=== PATIENT | female | born 1960 | race Two or more races ===

== ENCOUNTER → 2021-09-14 | Outpatient (CLI) | payer SELFPAY ==
[2021-09-09 15:00] VITALS: BP 126/81
[~2021-09-14] MED LIST: ATOR10TA60 PO; CETI10TA16 PO; FENT1PAT17 TD; LEVO125T5 PO; ONDA4TAB7 PO; OXYC1TAB15 PO
== END ==
LOC: LAB 09:39
PROVIDERS: ATTEND Surgery
DX: Z01.812 Encounter for preprocedural laboratory examination (principal); Z20.822 Contact with and (suspected) exposure to COVID-19
CPT/HCPCS: U0003; U0005

== ENCOUNTER → 2021-10-13 | Outpatient (CLI) | payer SELFPAY ==
[2021-10-05 11:00] VITALS: BP 101/66
[~2021-10-13] MED LIST changes: +CEFD300C PO; +DOXY100T PO
[2021-10-13 13:17] LABS: BASO # 0.1 x10^3/uL (0.0-0.2); BASO % 1 % (0-3); EOS # 0.3 x10^3/uL (0.0-0.7); EOS % 3 % (0-3); HEMATOCRIT 33.6 % (36.0-47.0); HEMOGLOBIN 10.9 g/dL (12.0-15.5); LYMPH # 3.4 x10^3/uL (1.0-4.8); LYMPH % 30 % (24-48); MEAN CORPUSCULAR HEMOGLOBIN 31 pg (25-35); MEAN CORPUSCULAR HGB CONC 32 g/dL (31-37); MEAN CORPUSCULAR VOLUME 97 fL (79-100); MONO # 0.8 x10^3/uL (0.0-1.1); MONO % 7 % (0-9); NEUT # 6.6 x10^3/uL (1.8-7.7); NEUT % 59 % (31-73); PLATELET COUNT 375 x10^3/uL (140-400); RED BLOOD COUNT 3.47 x10^6/uL (3.50-5.40); RED CELL DISTRIBUTION WIDTH 20.2 % (11.5-14.5); WHITE BLOOD COUNT 11.2 x10^3/uL (4.0-11.0)
[2021-10-13 13:43] LABS: ALBUMIN/GLOBULIN RATIO 0.5 (1.0-1.7); CALCIUM 8.6 mg/dL (8.5-10.1); CREATININE 0.8 mg/dL (0.6-1.0); GFR 73.4; POTASSIUM 3.4 mmol/L (3.5-5.1); TOTAL BILIRUBIN 1.7 mg/dL (0.2-1.0); TOTAL PROTEIN 8.6 g/dL (6.4-8.2)
[2021-10-13 14:46] LABS: ANISOCYTOSIS MOD; PLT ESTIMATE ADEQUATE (ADEQUATE)
== END ==
LOC: ONCLAB 13:03
PROVIDERS: ATTEND Internal Medicine Hematology & Oncology
DX: C25.0 Malignant neoplasm of head of pancreas (principal)
CPT/HCPCS: 36415; 80053; 85025; 86301

== ENCOUNTER 2021-11-05 06:31 | Day surgery (SDC) | payer SELFPAY ==
[~2021-11-05] VITALS: Ht 152.4 cm; Wt 60.0 kg
[~2021-11-05 06:31] MED LIST changes: +ACETAMINOPHEN 500 MG TABLET PO PRN; +HYDROmorphone 2 MG/ML INJ. IVP PRN; +IV RINGERS,LACTATED 1000ML 1,000 ML IV SCH; +MORPHINE SULFATE 2 MG/ML INJ. IVP PRN; +PROCHLORPERAZINE 10 MG/2 ML VIAL. IVP PRN; +ceFAZolin SODIUM IV Push 1 GM VIAL. IVP PRN; +fentaNYL PF VIAL 100 MCG/2 ML VIAL IVP PRN
[2021-11-05] MEDS ORDERED: DEXAMETHASONE SOD PHOS 4 MG/ML VIAL ONE (06:57)
[2021-11-05] MEDS ORDERED: ONDANSETRON PF 4 MG/2 ML VIAL. ONE (06:57)
[2021-11-05] MEDS ORDERED: PROPOFOL 10 MG/ML (20ML) VIAL. IV ONE ×2 (06:57→08:43)
[2021-11-05] MEDS ORDERED: LIDOCAINE 1% PF 5 ML VIAL. ONE (06:57)
[2021-11-05] MEDS ORDERED: fentaNYL PF VIAL 100 MCG/2 ML VIAL ONE ×2 (06:58→08:37)
[2021-11-05] MEDS ORDERED: ceFAZolin SODIUM IV Push 1 GM VIAL. IVP ONE (07:00)
[2021-11-05] MEDS ORDERED: HEPARIN PF 500 UNIT/5 ML DISP.SYRIN. IVP ONE ×3 (07:03→08:14)
[2021-11-05] MEDS ORDERED: HEPARIN for IV BOLUS 10,000 UNIT/10 ML VIAL. ONE (07:03)
[2021-11-05] MEDS ORDERED: BUPIVACAINE MPF 0.5% 30 ML VIAL. ONE (07:03)
[2021-11-05] MEDS ORDERED: BUPIVACAINE MPF 0.25% 30 ML VIAL. ONE ×3 (07:04→07:21)
[2021-11-05 07:06] VITALS: BP 97/57
[2021-11-05] MEDS ORDERED: BUPIVACAINE MPF 0.25% 30 ML VIAL. IJ ONE ×2 (08:14)
[2021-11-05] MEDS ORDERED: HEPARIN SODIUM 10,000 UNIT/10 ML VIAL. INT CAT ONE (08:14)
[2021-11-05] MEDS ORDERED: SUCCINYLCHOLINE 200 MG/10 ML VIAL. ONE (08:20)
[2021-11-05] MEDS ORDERED: ePHEDrine PF IN SALINE 50 MG/10 ML SYRINGE. IV ONE (08:20)
[2021-11-05] MEDS ORDERED: ROCURONIUM 50 MG/5 ML VIAL. ONE (08:26)
--- NOTE | 2021-11-05 08:45 | PDOC4 ---
Operative Note Operative Note Date: November 05, 2021 at 8:42 AM Preoperative diagnosis: Pancreatic cancer Postoperative diagnosis: Same Procedure: Left subclavian Port-A-Cath placement Surgeon: Corona Specimen: None Dictation: Patient is 61-year-old female recently underwent a Whipple procedure for pancreatic cancer is needing long-term venous access for chemotherapy. Procedure of Port-A-Cath placement was explained to the patient detail risk benefits were also discussed occluding bleeding infection pneumothorax alternatives to this procedure also discussed with the patient he seemed understand and gave both verbal and written consent to have the procedure performed. Patient was taken to the operating room placed in supine position general anesthesia was initiated once patient was sleeping intubated her neck and chest were prepped and draped in usual sterile fashion using ChloraPrep. An area on the left side was marked for the clavicle and sternal notch area in the deltopectoral groove was injected with quarter percent Marcaine plain incision was made 15 blade scalpel is carried down through the subcutaneous tissues electrocautery right hemostasis area was inspected looking for the cephalic vein was not visualized at this point tensions were then turned to using Salinger technique to access the subclavian vein which was done with a initially small needle it was accessed without any difficulties microwire was placed then the dilator was placed over the microwire and a regular Salinger wire was placed under fluoroscopy which showed a transversing to the right side of the chest and into the superior vena cava. Peel-away dilator was then placed over the wire under direct visualization the wire and dilator removed catheter was placed through the peel-away which was then removed this was checked under fluoroscopy which showed the catheter in the superior vena cava. Port was then placed on the back end of the catheter a pocket was propagated in the anterior chest with electrocautery and blunt dissection port was placed in this pocket and sewn into place with interrupted 3-0 Prolene sutures. The port was then accessed there was good blood return was easily flushed with hep saline and then it was hep- locked with 1 cc of 1000 units/cc of heparin. The wound was then closed in 2 layers a deep layer running 3-0 Vicryl and the skin was reapproximated for septic and Monocryl Mastisol Steri-Strips and island dressings were applied. Patient was awakened and extubated in the operating room taken to recovery in stable condition all sponge instrument needle counts listed as correct estimated blood loss 10 mL EDVIN MELENDEZ MD Nov 05, 2021 08:45
[2021-11-05] MEDS ORDERED: OXYC-325 PO (08:47)
--- NOTE | 2021-11-05 08:49 | DISCH ---
DISCHARGE INSTRUCTIONS Condition on Discharge Condition on Discharge: Stable Activity After Discharge Activity Instructions for Disc: Activity as tolerated, Walk in house Diet after Discharge Diet after Discharge: Regular Wound Incision Care Other wound/incision instructi: May shower in 24 hours Contacting the after DC Call your doctor for: If your condition worsens Follow-Up Follow up with: Dr. Melendez in 2 weeks Treatment/Equipment after DC Adaptive Equipment Issued: None EDVIN MELENDEZ MD Nov 05, 2021 08:49
[2021-11-05] MEDS ORDERED: oxyCODONE/APAP 5/325 1 TAB TABLET ONE (09:18)
[2021-11-05] MEDS ORDERED: oxyCODONE/APAP 5/325 1 TAB TABLET PO ONE (09:30)
[2021-11-05 09:40] VITALS: BP 115/50
[2021-11-05] MEDS ORDERED: PROCHLORPERAZINE 10 MG/2 ML VIAL. ONE (09:49)
--- NOTE | 2021-11-05 13:15 | RAD ---
Single view of the chest. 11/05/2021 9:10 AM Indication: Reason: POST OP PORT PLACEMENT / Spl. Instructions: / History: Comparison: Findings: There is a left subclavian port with catheter tip projecting over the proximal right atrium . No pneumothorax or pleural effusion is seen. Heart size is normal. No acute osseous changes are see n. IMPRESSION: 1. Left subclavian port 2. No evidence of acute cardiopulmonary process Electronically signed by: Edgard Wei MD (11/05/2021 1:13 PM) [id number]
== END 2021-11-05 10:17 | disposition home or self-care (01) ==
LOC: SURG 06:31
PROVIDERS: ATTEND Surgery
DX: Z45.2 Encounter for adjustment and management of vascular access device (principal); C25.9 Malignant neoplasm of pancreas, unspecified; E78.00 Pure hypercholesterolemia, unspecified; F32.9 Major depressive disorder, single episode, unspecified; Z90.49 Acquired absence of other specified parts of digestive tract; Z98.51 Tubal ligation status; Z98.890 Other specified postprocedural states; Z79.899 Other long term (current) drug therapy; Z87.891 Personal history of nicotine dependence; Z72.89 Other problems related to lifestyle
CPT/HCPCS: 36561; 71045; 77001; A4364; A4930; A6219; C1788; J0330; J0690; J0780; J1100; J1642; J1644; J2405; J2704; J3010; J3490; 76000; A4452; A4657

== ENCOUNTER → 2021-11-09 | Outpatient (CLI) | payer SELFPAY ==
[2021-11-05 09:40] VITALS: BP 115/50
[~2021-11-09] MED LIST changes: -ACETAMINOPHEN 500 MG TABLET PO PRN; -HYDROmorphone 2 MG/ML INJ. IVP PRN; -IV RINGERS,LACTATED 1000ML 1,000 ML IV SCH; -MORPHINE SULFATE 2 MG/ML INJ. IVP PRN; +OXYC-325 PO; -PROCHLORPERAZINE 10 MG/2 ML VIAL. IVP PRN; -ceFAZolin SODIUM IV Push 1 GM VIAL. IVP PRN; -fentaNYL PF VIAL 100 MCG/2 ML VIAL IVP PRN
[2021-11-09 09:22] LABS: BASO # 0.1 x10^3/uL (0.0-0.2); BASO % 1 % (0-3); EOS % 11 % (0-3); HEMATOCRIT 34.6 % (36.0-47.0); HEMOGLOBIN 11.3 g/dL (12.0-15.5); LYMPH # 3.6 x10^3/uL (1.0-4.8); LYMPH % 37 % (24-48); MEAN CORPUSCULAR HEMOGLOBIN 31 pg (25-35); MEAN CORPUSCULAR HGB CONC 33 g/dL (31-37); MEAN CORPUSCULAR VOLUME 94 fL (79-100); MONO # 0.4 x10^3/uL (0.0-1.1); MONO % 5 % (0-9); NEUT # 4.5 x10^3/uL (1.8-7.7); NEUT % 47 % (31-73); PLATELET COUNT 281 x10^3/uL (140-400); RED BLOOD COUNT 3.68 x10^6/uL (3.50-5.40); RED CELL DISTRIBUTION WIDTH 16.2 % (11.5-14.5); WHITE BLOOD COUNT 9.7 x10^3/uL (4.0-11.0)
[2021-11-09 09:32] LABS: CALCIUM 8.8 mg/dL (8.5-10.1); CREATININE 0.6 mg/dL (0.6-1.0); GFR 102.3; POTASSIUM 3.9 mmol/L (3.5-5.1)
[2021-11-09 09:38] LABS: ALBUMIN/GLOBULIN RATIO 0.6 (1.0-1.7); TOTAL BILIRUBIN 0.9 mg/dL (0.2-1.0); TOTAL PROTEIN 7.8 g/dL (6.4-8.2)
== END ==
LOC: ONCLAB 09:00
PROVIDERS: ATTEND Internal Medicine Hematology & Oncology
DX: C25.0 Malignant neoplasm of head of pancreas (principal)
CPT/HCPCS: 36415; 80053; 85025; 86301

== ENCOUNTER → 2021-11-16 | Outpatient (CLI) | payer SELFPAY ==
[2021-11-05 09:40] VITALS: BP 115/50
[2021-11-16 09:40] LABS: CALCIUM 8.7 mg/dL (8.5-10.1); CREATININE 0.7 mg/dL (0.6-1.0); GFR 85.6; POTASSIUM 3.9 mmol/L (3.5-5.1)
[2021-11-16 09:42] LABS: ALBUMIN 3.3 g/dL (3.4-5.0); ALBUMIN/GLOBULIN RATIO 0.7 (1.0-1.7); TOTAL BILIRUBIN 0.8 mg/dL (0.2-1.0); TOTAL PROTEIN 8.2 g/dL (6.4-8.2)
[2021-11-16 10:15] LABS: BASO % 0 % (0-3); EOS # 0.4 x10^3/uL (0.0-0.7); EOS % 5 % (0-3); HEMATOCRIT 37.8 % (36.0-47.0); HEMOGLOBIN 12.3 g/dL (12.0-15.5); LYMPH # 2.3 x10^3/uL (1.0-4.8); LYMPH % 32 % (24-48); MEAN CORPUSCULAR HEMOGLOBIN 30 pg (25-35); MEAN CORPUSCULAR HGB CONC 33 g/dL (31-37); MEAN CORPUSCULAR VOLUME 93 fL (79-100); MONO # 0.1 x10^3/uL (0.0-1.1); MONO % 1 % (0-9); NEUT # 4.3 x10^3/uL (1.8-7.7); NEUT % 61 % (31-73); PLATELET COUNT 203 x10^3/uL (140-400); RED BLOOD COUNT 4.04 x10^6/uL (3.50-5.40)
== END ==
LOC: ONCLAB 09:08
PROVIDERS: ATTEND Internal Medicine Hematology & Oncology
DX: C25.0 Malignant neoplasm of head of pancreas (principal)
CPT/HCPCS: 36415; 80053; 83735; 85025

== ENCOUNTER → 2021-11-27 | Outpatient (CLI) | payer SELFPAY ==
[2021-11-24 15:00] VITALS: BP 101/66
[~2021-11-27] MED LIST changes: +OXYC5TAB4 PO
[2021-11-27 10:28] LABS: BASO % 0 % (0-3); EOS # 0.1 x10^3/uL (0.0-0.7); EOS % 4 % (0-3); HEMOGLOBIN 10.8 g/dL (12.0-15.5); LYMPH # 1.7 x10^3/uL (1.0-4.8); LYMPH % 49 % (24-48); MEAN CORPUSCULAR HEMOGLOBIN 30 pg (25-35); MEAN CORPUSCULAR HGB CONC 32 g/dL (31-37); MEAN CORPUSCULAR VOLUME 92 fL (79-100); MONO # 0.4 x10^3/uL (0.0-1.1); MONO % 11 % (0-9); NEUT # 1.2 x10^3/uL (1.8-7.7); NEUT % 36 % (31-73); PLATELET COUNT 253 x10^3/uL (140-400); RED BLOOD COUNT 3.68 x10^6/uL (3.50-5.40); RED CELL DISTRIBUTION WIDTH 15.6 % (11.5-14.5); WHITE BLOOD COUNT 3.4 x10^3/uL (4.0-11.0)
[2021-11-27 10:35] LABS: CALCIUM 8.4 mg/dL (8.5-10.1); CREATININE 0.6 mg/dL (0.6-1.0); GFR 102.3; POTASSIUM 3.5 mmol/L (3.5-5.1)
[2021-11-27 10:40] LABS: ALBUMIN 2.9 g/dL (3.4-5.0); ALBUMIN/GLOBULIN RATIO 0.7 (1.0-1.7); MAGNESIUM 1.6 mg/dL (1.8-2.4); TOTAL BILIRUBIN 0.4 mg/dL (0.2-1.0); TOTAL PROTEIN 7.1 g/dL (6.4-8.2)
== END ==
LOC: ONCLAB 09:56
PROVIDERS: ATTEND Physician Assistant
DX: C25.0 Malignant neoplasm of head of pancreas (principal)
CPT/HCPCS: 36415; 80053; 83735; 85025

== ENCOUNTER → 2021-11-30 | Outpatient (CLI) | payer SELFPAY ==
[2021-11-24 15:00] VITALS: BP 101/66
[2021-11-30 10:02] LABS: BASO % 0 % (0-3); EOS # 0.2 x10^3/uL (0.0-0.7); EOS % 1 % (0-3); HEMATOCRIT 33.7 % (36.0-47.0); HEMOGLOBIN 10.9 g/dL (12.0-15.5); LYMPH # 3.6 x10^3/uL (1.0-4.8); LYMPH % 22 % (24-48); MEAN CORPUSCULAR HEMOGLOBIN 30 pg (25-35); MEAN CORPUSCULAR HGB CONC 32 g/dL (31-37); MEAN CORPUSCULAR VOLUME 93 fL (79-100); MONO # 0.7 x10^3/uL (0.0-1.1); MONO % 5 % (0-9); NEUT # 11.6 x10^3/uL (1.8-7.7); NEUT % 72 % (31-73); PLATELET COUNT 307 x10^3/uL (140-400); RED BLOOD COUNT 3.65 x10^6/uL (3.50-5.40); RED CELL DISTRIBUTION WIDTH 15.9 % (11.5-14.5); WHITE BLOOD COUNT 16.2 x10^3/uL (4.0-11.0)
[2021-11-30 10:08] LABS: CALCIUM 8.1 mg/dL (8.5-10.1); CREATININE 0.7 mg/dL (0.6-1.0); GFR 85.6; POTASSIUM 3.7 mmol/L (3.5-5.1)
[2021-11-30 10:14] LABS: ALBUMIN 2.9 g/dL (3.4-5.0); ALBUMIN/GLOBULIN RATIO 0.7 (1.0-1.7); TOTAL BILIRUBIN 0.4 mg/dL (0.2-1.0); TOTAL PROTEIN 6.9 g/dL (6.4-8.2)
== END ==
LOC: ONCLAB 09:24
PROVIDERS: ATTEND Internal Medicine Hematology & Oncology
DX: C25.0 Malignant neoplasm of head of pancreas (principal)
CPT/HCPCS: 36415; 80053; 85025

== ENCOUNTER → 2021-12-07 | Outpatient (CLI) | payer SELFPAY ==
[2021-11-24 15:00] VITALS: BP 101/66
[2021-12-07 10:59] LABS: CALCIUM 8.6 mg/dL (8.5-10.1); CREATININE 0.7 mg/dL (0.6-1.0); GFR 85.6; POTASSIUM 3.6 mmol/L (3.5-5.1)
[2021-12-07 11:07] LABS: ALBUMIN 3.2 g/dL (3.4-5.0); ALBUMIN/GLOBULIN RATIO 0.7 (1.0-1.7); TOTAL BILIRUBIN 0.7 mg/dL (0.2-1.0); TOTAL PROTEIN 7.5 g/dL (6.4-8.2)
[2021-12-07 11:09] LABS: BASO % 0 % (0-3); EOS # 0.1 x10^3/uL (0.0-0.7); EOS % 2 % (0-3); HEMATOCRIT 36.1 % (36.0-47.0); HEMOGLOBIN 11.7 g/dL (12.0-15.5); LYMPH % 48 % (24-48); MEAN CORPUSCULAR HEMOGLOBIN 30 pg (25-35); MEAN CORPUSCULAR HGB CONC 32 g/dL (31-37); MEAN CORPUSCULAR VOLUME 92 fL (79-100); MONO # 0.2 x10^3/uL (0.0-1.1); MONO % 3 % (0-9); NEUT # 2.9 x10^3/uL (1.8-7.7); NEUT % 46 % (31-73); PLATELET COUNT 124 x10^3/uL (140-400); RED BLOOD COUNT 3.91 x10^6/uL (3.50-5.40); RED CELL DISTRIBUTION WIDTH 15.2 % (11.5-14.5); WHITE BLOOD COUNT 6.3 x10^3/uL (4.0-11.0)
[2021-12-07 11:57] LABS: % BANDS 17 % (0-9); % EOS 3 % (0-5); % LYMPHS 44 % (24-48); % METAS 6 % (0-0); % MONOS 3 % (0-10); % SEGS 27 % (35-66); PLT ESTIMATE DECREASED (ADEQUATE)
== END ==
LOC: ONCLAB 10:15
PROVIDERS: ATTEND Internal Medicine Hematology & Oncology
DX: C25.0 Malignant neoplasm of head of pancreas (principal)
CPT/HCPCS: 36415; 80053; 85007; 85025

== ENCOUNTER 2021-12-09 06:24 | Inpatient (IN) | payer SELFPAY ==
[~2021-12-09] VITALS: Ht 157.5 cm; Wt 54.4 kg
--- NOTE | 2021-12-09 06:54 | ED.ADGEN ---
Past Medical History Past Medical History: Cancer Additional Past Medical Histor: Pancreatic Cancer Past Surgical History: Cholecystectomy Additional Past Surgical Histo: Whipple procedure Past Surgical History Colon resection Smoking Status: Former Smoker Alcohol Use: Rarely General Adult EDM: Chief Complaint: ABDOMINAL PAIN HPI: HPI: Patient is a 61-year-old female who arrives ambulatory to the emergency department complaining of lower abdominal pain. Patient reports that she developed this lower abdominal pain on of last week. Patient reports it was very minimal at that time and has gotten steadily worse. Patient describes her pain as sharp and nonradiating she points to the region below her umbilicus. Patient states she had some nausea yesterday however she is not had any vomiting or diarrhea. Patient further denies any history of fevers or dysuria. Additionally she denies any bleeding or discharge. Patient does have a history of pancreatic cancer and takes chemotherapy every 2 weeks with her last treatment being last week. She is awake, alert and uncomfortable. Review of Systems: Review of Systems: Constitutional: Denies fever or chills. [] Eyes: Denies change in visual acuity. [] HENT: Denies nasal congestion or sore throat. [] Respiratory: Denies cough or shortness of breath. [] Cardiovascular: Denies chest pain or edema. [] GI: Reports nausea with abdominal pain. Denies vomiting, bloody stools or diarrhea. [] : Denies dysuria. [] Musculoskeletal: Denies back pain or joint pain. [] Integument: Denies rash. [] Neurologic: Denies headache, focal weakness or sensory changes. [] Endocrine: Denies polyuria or polydipsia. [] Lymphatic: Denies swollen glands. [] Psychiatric: Denies depression or anxiety. [] Current Medications: Current Medications Medications (Trade) Dose Ordered Sig/Mague Start Time Stop Time Status Last Admin Dose Admin Info (CONTRAST GIVEN -- Rx MONITORING) 1 each PRN DAILY PRN 12/09/21 08:00 12/11/21 07:59 Iohexol (Omnipaque 300 Mg/ml) 75 ml 1X ONCE 12/09/21 08:00 12/09/21 08:01 DC 12/09/21 08:03 75 ML Morphine Sulfate (Morphine Sulfate) 4 mg PRN Q2HR PRN 12/09/21 09:15 12/10/21 09:14 UNV Ondansetron HCl (Zofran) 4 mg PRN Q8HRS PRN 12/09/21 09:15 12/10/21 09:14 UNV Allergies: Allergies: Allergies Coded Allergies Type Severity Reaction Last Updated Verified No Known Drug Allergies 12/09/21 No Physical Exam: PE: Constitutional: Uncomfortable appearing. Well developed, well nourished, non- toxic appearance. [] HENT: Normocephalic, atraumatic, bilateral external ears normal, oropharynx moist, no oral exudates, nose normal. [] Eyes: PERRLA, EOMI, conjunctiva normal, no discharge. [] Neck: Normal range of motion, no tenderness, supple, no stridor. [] Cardiovascular:Heart rate regular rhythm, no murmur [] Lungs & Thorax: Bilateral breath sounds clear to auscultation [] Abdomen: Tenderness to palpation of the lower abdomen. Bowel sounds normal, soft, no masses, no pulsatile masses. [] Skin: Warm, dry, no erythema, no rash. [] Back: No tenderness, no CVA tenderness. [] Extremities: No tenderness, no cyanosis, no clubbing, ROM intact, no edema. [] Neurologic: Alert and oriented X 3, normal motor function, normal sensory function, no focal deficits noted. [] Psychologic: Affect normal, judgement normal, mood normal. [] Current Patient Data: Labs: Laboratory Tests Test 12/09/21 06:55 White Blood Count 4.8 x10^3/uL (4.0-11.0) Red Blood Count 3.63 x10^6/uL (3.50-5.40) Hemoglobin 11.2 g/dL (12.0-15.5) L Hematocrit 33.2 % (36.0-47.0) L Mean Corpuscular Volume 92 fL (79-100) Mean Corpuscular Hemoglobin 31 pg (25-35) Mean Corpuscular Hemoglobin Concent 34 g/dL (31-37) Red Cell Distribution Width 15.3 % (11.5-14.5) H Platelet Count 126 x10^3/uL (140-400) L Neutrophils (%) (Auto) 29 % (31-73) L Lymphocytes (%) (Auto) 52 % (24-48) H Monocytes (%) (Auto) 17 % (0-9) H Eosinophils (%) (Auto) 2 % (0-3) Basophils (%) (Auto) 1 % (0-3) Neutrophils # (Auto) 1.4 x10^3/uL (1.8-7.7) L Lymphocytes # (Auto) 2.5 x10^3/uL (1.0-4.8) Monocytes # (Auto) 0.8 x10^3/uL (0.0-1.1) Eosinophils # (Auto) 0.1 x10^3/uL (0.0-0.7) Basophils # (Auto) 0.0 x10^3/uL (0.0-0.2) Segmented Neutrophils % 24 % (35-66) L Band Neutrophils % 4 % (0-9) Lymphocytes % 62 % (24-48) H Atypical Lymphocytes % (Manual) 1 % (0-0) H Monocytes % 7 % (0-10) Myelocytes % 2 % (0-0) H Platelet Estimate Adequate (ADEQUATE) Sodium Level 141 mmol/L (136-145) Potassium Level 3.3 mmol/L (3.5-5.1) L Chloride Level 103 mmol/L (98-107) Carbon Dioxide Level 26 mmol/L (21-32) Anion Gap 12 (6-14) Blood Urea Nitrogen 2 mg/dL (7-20) L Creatinine 0.7 mg/dL (0.6-1.0) Estimated GFR (Cockcroft-Gault) 85.6 Glucose Level 106 mg/dL (70-99) H Calcium Level 8.3 mg/dL (8.5-10.1) L Laboratory Tests 12/09/21 06:55 Laboratory Tests 12/09/21 06:55 Vital Signs: Vital Signs Date Time Temp Pulse Resp B/P (MAP) Pulse Ox O2 Delivery O2 Flow Rate FiO2 12/09/21 07:01 20 100 Room Air 12/09/21 06:45 97.9 93 106/68 (81) 97.9 EKG: EKG: [] Heart Score: C/O Chest Pain: N/A Risk Factors: Risk Factors: DM, Current or recent (<one month) smoker, HTN, HLP, family history of CAD, obesity. Risk Scores: Score 0 - 3: 2.5% MACE over next 6 weeks - Discharge Home Score 4 - 6: 20.3% MACE over next 6 weeks - Admit for Clinical Observation Score 7 - 10: 72.7% MACE over next 6 weeks - Early Invasive Strategies Radiology/Procedures: Radiology/Procedures: [][facility] [address] [place] [address] IMAGING REPORT Signed PATIENT: MINERVA HOOD CACCOUNT: [id number] : 1960 LOCATION: ER AGE: 61 SEX: F EXAM STATUS: REG ER ORD. PHYSICIAN: VINCENT FERNANDEZ DO REASON: Lower abdominal pain PROCEDURE: CT ABD PELV W/ IV CONTRST ONLY INDICATION: Reason: Lower abdominal pain / Spl. Instructions: omni 300 75ml / History: COMPARISON: November 19, 2021 TECHNIQUE: Axial CT images were obtained through the abdomen and pelvis with intravenous contrast. One or more of the following individualized dose reduction techniques were utilized for this examination: 1. Automated exposure control; 2. Adjustment of the mA and/or kV according to patient size; 3. Use of iterative reconstruction technique. FINDINGS: Linear opacity right lung base could be from atelectasis. Calcified granuloma at chest base. Vascular: Vascular catheter is seen with the tip near the inferior atriocaval junction. Scattered atherosclerotic disease. Hepatobiliary: Liver appears mildly low density. Can be seen with fatty infiltration. Small amount of pneumobilia. Suspected small low-density lesion within the right lobe the liver laterally versus artifact measuring approximately 10 mm. Fluid is seen adjacent to the liver and appears increased from prior and partially loculated. Fluid is also seen tracking within the right pericolic gutter. Questionable residual tiny josue of free air in the right upper quadrant along the patient's previously seen drain tract but appear similar to prior. Pancreas: Partial pancreatic resection. Spleen: Spleen unremarkable. Renal/Bladder: Urinary bladder is decompressed which limits evaluation. There is adjacent free fluid within the pelvis. No hydronephrosis. Gastrointestinal: Postoperative changes to the bowel with anastomosis of the large and small bowel seen within the right lower quadrant. There is liquid stool seen throughout the colon. There is some wall thickening of the small bowel abutting this site. There is also some wall thickening of the stomach at the anastomosis in the upper abdomen. Edema of mesenteric fat. Degenerative changes spine. IMPRESSION: * Subcapsular fluid at the liver as well as free fluid within the abdomen and pelvis which overall appears increased from prior and partially loculated. Would correlate with infectious symptoms since CT cannot differentiate between infectious and sterile fluid collection in the presence of partially loculated fluid. There is some subtle regions of enhancement along the peritoneum at the region of fluid which could be infectious or inflammatory in nature with asso ciated inflammation of peritoneum * Postoperative changes to the bowel with wall thickening of the small bowel as well as stomach at the anastomosis. Could be edema related to the patient's surgery or secondary to a superimposed enteritis and gastritis abutting the anastomosis. Electronically signed by: Ozzy Henry MD (12/09/2021 8:31 AM) [id number] DICTATED and SIGNED BY: OZZY HENRY MD DATE: 12/09/21 [id number] 0 Course & Med Decision Making: Course & Med Decision Making Pertinent Labs and Imaging studies reviewed. (See chart for details) [] Dragon Disclaimer: Miracle Disclaimer: This electronic medical record was generated, in whole or in part, using a voice recognition dictation system. Departure Departure Impression: Primary Impression: Abdominal pain Additional Impressions: Pancreatic cancer Thrombocytopenia Disposition: 09 ADMITTED INPATIENT Admitting Physician: HIMS Condition: STABLE Referrals: NO PCP (PCP) Problem Qualifiers VINCENT FERNANDEZ DO Dec 09, 2021 06:54
[2021-12-09] MEDS ORDERED: MORPHINE SULFATE 4 MG/ML INJ. IVP ONE (07:00)
[2021-12-09] MEDS ORDERED: ONDANSETRON PF 4 MG/2 ML VIAL. IVP ONE (07:00)
[2021-12-09 07:05] LABS: BASO % 1 % (0-3); EOS # 0.1 x10^3/uL (0.0-0.7); EOS % 2 % (0-3); HEMATOCRIT 33.2 % (36.0-47.0); HEMOGLOBIN 11.2 g/dL (12.0-15.5); LYMPH # 2.5 x10^3/uL (1.0-4.8); LYMPH % 52 % (24-48); MEAN CORPUSCULAR HEMOGLOBIN 31 pg (25-35); MEAN CORPUSCULAR HGB CONC 34 g/dL (31-37); MEAN CORPUSCULAR VOLUME 92 fL (79-100); MONO # 0.8 x10^3/uL (0.0-1.1); MONO % 17 % (0-9); NEUT # 1.4 x10^3/uL (1.8-7.7); NEUT % 29 % (31-73); PLATELET COUNT 126 x10^3/uL (140-400); RED BLOOD COUNT 3.63 x10^6/uL (3.50-5.40); RED CELL DISTRIBUTION WIDTH 15.3 % (11.5-14.5); WHITE BLOOD COUNT 4.8 x10^3/uL (4.0-11.0)
[2021-12-09 07:16] LABS: CALCIUM 8.3 mg/dL (8.5-10.1); CREATININE 0.7 mg/dL (0.6-1.0); GFR 85.6; POTASSIUM 3.3 mmol/L (3.5-5.1)
[2021-12-09] MEDS ORDERED: CONTRAST GIVEN. MC PRN (08:00)
[2021-12-09] MEDS ORDERED: IOHEXOL 300 MG/ML 100ML VIAL. IV ONE (08:00)
--- NOTE | 2021-12-09 08:33 | RAD ---
INDICATION: Reason: Lower abdominal pain / Spl. Instructions: omni 300 75ml / History: COMPARISON: November 19, 2021 TECHNIQUE: Axial CT images were obtained through the abdomen and pelvis with intravenous contrast. One or more of the following individualized dose reduction techniques were utilized for this examinat ion: 1. Automated exposure control; 2. Adjustment of the mA and/or kV according to patient size; 3 . Use of iterative reconstruction technique. FINDINGS: Linear opacity right lung base could be from atelectasis. Calcified granuloma at chest base. Vascular: Vascular catheter is seen with the tip near the inferior atriocaval junction. Scattered ath erosclerotic disease. Hepatobiliary: Liver appears mildly low density. Can be seen with fatty infiltration. Small amount of pneumobilia. Suspected small low-density lesion within the right lobe the liver laterally versus art ifact measuring approximately 10 mm. Fluid is seen adjacent to the liver and appears increased from p rior and partially loculated. Fluid is also seen tracking within the right pericolic gutter. Question able residual tiny josue of free air in the right upper quadrant along the patient's previously seen drain tract but appear similar to prior. Pancreas: Partial pancreatic resection. Spleen: Spleen unremarkable. Renal/Bladder: Urinary bladder is decompressed which limits evaluation. There is adjacent free fluid within the pelvis. No hydronephrosis. Gastrointestinal: Postoperative changes to the bowel with anastomosis of the large and small bowel se en within the right lower quadrant. There is liquid stool seen throughout the colon. There is some wa ll thickening of the small bowel abutting this site. There is also some wall thickening of the stomac h at the anastomosis in the upper abdomen. Edema of mesenteric fat. Degenerative changes spine. IMPRESSION: * Subcapsular fluid at the liver as well as free fluid within the abdomen and pelvis which overall appears increased from prior and partially loculated. Would correlate with infectious symptoms since CT cannot differentiate between infectious and sterile fluid collection in the presence of partially loculated fluid. There is some subtle regions of enhancement along the peritoneum at the region of fl uid which could be infectious or inflammatory in nature with associated inflammation of peritoneum * Postoperative changes to the bowel with wall thickening of the small bowel as well as stomach at t he anastomosis. Could be edema related to the patient's surgery or secondary to a superimposed enteri tis and gastritis abutting the anastomosis. Electronically signed by: Teto Henry MD (12/09/2021 8:31 AM) [id number]
[2021-12-09 09:00] LABS: % ATYL 1 % (0-0); % BANDS 4 % (0-9); % LYMPHS 62 % (24-48); % MONOS 7 % (0-10); % MYELOS 2 % (0-0); % SEGS 24 % (35-66); PLT ESTIMATE ADEQUATE (ADEQUATE)
[2021-12-09] MEDS ORDERED: ONDANSETRON PF 4 MG/2 ML VIAL. IVP PRN (09:15)
[2021-12-09 09:30] LABS: BILIRUBIN,URINE NEGATIVE (NEG); CLARITY,URINE CLEAR; COLOR,URINE YELLOW; NITRITE,URINE NEGATIVE (NEG); PH,URINE 6.5 (<5.0-8.0); PROTEIN,URINE NEGATIVE (NEG-TRACE); UROBILINOGEN,URINE 0.2 mg/dL (0.2 mg/dL)
[2021-12-09 09:41] LABS: BACTERIA,URINE FEW /HPF (0-FEW)
[2021-12-09] MEDS ORDERED: ELECTROLYTE (NON-ICU) PROTOCOL. MC PRN (12:30)
[2021-12-09] MEDS ORDERED: MORPHINE SULFATE 2 MG/ML INJ. IV PRN (12:30)
[2021-12-09] MEDS ORDERED: ZOLPIDEM 5 MG TABLET. PO PRN (12:30)
[2021-12-09] MEDS ORDERED: ACETAMINOPHEN 325 MG TABLET. PO PRN (12:30)
[2021-12-09] MEDS: MORPHINE SULFATE 2 MG/ML INJ. IV PRN (13:17)
[2021-12-09] MEDS: cefTRIAXone IV Push 1 GM VIAL. IVP SCH (13:18)
--- NOTE | 2021-12-09 13:53 | PDOC2 ---
GI CONSULT Date of Service: DATE: 12/09/21 TIME: 13:50 Reason For Consult: abd pain, free fluid in abd, ?SBP HPI: HPI: 61 y/o Barbadian-speaking female who we've seen in the past. Metastatic pancreatic cancer s/p Whipple in 08/2021 on chemo every 15 days (last Tue11/30/21). Hospitalized earlier this month w/ possible SBO/ileus/enteritis. Similar symptoms now but less severe. History from significant other . To ER today w/ increasing lower abdominal pain and bloating. Pain is worse during stooling. Feels "something moving." Vomited a chocolate shake on Tuesday. Unable to eat much in general (early satiety, nausea). Alternating/irregular bowel habits - diarrhea after chemo, then no stools for a couple days after Imodium, then some small soft stools - last stooled yesterday. Normal colonoscopy 15 years ago at . S/p cholecystectomy (no stones) prior to Whipple. On PPI, anti-emetics, and Percocet PRN (half a pill sometimes). PMH: PMH: see HPI HLD, hypothyroidism, UTI FH: Family History: No pertinent hx Social History: Smoke: Quit ALCOHOL: occassional Drugs: None ROS: GEN: Denies fevers, chills, sweats HEENT: Denies blurred vision, sore throat CV: Denies chest pain RESP: Denies shortness of air, cough GI: Per HPI : Denies hematuria, dysuria ENDO: +weight loss NEURO: Denies confusion, dizziness MSK: +weakness SKIN: Denies jaundice, pruritus Vitals: Vitals: Vital Signs Date Time Temp Pulse Resp B/P (MAP) Pulse Ox O2 Delivery O2 Flow Rate FiO2 12/09/21 13:17 Room Air 12/09/21 07:01 20 100 12/09/21 06:45 97.9 93 106/68 (81) 97.9 Labs: Labs: Laboratory Tests Test 12/09/21 06:55 12/09/21 09:20 12/09/21 11:28 White Blood Count 4.8 x10^3/uL (4.0-11.0) Red Blood Count 3.63 x10^6/uL (3.50-5.40) Hemoglobin 11.2 g/dL (12.0-15.5) Hematocrit 33.2 % (36.0-47.0) Mean Corpuscular Volume 92 fL (79-100) Mean Corpuscular Hemoglobin 31 pg (25-35) Mean Corpuscular Hemoglobin Concent 34 g/dL (31-37) Red Cell Distribution Width 15.3 % (11.5-14.5) Platelet Count 126 x10^3/uL (140-400) Neutrophils (%) (Auto) 29 % (31-73) Lymphocytes (%) (Auto) 52 % (24-48) Monocytes (%) (Auto) 17 % (0-9) Eosinophils (%) (Auto) 2 % (0-3) Basophils (%) (Auto) 1 % (0-3) Neutrophils # (Auto) 1.4 x10^3/uL (1.8-7.7) Lymphocytes # (Auto) 2.5 x10^3/uL (1.0-4.8) Monocytes # (Auto) 0.8 x10^3/uL (0.0-1.1) Eosinophils # (Auto) 0.1 x10^3/uL (0.0-0.7) Basophils # (Auto) 0.0 x10^3/uL (0.0-0.2) Segmented Neutrophils % 24 % (35-66) Band Neutrophils % 4 % (0-9) Lymphocytes % 62 % (24-48) Atypical Lymphocytes % (Manual) 1 % (0-0) Monocytes % 7 % (0-10) Myelocytes % 2 % (0-0) Platelet Estimate Adequate (ADEQUATE) Sodium Level 141 mmol/L (136-145) Potassium Level 3.3 mmol/L (3.5-5.1) Chloride Level 103 mmol/L (98-107) Carbon Dioxide Level 26 mmol/L (21-32) Anion Gap 12 (6-14) Blood Urea Nitrogen 2 mg/dL (7-20) Creatinine 0.7 mg/dL (0.6-1.0) Estimated GFR (Cockcroft-Gault) 85.6 Glucose Level 106 mg/dL (70-99) Calcium Level 8.3 mg/dL (8.5-10.1) Urine Collection Type Unknown Urine Color Yellow Urine Clarity Clear Urine pH 6.5 (<5.0-8.0) Urine Specific [place] 1.010 (1.000-1.030) Urine Protein Negative mg/dL (NEG-TRACE) Urine Glucose (UA) Negative mg/dL (NEG) Urine Ketones (Stick) Negative mg/dL (NEG) Urine Blood Small (NEG) Urine Nitrite Negative (NEG) Urine Bilirubin Negative (NEG) Urine Urobilinogen Dipstick 0.2 mg/dL (0.2 mg/dL) Urine Leukocyte Esterase Trace (NEG) Urine RBC 6-10 /HPF (0-2) Urine WBC 1-4 /HPF (0-4) Urine Squamous Epithelial Cells Many /LPF Urine Bacteria Few /HPF (0-FEW) SARS-CoV-2 Antigen (Rapid) Negative (NEGATIVE) Allergies: Coded Allergies: No Known Drug Allergies (Unverified , 12/09/21) Medications: Current Medications Medications (Trade) Dose Ordered Sig/Mague Route PRN Reason Start Time Stop Time Status Last Admin Dose Admin Ondansetron HCl (Zofran) 4 mg 1X ONCE IVP 12/09/21 07:00 12/09/21 07:01 DC 12/09/21 07:02 Morphine Sulfate (Morphine Sulfate) 4 mg 1X ONCE IVP 12/09/21 07:00 12/09/21 07:01 DC 12/09/21 07:01 Iohexol (Omnipaque 300 Mg/ml) 75 ml 1X ONCE IV 12/09/21 08:00 12/09/21 08:01 DC 12/09/21 08:03 Ceftriaxone Sodium (Rocephin) 1 gm Q24H IVP 12/09/21 13:00 12/09/21 13:18 Morphine Sulfate (Morphine Sulfate) 2 mg PRN Q1HR PRN IV PAIN 12/09/21 12:30 12/09/21 13:17 Imaging: Imaging: CT A/P IMPRESSION: * Subcapsular fluid at the liver as well as free fluid within the abdomen and pelvis which overall appears increased from prior and partially loculated. Would correlate with infectious symptoms since CT cannot differentiate between infectious and sterile fluid collection in the presence of partially loculated fluid. There is some subtle regions of enhancement along the peritoneum at the region of fluid which could be infectious or inflammatory in nature with associated inflammation of peritoneum * Postoperative changes to the bowel with wall thickening of the small bowel as well as stomach at the anastomosis. Could be edema related to the patient's surgery or secondary to a superimposed enteritis and gastritis abutting the anastomosis. PE: GEN: NAD HEENT: Atraumatic, PERRL LUNGS: CTAB HEART: RRR ABD: healed incisions, mild distention, mild discomfort across lower abdomen, quiet BS EXTREMITY: No edema SKIN: No rashes, no jaundice NEURO/PSYCH: A & O 3, speaks Barbadian A/P: A/P: Lower abdominal discomfort Metastatic pancreatic cancer s/p Whipple on chemo Abnormal CT - subcapsular fluid at the liver, free fluid within the abdomen and pelvis which overall appears increased from prior and partially loculated (infectious?), subtle regions of enhancement along peritoneum, wall thickening of SB and stomach at anastomosis Recent UTI, rapid COVID negative -- D/w Dr. Garza who recommends surgery opinion (?possible leak) and IR opinion for possible paracentesis. D/w Dr. Chavira - started atbx. ROGERS POLANCO Dec 09, 2021 13:53
--- NOTE | 2021-12-09 14:15 | PDOC1 ---
History and Physical Date of Service: DOS: DATE: 12/09/21 TIME: 14:03 Chief Complaint: Chief Complain: abdominal pain History of Present Illness: HPI: Patient is a 61-year-old female presented emergency room this morning due to lower abdominal pain. Patient well-known to the service has a history of pancreatic cancer frequently admitted for abdominal pain. Says the pain started mid last week and has been getting worse since then. Reports having some nausea but no vomiting diarrhea. Says the pain is really located in between her right and left lower quadrants below the umbilicus. No bloody bowel movements or hematemesis. Patient has history of pancreatic cancer on active chemo. Follows here with oncology team receives chemo every other week. Most recent was last week. In the emergency room work-up showed some increased fluid collections in her abdomen. Lab work overall pretty unremarkable other than hypokalemia. Admitted for further work-up. Past Medical/Surgical History: PMH/PSH: Pancreatic cancer on active chemo Allergies: Allergies: Coded Allergies: No Known Drug Allergies (Unverified , 12/09/21) Family History: Family History: Hypertension Social History: Social History: Denies alcohol tobacco drug use Current Medications: Current Medications Current Medications Ondansetron HCl (Zofran) 4 mg 1X ONCE IVP Last administered on 12/09/21at 07:02; Start 12/09/21 at 07:00; Stop 12/09/21 at 07:01; Status DC Morphine Sulfate (Morphine Sulfate) 4 mg 1X ONCE IVP Last administered on 12/09/21at 07:01; Start 12/09/21 at 07:00; Stop 12/09/21 at 07:01; Status DC Iohexol (Omnipaque 300 Mg/ml) 75 ml 1X ONCE IV Last administered on 12/09/21at 08:03; Start 12/09/21 at 08:00; Stop 12/09/21 at 08:01; Status DC Info (CONTRAST GIVEN -- Rx MONITORING) 1 each PRN DAILY PRN MC SEE COMMENTS; Start 12/09/21 at 08:00; Stop 12/11/21 at 07:59 Ondansetron HCl (Zofran) 4 mg PRN Q8HRS PRN IVP NAUSEA/VOMITING; Start 12/09/21 at 09:15; Stop 12/10/21 at 09:14 Morphine Sulfate (Morphine Sulfate) 4 mg PRN Q2HR PRN IVP PAIN; Start 12/09/21 at 09:15; Stop 12/10/21 at 09:14 Ceftriaxone Sodium (Rocephin) 1 gm Q24H IVP Last administered on 12/09/21at 13:18; Start 12/09/21 at 13:00 Ondansetron HCl (Zofran) 4 mg PRN Q6HRS PRN IVP NAUSEA/VOMITING; Start 12/09/21 at 12:30 Prochlorperazine Edisylate (Compazine) 10 mg PRN Q6HRS PRN IVP NAUSEA/VOMITING; Start 12/09/21 at 12:30 Calcium Carbonate/ Glycine (Tums) 500 mg PRN Q3HRS PRN PO UPSET STOMACH; Start 12/09/21 at 12:30 Zolpidem Tartrate (Ambien) 5 mg PRN QHS PRN PO INSOMNIA, MAY REPEAT IN 1HR; Start 12/09/21 at 12:30 Info (Non-Icu Electrolyte Protocol) 1 ea PRN DAILY PRN MC SEE COMMENTS; Start 12/09/21 at 12:30 Morphine Sulfate (Morphine Sulfate) 1 mg PRN Q1HR PRN IV PAIN; Start 12/09/21 at 12:30 Morphine Sulfate (Morphine Sulfate) 2 mg PRN Q1HR PRN IV PAIN Last administered on 12/09/21at 13:17; Start 12/09/21 at 12:30 Acetaminophen (Tylenol) 650 mg PRN Q6HRS PRN PO Headaches, Temp > 101.5F; Start 12/09/21 at 12:30 Senna/Docusate Sodium (Senna Plus) 1 tab BID PO ; Start 12/09/21 at 21:00 Heparin Sodium (Porcine) (Heparin Sodium) 5,000 unit Q8HRS SQ ; Start 12/09/21 at 14:00 Active Scripts Active Oxycodone Hcl Immed.release (Oxycodone Hcl) 5 Mg Tablet 10 Mg PO PRN Q6HRS PRN 10 Days FENTANYL 50mcg/hr (Fentanyl) 1 Each Patch.td72 1 Patch TD Q3DAYS 14 Days Zofran (Ondansetron Hcl) 4 Mg Tablet 1 Tab PO Q6HRS Reported Atorvastatin Calcium 10 Mg Tablet 1 Tab PO DAILY Levothyroxine Sodium 125 Mcg Tablet 1 Tab PO DAILY ROS: Review of Systems Review of System Unless noted in HPI 14 point review systems was negative Physical Exam: Vital Signs: Vital Signs Date Time Temp Pulse Resp B/P (MAP) Pulse Ox O2 Delivery O2 Flow Rate FiO2 12/09/21 13:29 100 103/70 (81) 100 Room Air 12/09/21 07:35 15 12/09/21 06:45 97.9 97.9 Physcial Exam: GEN: No apparent distress. Alert and oriented Malay-speaking HEENT: Normal cephalic, atraumatic, external auditory canals are patent EYES: Extraocular muscles are intact, pupil are equally round and reactive to light and accommodation MUSCULOSKELETAL: Well developed , well nourished, good range of motion ENDOCRINE: No thyromegaly was palpated LYMPHATICS: No cervical chain or axillary nodes were noted HEMATOPOIETIC: No bruising NECK: Supple, no JVD, no thyromegaly was noted LUNGS: Clear to auscultation in all lung manzano without rhonchi or wheezing HEART: RRR, S!, S2 present. Peripheral pulses intact, no obvious murmurs noted ABDOMEN: Diffusely tender notably in lower abdomen, distended EXTREMITIES: Without clubbing, cyanosis, or edema. Pedal pulses intact. Negative Homans sign NEUROLOGIC: Normal speech and tone. A&O x 3, moves all extremities, no obvious focal deficits PSYCHIATRIC: Normal affect, normal mood. Stable SKIN: No ulcerations or rashes, good skin turgor, no jaundice VASCULAR: Good capillary refill, neurovascular bundle appears to be intact Labs: Labs: Laboratory Tests Test 12/09/21 06:55 12/09/21 09:20 12/09/21 11:28 White Blood Count 4.8 x10^3/uL (4.0-11.0) Red Blood Count 3.63 x10^6/uL (3.50-5.40) Hemoglobin 11.2 g/dL (12.0-15.5) Hematocrit 33.2 % (36.0-47.0) Mean Corpuscular Volume 92 fL (79-100) Mean Corpuscular Hemoglobin 31 pg (25-35) Mean Corpuscular Hemoglobin Concent 34 g/dL (31-37) Red Cell Distribution Width 15.3 % (11.5-14.5) Platelet Count 126 x10^3/uL (140-400) Neutrophils (%) (Auto) 29 % (31-73) Lymphocytes (%) (Auto) 52 % (24-48) Monocytes (%) (Auto) 17 % (0-9) Eosinophils (%) (Auto) 2 % (0-3) Basophils (%) (Auto) 1 % (0-3) Neutrophils # (Auto) 1.4 x10^3/uL (1.8-7.7) Lymphocytes # (Auto) 2.5 x10^3/uL (1.0-4.8) Monocytes # (Auto) 0.8 x10^3/uL (0.0-1.1) Eosinophils # (Auto) 0.1 x10^3/uL (0.0-0.7) Basophils # (Auto) 0.0 x10^3/uL (0.0-0.2) Segmented Neutrophils % 24 % (35-66) Band Neutrophils % 4 % (0-9) Lymphocytes % 62 % (24-48) Atypical Lymphocytes % (Manual) 1 % (0-0) Monocytes % 7 % (0-10) Myelocytes % 2 % (0-0) Platelet Estimate Adequate (ADEQUATE) Sodium Level 141 mmol/L (136-145) Potassium Level 3.3 mmol/L (3.5-5.1) Chloride Level 103 mmol/L (98-107) Carbon Dioxide Level 26 mmol/L (21-32) Anion Gap 12 (6-14) Blood Urea Nitrogen 2 mg/dL (7-20) Creatinine 0.7 mg/dL (0.6-1.0) Estimated GFR (Cockcroft-Gault) 85.6 Glucose Level 106 mg/dL (70-99) Calcium Level 8.3 mg/dL (8.5-10.1) Urine Collection Type Unknown Urine Color Yellow Urine Clarity Clear Urine pH 6.5 (<5.0-8.0) Urine Specific [place] 1.010 (1.000-1.030) Urine Protein Negative mg/dL (NEG-TRACE) Urine Glucose (UA) Negative mg/dL (NEG) Urine Ketones (Stick) Negative mg/dL (NEG) Urine Blood Small (NEG) Urine Nitrite Negative (NEG) Urine Bilirubin Negative (NEG) Urine Urobilinogen Dipstick 0.2 mg/dL (0.2 mg/dL) Urine Leukocyte Esterase Trace (NEG) Urine RBC 6-10 /HPF (0-2) Urine WBC 1-4 /HPF (0-4) Urine Squamous Epithelial Cells Many /LPF Urine Bacteria Few /HPF (0-FEW) SARS-CoV-2 Antigen (Rapid) Negative (NEGATIVE) Laboratory Tests Test 12/09/21 06:55 12/09/21 09:20 12/09/21 11:28 White Blood Count 4.8 x10^3/uL (4.0-11.0) Red Blood Count 3.63 x10^6/uL (3.50-5.40) Hemoglobin 11.2 g/dL (12.0-15.5) Hematocrit 33.2 % (36.0-47.0) Mean Corpuscular Volume 92 fL (79-100) Mean Corpuscular Hemoglobin 31 pg (25-35) Mean Corpuscular Hemoglobin Concent 34 g/dL (31-37) Red Cell Distribution Width 15.3 % (11.5-14.5) Platelet Count 126 x10^3/uL (140-400) Neutrophils (%) (Auto) 29 % (31-73) Lymphocytes (%) (Auto) 52 % (24-48) Monocytes (%) (Auto) 17 % (0-9) Eosinophils (%) (Auto) 2 % (0-3) Basophils (%) (Auto) 1 % (0-3) Neutrophils # (Auto) 1.4 x10^3/uL (1.8-7.7) Lymphocytes # (Auto) 2.5 x10^3/uL (1.0-4.8) Monocytes # (Auto) 0.8 x10^3/uL (0.0-1.1) Eosinophils # (Auto) 0.1 x10^3/uL (0.0-0.7) Basophils # (Auto) 0.0 x10^3/uL (0.0-0.2) Segmented Neutrophils % 24 % (35-66) Band Neutrophils % 4 % (0-9) Lymphocytes % 62 % (24-48) Atypical Lymphocytes % (Manual) 1 % (0-0) Monocytes % 7 % (0-10) Myelocytes % 2 % (0-0) Platelet Estimate Adequate (ADEQUATE) Sodium Level 141 mmol/L (136-145) Potassium Level 3.3 mmol/L (3.5-5.1) Chloride Level 103 mmol/L (98-107) Carbon Dioxide Level 26 mmol/L (21-32) Anion Gap 12 (6-14) Blood Urea Nitrogen 2 mg/dL (7-20) Creatinine 0.7 mg/dL (0.6-1.0) Estimated GFR (Cockcroft-Gault) 85.6 Glucose Level 106 mg/dL (70-99) Calcium Level 8.3 mg/dL (8.5-10.1) Urine Collection Type Unknown Urine Color Yellow Urine Clarity Clear Urine pH 6.5 (<5.0-8.0) Urine Specific [place] 1.010 (1.000-1.030) Urine Protein Negative mg/dL (NEG-TRACE) Urine Glucose (UA) Negative mg/dL (NEG) Urine Ketones (Stick) Negative mg/dL (NEG) Urine Blood Small (NEG) Urine Nitrite Negative (NEG) Urine Bilirubin Negative (NEG) Urine Urobilinogen Dipstick 0.2 mg/dL (0.2 mg/dL) Urine Leukocyte Esterase Trace (NEG) Urine RBC 6-10 /HPF (0-2) Urine WBC 1-4 /HPF (0-4) Urine Squamous Epithelial Cells Many /LPF Urine Bacteria Few /HPF (0-FEW) SARS-CoV-2 Antigen (Rapid) Negative (NEGATIVE) Assessment/Plan Assessment/Plan Chronic abdominal pain history of pancreatic cancer status post Whipple, peritonitis? -Patient presenting with 1 week history of worsening abdominal pain. Frequently seen in emergency room for this -As needed pain control. Advance diet as tolerated -CT scan with fluid collections. GI consult today. Recommending surgery and IR consult as well. -Start Rocephin to cover for possible SBP -DVT prophylaxis -Home meds resumed as indicated Justifications for Admission Other Justification DOMINGO BARCENAS MD Dec 09, 2021 14:15
[2021-12-09] MEDS ORDERED: POTASSIUM BICARB 20 MEQ EFFERVESCENT TABLET. PO ONE (14:30)
[2021-12-09 15:00] VITALS: BP 96/63
[2021-12-09] MEDS: HEPARIN for SUB-Q USE 5,000 UNIT/ML VIAL. SQ SCH ×2 (15:30→21:37)
[2021-12-09] MEDS ORDERED: C.DIFF MED SCREEN BY RX. MC ONE (17:15)
[2021-12-09] MEDS: PANTOPRAZOLE 40 MG TABLET.DR. PO SCH (17:58)
[2021-12-09] MEDS: MORPHINE SULFATE 4 MG/ML INJ. IVP PRN (17:58)
[2021-12-09] MEDS: ONDANSETRON PF 4 MG/2 ML VIAL. IVP PRN (17:58)
[2021-12-09 19:00] VITALS: BP 105/69
[2021-12-09] MEDS: SENNOSIDES/DOCUSATE 8.6/50MG TABLET. PO SCH (21:32)
[2021-12-09 23:19] VITALS: BP 90/60
[2021-12-10] VITALS (7 sets, daily range): BP systolic 86–104; BP diastolic 55–61
[2021-12-10] MEDS: HEPARIN for SUB-Q USE 5,000 UNIT/ML VIAL. SQ SCH ×3 (05:50→22:04)
[2021-12-10] MEDS: MORPHINE SULFATE 4 MG/ML INJ. IVP PRN (05:54)
[2021-12-10] MEDS: PANTOPRAZOLE 40 MG TABLET.DR. PO SCH (07:30)
[2021-12-10] MEDS: SENNOSIDES/DOCUSATE 8.6/50MG TABLET. PO SCH ×2 (09:00→19:47)
--- NOTE | 2021-12-10 09:34 | RAD ---
Ultrasound-guided paracentesis. 12/10/2021 9:31 AM Indication: Abdominal pain. H/o whipple, increased fluid on ct, paracentesis 150CCS FLUID Discussion: The risks and benefits of the procedure including but not limited to bleeding, hypotensio n, and infection were discussed the patient. Informed consent was obtained. Ultrasound evaluation was performed demonstrating ascites, with the largest pocket and the right lower quadrant. The right low er quadrant was prepped and draped in sterile fashion. 1% lidocaine without epinephrine was administe red for local anesthesia. Under direct ultrasound guidance a 5 Cuban Yueh needle was advanced into t he peritoneal space. Serous fluid was aspirated. The catheter was connected to suction and approximat juliocesar 150 cc of fluid was removed. The catheter was then removed and manual pressure was held to achi radha hemostasis. A sterile dressing was applied. Impression: Ultrasound-guided paracentesis with removal 150 cc of fluid Electronically signed by: Edgard Wei MD (12/10/2021 9:32 AM) [id number]
--- NOTE | 2021-12-10 10:11 | PDOC ---
[facility] PROGRESS NOTE Date of Service DOS: DATE: 12/10/21 TIME: 10:07 Chief Complaint Chief Complaint Abdominal pain Hx of pancreatic cancer, undergoing chemotherapy History of Present Illness History of Present Illness 12/10/21 Patient seen and examined at bedside, drop wire aligner used Sitting up, interactive, and in NAD This AM she had 180 ml drained from her abdomen and it does not appear distended Chart reviewed Discussed w RM Vitals/I&O Vitals/I&O: Vital Signs Date Time Temp Pulse Resp B/P (MAP) Pulse Ox O2 Delivery O2 Flow Rate FiO2 12/10/21 09:28 88 100/58 (72) 99 12/10/21 08:00 Room Air 12/10/21 07:00 97.8 18 97.8 I & O 12/09/21 12/09/21 12/10/21 15:00 23:00 07:00 Intake Total 240 ml Balance 240 ml Physical Exam General: Alert, Oriented X3, No acute distress Heart: Regular rate, No murmurs Lungs: Clear Abdomen: Soft, Other (nondistended) Extremities: No clubbing, No cyanosis Skin: No rashes, No breakdown Labs Labs: Laboratory Tests Test 12/09/21 11:28 Coronavirus (COVID-19)(PCR) Not detected (NOT DETECTD) SARS-CoV-2 Antigen (Rapid) Negative (NEGATIVE) Assessment and Plan Assessmemt and Plan Problems Medical Problems: (1) Abdominal pain Status: Acute (2) Thrombocytopenia Status: Acute Assessment Chronic abdominal pain History of pancreatic cancer Status post Whipple Peritonitis? Plan -Patient presenting with 1 week history of worsening abdominal pain. Frequently seen in emergency room for this -As needed pain control. Advance diet as tolerated -CT scan with fluid collections. GI consult today. -Awaiting surgery input -Start Rocephin to cover for possible SBP -DVT prophylaxis -Home meds resumed as indicated -Full code Comment Review of Relevant I have reviewed the following items oriana (where applicable) has been applied. Medications: Current Medications Medications (Trade) Dose Ordered Sig/Mague Route PRN Reason Start Time Stop Time Status Last Admin Dose Admin Ceftriaxone Sodium (Rocephin) 1 gm Q24H IVP 12/09/21 13:00 12/09/21 13:18 Ondansetron HCl (Zofran) 4 mg PRN Q6HRS PRN IVP NAUSEA/VOMITING 2/23/22 12:30 12/09/21 17:58 Morphine Sulfate (Morphine Sulfate) 2 mg PRN Q1HR PRN IV PAIN 12/09/21 12:30 12/09/21 13:17 Senna/Docusate Sodium (Senna Plus) 1 tab BID PO 12/09/21 21:00 12/09/21 21:32 Heparin Sodium (Porcine) (Heparin Sodium) 5,000 unit Q8HRS SQ 12/09/21 14:00 12/09/21 21:37 Potassium Bicarbonate (Potassium Effervescent Tablet) 40 meq 1X ONCE PO 12/09/21 14:30 12/09/21 14:31 DC 12/09/21 17:58 Pantoprazole Sodium (Protonix) 40 mg DAILYAC PO 12/09/21 14:30 12/09/21 17:58 Justifications for Admission Other Justification ROMINA BALDWIN III DO Dec 10, 2021 10:11
--- NOTE | 2021-12-10 11:05 | NUR ---
SW following. Discussed with RN, pt from home with family, room air, full liquid diet. GI and Surgery following. COVID-19 negative. Pt will discharge home when medically stable. SW will continue to follow.
--- NOTE | 2021-12-10 11:06 | PDOC2 ---
BEREKET MANCILLA DESIGN TECHNICIAN 12/10/21 1106: CONSULT Date of Consult Date of Consult DATE: 12/10/21 TIME: 11:00 Reason for Consult Reason for Consult: abdominal pain Referring Physician Referring Physician: ER Identification/Chief Complaint Chief Complaint abdominal pain Source Source: Chart review, Patient History of Present Illness Reason for Visit: Patient is well known to service from previous surgeries, admissions, office follow-up. Recent discharge 2 weeks ago with abdominal pain, SBO vs ileus. Improved, then epigastric pain started again 8 days ago. It continued to worse until she came to ER. Ct findings of subcapsular fluid at the liver as well as free fluid within the abdomen and pelvis which overall appears increased from prior and partially loculated. She underwent a paracentesis, fluid was serous. This did not help improve pain. Food does not aggravate pain, unless its orange juice or milk. She has had 2 stools today. Currently the pain is generalized and she feels bloated. Past Medical History Cardiovascular: Hyperlipidemia Pulmonary: No pertinent hx GI: GERD Hepatobiliary: No pertinent hx Psych: Depression Endocrine: Hypothyroidism Past Surgical History Past Surgical History: Cholecystectomy, Other (whipple) Family History Family History: Diabetes, High Cholestrol, Hypertension Social History Quit ALCOHOL: occassional Drugs: None Lives: with Family Current Problem List Problem List Problems Medical Problems: (1) Abdominal pain Status: Acute (2) Thrombocytopenia Status: Acute Current Medications Current Medications Current Medications Ondansetron HCl (Zofran) 4 mg 1X ONCE IVP Last administered on 12/09/21at 07:02; Start 12/09/21 at 07:00; Stop 12/09/21 at 07:01; Status DC Morphine Sulfate (Morphine Sulfate) 4 mg 1X ONCE IVP Last administered on 12/09/21at 07:01; Start 12/09/21 at 07:00; Stop 12/09/21 at 07:01; Status DC Iohexol (Omnipaque 300 Mg/ml) 75 ml 1X ONCE IV Last administered on 12/09/21at 08:03; Start 12/09/21 at 08:00; Stop 12/09/21 at 08:01; Status DC Info (CONTRAST GIVEN -- Rx MONITORING) 1 each PRN DAILY PRN MC SEE COMMENTS; Start 12/09/21 at 08:00; Stop 12/11/21 at 07:59 Ondansetron HCl (Zofran) 4 mg PRN Q8HRS PRN IVP NAUSEA/VOMITING; Start 12/09/21 at 09:15; Stop 12/10/21 at 09:14; Status DC Morphine Sulfate (Morphine Sulfate) 4 mg PRN Q2HR PRN IVP PAIN Last administere d on 12/10/21at 05:54; Start 12/09/21 at 09:15; Stop 12/10/21 at 09:14; Status DC Ceftriaxone Sodium (Rocephin) 1 gm Q24H IVP Last administered on 12/09/21at 13:18; Start 12/09/21 at 13:00 Ondansetron HCl (Zofran) 4 mg PRN Q6HRS PRN IVP NAUSEA/VOMITING Last administered on 12/09/21at 17:58; Start 12/09/21 at 12:30 Prochlorperazine Edisylate (Compazine) 10 mg PRN Q6HRS PRN IVP NAUSEA/VOMITING; Start 12/09/21 at 12:30 Calcium Carbonate/ Glycine (Tums) 500 mg PRN Q3HRS PRN PO UPSET STOMACH; Start 12/09/21 at 12:30 Zolpidem Tartrate (Ambien) 5 mg PRN QHS PRN PO INSOMNIA, MAY REPEAT IN 1HR; Start 12/09/21 at 12:30 Info (Non-Icu Electrolyte Protocol) 1 ea PRN DAILY PRN MC SEE COMMENTS; Start 12/09/21 at 12:30 Morphine Sulfate (Morphine Sulfate) 1 mg PRN Q1HR PRN IV PAIN; Start 12/09/21 at 12:30 Morphine Sulfate (Morphine Sulfate) 2 mg PRN Q1HR PRN IV PAIN Last administered on 12/09/21at 13:17; Start 12/09/21 at 12:30 Acetaminophen (Tylenol) 650 mg PRN Q6HRS PRN PO Headaches, Temp > 101.5F; Start 12/09/21 at 12:30 Senna/Docusate Sodium (Senna Plus) 1 tab BID PO Last administered on 12/09/21at 21:32; Start 12/09/21 at 21:00 Heparin Sodium (Porcine) (Heparin Sodium) 5,000 unit Q8HRS SQ Last administered on 12/09/21at 21:37; Start 12/09/21 at 14:00 Potassium Bicarbonate (Potassium Effervescent Tablet) 40 meq 1X ONCE PO Last administered on 12/09/21at 17:58; Start 12/09/21 at 14:30; Stop 12/09/21 at 14:31; Status DC Pantoprazole Sodium (Protonix) 40 mg DAILYAC PO Last administered on 12/09/21at 17:58; Start 12/09/21 at 14:30 Pharmacy Consult (C.diff Med Screen By Rx) 1 each 1X ONCE MC ; Start 12/09/21 at 17:15; Stop 12/09/21 at 17:16; Status UNV Active Scripts Active Oxycodone Hcl Immed.release (Oxycodone Hcl) 5 Mg Tablet 10 Mg PO PRN Q6HRS PRN 10 Days FENTANYL 50mcg/hr (Fentanyl) 1 Each Patch.td72 1 Patch TD Q3DAYS 14 Days Zofran (Ondansetron Hcl) 4 Mg Tablet 1 Tab PO Q6HRS Reported Atorvastatin Calcium 10 Mg Tablet 1 Tab PO DAILY Levothyroxine Sodium 125 Mcg Tablet 1 Tab PO DAILY Allergies Allergies: Coded Allergies: No Known Drug Allergies (Unverified , 12/09/21) ROS General: No: Chills, Malaise PSYCHOLOGICAL ROS: No: Anxiety, Depression Eyes: No Blurry vision, No Dry eyes HEENT: No: Heacaches, Sore Throat Hematological and Lymphatic: No: Bleeding Problems, Blood Clots Respiratory: No: Cough, Shortness of breath Cardiovascular: No Chest Pain, No Palpitations Gastrointestinal: Yes Other (see hpi) Genitourinary: No Dysuria, No Hematuria Musculoskeletal: No Joint Pain, No Muscle Pain Neurological: No Impaired Coord/balance, No Numbness/Tingling Skin: No Pruritus, No Rash Physical Exam General: Alert, Oriented X3, Cooperative HEENT: Atraumatic, PERRLA Lungs: Clear to auscultation, Normal air movement Heart: Regular rate, Normal S1 Abdomen: Normal bowel sounds, Soft, Other (midly tender generalized, no guarding, mildly distended ) Extremities: No clubbing, No cyanosis Skin: No rashes, No breakdown Neuro: Normal gait, Normal speech Psych/Mental Status: Mental status NL, Mood NL MUSCULOSKELETAL: No deformity, No swelling Vitals VITALS Vital Signs Date Time Temp Pulse Resp B/P (MAP) Pulse Ox O2 Delivery O2 Flow Rate FiO2 12/10/21 09:28 88 100/58 (72) 99 12/10/21 08:00 Room Air 12/10/21 07:00 97.8 18 97.8 Labs Labs Laboratory Tests Test 12/09/21 06:55 12/09/21 09:20 12/09/21 11:28 White Blood Count 4.8 x10^3/uL (4.0-11.0) Red Blood Count 3.63 x10^6/uL (3.50-5.40) Hemoglobin 11.2 g/dL (12.0-15.5) Hematocrit 33.2 % (36.0-47.0) Mean Corpuscular Volume 92 fL (79-100) Mean Corpuscular Hemoglobin 31 pg (25-35) Mean Corpuscular Hemoglobin Concent 34 g/dL (31-37) Red Cell Distribution Width 15.3 % (11.5-14.5) Platelet Count 126 x10^3/uL (140-400) Neutrophils (%) (Auto) 29 % (31-73) Lymphocytes (%) (Auto) 52 % (24-48) Monocytes (%) (Auto) 17 % (0-9) Eosinophils (%) (Auto) 2 % (0-3) Basophils (%) (Auto) 1 % (0-3) Neutrophils # (Auto) 1.4 x10^3/uL (1.8-7.7) Lymphocytes # (Auto) 2.5 x10^3/uL (1.0-4.8) Monocytes # (Auto) 0.8 x10^3/uL (0.0-1.1) Eosinophils # (Auto) 0.1 x10^3/uL (0.0-0.7) Basophils # (Auto) 0.0 x10^3/uL (0.0-0.2) Segmented Neutrophils % 24 % (35-66) Band Neutrophils % 4 % (0-9) Lymphocytes % 62 % (24-48) Atypical Lymphocytes % (Manual) 1 % (0-0) Monocytes % 7 % (0-10) Myelocytes % 2 % (0-0) Platelet Estimate Adequate (ADEQUATE) Sodium Level 141 mmol/L (136-145) Potassium Level 3.3 mmol/L (3.5-5.1) Chloride Level 103 mmol/L (98-107) Carbon Dioxide Level 26 mmol/L (21-32) Anion Gap 12 (6-14) Blood Urea Nitrogen 2 mg/dL (7-20) Creatinine 0.7 mg/dL (0.6-1.0) Estimated GFR (Cockcroft-Gault) 85.6 Glucose Level 106 mg/dL (70-99) Calcium Level 8.3 mg/dL (8.5-10.1) Urine Collection Type Unknown Urine Color Yellow Urine Clarity Clear Urine pH 6.5 (<5.0-8.0) Urine Specific [place] 1.010 (1.000-1.030) Urine Protein Negative mg/dL (NEG-TRACE) Urine Glucose (UA) Negative mg/dL (NEG) Urine Ketones (Stick) Negative mg/dL (NEG) Urine Blood Small (NEG) Urine Nitrite Negative (NEG) Urine Bilirubin Negative (NEG) Urine Urobilinogen Dipstick 0.2 mg/dL (0.2 mg/dL) Urine Leukocyte Esterase Trace (NEG) Urine RBC 6-10 /HPF (0-2) Urine WBC 1-4 /HPF (0-4) Urine Squamous Epithelial Cells Many /LPF Urine Bacteria Few /HPF (0-FEW) Coronavirus (COVID-19)(PCR) Not detected (NOT DETECTD) SARS-CoV-2 Antigen (Rapid) Negative (NEGATIVE) Laboratory Tests Test 12/09/21 11:28 Coronavirus (COVID-19)(PCR) Not detected (NOT DETECTD) SARS-CoV-2 Antigen (Rapid) Negative (NEGATIVE) Assessment/Plan Assessment/Plan abdominal pain, acute on chronic fluid collection, s/p paracentesis will review CT findings with Dr Baldwin chart, consult 30 min OG BALDWIN MD 12/10/21 1249: CONSULT Assessment/Plan Assessment/Plan Pt seen and examined. Agree with MsKeith Mancilla's note Pt with episodic episodes of bowel dysfunction and pain, appears chronologically c/w chemo abd soft, mild TTP agree with supportive care and symptomatic treatment no obvious surgical cause Thanks for consult! BEREKET MANCILLA Agustin FOSS Dec 10, 2021 11:06 OG BALDWIN MD Dec 10, 2021 12:49
[2021-12-10 11:14] LABS: BF CLARITY HAZY; BF COLOR YELLOW; BF SOURCE ASCITES
[2021-12-10 11:15] LABS: BF MON % 89 %; BF OTHER % 4 %; BF PMN % 7 %; BF RBC COUNT 2097 /cmm (Not Established); BF WBC COUNT 480 /cmm (Not Established)
--- NOTE | 2021-12-10 11:39 | PDOC ---
Date of Service: DATE: 12/10/21 TIME: 11:36 Subjective: Subjective: Ongoing pain, not better. Eating a little. Objective: Objective: D/w surgery - has had pain issues since Whipple. Vital Signs: Vital Signs Date Time Temp Pulse Resp B/P (MAP) Pulse Ox O2 Delivery O2 Flow Rate FiO2 12/10/21 09:28 88 100/58 (72) 99 12/10/21 08:00 Room Air 12/10/21 07:00 97.8 18 97.8 Labs: Laboratory Tests Test 12/10/21 09:15 Body Fluid Source Ascites Body Fluid Color Yellow Body Fluid Clarity Hazy Body Fluid pH 7.30 Body Fluid Nucleated Cells 480 /cmm Body Fluid Mononuclear WBCs (%) 89 % Body Fluid Polymorphonuclear Cells 7 % Body Fluid Total RBCs Counted 2097 /cmm Body Fluid Other Cells (%) 4 % Imagin/24 Impression: Ultrasound-guided paracentesis with removal 150 cc of fluid PE: GEN: NAD LUNGS: clear anteriorly HEART: RRR ABD: lower abd discomfort to light palpation, BS+ NEURO/PSYCH: A & O 3 - speaks Occitan A/P: Chronic abd pain Metastatic pancreatic cancer s/p Whipple on chemo Fluid collection on CT s/p paracentesis -- Await fluid studies. Justicifation of Admission Dx: Justifications for Admission: Justification of Admission Dx: Yes ROGERS POLANCO Dec 10, 2021 11:39
[2021-12-10] MEDS: cefTRIAXone IV Push 1 GM VIAL. IVP SCH (12:25)
[2021-12-10] MEDS: MORPHINE SULFATE 2 MG/ML INJ. IV PRN ×2 (12:26→19:48)
[2021-12-11 02:48] VITALS: BP 83/49
[2021-12-11] MEDS: PANTOPRAZOLE 40 MG TABLET.DR. PO SCH (06:10)
[2021-12-11] MEDS: HEPARIN for SUB-Q USE 5,000 UNIT/ML VIAL. SQ SCH ×3 (06:12→20:40)
[2021-12-11 07:00] VITALS: BP 89/56
[2021-12-11] MEDS: SENNOSIDES/DOCUSATE 8.6/50MG TABLET. PO SCH ×2 (08:30→20:41)
[2021-12-11] MEDS: MORPHINE SULFATE 2 MG/ML INJ. IV PRN ×4 (08:33→23:34)
--- NOTE | 2021-12-11 09:28 | PDOC ---
Date of Service: DATE: 12/11/21 TIME: 09:25 Subjective: Subjective: Nurse and help translate. Severe pain currently - comes and goes - no pattern. [place] okay last night, much worse this morning. Hasn't eaten yet, has stooled. Objective: Objective: On Rocephin. Vital Signs: Vital Signs Date Time Temp Pulse Resp B/P (MAP) Pulse Ox O2 Delivery O2 Flow Rate FiO2 12/11/21 08:33 Room Air 12/11/21 07:00 97.7 71 16 89/56 (67) 97 97.7 Labs: CULTURE URINE Final 30,000 CFU/ML ESCHERICHIA COLIon 12/10/21 at 1321. 60,000 CFU/ML ENTEROCOCCUS FAECALISon 12/10/21 at 1321. Testing [place] [address] director of people: Chelsi Gill MD Organism 1 ESCHERICHIA COLI Organism 2 ENTEROCOCCUS FAECALIS GRAM STAIN-AER COMPA Final PMNS (WBCS): NONE SEEN SQUAMOUS EPI CELL: NOT APPLICABLE NO ORGANISMS SEEN NO ORGANISMS SEEN CULTURE ANAEROBIC/AEROBIC PENDING PE: GEN: uncomfortable LUNGS: CTAB HEART: RRR ABD: quiet, soft, right periumbilical/RLQ discomfort NEURO/PSYCH: A & O 3 A/P: Chronic abd pain Metastatic pancreatic cancer s/p Whipple on chemo Fluid collection on CT s/p paracentesis UTI -- Pain bothersome currently, getting morphine. Awaiting fluid studies. Justicifation of Admission Dx: Justifications for Admission: Justification of Admission Dx: Yes ROGERS POLANCO Dec 11, 2021 09:28
--- NOTE | 2021-12-11 09:48 | PDOC ---
[facility] PROGRESS NOTE Date of Service DOS: DATE: 12/11/21 TIME: 09:45 Chief Complaint Chief Complaint Abdominal pain Hx of pancreatic cancer, undergoing chemotherapy History of Present Illness History of Present Illness 12/11/21 Patient seen and examined at bedside, used information systems supervisor Sitting up, talkative, says she is still having pain Patient ate her breakfast with no issues Has some pain on urination and some lab signs of UTI, Rocephin should cover Chart reviewed Discussed with RN 12/10/21 Patient seen and examined at bedside, information systems supervisor used Sitting up, interactive, and in NAD This AM she had 180 ml drained from her abdomen and it does not appear distended Chart reviewed Discussed w RN Vitals/I&O Vitals/I&O: Vital Signs Date Time Temp Pulse Resp B/P (MAP) Pulse Ox O2 Delivery O2 Flow Rate FiO2 12/11/21 08:33 Room Air 12/11/21 07:00 97.7 71 16 89/56 (67) 97 97.7 I & O 12/10/21 12/10/21 12/11/21 15:00 23:00 07:00 Intake Total 100 ml Output Total 150 ml Balance -150 ml 100 ml Physical Exam General: Alert, Oriented X3, Cooperative Heart: Regular rate, Normal S1 Lungs: Clear Abdomen: Normal bowel sounds, Soft, Other (midly tender generalized, no guarding, mildly distended ) Extremities: No clubbing, No cyanosis Skin: No rashes, No breakdown Assessment and Plan Assessmemt and Plan Problems Medical Problems: (1) Abdominal pain Status: Acute (2) Thrombocytopenia Status: Acute Assessment Chronic abdominal pain UTI History of pancreatic cancer Status post Whipple Peritonitis? Plan -As needed pain control. -CT scan with fluid collections. GI consulted - 180ml removed 12/11 via paracentesis -Surgery says no need for surgical intervention -Cont Rocephin to cover for possible SBP -DVT prophylaxis -Home meds resumed as indicated -Full code Comment Review of Relevant I have reviewed the following items oriana (where applicable) has been applied. Justifications for Admission Other Justification ROMINA BALDWIN III DO Dec 11, 2021 09:48
--- NOTE | 2021-12-11 10:20 | NUR ---
SW following. Discussed with RN, pt from home with , increased pain today. Pt will discharge home with self care when medically stable. SW will continue to follow.
--- NOTE | 2021-12-11 10:48 | PDOC ---
SURGICAL PROGRESS NOTE DATE: 12/11/21 TIME: 10:43 Subjective still with epigastric pain having stools eating Vital Signs Vital Signs Date Time Temp Pulse Resp B/P (MAP) Pulse Ox O2 Delivery O2 Flow Rate FiO2 12/11/21 08:33 Room Air 12/11/21 07:00 97.7 71 16 89/56 (67) 97 97.7 I&O Intake and Output 12/11/21 07:00 Intake Total 100 ml Output Total 150 ml Balance -50 ml Intake Oral 100 ml Output Drainage Total 150 ml # Voids 1 General: Alert, Oriented X3, Cooperative Abdomen: Soft, Other (epigastric ttp ) Labs Laboratory Tests Test 12/09/21 11:28 12/10/21 09:15 Coronavirus (COVID-19)(PCR) Not detected (NOT DETECTD) SARS-CoV-2 Antigen (Rapid) Negative (NEGATIVE) Body Fluid Source Ascites Body Fluid Color Yellow Body Fluid Clarity Hazy Body Fluid pH 7.30 Body Fluid Nucleated Cells 480 /cmm (Not Established) Body Fluid Mononuclear WBCs (%) 89 % Body Fluid Polymorphonuclear Cells 7 % Body Fluid Total RBCs Counted 2097 /cmm (Not Established) Body Fluid Other Cells (%) 4 % Problem List Problems Medical Problems: (1) Abdominal pain Status: Acute (2) Thrombocytopenia Status: Acute Assessment/Plan supportive management, pain control round, chart 10 min Justicifation of Admission Dx: Justifications for Admission: Justification of Admission Dx: Yes BEREKET ZULUAGA APRN Dec 11, 2021 10:48
[2021-12-11 11:00] VITALS: BP 95/59
[2021-12-11] MEDS: cefTRIAXone IV Push 1 GM VIAL. IVP SCH (12:55)
[2021-12-11] MEDS: ONDANSETRON PF 4 MG/2 ML VIAL. IVP PRN ×2 (12:56→20:31)
[2021-12-11 15:00] VITALS: BP 98/68
[2021-12-11 19:00] VITALS: BP 100/67
[2021-12-11 23:00] VITALS: BP 98/54
[2021-12-11] MEDS: PROCHLORPERAZINE 10 MG/2 ML VIAL. IVP PRN (23:33)
[2021-12-12 03:00] VITALS: BP 93/58
[2021-12-12] MEDS: PANTOPRAZOLE 40 MG TABLET.DR. PO SCH (06:20)
[2021-12-12] MEDS: HEPARIN for SUB-Q USE 5,000 UNIT/ML VIAL. SQ SCH ×3 (06:22→22:16)
[2021-12-12 07:00] VITALS: BP 92/53
[2021-12-12] MEDS: SENNOSIDES/DOCUSATE 8.6/50MG TABLET. PO SCH ×2 (08:09→22:15)
[2021-12-12 11:00] VITALS: BP 98/59
[2021-12-12] MEDS ORDERED: SIMETHICONE 80 MG TAB.CHEW PO PRN (13:00)
--- NOTE | 2021-12-12 13:03 | PDOC ---
[facility] PROGRESS NOTE Date of Service DOS: DATE: 12/12/21 TIME: 12:55 Chief Complaint Chief Complaint Abdominal pain Hx of pancreatic cancer, undergoing chemotherapy Nausea and vomiting - non-intractable, ok for slow diet Pancreatic cancer - Pancreatic adenocarcinoma, T2N2. Local invasion s/p whipple 09/15/2021 non-pyloric sparing pancreaticogastrostomy, hepaticojejunostomy with Billroth 1 type gastrojejunostomy, right colon resection and gastrostomy tube placement (tube removed). s/p port 11/05/21 Anemia secondary to blood loss - improved since surgery Thrombocytopenia - likely chemo related Hypokalemia - replace IV Abnormal UA - UTI, polymicrobial Hypothyroidism - cont home levothyroxine Hyperlipidemia - cont statin FEN - Regular diet PPX - lovenox FULL CODE Dispo - inpatient History of Present Illness History of Present Illness Ms Hemphill is a 61yo female, serbian-speaking only, with PMHx hypothyroidism, HLD, and recent diagnosis of pancreatic cancer T2N2 s/p whipple 09/15/21 and chemotherapy who comes to ED c/o abdominal pain with nausea, vomiting and diarrhea. She had epigastric and RUQ pain that had associated diarrhea, and some emesis with continued nausea. Admitted for further care. [Historically 09/09 underwent lap sharad and returned to OR status post Whipple 09/15/2021 non-pyloric sparing pancreaticogastrostomy, hepaticojejunostomy with Billroth 1 type gastrojejunostomy, right colon resection and gastrostomy tube placement, found with T2N2 locally invasive pancreatic adenocarcinoma. She is being seen outpatient by Dr. Bueno from hematology oncology and is followed by Dr. Baldwin from colorectal surgery. She is s/p left port-a-cath placement 11/05/21. Pain was reasonably relieved with IV fentanyl. She has had fentanyl patch and oxycodone at home for pain. COVID 19 vaccinated fully. No recent sick contacts or travel. is bedside. backend python developer service utilized for majority of interview.] 12/09: S/p paracentesis. 12/10: Patient seen and examined at bedside, traffic recorder used. Sitting up, interactive, and in NAD . This AM she had 180 ml drained from her abdomen and it does not appear distended 12/11: Patient seen and examined at bedside, used traffic recorder. Sitting up, talkative, says she is still having pain. Patient ate her breakfast with no issues. 12/12: Had nausea and vomiting last night. Still with pretty significant pain and pressure with gas. No chest pain or shortness of breath. Urine with Enterococcus. Vitals/I&O Vitals/I&O: Vital Signs Date Time Temp Pulse Resp B/P (MAP) Pulse Ox O2 Delivery O2 Flow Rate FiO2 12/12/21 11:00 97.9 80 16 98/59 (72) 95 Room Air 97.9 Physical Exam General: Alert, Oriented X3, Cooperative Heart: Regular rate, Normal S1 Lungs: Clear Abdomen: Soft, Other (epigastric ttp ) Extremities: No clubbing, No cyanosis Skin: No rashes, No breakdown Assessment and Plan Assessmemt and Plan Problems Medical Problems: (1) Abdominal pain Status: Acute (2) Thrombocytopenia Status: Acute Comment Review of Relevant I have reviewed the following items oriana (where applicable) has been applied. Medications: Current Medications Medications (Trade) Dose Ordered Sig/Mague Route PRN Reason Start Time Stop Time Status Last Admin Dose Admin Levofloxacin (Levaquin) 500 mg DAILY06 PO 12/12/21 06:00 12/12/21 06:20 Justifications for Admission Other Justification DOMINGO ESCOBAR MD Dec 12, 2021 13:03
[2021-12-12] MEDS: LEVOTHYROXINE 125 MCG TABLET PO SCH (14:09)
[2021-12-12] MEDS: MORPHINE SULFATE 2 MG/ML INJ. IV PRN (14:19)
--- NOTE | 2021-12-12 14:25 | PDOC ---
SURGICAL PROGRESS NOTE DATE: 12/12/21 TIME: 14:24 Subjective Pt with c/o N/V and abd pain with eating, passing flatus and stools Vital Signs Vital Signs Date Time Temp Pulse Resp B/P (MAP) Pulse Ox O2 Delivery O2 Flow Rate FiO2 12/12/21 11:00 97.9 80 16 98/59 (72) 95 Room Air 97.9 General: Alert, Oriented X3, Cooperative, mild distress Abdomen: Soft, Other (mild TTP, incision well healed) Problem List Problems Medical Problems: (1) Abdominal pain Status: Acute (2) Thrombocytopenia Status: Acute Assessment/Plan agree with abx will go down to clears await improved bowel fxn Justicifation of Admission Dx: Justifications for Admission: Justification of Admission Dx: Yes OG CASTANEDA MD Dec 12, 2021 14:25
[2021-12-12 15:00] VITALS: BP 110/62
[2021-12-12 19:00] VITALS: BP 88/55
[2021-12-12] MEDS: ATORVASTATIN CALCIUM 10 MG TABLET. PO SCH (22:15)
[2021-12-12 23:00] VITALS: BP 94/58
[2021-12-13 03:00] VITALS: BP 92/52
[2021-12-13] MEDS: LEVOTHYROXINE 125 MCG TABLET PO SCH (06:30)
[2021-12-13] MEDS: HEPARIN for SUB-Q USE 5,000 UNIT/ML VIAL. SQ SCH ×3 (06:35→21:57)
[2021-12-13 07:00] VITALS: BP 92/60
[2021-12-13] MEDS: SENNOSIDES/DOCUSATE 8.6/50MG TABLET. PO SCH ×2 (08:28→21:51)
[2021-12-13] MEDS: PANTOPRAZOLE 40 MG TABLET.DR. PO SCH (08:28)
[2021-12-13 09:28] LABS: ALBUMIN 2.9 g/dL (3.4-5.0); ALBUMIN/GLOBULIN RATIO 0.8 (1.0-1.7); CALCIUM 8.4 mg/dL (8.5-10.1); CREATININE 0.7 mg/dL (0.6-1.0); GFR 85.6; POTASSIUM 3.2 mmol/L (3.5-5.1); TOTAL BILIRUBIN 0.3 mg/dL (0.2-1.0); TOTAL PROTEIN 6.6 g/dL (6.4-8.2)
[2021-12-13] MEDS: ONDANSETRON PF 4 MG/2 ML VIAL. IVP PRN (10:35)
[2021-12-13 11:00] VITALS: BP 105/66
--- NOTE | 2021-12-13 11:12 | PDOC ---
[facility] PROGRESS NOTE Date of Service DOS: DATE: 12/13/21 TIME: 11:01 Chief Complaint Chief Complaint Abdominal pain Hx of pancreatic cancer, undergoing chemotherapy Nausea and vomiting - non-intractable, ok for slow diet Pancreatic cancer - Pancreatic adenocarcinoma, T2N2. Local invasion s/p whipple 09/15/2021 non-pyloric sparing pancreaticogastrostomy, hepaticojejunostomy with Billroth 1 type gastrojejunostomy, right colon resection and gastrostomy tube placement (tube removed). s/p port 11/05/21 Anemia secondary to blood loss - improved since surgery Thrombocytopenia - likely chemo related Hypokalemia - replace IV Abnormal UA - UTI, polymicrobial Hypothyroidism - cont home levothyroxine Hyperlipidemia - cont statin FEN - Regular diet PPX - lovenox FULL CODE Dispo - inpatient History of Present Illness History of Present Illness Ms Hemphill is a 61yo female, slovenian-speaking only, with PMHx hypothyroidism, HLD, and recent diagnosis of pancreatic cancer T2N2 s/p whipple 09/15/21 and chemotherapy who comes to ED c/o abdominal pain with nausea, vomiting and diarrhea. She had epigastric and RUQ pain that had associated diarrhea, and some emesis with continued nausea. Admitted for further care. [Historically 09/09 underwent lap sharad and returned to OR status post Whipple 09/15/2021 non-pyloric sparing pancreaticogastrostomy, hepaticojejunostomy with Billroth 1 type gastrojejunostomy, right colon resection and gastrostomy tube placement, found with T2N2 locally invasive pancreatic adenocarcinoma. She is being seen outpatient by Dr. Bueno from hematology oncology and is followed by Dr. Baldwin from colorectal surgery. She is s/p left port-a-cath placement 11/05/21. Pain was reasonably relieved with IV fentanyl. She has had fentanyl patch and oxycodone at home for pain. COVID 19 vaccinated fully. No recent sick contacts or travel. is bedside. safe and vault service mechanic service utilized for majority of interview.] 12/09: S/p paracentesis. 12/10: Patient seen and examined at bedside, events manager used. Sitting up, interactive, and in NAD . This AM she had 180 ml drained from her abdomen and it does not appear distended 12/11: Patient seen and examined at bedside, used events manager. Sitting up, talkative, says she is still having pain. Patient ate her breakfast with no issues. 12/12: Had nausea and vomiting last night. Still with pretty significant pain and pressure with gas. No chest pain or shortness of breath. Urine with Enterococcus. 12/13: Had nausea and abdominal pain no further vomiting. Significant nausea even with coffee. No chest pain or shortness of breath. Vitals/I&O Vitals/I&O: Vital Signs Date Time Temp Pulse Resp B/P (MAP) Pulse Ox O2 Delivery O2 Flow Rate FiO2 12/13/21 07:00 98.1 74 18 92/60 (71) 98 Room Air 98.1 Physical Exam General: Alert, Oriented X3, Cooperative, mild distress Heart: Regular rate, Normal S1 Lungs: Clear Abdomen: Soft, Other (mild TTP, incision well healed) Extremities: No clubbing, No cyanosis Skin: No rashes, No breakdown Labs Labs: Laboratory Tests Test 12/13/21 07:30 Sodium Level 140 mmol/L (136-145) Potassium Level 3.2 mmol/L (3.5-5.1) Chloride Level 103 mmol/L (98-107) Carbon Dioxide Level 28 mmol/L (21-32) Anion Gap 9 (6-14) Blood Urea Nitrogen 4 mg/dL (7-20) Creatinine 0.7 mg/dL (0.6-1.0) Estimated GFR (Cockcroft-Gault) 85.6 BUN/Creatinine Ratio 6 (6-20) Glucose Level 116 mg/dL (70-99) Calcium Level 8.4 mg/dL (8.5-10.1) Total Bilirubin 0.3 mg/dL (0.2-1.0) Aspartate Amino Transf (AST/SGOT) 34 U/L (15-37) Alanine Aminotransferase (ALT/SGPT) 17 U/L (14-59) Alkaline Phosphatase 173 U/L (46-116) Total Protein 6.6 g/dL (6.4-8.2) Albumin 2.9 g/dL (3.4-5.0) Albumin/Globulin Ratio 0.8 (1.0-1.7) Assessment and Plan Assessmemt and Plan Problems Medical Problems: (1) Abdominal pain Status: Acute (2) Thrombocytopenia Status: Acute Comment Review of Relevant I have reviewed the following items oriana (where applicable) has been applied. Medications: Current Medications Medications (Trade) Dose Ordered Sig/Mague Route PRN Reason Start Time Stop Time Status Last Admin Dose Admin Atorvastatin Calcium (Lipitor) 10 mg QHS PO 12/12/21 21:00 12/12/21 22:15 Levothyroxine Sodium (Synthroid) 125 mcg DAILY06 PO 12/12/21 13:30 12/13/21 06:30 Simethicone (Gas-X) 80 mg PRN AFTMEALHC PRN PO GAS / BLOATING 12/12/21 13:00 12/12/21 14:10 Justifications for Admission Other Justification DOMINGO ESCOBAR MD Dec 13, 2021 11:12
[2021-12-13] MEDS: DRONABINOL 2.5 MG CAPSULE. PO SCH ×2 (11:49→16:30)
[2021-12-13] MEDS: fentaNYL 12MCG/HR PATCH 1 PATCH PATCH.TD72 TD SCH (11:50)
[2021-12-13] MEDS ORDERED: POTASSIUM BICARB 20 MEQ EFFERVESCENT TABLET. PO ONE (12:00)
--- NOTE | 2021-12-13 14:01 | PDOC ---
SURGICAL PROGRESS NOTE DATE: 12/13/21 TIME: 13:59 Subjective Pt still with some epigastric abd pain and nausea, but no emesis, passing stools Vital Signs Vital Signs Date Time Temp Pulse Resp B/P (MAP) Pulse Ox O2 Delivery O2 Flow Rate FiO2 12/13/21 11:50 Room Air 12/13/21 07:00 98.1 74 18 92/60 (71) 98 98.1 General: Alert, Oriented X3, Cooperative, mild distress Abdomen: Soft, Other (mild TTP epigastric) Labs Laboratory Tests Test 12/13/21 07:30 Sodium Level 140 mmol/L (136-145) Potassium Level 3.2 mmol/L (3.5-5.1) Chloride Level 103 mmol/L (98-107) Carbon Dioxide Level 28 mmol/L (21-32) Anion Gap 9 (6-14) Blood Urea Nitrogen 4 mg/dL (7-20) Creatinine 0.7 mg/dL (0.6-1.0) Estimated GFR (Cockcroft-Gault) 85.6 BUN/Creatinine Ratio 6 (6-20) Glucose Level 116 mg/dL (70-99) Calcium Level 8.4 mg/dL (8.5-10.1) Total Bilirubin 0.3 mg/dL (0.2-1.0) Aspartate Amino Transf (AST/SGOT) 34 U/L (15-37) Alanine Aminotransferase (ALT/SGPT) 17 U/L (14-59) Alkaline Phosphatase 173 U/L (46-116) Total Protein 6.6 g/dL (6.4-8.2) Albumin 2.9 g/dL (3.4-5.0) Albumin/Globulin Ratio 0.8 (1.0-1.7) Laboratory Tests Test 12/13/21 07:30 Sodium Level 140 mmol/L (136-145) Potassium Level 3.2 mmol/L (3.5-5.1) Chloride Level 103 mmol/L (98-107) Carbon Dioxide Level 28 mmol/L (21-32) Anion Gap 9 (6-14) Blood Urea Nitrogen 4 mg/dL (7-20) Creatinine 0.7 mg/dL (0.6-1.0) Estimated GFR (Cockcroft-Gault) 85.6 BUN/Creatinine Ratio 6 (6-20) Glucose Level 116 mg/dL (70-99) Calcium Level 8.4 mg/dL (8.5-10.1) Total Bilirubin 0.3 mg/dL (0.2-1.0) Aspartate Amino Transf (AST/SGOT) 34 U/L (15-37) Alanine Aminotransferase (ALT/SGPT) 17 U/L (14-59) Alkaline Phosphatase 173 U/L (46-116) Total Protein 6.6 g/dL (6.4-8.2) Albumin 2.9 g/dL (3.4-5.0) Albumin/Globulin Ratio 0.8 (1.0-1.7) Problem List Problems Medical Problems: (1) Abdominal pain Status: Acute (2) Thrombocytopenia Status: Acute Assessment/Plan cont supportive care will check KUB in AM if needed would consider TPN and oncology consult in AM Justicifation of Admission Dx: Justifications for Admission: Justification of Admission Dx: Yes OG CASTANEDA MD Dec 13, 2021 14:01
[2021-12-13] MEDS: PROCHLORPERAZINE 10 MG/2 ML VIAL. IVP PRN (14:55)
[2021-12-13 15:00] VITALS: BP 96/58
[2021-12-13 19:00] VITALS: BP 90/61
[2021-12-13] MEDS: ATORVASTATIN CALCIUM 10 MG TABLET. PO SCH (21:51)
[2021-12-13 23:00] VITALS: BP 97/49
[2021-12-14 03:00] VITALS: BP 91/53
[2021-12-14] MEDS: LEVOTHYROXINE 125 MCG TABLET PO SCH (06:30)
[2021-12-14] MEDS: PANTOPRAZOLE 40 MG TABLET.DR. PO SCH (06:31)
[2021-12-14] MEDS: HEPARIN for SUB-Q USE 5,000 UNIT/ML VIAL. SQ SCH ×3 (06:36→22:17)
[2021-12-14 07:15] VITALS: BP 88/54
[2021-12-14] MEDS: SENNOSIDES/DOCUSATE 8.6/50MG TABLET. PO SCH ×2 (07:26→22:08)
--- NOTE | 2021-12-14 09:03 | RAD ---
XR ABDOMEN 2V History: Nausea and vomiting Comparison: Abdomen radiograph 09/15/2021. CT abdomen and pelvis 09/08/2022 Technique: Upright and supine radiographs of the abdomen Findings: Bowel gas pattern: Nonspecific, nonobstructive bowel gas pattern. Free air: None. Abnormal calcifications: None. Bones: No acute findings. Other: Clear lungs. Left chest Mediport with tip projecting at the right atrium. Right upper quadrant cholecystectomy clips. Right midabdomen chain sutures. Impression: 1. Postsurgical changes in the abdomen with nonobstructive bowel gas pattern. Electronically signed by: Burke Orozco MD (12/14/2021 9:00 AM) [id number]
--- NOTE | 2021-12-14 09:18 | PDOC ---
SURGICAL PROGRESS NOTE DATE: 12/14/21 TIME: 09:14 Subjective dizziness after medication overnight needed walker to get to bathroom no nausea right now, only minimal clears ongoing epigastric pain Vital Signs Vital Signs Date Time Temp Pulse Resp B/P (MAP) Pulse Ox O2 Delivery O2 Flow Rate FiO2 12/14/21 07:15 98.2 85 16 88/54 (65) 98 Room Air 98.2 General: Alert, Cooperative Abdomen: Soft, Other (ttp epigastric, ND) Labs Laboratory Tests Test 12/13/21 07:30 Sodium Level 140 mmol/L (136-145) Potassium Level 3.2 mmol/L (3.5-5.1) Chloride Level 103 mmol/L (98-107) Carbon Dioxide Level 28 mmol/L (21-32) Anion Gap 9 (6-14) Blood Urea Nitrogen 4 mg/dL (7-20) Creatinine 0.7 mg/dL (0.6-1.0) Estimated GFR (Cockcroft-Gault) 85.6 BUN/Creatinine Ratio 6 (6-20) Glucose Level 116 mg/dL (70-99) Calcium Level 8.4 mg/dL (8.5-10.1) Total Bilirubin 0.3 mg/dL (0.2-1.0) Aspartate Amino Transf (AST/SGOT) 34 U/L (15-37) Alanine Aminotransferase (ALT/SGPT) 17 U/L (14-59) Alkaline Phosphatase 173 U/L (46-116) Total Protein 6.6 g/dL (6.4-8.2) Albumin 2.9 g/dL (3.4-5.0) Albumin/Globulin Ratio 0.8 (1.0-1.7) Problem List Problems Medical Problems: (1) Abdominal pain Status: Acute (2) Thrombocytopenia Status: Acute Assessment/Plan will review with Dr Baldwin may need to consider TPN, with poor po intake chart, round 15 min Justicifation of Admission Dx: Justifications for Admission: Justification of Admission Dx: Yes BEREKET ZULUAGA APRN Dec 14, 2021 09:18
--- NOTE | 2021-12-14 10:39 | NUR ---
SW following. Discussed with RN, pt from home with , room air, clear liquid diet. Pt very nauseas. Imaging today. Pt will discharge home when medically stable. SW will continue to follow.
[2021-12-14 11:04] VITALS: BP 92/51
--- NOTE | 2021-12-14 11:18 | PDOC ---
[facility] PROGRESS NOTE Date of Service DOS: DATE: 12/14/21 TIME: 11:18 Chief Complaint Chief Complaint Abdominal pain Hx of pancreatic cancer, undergoing chemotherapy Nausea and vomiting - non-intractable, ok for slow diet Pancreatic cancer - Pancreatic adenocarcinoma, T2N2. Local invasion s/p whipple 09/15/2021 non-pyloric sparing pancreaticogastrostomy, hepaticojejunostomy with Billroth 1 type gastrojejunostomy, right colon resection and gastrostomy tube placement (tube removed). s/p port 11/05/21 Anemia secondary to blood loss - improved since surgery Thrombocytopenia - likely chemo related Hypokalemia - replace IV Abnormal UA - UTI, polymicrobial Hypothyroidism - cont home levothyroxine Hyperlipidemia - cont statin FEN - Regular diet PPX - lovenox FULL CODE Dispo - inpatient History of Present Illness History of Present Illness Ms Hemphill is a 61yo female, lithuanian-speaking only, with PMHx hypothyroidism, HLD, and recent diagnosis of pancreatic cancer T2N2 s/p whipple 09/15/21 and chemotherapy who comes to ED c/o abdominal pain with nausea, vomiting and diarrhea. She had epigastric and RUQ pain that had associated diarrhea, and some emesis with continued nausea. Admitted for further care. [Historically 09/09 underwent lap sharad and returned to OR status post Whipple 09/15/2021 non-pyloric sparing pancreaticogastrostomy, hepaticojejunostomy with Billroth 1 type gastrojejunostomy, right colon resection and gastrostomy tube placement, found with T2N2 locally invasive pancreatic adenocarcinoma. She is being seen outpatient by Dr. Bueno from hematology oncology and is followed by Dr. Baldwin from colorectal surgery. She is s/p left port-a-cath placement 11/05/21. Pain was reasonably relieved with IV fentanyl. She has had fentanyl patch and oxycodone at home for pain. COVID 19 vaccinated fully. No recent sick contacts or travel. is bedside. chair maker service utilized for majority of interview.] 12/09: S/p paracentesis. 12/10: Patient seen and examined at bedside, right of way buyer used. Sitting up, interactive, and in NAD . This AM she had 180 ml drained from her abdomen and it does not appear distended 12/11: Patient seen and examined at bedside, used right of way buyer. Sitting up, talkative, says she is still having pain. Patient ate her breakfast with no issues. 12/12: Had nausea and vomiting last night. Still with pretty significant pain and pressure with gas. No chest pain or shortness of breath. Urine with Enterococcus. 12/13: Had nausea and abdominal pain no further vomiting. Significant nausea even with coffee. No chest pain or shortness of breath. 12/14: Little anxious with nausea improved with lorazepam. Had a BM with some relief of abdominal pain. Now dizzy and lightheaded with ambulation. Vitals/I&O Vitals/I&O: Vital Signs Date Time Temp Pulse Resp B/P (MAP) Pulse Ox O2 Delivery O2 Flow Rate FiO2 12/14/21 11:04 98.2 85 16 92/51 (65) 96 Room Air 98.2 Physical Exam General: Alert, Cooperative Heart: Regular rate, Normal S1 Lungs: Clear Abdomen: Soft, Other (ttp epigastric, ND) Extremities: No clubbing, No cyanosis Skin: No rashes, No breakdown Assessment and Plan Assessmemt and Plan Problems Medical Problems: (1) Abdominal pain Status: Acute (2) Thrombocytopenia Status: Acute Comment Review of Relevant I have reviewed the following items oriana (where applicable) has been applied. Medications: Current Medications Medications (Trade) Dose Ordered Sig/Mague Route PRN Reason Start Time Stop Time Status Last Admin Dose Admin Dronabinol (Marinol) 2.5 mg BIDACLD PO 12/13/21 11:30 12/13/21 11:49 Fentanyl (Duragesic 12mcg/ Hr Patch) 1 patch Q3DAYS TD 12/13/21 12:00 12/13/21 11:50 Potassium Bicarbonate (Potassium Effervescent Tablet) 40 meq 1X ONCE PO 12/13/21 12:00 12/13/21 12:01 DC 12/13/21 11:49 Lorazepam (Ativan Inj) 4 mg 1X ONCE IVP 12/13/21 18:00 12/13/21 18:01 DC 12/13/21 18:04 Justifications for Admission Other Justification DOMINGO ESCOBAR MD Dec 14, 2021 11:18
[2021-12-14] MEDS: DRONABINOL 2.5 MG CAPSULE. PO SCH ×2 (11:30→16:30)
[2021-12-14] MEDS ORDERED: ONDANSETRON ODT 4 MG TAB.RAPDIS. PO PRN (11:30)
[2021-12-14] MEDS: PROCHLORPERAZINE 10 MG/2 ML VIAL. IVP PRN (11:54)
--- NOTE | 2021-12-14 12:03 | PDOC ---
Date of Service: DATE: 12/14/21 TIME: 11:59 Subjective: Subjective: Daughter present and helps translate, also translation help from other daughter via cell phone. Pt has mid/lower abdominal pain (says not upper/epigastric). Thinks pain causes nausea, also not wanting to eat due to fear of making pain worse. Stooled this morning. Dizziness pretty constantly. Objective: Vital Signs: Vital Signs Date Time Temp Pulse Resp B/P (MAP) Pulse Ox O2 Delivery O2 Flow Rate FiO2 12/14/21 11:04 98.2 85 16 92/51 (65) 96 Room Air 98.2 Labs: GRAM STAIN-AER COMPA Final PMNS (WBCS): NONE SEEN SQUAMOUS EPI CELL: NOT APPLICABLE NO ORGANISMS SEEN NO ORGANISMS SEEN CULTURE ANAEROBIC/AEROBIC Preliminary NO GROWTH ON 12/11/21 at 1004 NO GROWTH ON 12/12/21 at 0903 PE: GEN: NAD LUNGS: CTAB HEART: RRR ABD: quiet, soft, periumbilical/suprapubic discomfort NEURO/PSYCH: A & O 3, depressed A/P: Chronic abd pain Nausea Metastatic pancreatic cancer s/p Whipple on chemo Fluid collection on CT s/p paracentesis - prelim results as above CULTURE URINE Final 30,000 CFU/ML ESCHERICHIA COLIon 12/10/21 at 1321. 60,000 CFU/ML ENTEROCOCCUS FAECALISon 12/10/21 at 1321. -- Change to IV PPI. Follow surgery recs. Justicifation of Admission Dx: Justifications for Admission: Justification of Admission Dx: Yes ROGERS POLANCO Dec 14, 2021 12:03
--- NOTE | 2021-12-14 12:07 | PATHOLOGY ---
Note [facility] Accession Number: [id number] TESTS RESULT FLAG UNITS REF RANGE LAB Clinician Provided Cytology Information No. of containers..01 Other (Miscellaneous) Source: 01 ABDOMINAL FLUID DIAGNOSIS: 02 ABDOMINAL FLUID NEGATIVE FOR MALIGNANT CELLS. FOCALLY REACTIVE MESOTHELIAL CELLS ARE PRESENT. THIS INTERPRETATION INCLUDES EVALUATION OF A CELL BLOCK. Signed out by: 02 Berry Baez MD, Pathologist NPI- [id number] Performed by: Shasta Banegas, Loading Unit Tool Setter ([facility]) Gross description: 01 35ML, YELLOW, CLEAR /LCS 12/11/2021 1719 Local FLAG LEGEND: L-Low Normal,H-High Normal,LL-Alert Low,HH-Alert High <-Panic Low,>-Panic High,A-Abnormal,AA-Critical Abnormal Performed at: 01 [facility] [address] [place] [address] Jesse Mina MD, 02 [facility] [address] [place] [address] Berry Baez MD, Specimen Comment: A courtesy copy of this report has been sent to [phone], [phone] Specimen Comment: [phone], Specimen Comment: Report sent to , DR MURRAY / DR BARCENAS Specimen Comment: A duplicate report has been generated due to demographic updates. Performed at: 01 [facility] [address], [place], [place] [id number] MD Jesse Mina MD Phone: [phone]
[2021-12-14] MEDS ORDERED: IV DEXTROSE 5%-LACT RINGERS 1,000 ML IV ONE (12:45)
[2021-12-14 14:13] LABS: CALCIUM 8.2 mg/dL (8.5-10.1); CREATININE 0.8 mg/dL (0.6-1.0); GFR 73.4; POTASSIUM 3.5 mmol/L (3.5-5.1)
[2021-12-14 14:18] LABS: ALBUMIN 2.9 g/dL (3.4-5.0); ALBUMIN/GLOBULIN RATIO 0.8 (1.0-1.7); MAGNESIUM 1.8 mg/dL (1.8-2.4); PHOSPHORUS 4.1 mg/dL (2.6-4.7); TOTAL BILIRUBIN 0.4 mg/dL (0.2-1.0); TOTAL PROTEIN 6.4 g/dL (6.4-8.2)
[2021-12-14] MEDS: TPN PER PHARMACY MC PRN ×2 (14:29→15:43)
[2021-12-14 15:12] VITALS: BP_SYST 137; BP_SYST 90; BP_DIAS 60; BP_DIAS 79
[2021-12-14] MEDS: ONDANSETRON PF 4 MG/2 ML VIAL. IVP PRN (15:28)
--- NOTE | 2021-12-14 15:44 | NUR ---
Pharmacy TPN Dosing Note S: MINERVA HOOD is a 61 year old F Currently receiving Central Continuous TPN started 12/14/21 B:Pertinent PMH: pancreatic cancer, failure to thrive Height: 5 feet, 2 inches Weight: 54.4 kg Current diet: CLD LABS: Sodium: 139 Potassium: 3.5 Chloride: 104 Calcium: 8.2 Corrected Calcium: 9.08 Magnesium: 1.8 CO2: 26 SCr: 0.8 Glucose: 106 Albumin: 2.9 AST: 38 ALT: 18 TPN FORMULA: TPN TYPE: Central Continuous AMINO ACIDS: 60 gm DEXTROSE: 195 gm LIPIDS: 20 gm SODIUM CHLORIDE: 90 mEq POTASSIUM CHLORIDE: 50 mEq POTASSIUM PHOSPHATE: 13.6 mmol MAGNESIUM: 10 mEq MULTIPLE VITAMIN: 10 ml TRACE ELEMENTS: 1 ml TPN PLAN: -Failure to thrive, poor PO intake - start TPN per primary. -Labs appear WNL - start standard TPN with no calcium due to national shortage. -BMP, mag, phos tomorrow. R: Begin TPN @ 63 ml/hr and above formula. Will monitor electrolytes, glucose, and tolerance to TPN. PAVAN MART [facility], 12/14/21 4214
[2021-12-14 19:00] VITALS: BP 95/55
[2021-12-14] MEDS ORDERED: TOTAL PARENTERAL NUTRITION 1,446.4667 ML, AMINO ACID 15% 60 GM, DEXTROSE 70 % IN WATER ... IV SCH (22:00)
[2021-12-14] MEDS: ATORVASTATIN CALCIUM 10 MG TABLET. PO SCH (22:08)
[2021-12-14 23:00] VITALS: BP 93/59
[2021-12-15 03:00] VITALS: BP 91/52
[2021-12-15 05:33] LABS: CALCIUM 7.8 mg/dL (8.5-10.1); CREATININE 0.7 mg/dL (0.6-1.0); GFR 85.6; MAGNESIUM 1.8 mg/dL (1.8-2.4); PHOSPHORUS 3.8 mg/dL (2.6-4.7); POTASSIUM 3.5 mmol/L (3.5-5.1)
[2021-12-15] MEDS: LEVOTHYROXINE 125 MCG TABLET PO SCH (06:14)
[2021-12-15] MEDS: HEPARIN for SUB-Q USE 5,000 UNIT/ML VIAL. SQ SCH ×3 (06:19→22:04)
[2021-12-15 07:00] VITALS: BP 97/61
[2021-12-15] MEDS: SENNOSIDES/DOCUSATE 8.6/50MG TABLET. PO SCH ×2 (08:25→22:01)
[2021-12-15] MEDS: PANTOPRAZOLE IV PUSH 40 MG VIAL. IVP SCH (08:25)
--- NOTE | 2021-12-15 08:25 | PDOC ---
BEREKET ZULUAGA ICT SUPPORT ENGINEER 12/15/21 0825: SURGICAL PROGRESS NOTE DATE: 12/15/21 TIME: 08:24 Subjective overall feeling better tolerating some clears Vital Signs Vital Signs Date Time Temp Pulse Resp B/P (MAP) Pulse Ox O2 Delivery O2 Flow Rate FiO2 12/15/21 07:00 98.8 83 16 97/61 (73) 95 Room Air 98.8 I&O Intake and Output 12/15/21 07:00 Intake Total 400 ml Balance 400 ml Intake Oral 400 ml # Voids 1 General: Alert, Oriented X3, Cooperative Abdomen: Soft, Other (epigastric ttp) Labs Laboratory Tests Test 12/14/21 12:40 12/14/21 14:56 12/15/21 04:00 Sodium Level 139 mmol/L (136-145) 141 mmol/L (136-145) Potassium Level 3.5 mmol/L (3.5-5.1) 3.5 mmol/L (3.5-5.1) Chloride Level 104 mmol/L (98-107) 106 mmol/L (98-107) Carbon Dioxide Level 26 mmol/L (21-32) 25 mmol/L (21-32) Anion Gap 9 (6-14) 10 (6-14) Blood Urea Nitrogen 5 mg/dL (7-20) 6 mg/dL (7-20) Creatinine 0.8 mg/dL (0.6-1.0) 0.7 mg/dL (0.6-1.0) Estimated GFR (Cockcroft-Gault) 73.4 85.6 BUN/Creatinine Ratio 6 (6-20) Glucose Level 106 mg/dL (70-99) 127 mg/dL (70-99) Calcium Level 8.2 mg/dL (8.5-10.1) 7.8 mg/dL (8.5-10.1) Phosphorus Level 4.1 mg/dL (2.6-4.7) 3.8 mg/dL (2.6-4.7) Magnesium Level 1.8 mg/dL (1.8-2.4) 1.8 mg/dL (1.8-2.4) Total Bilirubin 0.4 mg/dL (0.2-1.0) Aspartate Amino Transf (AST/SGOT) 38 U/L (15-37) Alanine Aminotransferase (ALT/SGPT) 18 U/L (14-59) Alkaline Phosphatase 178 U/L (46-116) Total Protein 6.4 g/dL (6.4-8.2) Albumin 2.9 g/dL (3.4-5.0) Albumin/Globulin Ratio 0.8 (1.0-1.7) Triglycerides Level 136 mg/dL (0-150) Ionized Calcium 1.17 mmol/L (1.13-1.32) Laboratory Tests Test 12/14/21 12:40 12/14/21 14:56 12/15/21 04:00 Sodium Level 139 mmol/L (136-145) 141 mmol/L (136-145) Potassium Level 3.5 mmol/L (3.5-5.1) 3.5 mmol/L (3.5-5.1) Chloride Level 104 mmol/L (98-107) 106 mmol/L (98-107) Carbon Dioxide Level 26 mmol/L (21-32) 25 mmol/L (21-32) Anion Gap 9 (6-14) 10 (6-14) Blood Urea Nitrogen 5 mg/dL (7-20) 6 mg/dL (7-20) Creatinine 0.8 mg/dL (0.6-1.0) 0.7 mg/dL (0.6-1.0) Estimated GFR (Cockcroft-Gault) 73.4 85.6 BUN/Creatinine Ratio 6 (6-20) Glucose Level 106 mg/dL (70-99) 127 mg/dL (70-99) Calcium Level 8.2 mg/dL (8.5-10.1) 7.8 mg/dL (8.5-10.1) Phosphorus Level 4.1 mg/dL (2.6-4.7) 3.8 mg/dL (2.6-4.7) Magnesium Level 1.8 mg/dL (1.8-2.4) 1.8 mg/dL (1.8-2.4) Total Bilirubin 0.4 mg/dL (0.2-1.0) Aspartate Amino Transf (AST/SGOT) 38 U/L (15-37) Alanine Aminotransferase (ALT/SGPT) 18 U/L (14-59) Alkaline Phosphatase 178 U/L (46-116) Total Protein 6.4 g/dL (6.4-8.2) Albumin 2.9 g/dL (3.4-5.0) Albumin/Globulin Ratio 0.8 (1.0-1.7) Triglycerides Level 136 mg/dL (0-150) Ionized Calcium 1.17 mmol/L (1.13-1.32) Problem List Problems Medical Problems: (1) Abdominal pain Status: Acute (2) Thrombocytopenia Status: Acute Assessment/Plan tpn, supportive care round, chart 10 min Justicifation of Admission Dx: Justifications for Admission: Justification of Admission Dx: Yes OG CASTANEDA MD 12/15/21 1529: SURGICAL PROGRESS NOTE Assessment/Plan Pt seen and examined. Agree with Ms. Zuluaga's note Pt feels mildly improved, somewhat stronger abd soft, mild TTP cont TPN and supportive care, hopefully symptoms will be self limiting. BEREKET ZULUAGA APRN Dec 15, 2021 08:25 OG CASTANEDA MD Dec 15, 2021 15:29
[2021-12-15] MEDS: ONDANSETRON PF 4 MG/2 ML VIAL. IVP PRN (09:29)
[2021-12-15 11:00] VITALS: BP 98/62
[2021-12-15] MEDS: DRONABINOL 2.5 MG CAPSULE. PO SCH ×2 (11:27→17:10)
[2021-12-15] MEDS: MORPHINE SULFATE 2 MG/ML INJ. IV PRN (11:28)
--- NOTE | 2021-12-15 11:28 | PDOC ---
Date of Service: DATE: 12/15/21 TIME: 11:25 Subjective: Subjective: Tolerating a few clear liquids today, maybe feeling better. Objective: Vital Signs: Vital Signs Date Time Temp Pulse Resp B/P (MAP) Pulse Ox O2 Delivery O2 Flow Rate FiO2 12/15/21 11:00 98.4 82 16 98/62 (74) 95 Room Air 98.4 Labs: GRAM STAIN-AER COMPA Final PMNS (WBCS): NONE SEEN SQUAMOUS EPI CELL: NOT APPLICABLE NO ORGANISMS SEEN NO ORGANISMS SEEN CULTURE ANAEROBIC/AEROBIC Final NO GROWTH ON 12/11/21 at 1004 NO GROWTH ON 12/12/21 at 0903 NO GROWTH ON 12/15/21 at 0815 Source: 01 ABDOMINAL FLUID DIAGNOSIS: 02 ABDOMINAL FLUID NEGATIVE FOR MALIGNANT CELLS. FOCALLY REACTIVE MESOTHELIAL CELLS ARE PRESENT. THIS INTERPRETATION INCLUDES EVALUATION OF A CELL BLOCK. Laboratory Tests Test 12/14/21 12:40 12/14/21 14:56 12/15/21 04:00 Sodium Level 139 mmol/L 141 mmol/L Potassium Level 3.5 mmol/L 3.5 mmol/L Chloride Level 104 mmol/L 106 mmol/L Carbon Dioxide Level 26 mmol/L 25 mmol/L Anion Gap 9 10 Blood Urea Nitrogen 5 mg/dL 6 mg/dL Creatinine 0.8 mg/dL 0.7 mg/dL Estimated GFR (Cockcroft-Gault) 73.4 85.6 BUN/Creatinine Ratio 6 Glucose Level 106 mg/dL 127 mg/dL Calcium Level 8.2 mg/dL 7.8 mg/dL Phosphorus Level 4.1 mg/dL 3.8 mg/dL Magnesium Level 1.8 mg/dL 1.8 mg/dL Total Bilirubin 0.4 mg/dL Aspartate Amino Transf (AST/SGOT) 38 U/L Alanine Aminotransferase (ALT/SGPT) 18 U/L Alkaline Phosphatase 178 U/L Total Protein 6.4 g/dL Albumin 2.9 g/dL Albumin/Globulin Ratio 0.8 Triglycerides Level 136 mg/dL Ionized Calcium 1.17 mmol/L PE: GEN: NAD LUNGS: CTAB HEART: RRR ABD: soft NEURO/PSYCH: A & O 3 A/P: Chronic abd pain, nausea Metastatic pancreatic cancer s/p Whipple on chemo Fluid collection on CT s/p paracentesis - fluid results as above -- Now on TPN. Justicifation of Admission Dx: Justifications for Admission: Justification of Admission Dx: Yes ROGERS POLANCO Dec 15, 2021 11:27
--- NOTE | 2021-12-15 12:18 | PDOC ---
[employer] PROGRESS NOTE Date of Service DOS: DATE: 12/15/21 TIME: 12:01 Chief Complaint Chief Complaint Abdominal pain Hx of pancreatic cancer, undergoing chemotherapy Nausea and vomiting - non-intractable, ok for slow diet Pancreatic cancer - Pancreatic adenocarcinoma, T2N2. Local invasion s/p whipple 09/15/2021 non-pyloric sparing pancreaticogastrostomy, hepaticojejunostomy with Billroth 1 type gastrojejunostomy, right colon resection and gastrostomy tube placement (tube removed). s/p port 11/05/21 Anemia secondary to blood loss - improved since surgery Thrombocytopenia - likely chemo related Hypokalemia - replace IV Abnormal UA - UTI, polymicrobial Hypothyroidism - cont home levothyroxine Hyperlipidemia - cont statin FEN - Regular diet PPX - lovenox FULL CODE Dispo - inpatient History of Present Illness History of Present Illness Ms Hemphill is a 61yo female, sinhala-speaking only, with PMHx hypothyroidism, HLD, and recent diagnosis of pancreatic cancer T2N2 s/p whipple 09/15/21 and chemotherapy who comes to ED c/o abdominal pain with nausea, vomiting and diarrhea. She had epigastric and RUQ pain that had associated diarrhea, and some emesis with continued nausea. Admitted for further care. [Historically 09/09 underwent lap sharad and returned to OR status post Whipple 09/15/2021 non-pyloric sparing pancreaticogastrostomy, hepaticojejunostomy with Billroth 1 type gastrojejunostomy, right colon resection and gastrostomy tube placement, found with T2N2 locally invasive pancreatic adenocarcinoma. She is being seen outpatient by Dr. Bueno from hematology oncology and is followed by Dr. Baldwin from colorectal surgery. She is s/p left port-a-cath placement 11/05/21. Pain was reasonably relieved with IV fentanyl. She has had fentanyl patch and oxycodone at home for pain. COVID 19 vaccinated fully. No recent sick contacts or travel. is bedside. van loader service utilized for majority of interview.] 12/09: S/p paracentesis. 12/10: Patient seen and examined at bedside, mva operator used. Sitting up, interactive, and in NAD . This AM she had 180 ml drained from her abdomen and it does not appear distended 12/11: Patient seen and examined at bedside, used mva operator. Sitting up, talkative, says she is still having pain. Patient ate her breakfast with no issues. 12/12: Had nausea and vomiting last night. Still with pretty significant pain and pressure with gas. No chest pain or shortness of breath. Urine with Enterococcus. 12/13: Had nausea and abdominal pain no further vomiting. Significant nausea even with coffee. No chest pain or shortness of breath. 12/14: Little anxious with nausea improved with lorazepam. Had a BM with some relief of abdominal pain. Now dizzy and lightheaded with ambulation. 12/15: Started on TPN. Still with a little left lower quadrant pain unchanged by bowel movement still moving her bowels. Eating minimal. Still having nausea but no vomiting today Vitals/I&O Vitals/I&O: Vital Signs Date Time Temp Pulse Resp B/P (MAP) Pulse Ox O2 Delivery O2 Flow Rate FiO2 12/15/21 11:28 Room Air 12/15/21 11:00 98.4 82 16 98/62 (74) 95 98.4 I & O 12/14/21 12/14/21 12/15/21 15:00 23:00 07:00 Intake Total 0 ml 400 ml Balance 0 ml 400 ml Physical Exam General: Alert, Oriented X3, Cooperative Heart: Regular rate, Normal S1 Lungs: Clear Abdomen: Soft, Other (epigastric ttp) Extremities: No clubbing, No cyanosis Skin: No rashes, No breakdown Labs Labs: Laboratory Tests Test 12/14/21 12:40 12/14/21 14:56 12/15/21 04:00 Sodium Level 139 mmol/L (136-145) 141 mmol/L (136-145) Potassium Level 3.5 mmol/L (3.5-5.1) 3.5 mmol/L (3.5-5.1) Chloride Level 104 mmol/L (98-107) 106 mmol/L (98-107) Carbon Dioxide Level 26 mmol/L (21-32) 25 mmol/L (21-32) Anion Gap 9 (6-14) 10 (6-14) Blood Urea Nitrogen 5 mg/dL (7-20) 6 mg/dL (7-20) Creatinine 0.8 mg/dL (0.6-1.0) 0.7 mg/dL (0.6-1.0) Estimated GFR (Cockcroft-Gault) 73.4 85.6 BUN/Creatinine Ratio 6 (6-20) Glucose Level 106 mg/dL (70-99) 127 mg/dL (70-99) Calcium Level 8.2 mg/dL (8.5-10.1) 7.8 mg/dL (8.5-10.1) Phosphorus Level 4.1 mg/dL (2.6-4.7) 3.8 mg/dL (2.6-4.7) Magnesium Level 1.8 mg/dL (1.8-2.4) 1.8 mg/dL (1.8-2.4) Total Bilirubin 0.4 mg/dL (0.2-1.0) Aspartate Amino Transf (AST/SGOT) 38 U/L (15-37) Alanine Aminotransferase (ALT/SGPT) 18 U/L (14-59) Alkaline Phosphatase 178 U/L (46-116) Total Protein 6.4 g/dL (6.4-8.2) Albumin 2.9 g/dL (3.4-5.0) Albumin/Globulin Ratio 0.8 (1.0-1.7) Triglycerides Level 136 mg/dL (0-150) Ionized Calcium 1.17 mmol/L (1.13-1.32) Assessment and Plan Assessmemt and Plan Problems Medical Problems: (1) Abdominal pain Status: Acute (2) Thrombocytopenia Status: Acute Comment Review of Relevant I have reviewed the following items oriana (where applicable) has been applied. Medications: Current Medications Medications (Trade) Dose Ordered Sig/Mague Route PRN Reason Start Time Stop Time Status Last Admin Dose Admin Pantoprazole Sodium (PROTONIX VIAL for IV PUSH) 40 mg DAILYAC IVP 12/15/21 07:30 12/15/21 08:25 Dextrose/Lactated Ringer's 1,000 ml @ 75 mls/hr 1X ONCE IV 12/14/21 12:45 12/15/21 02:04 DC 12/14/21 15:29 Info (Tpn Per Pharmacy) 1 each PRN DAILY PRN MC SEE COMMENTS 12/14/21 14:30 12/14/21 15:43 Sodium Chloride 90 meq/Potassium Chloride 50 meq/ Potassium Phosphate 13.6 mmol/Magnesium Sulfate 10 meq/ Multivitamins 10 ml/Zinc/Copper/ Manganese/ Selenium 1 ml/ Total Parenteral Nutrition/Amino Acids/Dextrose/ Fat Emulsion Intravenous 1,512 ml @ 63 mls/hr TPN CONT IV 12/14/21 22:00 12/15/21 21:59 12/14/21 22:09 Justifications for Admission Other Justification DOMINGO ESCOBAR MD Dec 15, 2021 12:18
[2021-12-15] MEDS: TPN PER PHARMACY MC PRN (13:18)
--- NOTE | 2021-12-15 13:20 | NUR ---
Pharmacy TPN Dosing Note S: MINERVA HOOD is a 61 year old F Currently receiving Central Continuous TPN started 12/14/21 B:Pertinent PMH: pancreatic cancer, failure to thrive Height: 5 feet, 2 inches Weight: 54.4 kg Current diet: CLD LABS: Sodium: 141 Potassium: 3.5 Chloride: 106 Calcium: 7.8 Corrected Calcium: 8.68 Magnesium: 1.8 CO2: 25 SCr: 0.7 Glucose: 127 Albumin: 2.9 AST: 38 ALT: 18 TPN FORMULA: TPN TYPE: Central Continuous AMINO ACIDS: 60 gm DEXTROSE: 195 gm LIPIDS: 20 (MWF) gm SODIUM CHLORIDE: 90 mEq POTASSIUM CHLORIDE: 50 mEq POTASSIUM PHOSPHATE: 13.6 mmol MAGNESIUM: 10 mEq MULTIPLE VITAMIN: 10 ml TRACE ELEMENTS: 1 ml(s) TPN PLAN: Lipids removed per MWF schedule R: Change TPN per plan and ordered formula Will monitor electrolytes, glucose, and tolerance to TPN. Belle Apodaca Jaquan, 12/15/21 [id number]
[2021-12-15 15:00] VITALS: BP 95/60
[2021-12-15] MEDS ORDERED: TOTAL PARENTERAL NUTRITION 1,446.4667 ML, AMINO ACID 15% 60 GM, DEXTROSE 70 % IN WATER ... IV SCH (22:00)
[2021-12-15] MEDS: ATORVASTATIN CALCIUM 10 MG TABLET. PO SCH (22:01)
[2021-12-15 22:59] VITALS: BP 74/45
[2021-12-16 03:23] VITALS: BP 95/58
[2021-12-16] MEDS: LEVOTHYROXINE 125 MCG TABLET PO SCH (05:52)
[2021-12-16] MEDS: MORPHINE SULFATE 2 MG/ML INJ. IV PRN ×2 (05:52→21:48)
[2021-12-16] MEDS: HEPARIN for SUB-Q USE 5,000 UNIT/ML VIAL. SQ SCH ×3 (05:56→21:56)
[2021-12-16 07:00] VITALS: BP 83/55
[2021-12-16] MEDS: PANTOPRAZOLE IV PUSH 40 MG VIAL. IVP SCH (07:30)
[2021-12-16] MEDS: SENNOSIDES/DOCUSATE 8.6/50MG TABLET. PO SCH ×2 (08:17→20:15)
[2021-12-16] MEDS: DRONABINOL 2.5 MG CAPSULE. PO SCH ×2 (08:26→17:19)
[2021-12-16] MEDS: fentaNYL 12MCG/HR PATCH 1 PATCH PATCH.TD72 TD SCH (08:26)
[2021-12-16 08:45] LABS: CALCIUM 7.9 mg/dL (8.5-10.1); CREATININE 0.6 mg/dL (0.6-1.0); GFR 102.3; MAGNESIUM 2.1 mg/dL (1.8-2.4); PHOSPHORUS 4.2 mg/dL (2.6-4.7); POTASSIUM 4.3 mmol/L (3.5-5.1)
--- NOTE | 2021-12-16 10:45 | NUR ---
SW following. Discussed with RN, pt from home with , room air, clear liquid diet - on TPN. Pt will discharge home when medically ready. SW will continue to follow.
--- NOTE | 2021-12-16 10:54 | PDOC ---
[employer] PROGRESS NOTE Date of Service DOS: DATE: 12/16/21 TIME: 10:51 Chief Complaint Chief Complaint Abdominal pain Hx of pancreatic cancer, undergoing chemotherapy Nausea and vomiting - non-intractable, ok for slow diet Pancreatic cancer - Pancreatic adenocarcinoma, T2N2. Local invasion s/p whipple 09/15/2021 non-pyloric sparing pancreaticogastrostomy, hepaticojejunostomy with Billroth 1 type gastrojejunostomy, right colon resection and gastrostomy tube placement (tube removed). s/p port 11/05/21 Anemia secondary to blood loss - improved since surgery Thrombocytopenia - likely chemo related Hypokalemia - replace IV Abnormal UA - UTI, polymicrobial Hypothyroidism - cont home levothyroxine Hyperlipidemia - cont statin FEN - Regular diet PPX - lovenox FULL CODE Dispo - inpatient History of Present Illness History of Present Illness Ms Hemphill is a 61yo female, yakut-speaking only, with PMHx hypothyroidism, HLD, and recent diagnosis of pancreatic cancer T2N2 s/p whipple 09/15/21 and chemotherapy who comes to ED c/o abdominal pain with nausea, vomiting and diarrhea. She had epigastric and RUQ pain that had associated diarrhea, and some emesis with continued nausea. Admitted for further care. [Historically 09/09 underwent lap sharad and returned to OR status post Whipple 09/15/2021 non-pyloric sparing pancreaticogastrostomy, hepaticojejunostomy with Billroth 1 type gastrojejunostomy, right colon resection and gastrostomy tube placement, found with T2N2 locally invasive pancreatic adenocarcinoma. She is being seen outpatient by Dr. Bueno from hematology oncology and is followed by Dr. Baldwin from colorectal surgery. She is s/p left port-a-cath placement 11/05/21. Pain was reasonably relieved with IV fentanyl. She has had fentanyl patch and oxycodone at home for pain. COVID 19 vaccinated fully. No recent sick contacts or travel. is bedside. atm technician service utilized for majority of interview.] 12/09: S/p paracentesis. 12/10: Patient seen and examined at bedside, bridge ironworker used. Sitting up, interactive, and in NAD . This AM she had 180 ml drained from her abdomen and it does not appear distended 12/11: Patient seen and examined at bedside, used bridge ironworker. Sitting up, talkative, says she is still having pain. Patient ate her breakfast with no issues. 12/12: Had nausea and vomiting last night. Still with pretty significant pain and pressure with gas. No chest pain or shortness of breath. Urine with Enterococcus. 12/13: Had nausea and abdominal pain no further vomiting. Significant nausea even with coffee. No chest pain or shortness of breath. 12/14: Little anxious with nausea improved with lorazepam. Had a BM with some relief of abdominal pain. Now dizzy and lightheaded with ambulation. 12/15: Started on TPN. Still with a little left lower quadrant pain unchanged by bowel movement still moving her bowels. Eating minimal. Still having nausea but no vomiting today 12/16: Tolerating TPN well. Still eating minimally her left lower quadrant abdominal pain and swelling worsened today. Still having stools. Pain does not seem related to eating or bowel movements. Still with nausea but she thinks it is better controlled just does not have an appetite. We'll increase fentanyl patch dosing today. Vitals/I&O Vitals/I&O: Vital Signs Date Time Temp Pulse Resp B/P (MAP) Pulse Ox O2 Delivery O2 Flow Rate FiO2 12/16/21 08:55 Room Air 12/16/21 07:00 97.9 81 20 83/55 (64) 97 97.9 I & O 12/15/21 12/15/21 12/16/21 15:00 23:00 07:00 Intake Total 480 ml Balance 480 ml Physical Exam General: Alert, Oriented X3, Cooperative Heart: Regular rate, Normal S1 Lungs: Clear Abdomen: Soft, Other (epigastric ttp) Extremities: No clubbing, No cyanosis Skin: No rashes, No breakdown Labs Labs: Laboratory Tests Test 12/16/21 07:15 Sodium Level 141 mmol/L (136-145) Potassium Level 4.3 mmol/L (3.5-5.1) Chloride Level 107 mmol/L (98-107) Carbon Dioxide Level 25 mmol/L (21-32) Anion Gap 9 (6-14) Blood Urea Nitrogen 10 mg/dL (7-20) Creatinine 0.6 mg/dL (0.6-1.0) Estimated GFR (Cockcroft-Gault) 102.3 Glucose Level 137 mg/dL (70-99) Calcium Level 7.9 mg/dL (8.5-10.1) Phosphorus Level 4.2 mg/dL (2.6-4.7) Magnesium Level 2.1 mg/dL (1.8-2.4) Assessment and Plan Assessmemt and Plan Problems Medical Problems: (1) Abdominal pain Status: Acute (2) Thrombocytopenia Status: Acute Comment Review of Relevant I have reviewed the following items oriana (where applicable) has been applied. Medications: Current Medications Medications (Trade) Dose Ordered Sig/Mague Route PRN Reason Start Time Stop Time Status Last Admin Dose Admin Sodium Chloride 90 meq/Potassium Chloride 50 meq/ Potassium Phosphate 13.6 mmol/Magnesium Sulfate 10 meq/ Multivitamins 10 ml/Zinc/Copper/ Manganese/ Selenium 1 ml/ Total Parenteral Nutrition/Amino Acids/Dextrose/ Fat Emulsion Intravenous 1,512 ml @ 63 mls/hr TPN CONT IV 12/15/21 22:00 12/16/21 21:59 12/15/21 21:59 Justifications for Admission Other Justification DOMINGO ESCOBAR MD Dec 16, 2021 10:54
[2021-12-16 11:00] VITALS: BP 84/56
[2021-12-16] MEDS ORDERED: fentaNYL 12MCG/HR PATCH 1 PATCH PATCH.TD72 TD ONE (11:00)
--- NOTE | 2021-12-16 13:31 | PDOC ---
SURGICAL PROGRESS NOTE DATE: 12/16/21 TIME: 13:30 Subjective Pt feels better, no nausea, but some reflux, passing stools, one episode of pain earlier, but none since 0500. Vital Signs Vital Signs Date Time Temp Pulse Resp B/P (MAP) Pulse Ox O2 Delivery O2 Flow Rate FiO2 12/16/21 11:00 97.9 81 20 84/56 (65) 97 Room Air 97.9 I&O Intake and Output 12/16/21 07:00 Intake Total 480 ml Balance 480 ml Intake Oral 480 ml # Voids 4 General: Alert, Oriented X3, Cooperative, No acute distress Abdomen: Soft, No tenderness Labs Laboratory Tests Test 12/14/21 14:56 12/15/21 04:00 12/16/21 07:15 Ionized Calcium 1.17 mmol/L (1.13-1.32) Sodium Level 141 mmol/L (136-145) 141 mmol/L (136-145) Potassium Level 3.5 mmol/L (3.5-5.1) 4.3 mmol/L (3.5-5.1) Chloride Level 106 mmol/L (98-107) 107 mmol/L (98-107) Carbon Dioxide Level 25 mmol/L (21-32) 25 mmol/L (21-32) Anion Gap 10 (6-14) 9 (6-14) Blood Urea Nitrogen 6 mg/dL (7-20) 10 mg/dL (7-20) Creatinine 0.7 mg/dL (0.6-1.0) 0.6 mg/dL (0.6-1.0) Estimated GFR (Cockcroft-Gault) 85.6 102.3 Glucose Level 127 mg/dL (70-99) 137 mg/dL (70-99) Calcium Level 7.8 mg/dL (8.5-10.1) 7.9 mg/dL (8.5-10.1) Phosphorus Level 3.8 mg/dL (2.6-4.7) 4.2 mg/dL (2.6-4.7) Magnesium Level 1.8 mg/dL (1.8-2.4) 2.1 mg/dL (1.8-2.4) Laboratory Tests Test 12/16/21 07:15 Sodium Level 141 mmol/L (136-145) Potassium Level 4.3 mmol/L (3.5-5.1) Chloride Level 107 mmol/L (98-107) Carbon Dioxide Level 25 mmol/L (21-32) Anion Gap 9 (6-14) Blood Urea Nitrogen 10 mg/dL (7-20) Creatinine 0.6 mg/dL (0.6-1.0) Estimated GFR (Cockcroft-Gault) 102.3 Glucose Level 137 mg/dL (70-99) Calcium Level 7.9 mg/dL (8.5-10.1) Phosphorus Level 4.2 mg/dL (2.6-4.7) Magnesium Level 2.1 mg/dL (1.8-2.4) Problem List Problems Medical Problems: (1) Abdominal pain Status: Acute (2) Thrombocytopenia Status: Acute Assessment/Plan appears improved will give PO PPI pt would like to go in AM which is reasonable Justicifation of Admission Dx: Justifications for Admission: Justification of Admission Dx: Yes OG CASTANEDA MD Dec 16, 2021 13:31
[2021-12-16] MEDS: TPN PER PHARMACY MC PRN (13:33)
--- NOTE | 2021-12-16 13:34 | NUR ---
Pharmacy TPN Dosing Note S: MINERVA HOOD is a 61 year old F Currently receiving Central Continuous TPN started 12/14/21 B:Pertinent PMH: pancreatic cancer, failure to thrive Height: 5 feet, 2 inches Weight: 54.4 kg Current diet: CLD LABS: Sodium: 141 Potassium: 4.3 Chloride: 107 Calcium: 7.9 Corrected Calcium: 8.78 Magnesium: 2.1 CO2: 25 SCr: 0.6 Glucose: 137 Albumin: 2.9 AST: 38 ALT: 18 TPN FORMULA: TPN TYPE: Central Continuous AMINO ACIDS: 60 gm DEXTROSE: 195 gm LIPIDS: 20 (MWF) gm SODIUM CHLORIDE: 90 mEq SODIUM ACETATE: mEq SODIUM PHOSPHATE: mmol POTASSIUM CHLORIDE: 40 mEq POTASSIUM ACETATE: mEq POTASSIUM PHOSPHATE: 8 mmol MAGNESIUM: 10 mEq CALCIUM: mEq INSULIN: units MULTIPLE VITAMIN: 10 ml TRACE ELEMENTS: 1 ml(s) TPN PLAN: Lipids on MWF schedule K and phos trending up: will reduce KCL to 40meq and reduce Kphos to 8mmol Labs in the am. R: Continue TPN as written above. Will monitor electrolytes, glucose, and tolerance to TPN. JUANCHO YUNG [facility], 12/16/21 3079
[2021-12-16 15:00] VITALS: BP 100/64
[2021-12-16] MEDS: CALCIUM CARBONATE 500 MG TAB.CHEW PO PRN ×2 (17:12→20:18)
[2021-12-16 19:00] VITALS: BP 86/58
[2021-12-16] MEDS: ATORVASTATIN CALCIUM 10 MG TABLET. PO SCH (20:15)
[2021-12-16] MEDS ORDERED: [UNRECOGNIZED DRUG - OTHER] IV SCH (22:00)
[2021-12-16] MEDS ORDERED: TOTAL PARENTERAL NUTRITION IV SCH (22:00)
[2021-12-16] MEDS ORDERED: AMINO ACID IV SCH (22:00)
[2021-12-16] MEDS ORDERED: DEXTROSE 70% IV SCH (22:00)
[2021-12-16 23:00] VITALS: BP 89/59
[2021-12-17 03:00] VITALS: BP 80/73
[2021-12-17] MEDS: LEVOTHYROXINE 125 MCG TABLET PO SCH (05:43)
[2021-12-17] MEDS: PANTOPRAZOLE 40 MG TABLET.DR. PO SCH (05:43)
[2021-12-17] MEDS: HEPARIN for SUB-Q USE 5,000 UNIT/ML VIAL. SQ SCH ×3 (05:50→22:00)
[2021-12-17 06:28] LABS: CALCIUM 8.2 mg/dL (8.5-10.1); CREATININE 0.5 mg/dL (0.6-1.0); GFR 126.3; MAGNESIUM 2.5 mg/dL (1.8-2.4); PHOSPHORUS 4.4 mg/dL (2.6-4.7); POTASSIUM 4.6 mmol/L (3.5-5.1)
[2021-12-17 07:00] VITALS: BP 87/57
[2021-12-17] MEDS: MORPHINE SULFATE 2 MG/ML INJ. IV PRN ×4 (08:16→23:24)
[2021-12-17] MEDS: SENNOSIDES/DOCUSATE 8.6/50MG TABLET. PO SCH ×2 (08:17→20:36)
--- NOTE | 2021-12-17 08:47 | PDOC ---
BEREKET ZULUAGA PART MAKER 12/17/21 0847: SURGICAL PROGRESS NOTE DATE: 12/17/21 TIME: 08:45 Subjective resting still needing pain medication for abdominal pain mild nausea this AM Vital Signs Vital Signs Date Time Temp Pulse Resp B/P (MAP) Pulse Ox O2 Delivery O2 Flow Rate FiO2 12/17/21 08:16 Room Air 12/17/21 07:00 97.8 76 16 87/57 (67) 97 97.8 I&O Intake and Output 12/17/21 07:00 Intake Total 2152 ml Balance 2152 ml Intake Oral 520 ml IV Total 1632 ml # Voids 1 General: Alert, Oriented X3, Cooperative Abdomen: Soft, Other (ttp generalized ) Labs Laboratory Tests Test 12/16/21 07:15 12/17/21 05:45 Sodium Level 141 mmol/L (136-145) 140 mmol/L (136-145) Potassium Level 4.3 mmol/L (3.5-5.1) 4.6 mmol/L (3.5-5.1) Chloride Level 107 mmol/L (98-107) 106 mmol/L (98-107) Carbon Dioxide Level 25 mmol/L (21-32) 24 mmol/L (21-32) Anion Gap 9 (6-14) 10 (6-14) Blood Urea Nitrogen 10 mg/dL (7-20) 11 mg/dL (7-20) Creatinine 0.6 mg/dL (0.6-1.0) 0.5 mg/dL (0.6-1.0) Estimated GFR (Cockcroft-Gault) 102.3 126.3 Glucose Level 137 mg/dL (70-99) 132 mg/dL (70-99) Calcium Level 7.9 mg/dL (8.5-10.1) 8.2 mg/dL (8.5-10.1) Phosphorus Level 4.2 mg/dL (2.6-4.7) 4.4 mg/dL (2.6-4.7) Magnesium Level 2.1 mg/dL (1.8-2.4) 2.5 mg/dL (1.8-2.4) Laboratory Tests Test 12/17/21 05:45 Sodium Level 140 mmol/L (136-145) Potassium Level 4.6 mmol/L (3.5-5.1) Chloride Level 106 mmol/L (98-107) Carbon Dioxide Level 24 mmol/L (21-32) Anion Gap 10 (6-14) Blood Urea Nitrogen 11 mg/dL (7-20) Creatinine 0.5 mg/dL (0.6-1.0) Estimated GFR (Cockcroft-Gault) 126.3 Glucose Level 132 mg/dL (70-99) Calcium Level 8.2 mg/dL (8.5-10.1) Phosphorus Level 4.4 mg/dL (2.6-4.7) Magnesium Level 2.5 mg/dL (1.8-2.4) Problem List Problems Medical Problems: (1) Abdominal pain Status: Acute (2) Thrombocytopenia Status: Acute Assessment/Plan poor oral intake on tpn, likely need tpn at dc dc planning chart, round 15 min Justicifation of Admission Dx: Justifications for Admission: Justification of Admission Dx: Yes OG CASTANEDA MD 12/17/21 1318: SURGICAL PROGRESS NOTE Assessment/Plan Pt seen and examined. Agree with Ms. Zuluaga's note Pt feels better, mainly just heartburn mild TTP epigastric cont nutritional supportive and supportive care, appears to improving slowly BEREKET ZULUAGA APRN Dec 17, 2021 08:47 OG CASTANEDA MD Dec 17, 2021 13:18
[2021-12-17 11:01] VITALS: BP 94/64
--- NOTE | 2021-12-17 11:31 | PDOC ---
[facility] PROGRESS NOTE Date of Service DOS: DATE: 12/17/21 TIME: 11:29 Chief Complaint Chief Complaint Abdominal pain Hx of pancreatic cancer, undergoing chemotherapy Nausea and vomiting - non-intractable, ok for slow diet Pancreatic cancer - Pancreatic adenocarcinoma, T2N2. Local invasion s/p whipple 09/15/2021 non-pyloric sparing pancreaticogastrostomy, hepaticojejunostomy with Billroth 1 type gastrojejunostomy, right colon resection and gastrostomy tube placement (tube removed). s/p port 11/05/21 Anemia secondary to blood loss - improved since surgery Thrombocytopenia - likely chemo related Hypokalemia - replace IV Abnormal UA - UTI, polymicrobial Hypothyroidism - cont home levothyroxine Hyperlipidemia - cont statin FEN - Regular diet PPX - lovenox FULL CODE Dispo - inpatient History of Present Illness History of Present Illness Ms Hemphill is a 61yo female, romansh-speaking only, with PMHx hypothyroidism, HLD, and recent diagnosis of pancreatic cancer T2N2 s/p whipple 09/15/21 and chemotherapy who comes to ED c/o abdominal pain with nausea, vomiting and diarrhea. She had epigastric and RUQ pain that had associated diarrhea, and some emesis with continued nausea. Admitted for further care. [Historically 09/09 underwent lap sharad and returned to OR status post Whipple 09/15/2021 non-pyloric sparing pancreaticogastrostomy, hepaticojejunostomy with Billroth 1 type gastrojejunostomy, right colon resection and gastrostomy tube placement, found with T2N2 locally invasive pancreatic adenocarcinoma. She is being seen outpatient by Dr. Bueno from hematology oncology and is followed by Dr. Baldwin from colorectal surgery. She is s/p left port-a-cath placement 11/05/21. Pain was reasonably relieved with IV fentanyl. She has had fentanyl patch and oxycodone at home for pain. COVID 19 vaccinated fully. No recent sick contacts or travel. is bedside. electrician research service utilized for majority of interview.] 12/09: S/p paracentesis. 12/10: Patient seen and examined at bedside, card fixer used. Sitting up, interactive, and in NAD . This AM she had 180 ml drained from her abdomen and it does not appear distended 12/11: Patient seen and examined at bedside, used card fixer. Sitting up, talkative, says she is still having pain. Patient ate her breakfast with no issues. 12/12: Had nausea and vomiting last night. Still with pretty significant pain and pressure with gas. No chest pain or shortness of breath. Urine with Enterococcus. 12/13: Had nausea and abdominal pain no further vomiting. Significant nausea even with coffee. No chest pain or shortness of breath. 12/14: Little anxious with nausea improved with lorazepam. Had a BM with some relief of abdominal pain. Now dizzy and lightheaded with ambulation. 12/15: Started on TPN. Still with a little left lower quadrant pain unchanged by bowel movement still moving her bowels. Eating minimal. Still having nausea but no vomiting today 12/16: Tolerating TPN well. Still eating minimally her left lower quadrant abdominal pain and swelling worsened today. Still having stools. Pain does not seem related to eating or bowel movements. Still with nausea but she thinks it is better controlled just does not have an appetite. We'll increase fentanyl patch dosing today. 12/17: Pain improved today. Still with minimal p.o. intake and on TPN. She ambulating the unit. Nausea is well controlled today still there at baseline. Having bowel movements. Vitals/I&O Vitals/I&O: Vital Signs Date Time Temp Pulse Resp B/P (MAP) Pulse Ox O2 Delivery O2 Flow Rate FiO2 12/17/21 11:01 98.0 87 18 94/64 (74) 96 Room Air 98.0 I & O 12/16/21 12/16/21 12/17/21 15:00 23:00 07:00 Intake Total 120 ml 1712 ml 320 ml Balance 120 ml 1712 ml 320 ml Physical Exam General: Alert, Oriented X3, Cooperative Heart: Regular rate, Normal S1 Lungs: Clear Abdomen: Soft, Other (ttp generalized ) Extremities: No clubbing, No cyanosis Skin: No rashes, No breakdown Labs Labs: Laboratory Tests Test 12/17/21 05:45 Sodium Level 140 mmol/L (136-145) Potassium Level 4.6 mmol/L (3.5-5.1) Chloride Level 106 mmol/L (98-107) Carbon Dioxide Level 24 mmol/L (21-32) Anion Gap 10 (6-14) Blood Urea Nitrogen 11 mg/dL (7-20) Creatinine 0.5 mg/dL (0.6-1.0) Estimated GFR (Cockcroft-Gault) 126.3 Glucose Level 132 mg/dL (70-99) Calcium Level 8.2 mg/dL (8.5-10.1) Phosphorus Level 4.4 mg/dL (2.6-4.7) Magnesium Level 2.5 mg/dL (1.8-2.4) Assessment and Plan Assessmemt and Plan Problems Medical Problems: (1) Abdominal pain Status: Acute (2) Thrombocytopenia Status: Acute Comment Review of Relevant I have reviewed the following items oriana (where applicable) has been applied. Medications: Current Medications Medications (Trade) Dose Ordered Sig/Mague Route PRN Reason Start Time Stop Time Status Last Admin Dose Admin Sodium Chloride 90 meq/Potassium Chloride 40 meq/ Potassium Phosphate 8 mmol/ Magnesium Sulfate 10 meq/ Multivitamins 10 ml/Zinc/Copper/ Manganese/ Selenium 1 ml/ Total Parenteral Nutrition/Amino Acids/Dextrose/ Fat Emulsion Intravenous 1,512 ml @ 63 mls/hr TPN CONT IV 12/16/21 22:00 12/17/21 21:59 12/16/21 21:47 Pantoprazole Sodium (Protonix) 40 mg DAILYAC PO 12/17/21 07:30 12/17/21 05:43 Justifications for Admission Other Justification DOMINGO ESCOBAR MD Dec 17, 2021 11:31
[2021-12-17] MEDS: DRONABINOL 2.5 MG CAPSULE. PO SCH ×2 (12:02→16:30)
--- NOTE | 2021-12-17 12:08 | NUR ---
SW following. Discussed with RN, SW trying to determine prices for self pay home TPN. [facility] is $150 per day, awaiting response from [facility] and [facility]. SW will continue to follow.
[2021-12-17] MEDS: TPN PER PHARMACY MC PRN (12:26)
--- NOTE | 2021-12-17 12:27 | NUR ---
Pharmacy TPN Dosing Note S: MINERVA HOOD is a 61 year old F Currently receiving Central Continuous TPN started 12/14/21 B:Pertinent PMH: pancreatic cancer, failure to thrive Height: 5 feet, 2 inches Weight: 54.4 kg Current diet: CLD LABS: Sodium: 140 Potassium: 4.6 Chloride: 106 Calcium: 8.2 Corrected Calcium: 9.08 Magnesium: 2.5 CO2: 24 SCr: 0.5 Glucose: 132 Albumin: 2.9 AST: 38 ALT: 18 TPN FORMULA: TPN TYPE: Central Continuous AMINO ACIDS: 60 gm DEXTROSE: 195 gm LIPIDS: 20 (MWF) gm SODIUM CHLORIDE: 90 mEq POTASSIUM CHLORIDE: 40 mEq POTASSIUM PHOSPHATE: 8 mmol MAGNESIUM: 5 mEq MULTIPLE VITAMIN: 10 ml TRACE ELEMENTS: 1 ml(s) TPN PLAN: Magnesium reduced to 5mEq/bag Lipids removed per MWF schedule R: Change TPN per plan and ordered formula Will monitor electrolytes, glucose, and tolerance to TPN. Belle Apodaca Jaquan, 12/17/21 [id number]
[2021-12-17] MEDS: ONDANSETRON PF 4 MG/2 ML VIAL. IVP PRN ×2 (13:52→20:35)
[2021-12-17 14:51] VITALS: BP 90/54
[2021-12-17] MEDS ORDERED: ONDANSETRON ODT 4 MG TAB.RAPDIS. PO PRN (15:15)
[2021-12-17 19:00] VITALS: BP 94/60
[2021-12-17] MEDS: ATORVASTATIN CALCIUM 10 MG TABLET. PO SCH (20:36)
[2021-12-17] MEDS ORDERED: TOTAL PARENTERAL NUTRITION IV SCH (22:00)
[2021-12-17] MEDS ORDERED: AMINO ACID IV SCH (22:00)
[2021-12-17] MEDS ORDERED: [UNRECOGNIZED DRUG - OTHER] IV SCH (22:00)
[2021-12-17] MEDS ORDERED: DEXTROSE 70% IV SCH (22:00)
[2021-12-17 23:00] VITALS: BP 80/54
[2021-12-18 03:00] VITALS: BP 101/61
[2021-12-18] MEDS: PANTOPRAZOLE 40 MG TABLET.DR. PO SCH (06:06)
[2021-12-18] MEDS: LEVOTHYROXINE 125 MCG TABLET PO SCH (06:06)
[2021-12-18] MEDS: MORPHINE SULFATE 2 MG/ML INJ. IV PRN ×3 (06:07→21:38)
[2021-12-18] MEDS: HEPARIN for SUB-Q USE 5,000 UNIT/ML VIAL. SQ SCH ×3 (06:07→22:00)
[2021-12-18] MEDS: ONDANSETRON PF 4 MG/2 ML VIAL. IVP PRN (06:08)
[2021-12-18 06:51] LABS: CALCIUM 8.2 mg/dL (8.5-10.1); CREATININE 0.7 mg/dL (0.6-1.0); GFR 85.6; PHOSPHORUS 3.6 mg/dL (2.6-4.7); POTASSIUM 4.3 mmol/L (3.5-5.1)
[2021-12-18 07:00] VITALS: BP 87/54
--- NOTE | 2021-12-18 08:23 | PDOC ---
[facility] PROGRESS NOTE Date of Service DOS: DATE: 12/18/21 TIME: 08:23 Chief Complaint Chief Complaint Abdominal pain Hx of pancreatic cancer, undergoing chemotherapy Nausea and vomiting - non-intractable, ok for slow diet Pancreatic cancer - Pancreatic adenocarcinoma, T2N2. Local invasion s/p whipple 09/15/2021 non-pyloric sparing pancreaticogastrostomy, hepaticojejunostomy with Billroth 1 type gastrojejunostomy, right colon resection and gastrostomy tube placement (tube removed). s/p port 11/05/21 Anemia secondary to blood loss - improved since surgery Thrombocytopenia - likely chemo related Hypokalemia - replace IV Abnormal UA - UTI, polymicrobial Hypothyroidism - cont home levothyroxine Hyperlipidemia - cont statin FEN - Regular diet PPX - lovenox FULL CODE Dispo - inpatient History of Present Illness History of Present Illness Ms Hemphill is a 61yo female, turkmen-speaking only, with PMHx hypothyroidism, HLD, and recent diagnosis of pancreatic cancer T2N2 s/p whipple 09/15/21 and chemotherapy who comes to ED c/o abdominal pain with nausea, vomiting and diarrhea. She had epigastric and RUQ pain that had associated diarrhea, and some emesis with continued nausea. Admitted for further care. [Historically 09/09 underwent lap sharad and returned to OR status post Whipple 09/15/2021 non-pyloric sparing pancreaticogastrostomy, hepaticojejunostomy with Billroth 1 type gastrojejunostomy, right colon resection and gastrostomy tube placement, found with T2N2 locally invasive pancreatic adenocarcinoma. She is being seen outpatient by Dr. Bueno from hematology oncology and is followed by Dr. Baldwin from colorectal surgery. She is s/p left port-a-cath placement 11/05/21. Pain was reasonably relieved with IV fentanyl. She has had fentanyl patch and oxycodone at home for pain. COVID 19 vaccinated fully. No recent sick contacts or travel. is bedside. biscuit machine operator service utilized for majority of interview.] 12/09: S/p paracentesis. 12/10: Patient seen and examined at bedside, recreation instructor used. Sitting up, interactive, and in NAD . This AM she had 180 ml drained from her abdomen and it does not appear distended 12/11: Patient seen and examined at bedside, used recreation instructor. Sitting up, talkative, says she is still having pain. Patient ate her breakfast with no issues. 12/12: Had nausea and vomiting last night. Still with pretty significant pain and pressure with gas. No chest pain or shortness of breath. Urine with Enterococcus. 12/13: Had nausea and abdominal pain no further vomiting. Significant nausea even with coffee. No chest pain or shortness of breath. 12/14: Little anxious with nausea improved with lorazepam. Had a BM with some relief of abdominal pain. Now dizzy and lightheaded with ambulation. 12/15: Started on TPN. Still with a little left lower quadrant pain unchanged by bowel movement still moving her bowels. Eating minimal. Still having nausea but no vomiting today 12/16: Tolerating TPN well. Still eating minimally her left lower quadrant abdominal pain and swelling worsened today. Still having stools. Pain does not seem related to eating or bowel movements. Still with nausea but she thinks it is better controlled just does not have an appetite. We'll increase fentanyl patch dosing today. 12/17: Pain improved today. Still with minimal p.o. intake and on TPN. She ambulating the unit. Nausea is well controlled today still there at baseline. Having bowel movements. 12/18: Attempted to advance diet and had further vomiting overnight and this morning. As she has further left lower quadrant pain. Going for CT abdomen pelvis today. Tolerating TPN well. Vitals/I&O Vitals/I&O: Vital Signs Date Time Temp Pulse Resp B/P (MAP) Pulse Ox O2 Delivery O2 Flow Rate FiO2 12/18/21 07:00 98.8 98 18 87/54 (65) 96 Room Air 98.8 I & O 12/17/21 12/17/21 12/18/21 15:00 23:00 07:00 Intake Total 680 ml 120 ml 0 ml Balance 680 ml 120 ml 0 ml Physical Exam General: Alert, Oriented X3, Cooperative Heart: Regular rate, Normal S1 Lungs: Clear Abdomen: Soft, Other (ttp generalized ) Extremities: No clubbing, No cyanosis Skin: No rashes, No breakdown Labs Labs: Laboratory Tests Test 12/18/21 06:15 Sodium Level 135 mmol/L (136-145) Potassium Level 4.3 mmol/L (3.5-5.1) Chloride Level 101 mmol/L (98-107) Carbon Dioxide Level 25 mmol/L (21-32) Anion Gap 9 (6-14) Blood Urea Nitrogen 9 mg/dL (7-20) Creatinine 0.7 mg/dL (0.6-1.0) Estimated GFR (Cockcroft-Gault) 85.6 Glucose Level 192 mg/dL (70-99) Calcium Level 8.2 mg/dL (8.5-10.1) Phosphorus Level 3.6 mg/dL (2.6-4.7) Magnesium Level 2.0 mg/dL (1.8-2.4) Assessment and Plan Assessmemt and Plan Problems Medical Problems: (1) Abdominal pain Status: Acute (2) Thrombocytopenia Status: Acute Comment Review of Relevant I have reviewed the following items oriana (where applicable) has been applied. Medications: Current Medications Medications (Trade) Dose Ordered Sig/Mague Route PRN Reason Start Time Stop Time Status Last Admin Dose Admin Sodium Chloride 90 meq/Potassium Chloride 40 meq/ Potassium Phosphate 8 mmol/ Magnesium Sulfate 5 meq/ Multivitamins 10 ml/Zinc/Copper/ Manganese/ Selenium 1 ml/ Total Parenteral Nutrition/Amino Acids/Dextrose/ Fat Emulsion Intravenous 1,512 ml @ 63 mls/hr TPN CONT IV 12/17/21 22:00 12/18/21 21:59 12/17/21 22:35 Lorazepam (Ativan Inj) 2 mg PRN Q4HRS PRN IVP ANXIETY / AGITATION 12/17/21 19:30 12/17/21 23:23 Justifications for Admission Other Justification DOMINGO ESCOBAR MD Dec 18, 2021 08:23
[2021-12-18] MEDS: SENNOSIDES/DOCUSATE 8.6/50MG TABLET. PO SCH ×2 (09:10→21:38)
--- NOTE | 2021-12-18 09:26 | PDOC ---
SURGICAL PROGRESS NOTE DATE: 12/18/21 TIME: 09:25 Subjective Pt with c/o N/V, epigastric abd pain Vital Signs Vital Signs Date Time Temp Pulse Resp B/P (MAP) Pulse Ox O2 Delivery O2 Flow Rate FiO2 12/18/21 07:00 98.8 98 18 87/54 (65) 96 Room Air 98.8 I&O Intake and Output 12/18/21 07:00 Intake Total 800 ml Balance 800 ml Intake Oral 360 ml IV Total 440 ml # Voids 4 General: Alert, Oriented X3, Cooperative, mild distress Abdomen: Soft, Other (TTP epigastric) Labs Laboratory Tests Test 12/17/21 05:45 12/18/21 06:15 Sodium Level 140 mmol/L (136-145) 135 mmol/L (136-145) Potassium Level 4.6 mmol/L (3.5-5.1) 4.3 mmol/L (3.5-5.1) Chloride Level 106 mmol/L (98-107) 101 mmol/L (98-107) Carbon Dioxide Level 24 mmol/L (21-32) 25 mmol/L (21-32) Anion Gap 10 (6-14) 9 (6-14) Blood Urea Nitrogen 11 mg/dL (7-20) 9 mg/dL (7-20) Creatinine 0.5 mg/dL (0.6-1.0) 0.7 mg/dL (0.6-1.0) Estimated GFR (Cockcroft-Gault) 126.3 85.6 Glucose Level 132 mg/dL (70-99) 192 mg/dL (70-99) Calcium Level 8.2 mg/dL (8.5-10.1) 8.2 mg/dL (8.5-10.1) Phosphorus Level 4.4 mg/dL (2.6-4.7) 3.6 mg/dL (2.6-4.7) Magnesium Level 2.5 mg/dL (1.8-2.4) 2.0 mg/dL (1.8-2.4) Laboratory Tests Test 12/18/21 06:15 Sodium Level 135 mmol/L (136-145) Potassium Level 4.3 mmol/L (3.5-5.1) Chloride Level 101 mmol/L (98-107) Carbon Dioxide Level 25 mmol/L (21-32) Anion Gap 9 (6-14) Blood Urea Nitrogen 9 mg/dL (7-20) Creatinine 0.7 mg/dL (0.6-1.0) Estimated GFR (Cockcroft-Gault) 85.6 Glucose Level 192 mg/dL (70-99) Calcium Level 8.2 mg/dL (8.5-10.1) Phosphorus Level 3.6 mg/dL (2.6-4.7) Magnesium Level 2.0 mg/dL (1.8-2.4) Problem List Problems Medical Problems: (1) Abdominal pain Status: Acute (2) Thrombocytopenia Status: Acute Assessment/Plan N/V will recheck CT, but favor gastroenteritis Justicifation of Admission Dx: Justifications for Admission: Justification of Admission Dx: Yes OG CASTANEDA MD Dec 18, 2021 09:26
[2021-12-18 11:00] VITALS: BP 86/53
[2021-12-18] MEDS: TPN PER PHARMACY MC PRN (11:04)
--- NOTE | 2021-12-18 11:12 | NUR ---
Pharmacy TPN Dosing Note S: MINERVA HOOD is a 61 year old F Currently receiving Central Continuous TPN started 12/14/21 B:Pertinent PMH: pancreatic cancer, failure to thrive LABS: Sodium: 135 Potassium: 4.3 Chloride: 101 Calcium: 8.2 Corrected Calcium: 9.08 Magnesium: 2.0 CO2: 25 SCr: 0.7 Glucose: 192 Albumin: 2.9 AST: 38 ALT: 18 TPN FORMULA: TPN TYPE: Central Continuous AMINO ACIDS: 65 gm DEXTROSE: 200 gm LIPIDS: 30 gm SODIUM CHLORIDE: 90 mEq SODIUM ACETATE: - mEq SODIUM PHOSPHATE: - mmol POTASSIUM CHLORIDE: 40 mEq POTASSIUM ACETATE: - mEq POTASSIUM PHOSPHATE: 8 mmol MAGNESIUM: 5 mEq CALCIUM: - mEq INSULIN: - units MULTIPLE VITAMIN: 10 ml TRACE ELEMENTS: 1 ml(s) TPN PLAN: 12/18 Macros changed to Supervisor Cooler Service recommendation, cont same lytes R: Continue TPN Will monitor electrolytes, glucose, and tolerance to TPN. JUDE MICHAEL [facility], 12/18/21 [id number]
[2021-12-18] MEDS: DRONABINOL 2.5 MG CAPSULE. PO SCH ×2 (11:22→16:39)
[2021-12-18] MEDS ORDERED: CONTRAST GIVEN. MC PRN (12:45)
[2021-12-18] MEDS ORDERED: IOHEXOL 300 MG/ML 100ML VIAL. IV ONE (12:45)
[2021-12-18] MEDS ORDERED: IOHEXOL 240 MG/ML 50ML VIAL. PO ONE (12:45)
--- NOTE | 2021-12-18 13:47 | NUR ---
SW following. Discussed with RN, cheapest self pay home TPN is $130 via [facility]. Discussed with Dr. Nuno - pt vomiting again so not ready for discharge. SW will continue to follow.
[2021-12-18 15:00] VITALS: BP 83/52
--- NOTE | 2021-12-18 16:56 | RAD ---
CT ABDOMEN+PELVIS W History: Nausea and vomiting status post Whipple. Comparison: CT abdomen and pelvis 12/09/2021, 11/19/2021. Technique: CT of the abdomen and pelvis with oral and intravenous contrast. Findings: Right greater than left basilar atelectatic changes greater than comparison. Left basilar calcified g ranuloma. Catheter tip terminates in the right atrium. No pleural or pericardial effusion. Normal liver. Mild left hepatic lobe pneumobilia. Surgical clips in the andre hepatis from pancreatic oduodenectomy and cholecystectomy. The pancreatic tail is normally enhancing. No pancreatic ductal di latation. A few punctate calcifications in the spleen consistent with granulomatous disease. The adre nal glands and kidneys are within normal limits. There is wall thickening at the gastric antrum and proximal gastrojejunostomy without evidence of obs truction. Small bowel is nondilated. Chain sutures in the right midabdomen from ileocecectomy. Mild c olonic stool burden. No colonic wall thickening. The bladder, uterus and adnexa are unremarkable. There is redemonstrated right hepatic subcapsular fluid collection similar to comparison. Additional fluid tracking along the right paracolic gutter appears similar. No abscess identified. No intra-abdo andrew free air. The vasculature is within normal limits. Multiple prominent retroperitoneal and andre hepatic lymph nodes similar to comparison. Stranding of the mesentery is persistent. Midline abdomin al incision appears intact. Medication administration sites throughout the anterior abdominal wall. N o acute osseous abnormality. Impression: 1. Postsurgical changes associated with Whipple procedure. Persistent wall thickening at the gastroj ejunostomy and proximal jejunum, likely postsurgical. No evidence of leak or anastomotic failure. 2. Stable appearance of subcapsular hepatic fluid collection, free fluid in the right paracolic gutt er and edema in the mesentery. No abscess identified. 3. Mild right greater than left basilar atelectatic change, increased from comparison. ------ Exposure: One or more of the following individualized dose reduction techniques were utilized for thi s examination: 1. Automated exposure control 2. Adjustment of the mA and/or kV according to patient size 3. Use of iterative reconstruction technique. Electronically signed by: Burke Orozco MD (12/18/2021 4:53 PM) [id number]
[2021-12-18 19:00] VITALS: BP 81/52
[2021-12-18] MEDS: ATORVASTATIN CALCIUM 10 MG TABLET. PO SCH (21:38)
[2021-12-18] MEDS ORDERED: [UNRECOGNIZED DRUG - OTHER] IV SCH (22:00)
[2021-12-18] MEDS ORDERED: TOTAL PARENTERAL NUTRITION IV SCH (22:00)
[2021-12-18] MEDS ORDERED: AMINO ACID IV SCH (22:00)
[2021-12-18] MEDS ORDERED: DEXTROSE 70% IV SCH (22:00)
[2021-12-18 23:00] VITALS: BP 84/49
--- NOTE | 2021-12-19 00:13 | NUR ---
Pt has had low BP throughout the day. Contacted Dr. Nuno who stated he was aware and that she was maintaining well. Will continue to monitor.
[2021-12-19 03:00] VITALS: BP 80/49
[2021-12-19] MEDS: LEVOTHYROXINE 125 MCG TABLET PO SCH (05:31)
[2021-12-19] MEDS: HEPARIN for SUB-Q USE 5,000 UNIT/ML VIAL. SQ SCH ×3 (05:45→21:46)
[2021-12-19 06:30] LABS: ALBUMIN 2.7 g/dL (3.4-5.0); ALBUMIN/GLOBULIN RATIO 0.7 (1.0-1.7); CALCIUM 8.4 mg/dL (8.5-10.1); CREATININE 0.6 mg/dL (0.6-1.0); GFR 102.3; MAGNESIUM 1.9 mg/dL (1.8-2.4); PHOSPHORUS 4.2 mg/dL (2.6-4.7); TOTAL BILIRUBIN 0.4 mg/dL (0.2-1.0); TOTAL PROTEIN 6.4 g/dL (6.4-8.2)
[2021-12-19 07:00] VITALS: BP 103/59
--- NOTE | 2021-12-19 07:59 | PDOC ---
SURGICAL PROGRESS NOTE DATE: 12/19/21 TIME: 07:58 Subjective ongoing pain had stool no emesis currently Vital Signs Vital Signs Date Time Temp Pulse Resp B/P (MAP) Pulse Ox O2 Delivery O2 Flow Rate FiO2 12/19/21 03:00 99.0 84 14 80/49 (59) 97 Room Air 99.0 I&O Intake and Output 12/19/21 07:00 Intake Total 0 ml Balance 0 ml Intake Oral 0 ml General: Alert, Oriented X3 HEENT: Atraumatic Abdomen: Soft, Other (ttp epigastric ) Labs Laboratory Tests Test 12/18/21 06:15 12/19/21 05:40 Sodium Level 135 mmol/L (136-145) 137 mmol/L (136-145) Potassium Level 4.3 mmol/L (3.5-5.1) 4.0 mmol/L (3.5-5.1) Chloride Level 101 mmol/L (98-107) 103 mmol/L (98-107) Carbon Dioxide Level 25 mmol/L (21-32) 25 mmol/L (21-32) Anion Gap 9 (6-14) 9 (6-14) Blood Urea Nitrogen 9 mg/dL (7-20) 10 mg/dL (7-20) Creatinine 0.7 mg/dL (0.6-1.0) 0.6 mg/dL (0.6-1.0) Estimated GFR (Cockcroft-Gault) 85.6 102.3 Glucose Level 192 mg/dL (70-99) 153 mg/dL (70-99) Calcium Level 8.2 mg/dL (8.5-10.1) 8.4 mg/dL (8.5-10.1) Phosphorus Level 3.6 mg/dL (2.6-4.7) 4.2 mg/dL (2.6-4.7) Magnesium Level 2.0 mg/dL (1.8-2.4) 1.9 mg/dL (1.8-2.4) BUN/Creatinine Ratio 17 (6-20) Total Bilirubin 0.4 mg/dL (0.2-1.0) Aspartate Amino Transf (AST/SGOT) 39 U/L (15-37) Alanine Aminotransferase (ALT/SGPT) 15 U/L (14-59) Alkaline Phosphatase 162 U/L (46-116) Total Protein 6.4 g/dL (6.4-8.2) Albumin 2.7 g/dL (3.4-5.0) Albumin/Globulin Ratio 0.7 (1.0-1.7) Laboratory Tests Test 12/19/21 05:40 Sodium Level 137 mmol/L (136-145) Potassium Level 4.0 mmol/L (3.5-5.1) Chloride Level 103 mmol/L (98-107) Carbon Dioxide Level 25 mmol/L (21-32) Anion Gap 9 (6-14) Blood Urea Nitrogen 10 mg/dL (7-20) Creatinine 0.6 mg/dL (0.6-1.0) Estimated GFR (Cockcroft-Gault) 102.3 BUN/Creatinine Ratio 17 (6-20) Glucose Level 153 mg/dL (70-99) Calcium Level 8.4 mg/dL (8.5-10.1) Phosphorus Level 4.2 mg/dL (2.6-4.7) Magnesium Level 1.9 mg/dL (1.8-2.4) Total Bilirubin 0.4 mg/dL (0.2-1.0) Aspartate Amino Transf (AST/SGOT) 39 U/L (15-37) Alanine Aminotransferase (ALT/SGPT) 15 U/L (14-59) Alkaline Phosphatase 162 U/L (46-116) Total Protein 6.4 g/dL (6.4-8.2) Albumin 2.7 g/dL (3.4-5.0) Albumin/Globulin Ratio 0.7 (1.0-1.7) Problem List Problems Medical Problems: (1) Abdominal pain Status: Acute (2) Thrombocytopenia Status: Acute Assessment/Plan tpn, pain management Justicifation of Admission Dx: Justifications for Admission: Justification of Admission Dx: Yes BEREKET ZULUAGA TRANSFER WORKER Dec 19, 2021 07:59
[2021-12-19] MEDS: SENNOSIDES/DOCUSATE 8.6/50MG TABLET. PO SCH ×2 (08:24→21:29)
[2021-12-19] MEDS: fentaNYL 25MCG/HR PATCH 1 PATCH PATCH.TD72 TD SCH (08:25)
[2021-12-19] MEDS: PANTOPRAZOLE 40 MG TABLET.DR. PO SCH (08:25)
[2021-12-19] MEDS: ONDANSETRON PF 4 MG/2 ML VIAL. IVP PRN (09:10)
[2021-12-19] MEDS: MORPHINE SULFATE 2 MG/ML INJ. IV PRN ×2 (09:10→17:20)
[2021-12-19 11:00] VITALS: BP 84/51
[2021-12-19] MEDS: DRONABINOL 2.5 MG CAPSULE. PO SCH ×2 (11:30→16:30)
--- NOTE | 2021-12-19 13:27 | PDOC ---
[employer] PROGRESS NOTE Date of Service DOS: DATE: 12/19/21 TIME: 13:13 Chief Complaint Chief Complaint Abdominal pain Hx of pancreatic cancer, undergoing chemotherapy Nausea and vomiting - non-intractable, ok for slow diet Pancreatic cancer - Pancreatic adenocarcinoma, T2N2. Local invasion s/p whipple 09/15/2021 non-pyloric sparing pancreaticogastrostomy, hepaticojejunostomy with Billroth 1 type gastrojejunostomy, right colon resection and gastrostomy tube placement (tube removed). s/p port 11/05/21 Anemia secondary to blood loss - improved since surgery Thrombocytopenia - likely chemo related Hypokalemia - replace IV Abnormal UA - UTI, polymicrobial Hypothyroidism - cont home levothyroxine Hyperlipidemia - cont statin FEN - Regular diet PPX - lovenox FULL CODE Dispo - inpatient History of Present Illness History of Present Illness Ms Hemphill is a 61yo female, mongolian-speaking only, with PMHx hypothyroidism, HLD, and recent diagnosis of pancreatic cancer T2N2 s/p whipple 09/15/21 and chemotherapy who comes to ED c/o abdominal pain with nausea, vomiting and diarrhea. She had epigastric and RUQ pain that had associated diarrhea, and some emesis with continued nausea. Admitted for further care. [Historically 09/09 underwent lap sharad and returned to OR status post Whipple 09/15/2021 non-pyloric sparing pancreaticogastrostomy, hepaticojejunostomy with Billroth 1 type gastrojejunostomy, right colon resection and gastrostomy tube placement, found with T2N2 locally invasive pancreatic adenocarcinoma. She is being seen outpatient by Dr. Bueno from hematology oncology and is followed by Dr. Baldwin from colorectal surgery. She is s/p left port-a-cath placement 11/05/21. Pain was reasonably relieved with IV fentanyl. She has had fentanyl patch and oxycodone at home for pain. COVID 19 vaccinated fully. No recent sick contacts or travel. is bedside. piping design specialist service utilized for majority of interview.] 12/09: S/p paracentesis. 12/10: Patient seen and examined at bedside, administration intern used. Sitting up, interactive, and in NAD . This AM she had 180 ml drained from her abdomen and it does not appear distended 12/11: Patient seen and examined at bedside, used administration intern. Sitting up, talkative, says she is still having pain. Patient ate her breakfast with no issues. 12/12: Had nausea and vomiting last night. Still with pretty significant pain and pressure with gas. No chest pain or shortness of breath. Urine with Enterococcus. 12/13: Had nausea and abdominal pain no further vomiting. Significant nausea even with coffee. No chest pain or shortness of breath. 12/14: Little anxious with nausea improved with lorazepam. Had a BM with some relief of abdominal pain. Now dizzy and lightheaded with ambulation. 12/15: Started on TPN. Still with a little left lower quadrant pain unchanged by bowel movement still moving her bowels. Eating minimal. Still having nausea but no vomiting today 12/16: Tolerating TPN well. Still eating minimally her left lower quadrant abdominal pain and swelling worsened today. Still having stools. Pain does not seem related to eating or bowel movements. Still with nausea but she thinks it is better controlled just does not have an appetite. We'll increase fentanyl patch dosing today. 12/17: Pain improved today. Still with minimal p.o. intake and on TPN. She ambulating the unit. Nausea is well controlled today still there at baseline. Having bowel movements. 12/18: Attempted to advance diet and had further vomiting overnight and this morning. As she has further left lower quadrant pain. Going for CT abdomen pelvis today. Tolerating TPN well. 12/19/2021 No acute events overnight. Patient seen examined bedside. Still complaining of nausea with food. Tolerating liquids okay. Asking the nurse for nausea medication but taking a while for them to bring it to her. Patient's chart, labs, images were reviewed and discussed with RN Vitals/I&O Vitals/I&O: Vital Signs Date Time Temp Pulse Resp B/P (MAP) Pulse Ox O2 Delivery O2 Flow Rate FiO2 12/19/21 12:25 Room Air 12/19/21 11:00 98.3 87 14 84/51 (62) 95 98.3 I & O 12/18/21 12/18/21 12/19/21 15:00 23:00 07:00 Intake Total 0 ml 0 ml Balance 0 ml 0 ml Physical Exam General: Alert, Oriented X3 Heart: Regular rate, Normal S1 Lungs: Clear Abdomen: Soft, Other (ttp epigastric ) Extremities: No clubbing, No cyanosis Skin: No rashes, No breakdown Labs Labs: Laboratory Tests Test 12/19/21 05:40 Sodium Level 137 mmol/L (136-145) Potassium Level 4.0 mmol/L (3.5-5.1) Chloride Level 103 mmol/L (98-107) Carbon Dioxide Level 25 mmol/L (21-32) Anion Gap 9 (6-14) Blood Urea Nitrogen 10 mg/dL (7-20) Creatinine 0.6 mg/dL (0.6-1.0) Estimated GFR (Cockcroft-Gault) 102.3 BUN/Creatinine Ratio 17 (6-20) Glucose Level 153 mg/dL (70-99) Calcium Level 8.4 mg/dL (8.5-10.1) Phosphorus Level 4.2 mg/dL (2.6-4.7) Magnesium Level 1.9 mg/dL (1.8-2.4) Total Bilirubin 0.4 mg/dL (0.2-1.0) Aspartate Amino Transf (AST/SGOT) 39 U/L (15-37) Alanine Aminotransferase (ALT/SGPT) 15 U/L (14-59) Alkaline Phosphatase 162 U/L (46-116) Total Protein 6.4 g/dL (6.4-8.2) Albumin 2.7 g/dL (3.4-5.0) Albumin/Globulin Ratio 0.7 (1.0-1.7) Assessment and Plan Assessmemt and Plan Problems Medical Problems: (1) Abdominal pain Status: Acute (2) Thrombocytopenia Status: Acute Comment Review of Relevant I have reviewed the following items oriana (where applicable) has been applied. Medications: Current Medications Medications (Trade) Dose Ordered Sig/Mague Route PRN Reason Start Time Stop Time Status Last Admin Dose Admin Fentanyl (Duragesic 25mcg/ Hr Patch) 1 patch Q3DAYS TD 12/19/21 09:00 12/19/21 08:25 Sodium Chloride 90 meq/Potassium Chloride 40 meq/ Potassium Phosphate 8 mmol/ Magnesium Sulfate 5 meq/ Multivitamins 10 ml/Zinc/Copper/ Manganese/ Selenium 1 ml/ Total Parenteral Nutrition/Amino Acids/Dextrose/ Fat Emulsion Intravenous 1,512 ml @ 63 mls/hr TPN CONT IV 12/18/21 22:00 12/19/21 21:59 12/18/21 22:00 Justifications for Admission Other Justification VIKY CEBALLOS MD Dec 19, 2021 13:27
[2021-12-19 15:00] VITALS: BP 86/55
[2021-12-19] MEDS: TPN PER PHARMACY MC PRN (15:16)
[2021-12-19 19:00] VITALS: BP 92/56
[2021-12-19] MEDS: ATORVASTATIN CALCIUM 10 MG TABLET. PO SCH (21:29)
[2021-12-19] MEDS ORDERED: [UNRECOGNIZED DRUG - OTHER] IV SCH (22:00)
[2021-12-19] MEDS ORDERED: DEXTROSE 70% IV SCH (22:00)
[2021-12-19] MEDS ORDERED: TOTAL PARENTERAL NUTRITION IV SCH (22:00)
[2021-12-19] MEDS ORDERED: AMINO ACID IV SCH (22:00)
[2021-12-19 23:00] VITALS: BP 85/54
[2021-12-20 03:00] VITALS: BP 92/55
[2021-12-20] MEDS: LEVOTHYROXINE 125 MCG TABLET PO SCH (05:55)
[2021-12-20] MEDS: PANTOPRAZOLE 40 MG TABLET.DR. PO SCH (05:55)
[2021-12-20] MEDS: HEPARIN for SUB-Q USE 5,000 UNIT/ML VIAL. SQ SCH ×3 (05:58→22:10)
[2021-12-20 07:00] VITALS: BP 89/57
[2021-12-20] MEDS: SENNOSIDES/DOCUSATE 8.6/50MG TABLET. PO SCH ×2 (07:50→22:11)
--- NOTE | 2021-12-20 08:04 | PDOC ---
SURGICAL PROGRESS NOTE DATE: 12/20/21 TIME: 08:03 Subjective nausea, emesis, pain unchanged, does not feel very well this morning Vital Signs Vital Signs Date Time Temp Pulse Resp B/P (MAP) Pulse Ox O2 Delivery O2 Flow Rate FiO2 12/20/21 03:00 97.7 81 18 92/55 (67) 99 Room Air 97.7 General: Alert, Cooperative Abdomen: Soft, Other (epigastric ttp) Labs Laboratory Tests Test 12/19/21 05:40 Sodium Level 137 mmol/L (136-145) Potassium Level 4.0 mmol/L (3.5-5.1) Chloride Level 103 mmol/L (98-107) Carbon Dioxide Level 25 mmol/L (21-32) Anion Gap 9 (6-14) Blood Urea Nitrogen 10 mg/dL (7-20) Creatinine 0.6 mg/dL (0.6-1.0) Estimated GFR (Cockcroft-Gault) 102.3 BUN/Creatinine Ratio 17 (6-20) Glucose Level 153 mg/dL (70-99) Calcium Level 8.4 mg/dL (8.5-10.1) Phosphorus Level 4.2 mg/dL (2.6-4.7) Magnesium Level 1.9 mg/dL (1.8-2.4) Total Bilirubin 0.4 mg/dL (0.2-1.0) Aspartate Amino Transf (AST/SGOT) 39 U/L (15-37) Alanine Aminotransferase (ALT/SGPT) 15 U/L (14-59) Alkaline Phosphatase 162 U/L (46-116) Total Protein 6.4 g/dL (6.4-8.2) Albumin 2.7 g/dL (3.4-5.0) Albumin/Globulin Ratio 0.7 (1.0-1.7) Problem List Problems Medical Problems: (1) Abdominal pain Status: Acute (2) Thrombocytopenia Status: Acute Assessment/Plan supportive care difficult dc planning, still not eating, requiring TPN Justicifation of Admission Dx: Justifications for Admission: Justification of Admission Dx: Yes BEREKET ZULUAGA LAND CONSERVATION SPECIALIST Dec 20, 2021 08:04
--- NOTE | 2021-12-20 10:09 | PDOC ---
[employer] PROGRESS NOTE Date of Service DOS: DATE: 12/20/21 TIME: 10:06 Chief Complaint Chief Complaint Abdominal pain Hx of pancreatic cancer, undergoing chemotherapy Nausea and vomiting - non-intractable, ok for slow diet Pancreatic cancer - Pancreatic adenocarcinoma, T2N2. Local invasion s/p whipple 09/15/2021 non-pyloric sparing pancreaticogastrostomy, hepaticojejunostomy with Billroth 1 type gastrojejunostomy, right colon resection and gastrostomy tube placement (tube removed). s/p port 11/05/21 Anemia secondary to blood loss - improved since surgery Thrombocytopenia - likely chemo related Hypokalemia - replace IV Abnormal UA - UTI, polymicrobial Hypothyroidism - cont home levothyroxine Hyperlipidemia - cont statin FEN - Regular diet PPX - lovenox FULL CODE Dispo - inpatient History of Present Illness History of Present Illness 61yo female, libyan-speaking only, with PMHx hypothyroidism, HLD, and recent diagnosis of pancreatic cancer T2N2 s/p whipple 09/15/21 and chemotherapy who comes to ED c/o abdominal pain with nausea, vomiting and diarrhea. She had epigastric and RUQ pain that had associated diarrhea, and some emesis with continued nausea. Admitted for further care. [Historically 09/09 underwent lap sharad and returned to OR status post Whipple 09/15/2021 non-pyloric sparing pancreaticogastrostomy, hepaticojejunostomy with Billroth 1 type gastrojejunostomy, right colon resection and gastrostomy tube placement, found with T2N2 locally invasive pancreatic adenocarcinoma. She is being seen outpatient by Dr. Bueno from hematology oncology and is followed by Dr. Baldwin from colorectal surgery. She is s/p left port-a-cath placement 11/05/21. Pain was reasonably relieved with IV fentanyl. She has had fentanyl patch and oxycodone at home for pain. COVID 19 vaccinated fully. No recent sick contacts or travel. is bedside. paper hanger service utilized for majority of interview.] 12/09: S/p paracentesis. 12/10: Patient seen and examined at bedside, card hanger used. Sitting up, interactive, and in NAD . This AM she had 180 ml drained from her abdomen and it does not appear distended 12/11: Patient seen and examined at bedside, used card hanger. Sitting up, talkative, says she is still having pain. Patient ate her breakfast with no issues. 12/12: Had nausea and vomiting last night. Still with pretty significant pain and pressure with gas. No chest pain or shortness of breath. Urine with En terococcus. 12/13: Had nausea and abdominal pain no further vomiting. Significant nausea even with coffee. No chest pain or shortness of breath. 12/14: Little anxious with nausea improved with lorazepam. Had a BM with some relief of abdominal pain. Now dizzy and lightheaded with ambulation. 12/15: Started on TPN. Still with a little left lower quadrant pain unchanged by bowel movement still moving her bowels. Eating minimal. Still having nausea but no vomiting today 12/16: Tolerating TPN well. Still eating minimally her left lower quadrant abdominal pain and swelling worsened today. Still having stools. Pain does not seem related to eating or bowel movements. Still with nausea but she thinks it is better controlled just does not have an appetite. We'll increase fentanyl patch dosing today. 12/17: Pain improved today. Still with minimal p.o. intake and on TPN. She ambulating the unit. Nausea is well controlled today still there at baseline. Having bowel movements. 12/18: Attempted to advance diet and had further vomiting overnight and this morning. As she has further left lower quadrant pain. Going for CT abdomen pelvis today. Tolerating TPN well. 12/19/2021 No acute events overnight. Patient seen examined bedside. Still complaining of nausea with food. Tolerating liquids okay. Asking the nurse for nausea medication but taking a while for them to bring it to her. Patient's chart, labs, images were reviewed and discussed with RN 12/20/2021 No acute events overnight. Patient seen examined bedside. Still having some nausea. Still on TPN. Patient's chart, labs, images were reviewed and discussed with RN Vitals/I&O Vitals/I&O: Vital Signs Date Time Temp Pulse Resp B/P (MAP) Pulse Ox O2 Delivery O2 Flow Rate FiO2 12/20/21 07:00 97.5 79 14 89/57 (68) 97 Room Air 97.5 Physical Exam General: Alert, Cooperative Heart: Regular rate, Normal S1 Lungs: Clear Abdomen: Soft, Other (epigastric ttp) Extremities: No clubbing, No cyanosis Skin: No rashes, No breakdown Assessment and Plan Assessmemt and Plan Problems Medical Problems: (1) Abdominal pain Status: Acute (2) Thrombocytopenia Status: Acute Comment Review of Relevant I have reviewed the following items oriana (where applicable) has been applied. Medications: Current Medications Medications (Trade) Dose Ordered Sig/Mague Route PRN Reason Start Time Stop Time Status Last Admin Dose Admin Sodium Chloride 90 meq/Potassium Chloride 40 meq/ Potassium Phosphate 8 mmol/ Magnesium Sulfate 5 meq/ Multivitamins 10 ml/Zinc/Copper/ Manganese/ Selenium 1 ml/ Total Parenteral Nutrition/Amino Acids/Dextrose/ Fat Emulsion Intravenous 1,512 ml @ 63 mls/hr TPN CONT IV 12/19/21 22:00 12/20/21 21:59 12/19/21 21:31 Justifications for Admission Other Justification VIKY CEBALLOS MD Dec 20, 2021 10:09
[2021-12-20 11:00] VITALS: BP 100/63
[2021-12-20] MEDS: DRONABINOL 2.5 MG CAPSULE. PO SCH ×2 (11:30→16:30)
[2021-12-20] MEDS: TPN PER PHARMACY MC PRN ×2 (11:41→11:43)
--- NOTE | 2021-12-20 11:45 | NUR ---
Pharmacy TPN Dosing Note S: MINERVA HOOD is a 61 year old F Currently receiving Central Continuous TPN started 12/14/21 B:Pertinent PMH: pancreatic cancer, failure to thrive Height: 5 feet, 2 inches Weight: 54.4 kg Current diet: CLD LABS: Sodium: 137 Potassium: 4.0 Chloride: 103 Calcium: 8.4 Corrected Calcium: 9.44 Magnesium: 1.9 CO2: 25 SCr: 0.6 Glucose: 153 Albumin: 2.7 AST: 39 ALT: 15 TPN FORMULA: TPN TYPE: Central Continuous AMINO ACIDS: 65 gm DEXTROSE: 200 gm LIPIDS: 30 gm SODIUM CHLORIDE: 90 mEq POTASSIUM CHLORIDE: 40 mEq POTASSIUM PHOSPHATE: 8 mmol MAGNESIUM: 5 mEq MULTIPLE VITAMIN: 10 ml TRACE ELEMENTS: 1 ml(s) TPN PLAN: No lytes today. Continue same TPN. AM labs ordered. R: Continue TPN Will monitor electrolytes, glucose, and tolerance to TPN. Suhail Wright [facility], 12/20/21 1146
[2021-12-20] MEDS: MORPHINE SULFATE 2 MG/ML INJ. IV PRN (11:47)
[2021-12-20] MEDS: PROCHLORPERAZINE 10 MG/2 ML VIAL. IVP PRN (11:48)
[2021-12-20 15:00] VITALS: BP 89/55
[2021-12-20 19:00] VITALS: BP 90/56
[2021-12-20] MEDS ORDERED: DEXTROSE 70% IV SCH (22:00)
[2021-12-20] MEDS ORDERED: [UNRECOGNIZED DRUG - OTHER] IV SCH (22:00)
[2021-12-20] MEDS ORDERED: AMINO ACID IV SCH (22:00)
[2021-12-20] MEDS ORDERED: TOTAL PARENTERAL NUTRITION IV SCH (22:00)
[2021-12-20] MEDS: ATORVASTATIN CALCIUM 10 MG TABLET. PO SCH (22:11)
[2021-12-20 23:00] VITALS: BP 89/50
[2021-12-21 03:46] VITALS: BP 95/55
[2021-12-21] MEDS: PANTOPRAZOLE 40 MG TABLET.DR. PO SCH (06:42)
[2021-12-21] MEDS: LEVOTHYROXINE 125 MCG TABLET PO SCH (06:42)
[2021-12-21] MEDS: HEPARIN for SUB-Q USE 5,000 UNIT/ML VIAL. SQ SCH ×3 (06:42→22:40)
[2021-12-21 07:15] VITALS: BP 94/55
[2021-12-21 07:20] LABS: ALBUMIN 2.7 g/dL (3.4-5.0); ALBUMIN/GLOBULIN RATIO 0.7 (1.0-1.7); CALCIUM 8.4 mg/dL (8.5-10.1); CREATININE 0.6 mg/dL (0.6-1.0); GFR 102.3; MAGNESIUM 1.9 mg/dL (1.8-2.4); PHOSPHORUS 4.2 mg/dL (2.6-4.7); POTASSIUM 3.9 mmol/L (3.5-5.1); TOTAL BILIRUBIN 0.3 mg/dL (0.2-1.0); TOTAL PROTEIN 6.8 g/dL (6.4-8.2)
[2021-12-21] MEDS: SENNOSIDES/DOCUSATE 8.6/50MG TABLET. PO SCH ×2 (07:48→22:10)
--- NOTE | 2021-12-21 08:42 | PDOC ---
SURGICAL PROGRESS NOTE DATE: 12/21/21 TIME: 08:41 Subjective Patient up walking the room states she is feeling better would like to try some solid food, tolerating liquids Vital Signs Vital Signs Date Time Temp Pulse Resp B/P (MAP) Pulse Ox O2 Delivery O2 Flow Rate FiO2 12/21/21 07:15 98.7 70 16 94/55 (68) 97 Room Air 98.7 I&O Intake and Output 12/21/21 07:00 Intake Total 950 ml Output Total 2 ml Balance 948 ml Intake Oral 950 ml Output Urine Total 2 ml PATIENT HAS A SYED: No General: Alert, Oriented X3, Cooperative, mild distress Abdomen: Normal bowel sounds, Soft, Other (Mildly tender diffusely no peritoneal signs) Labs Laboratory Tests Test 12/21/21 06:50 Sodium Level 138 mmol/L (136-145) Potassium Level 3.9 mmol/L (3.5-5.1) Chloride Level 105 mmol/L (98-107) Carbon Dioxide Level 25 mmol/L (21-32) Anion Gap 8 (6-14) Blood Urea Nitrogen 11 mg/dL (7-20) Creatinine 0.6 mg/dL (0.6-1.0) Estimated GFR (Cockcroft-Gault) 102.3 BUN/Creatinine Ratio 18 (6-20) Glucose Level 183 mg/dL (70-99) Calcium Level 8.4 mg/dL (8.5-10.1) Phosphorus Level 4.2 mg/dL (2.6-4.7) Magnesium Level 1.9 mg/dL (1.8-2.4) Total Bilirubin 0.3 mg/dL (0.2-1.0) Aspartate Amino Transf (AST/SGOT) 31 U/L (15-37) Alanine Aminotransferase (ALT/SGPT) 19 U/L (14-59) Alkaline Phosphatase 169 U/L (46-116) Total Protein 6.8 g/dL (6.4-8.2) Albumin 2.7 g/dL (3.4-5.0) Albumin/Globulin Ratio 0.7 (1.0-1.7) Laboratory Tests Test 12/21/21 06:50 Sodium Level 138 mmol/L (136-145) Potassium Level 3.9 mmol/L (3.5-5.1) Chloride Level 105 mmol/L (98-107) Carbon Dioxide Level 25 mmol/L (21-32) Anion Gap 8 (6-14) Blood Urea Nitrogen 11 mg/dL (7-20) Creatinine 0.6 mg/dL (0.6-1.0) Estimated GFR (Cockcroft-Gault) 102.3 BUN/Creatinine Ratio 18 (6-20) Glucose Level 183 mg/dL (70-99) Calcium Level 8.4 mg/dL (8.5-10.1) Phosphorus Level 4.2 mg/dL (2.6-4.7) Magnesium Level 1.9 mg/dL (1.8-2.4) Total Bilirubin 0.3 mg/dL (0.2-1.0) Aspartate Amino Transf (AST/SGOT) 31 U/L (15-37) Alanine Aminotransferase (ALT/SGPT) 19 U/L (14-59) Alkaline Phosphatase 169 U/L (46-116) Total Protein 6.8 g/dL (6.4-8.2) Albumin 2.7 g/dL (3.4-5.0) Albumin/Globulin Ratio 0.7 (1.0-1.7) Problem List Problems Medical Problems: (1) Abdominal pain Status: Acute (2) Thrombocytopenia Status: Acute Assessment/Plan Status post Whipple procedure has had nausea and difficulty with p.o. intake Consult Dr. Baldwin on advancing diet Justicifation of Admission Dx: Justifications for Admission: Justification of Admission Dx: Yes EDVIN MELENDEZ MD Dec 21, 2021 08:42
[2021-12-21] MEDS: PROCHLORPERAZINE 10 MG/2 ML VIAL. IVP PRN (08:45)
--- NOTE | 2021-12-21 10:48 | PDOC ---
[employer] PROGRESS NOTE Date of Service DOS: DATE: 12/21/21 TIME: 10:44 Chief Complaint Chief Complaint Abdominal pain Hx of pancreatic cancer, undergoing chemotherapy Nausea and vomiting - non-intractable, ok for slow diet Pancreatic cancer - Pancreatic adenocarcinoma, T2N2. Local invasion s/p whipple 09/15/2021 non-pyloric sparing pancreaticogastrostomy, hepaticojejunostomy with Billroth 1 type gastrojejunostomy, right colon resection and gastrostomy tube placement (tube removed). s/p port 11/05/21 Anemia secondary to blood loss - improved since surgery Thrombocytopenia - likely chemo related Hypokalemia - replace IV Abnormal UA - UTI, polymicrobial Hypothyroidism - cont home levothyroxine Hyperlipidemia - cont statin FEN - Regular diet PPX - lovenox FULL CODE Dispo - inpatient History of Present Illness History of Present Illness 61yo female, australian-speaking only, with PMHx hypothyroidism, HLD, and recent diagnosis of pancreatic cancer T2N2 s/p whipple 09/15/21 and chemotherapy who comes to ED c/o abdominal pain with nausea, vomiting and diarrhea. She had epigastric and RUQ pain that had associated diarrhea, and some emesis with continued nausea. Admitted for further care. [Historically 09/09 underwent lap sharad and returned to OR status post Whipple 09/15/2021 non-pyloric sparing pancreaticogastrostomy, hepaticojejunostomy with Billroth 1 type gastrojejunostomy, right colon resection and gastrostomy tube placement, found with T2N2 locally invasive pancreatic adenocarcinoma. She is being seen outpatient by Dr. Bueno from hematology oncology and is followed by Dr. Baldwin from colorectal surgery. She is s/p left port-a-cath placement 11/05/21. Pain was reasonably relieved with IV fentanyl. She has had fentanyl patch and oxycodone at home for pain. COVID 19 vaccinated fully. No recent sick contacts or travel. is bedside. manufacturing job titles service utilized for majority of interview.] 12/09: S/p paracentesis. 12/10: Patient seen and examined at bedside, manager express used. Sitting up, interactive, and in NAD . This AM she had 180 ml drained from her abdomen and it does not appear distended 12/11: Patient seen and examined at bedside, used manager express. Sitting up, talkative, says she is still having pain. Patient ate her breakfast with no issues. 12/12: Had nausea and vomiting last night. Still with pretty significant pain and pressure with gas. No chest pain or shortness of breath. Urine with En terococcus. 12/13: Had nausea and abdominal pain no further vomiting. Significant nausea even with coffee. No chest pain or shortness of breath. 12/14: Little anxious with nausea improved with lorazepam. Had a BM with some relief of abdominal pain. Now dizzy and lightheaded with ambulation. 12/15: Started on TPN. Still with a little left lower quadrant pain unchanged by bowel movement still moving her bowels. Eating minimal. Still having nausea but no vomiting today 12/16: Tolerating TPN well. Still eating minimally her left lower quadrant abdominal pain and swelling worsened today. Still having stools. Pain does not seem related to eating or bowel movements. Still with nausea but she thinks it is better controlled just does not have an appetite. We'll increase fentanyl patch dosing today. 12/17: Pain improved today. Still with minimal p.o. intake and on TPN. She ambulating the unit. Nausea is well controlled today still there at baseline. Having bowel movements. 12/18: Attempted to advance diet and had further vomiting overnight and this morning. As she has further left lower quadrant pain. Going for CT abdomen pelvis today. Tolerating TPN well. 12/19/2021 No acute events overnight. Patient seen examined bedside. Still complaining of nausea with food. Tolerating liquids okay. Asking the nurse for nausea medication but taking a while for them to bring it to her. Patient's chart, labs, images were reviewed and discussed with RN 12/20/2021 No acute events overnight. Patient seen examined bedside. Still having some nausea. Still on TPN. Patient's chart, labs, images were reviewed and discussed with RN 12/21/2021 No acute events overnight. Patient seen examined bedside. Nausea improved but appetite is low. Continuing with IV TPN. Patient's chart, labs, images were reviewed and discussed with RN Vitals/I&O Vitals/I&O: Vital Signs Date Time Temp Pulse Resp B/P (MAP) Pulse Ox O2 Delivery O2 Flow Rate FiO2 12/21/21 07:15 98.7 70 16 94/55 (68) 97 Room Air 98.7 I & O 12/20/21 12/20/21 12/21/21 15:00 23:00 07:00 Intake Total 350 ml 600 ml Output Total 1 ml 1 ml Balance 349 ml 599 ml Physical Exam General: Alert, Oriented X3, Cooperative, mild distress Heart: Regular rate, Normal S1 Lungs: Clear Abdomen: Normal bowel sounds, Soft, Other (Mildly tender diffusely no peritoneal signs) Extremities: No clubbing, No cyanosis Skin: No rashes, No breakdown Labs Labs: Laboratory Tests Test 12/21/21 06:50 Sodium Level 138 mmol/L (136-145) Potassium Level 3.9 mmol/L (3.5-5.1) Chloride Level 105 mmol/L (98-107) Carbon Dioxide Level 25 mmol/L (21-32) Anion Gap 8 (6-14) Blood Urea Nitrogen 11 mg/dL (7-20) Creatinine 0.6 mg/dL (0.6-1.0) Estimated GFR (Cockcroft-Gault) 102.3 BUN/Creatinine Ratio 18 (6-20) Glucose Level 183 mg/dL (70-99) Calcium Level 8.4 mg/dL (8.5-10.1) Phosphorus Level 4.2 mg/dL (2.6-4.7) Magnesium Level 1.9 mg/dL (1.8-2.4) Total Bilirubin 0.3 mg/dL (0.2-1.0) Aspartate Amino Transf (AST/SGOT) 31 U/L (15-37) Alanine Aminotransferase (ALT/SGPT) 19 U/L (14-59) Alkaline Phosphatase 169 U/L (46-116) Total Protein 6.8 g/dL (6.4-8.2) Albumin 2.7 g/dL (3.4-5.0) Albumin/Globulin Ratio 0.7 (1.0-1.7) Assessment and Plan Assessmemt and Plan Problems Medical Problems: (1) Abdominal pain Status: Acute (2) Thrombocytopenia Status: Acute Comment Review of Relevant I have reviewed the following items oriana (where applicable) has been applied. Medications: Current Medications Medications (Trade) Dose Ordered Sig/Mague Route PRN Reason Start Time Stop Time Status Last Admin Dose Admin Sodium Chloride 90 meq/Potassium Chloride 40 meq/ Potassium Phosphate 8 mmol/ Magnesium Sulfate 5 meq/ Multivitamins 10 ml/Zinc/Copper/ Manganese/ Selenium 1 ml/ Total Parenteral Nutrition/Amino Acids/Dextrose/ Fat Emulsion Intravenous 1,512 ml @ 63 mls/hr TPN CONT IV 12/20/21 22:00 12/21/21 21:59 12/20/21 22:10 Justifications for Admission Other Justification VIKY CEBALLOS MD Dec 21, 2021 10:48
--- NOTE | 2021-12-21 10:57 | NUR ---
SW following. Discussed with RN, pt from home with , room air, clear liquid diet. Awaiting confirmation of whether pt will need home TPN which would be $130 a day. SW will continue to follow.
[2021-12-21 11:00] VITALS: BP 92/59
[2021-12-21] MEDS: TPN PER PHARMACY MC PRN (11:00)
--- NOTE | 2021-12-21 11:02 | NUR ---
Pharmacy TPN Dosing Note S: MINERVA HOOD is a 61 year old F Currently receiving Central Continuous TPN started 12/14/21 B:Pertinent PMH: pancreatic cancer, failure to thrive Height: 5 feet, 2 inches Weight: 54.4 kg Current diet: CLD LABS: Sodium: 138 Potassium: 3.9 Chloride: 105 Calcium: 8.4 Corrected Calcium: 9.44 Magnesium: 1.9 CO2: 25 SCr: 0.6 Glucose: 183 Albumin: 2.7 AST: 31 ALT: 19 TPN FORMULA: TPN TYPE: Central Continuous AMINO ACIDS: 65 gm DEXTROSE: 200 gm LIPIDS: 30 gm SODIUM CHLORIDE: 90 mEq POTASSIUM CHLORIDE: 40 mEq POTASSIUM PHOSPHATE: 8 mmol MAGNESIUM: 5 mEq MULTIPLE VITAMIN: 10 ml TRACE ELEMENTS: 1 ml(s) TPN PLAN: Continue same. Next labs ordered for 12/23 R: Continue TPN Will monitor electrolytes, glucose, and tolerance to TPN. Belle Apodaca [facility], 12/21/21 1107
[2021-12-21] MEDS: DRONABINOL 2.5 MG CAPSULE. PO SCH ×2 (11:30→16:30)
[2021-12-21] MEDS ORDERED: SCOPOLAMINE 1.5MG PATCH. TD SCH (13:00)
[2021-12-21 15:10] VITALS: BP 95/61
[2021-12-21 19:00] VITALS: BP 85/53
[2021-12-21] MEDS: IV RINGERS,LACTATED 1000ML 1,000 ML IV SCH (20:00)
[2021-12-21] MEDS ORDERED: [UNRECOGNIZED DRUG - OTHER] IV SCH (22:00)
[2021-12-21] MEDS ORDERED: AMINO ACID IV SCH (22:00)
[2021-12-21] MEDS ORDERED: DEXTROSE 70% IV SCH (22:00)
[2021-12-21] MEDS ORDERED: TOTAL PARENTERAL NUTRITION IV SCH (22:00)
[2021-12-21] MEDS: MORPHINE SULFATE 2 MG/ML INJ. IV PRN (22:10)
[2021-12-21] MEDS: ATORVASTATIN CALCIUM 10 MG TABLET. PO SCH (22:10)
[2021-12-21 23:00] VITALS: BP 117/58
[2021-12-22 03:00] VITALS: BP 89/51
[2021-12-22] MEDS: LEVOTHYROXINE 125 MCG TABLET PO SCH (06:11)
[2021-12-22] MEDS: HEPARIN for SUB-Q USE 5,000 UNIT/ML VIAL. SQ SCH (06:16)
[2021-12-22 07:00] VITALS: BP 85/54
[2021-12-22] MEDS: PANTOPRAZOLE 40 MG TABLET.DR. PO SCH (07:30)
--- NOTE | 2021-12-22 07:46 | NUR ---
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 blood sugar result 146 @0715 today. Need clarification and update going forward if ok to completely stop TPN and switch to LR fluid bag ...OR call pharmacy and order new bag of TPN and restart........ Fluids are currently off
[2021-12-22 08:23] LABS: ALBUMIN 2.7 g/dL (3.4-5.0); ALBUMIN/GLOBULIN RATIO 0.7 (1.0-1.7); CALCIUM 8.6 mg/dL (8.5-10.1); CREATININE 0.5 mg/dL (0.6-1.0); GFR 126.3; POTASSIUM 3.5 mmol/L (3.5-5.1); TOTAL BILIRUBIN 0.3 mg/dL (0.2-1.0); TOTAL PROTEIN 6.7 g/dL (6.4-8.2)
[2021-12-22 08:25] LABS: BASO # 0.1 x10^3/uL (0.0-0.2); BASO % 1 % (0-3); EOS # 0.4 x10^3/uL (0.0-0.7); EOS % 4 % (0-3); HEMATOCRIT 27.3 % (36.0-47.0); HEMOGLOBIN 8.7 g/dL (12.0-15.5); LYMPH % 24 % (24-48); MEAN CORPUSCULAR HEMOGLOBIN 29 pg (25-35); MEAN CORPUSCULAR HGB CONC 32 g/dL (31-37); MEAN CORPUSCULAR VOLUME 92 fL (79-100); MONO # 0.8 x10^3/uL (0.0-1.1); MONO % 9 % (0-9); NEUT # 5.3 x10^3/uL (1.8-7.7); NEUT % 62 % (31-73); PLATELET COUNT 247 x10^3/uL (140-400); RED BLOOD COUNT 2.97 x10^6/uL (3.50-5.40); RED CELL DISTRIBUTION WIDTH 15.9 % (11.5-14.5); WHITE BLOOD COUNT 8.6 x10^3/uL (4.0-11.0)
[2021-12-22] MEDS: SENNOSIDES/DOCUSATE 8.6/50MG TABLET. PO SCH (08:49)
[2021-12-22] MEDS: MORPHINE SULFATE 2 MG/ML INJ. IV PRN ×2 (08:56→12:03)
[2021-12-22] MEDS: IV RINGERS,LACTATED 1000ML 1,000 ML IV SCH (08:58)
[2021-12-22] MEDS ORDERED: IV DEXTROSE 10% 1,000 ML IV SCH (09:00)
[2021-12-22] MEDS: fentaNYL 25MCG/HR PATCH 1 PATCH PATCH.TD72 TD SCH (09:58)
[2021-12-22 11:00] VITALS: BP 92/57
[2021-12-22] MEDS: DRONABINOL 2.5 MG CAPSULE. PO SCH (11:30)
[2021-12-22] MEDS ORDERED: OXYC5TAB4 PO (12:41)
[2021-12-22] MEDS ORDERED: ONDA4TAB12 PO (12:41)
[2021-12-22] MEDS ORDERED: LORA-434 PO (12:41)
[2021-12-22] MEDS ORDERED: SCOP1PAT12 TD (12:41)
[2021-12-22] MEDS ORDERED: FENT1PAT17 TD (12:41)
[2021-12-22] MEDS ORDERED: HEPARIN PF 500 UNIT/5 ML DISP.SYRIN. IVP ONE (13:00)
--- NOTE | 2021-12-22 13:00 | PDOC3 ---
Discharge Summary Visit Information Date of Admission: Dec 09, 2021 Date of Discharge: Dec 22, 2021 Final Diagnosis Abdominal pain Hx of pancreatic cancer, undergoing chemotherapy Nausea and vomiting - non-intractable, ok for slow diet Pancreatic cancer - Pancreatic adenocarcinoma, T2N2. Local invasion s/p whipple 09/15/2021 non-pyloric sparing pancreaticogastrostomy, hepaticojejunostomy with Billroth 1 type gastrojejunostomy, right colon resection and gastrostomy tube placement (tube removed). s/p port 11/05/21 Anemia secondary to blood loss - improved since surgery Thrombocytopenia - likely chemo related Hypokalemia - replace IV Abnormal UA - UTI, polymicrobial Hypothyroidism - cont home levothyroxine Hyperlipidemia - cont statin 12/09: S/p paracentesis. 12/10: Patient seen and examined at bedside, pesticide control inspector used. Sitting up, interactive, and in NAD . This AM she had 180 ml drained from her abdomen and it does not appear distended 12/11: Patient seen and examined at bedside, used pesticide control inspector. Sitting up, talkative, says she is still having pain. Patient ate her breakfast with no issues. 12/12: Had nausea and vomiting last night. Still with pretty significant pain and pressure with gas. No chest pain or shortness of breath. Urine with Enterococcus. 12/13: Had nausea and abdominal pain no further vomiting. Significant nausea even with coffee. No chest pain or shortness of breath. 12/14: Little anxious with nausea improved with lorazepam. Had a BM with some relief of abdominal pain. Now dizzy and lightheaded with ambulation. 12/15: Started on TPN. Still with a little left lower quadrant pain unchanged by bowel movement still moving her bowels. Eating minimal. Still having nausea but no vomiting today 12/16: Tolerating TPN well. Still eating minimally her left lower quadrant abdominal pain and swelling worsened today. Still having stools. Pain does not seem related to eating or bowel movements. Still with nausea but she thinks it is better controlled just does not have an appetite. We'll increase fentanyl patch dosing today. 12/17: Pain improved today. Still with minimal p.o. intake and on TPN. She ambulating the unit. Nausea is well controlled today still there at baseline. Having bowel movements. Problems Medical Problems: (1) Abdominal pain Status: Acute (2) Thrombocytopenia Status: Acute Brief Hospital Course Allergies Allergies Coded Allergies Type Severity Reaction Last Updated Verified No Known Drug Allergies 12/09/21 No Vital Signs Vital Signs Date Time Temp Pulse Resp B/P (MAP) Pulse Ox O2 Delivery O2 Flow Rate FiO2 12/22/21 12:03 96 Room Air 12/22/21 11:00 98.4 70 18 92/57 (69) 98.4 Lab Results Laboratory Tests Test 12/21/21 06:50 12/21/21 15:50 12/22/21 07:15 12/22/21 07:27 Sodium Level 138 mmol/L (136-145) 139 mmol/L (136-145) Potassium Level 3.9 mmol/L (3.5-5.1) 3.5 mmol/L (3.5-5.1) Chloride Level 105 mmol/L (98-107) 105 mmol/L (98-107) Carbon Dioxide Level 25 mmol/L (21-32) 25 mmol/L (21-32) Anion Gap 8 (6-14) 9 (6-14) Blood Urea Nitrogen 11 mg/dL (7-20) 11 mg/dL (7-20) Creatinine 0.6 mg/dL (0.6-1.0) 0.5 mg/dL (0.6-1.0) Estimated GFR (Cockcroft-Gault) 102.3 126.3 BUN/Creatinine Ratio 18 (6-20) 22 (6-20) Glucose Level 183 mg/dL (70-99) 156 mg/dL (70-99) Calcium Level 8.4 mg/dL (8.5-10.1) 8.6 mg/dL (8.5-10.1) Phosphorus Level 4.2 mg/dL (2.6-4.7) Magnesium Level 1.9 mg/dL (1.8-2.4) Total Bilirubin 0.3 mg/dL (0.2-1.0) 0.3 mg/dL (0.2-1.0) Aspartate Amino Transf (AST/SGOT) 31 U/L (15-37) 42 U/L (15-37) Alanine Aminotransferase (ALT/SGPT) 19 U/L (14-59) 18 U/L (14-59) Alkaline Phosphatase 169 U/L (46-116) 172 U/L (46-116) Total Protein 6.8 g/dL (6.4-8.2) 6.7 g/dL (6.4-8.2) Albumin 2.7 g/dL (3.4-5.0) 2.7 g/dL (3.4-5.0) Albumin/Globulin Ratio 0.7 (1.0-1.7) 0.7 (1.0-1.7) Glucose (Fingerstick) 197 mg/dL (70-99) 146 mg/dL (70-99) White Blood Count 8.6 x10^3/uL (4.0-11.0) Red Blood Count 2.97 x10^6/uL (3.50-5.40) Hemoglobin 8.7 g/dL (12.0-15.5) Hematocrit 27.3 % (36.0-47.0) Mean Corpuscular Volume 92 fL (79-100) Mean Corpuscular Hemoglobin 29 pg (25-35) Mean Corpuscular Hemoglobin Concent 32 g/dL (31-37) Red Cell Distribution Width 15.9 % (11.5-14.5) Platelet Count 247 x10^3/uL (140-400) Neutrophils (%) (Auto) 62 % (31-73) Lymphocytes (%) (Auto) 24 % (24-48) Monocytes (%) (Auto) 9 % (0-9) Eosinophils (%) (Auto) 4 % (0-3) Basophils (%) (Auto) 1 % (0-3) Neutrophils # (Auto) 5.3 x10^3/uL (1.8-7.7) Lymphocytes # (Auto) 2.0 x10^3/uL (1.0-4.8) Monocytes # (Auto) 0.8 x10^3/uL (0.0-1.1) Eosinophils # (Auto) 0.4 x10^3/uL (0.0-0.7) Basophils # (Auto) 0.1 x10^3/uL (0.0-0.2) Laboratory Tests Test 12/21/21 15:50 12/22/21 07:15 12/22/21 07:27 Glucose (Fingerstick) 197 mg/dL (70-99) 146 mg/dL (70-99) White Blood Count 8.6 x10^3/uL (4.0-11.0) Red Blood Count 2.97 x10^6/uL (3.50-5.40) Hemoglobin 8.7 g/dL (12.0-15.5) Hematocrit 27.3 % (36.0-47.0) Mean Corpuscular Volume 92 fL (79-100) Mean Corpuscular Hemoglobin 29 pg (25-35) Mean Corpuscular Hemoglobin Concent 32 g/dL (31-37) Red Cell Distribution Width 15.9 % (11.5-14.5) Platelet Count 247 x10^3/uL (140-400) Neutrophils (%) (Auto) 62 % (31-73) Lymphocytes (%) (Auto) 24 % (24-48) Monocytes (%) (Auto) 9 % (0-9) Eosinophils (%) (Auto) 4 % (0-3) Basophils (%) (Auto) 1 % (0-3) Neutrophils # (Auto) 5.3 x10^3/uL (1.8-7.7) Lymphocytes # (Auto) 2.0 x10^3/uL (1.0-4.8) Monocytes # (Auto) 0.8 x10^3/uL (0.0-1.1) Eosinophils # (Auto) 0.4 x10^3/uL (0.0-0.7) Basophils # (Auto) 0.1 x10^3/uL (0.0-0.2) Sodium Level 139 mmol/L (136-145) Potassium Level 3.5 mmol/L (3.5-5.1) Chloride Level 105 mmol/L (98-107) Carbon Dioxide Level 25 mmol/L (21-32) Anion Gap 9 (6-14) Blood Urea Nitrogen 11 mg/dL (7-20) Creatinine 0.5 mg/dL (0.6-1.0) Estimated GFR (Cockcroft-Gault) 126.3 BUN/Creatinine Ratio 22 (6-20) Glucose Level 156 mg/dL (70-99) Calcium Level 8.6 mg/dL (8.5-10.1) Total Bilirubin 0.3 mg/dL (0.2-1.0) Aspartate Amino Transf (AST/SGOT) 42 U/L (15-37) Alanine Aminotransferase (ALT/SGPT) 18 U/L (14-59) Alkaline Phosphatase 172 U/L (46-116) Total Protein 6.7 g/dL (6.4-8.2) Albumin 2.7 g/dL (3.4-5.0) Albumin/Globulin Ratio 0.7 (1.0-1.7) Brief Hospital Course Ms. Swan is a 61 old yo female, cambodian-speaking only, with PMHx hypothyroidism, HLD, and recent diagnosis of pancreatic cancer T2N2 s/p whipple 09/15/21 and chemotherapy who comes to ED c/o abdominal pain with nausea, vomiting and diarrhea. She had epigastric and RUQ pain that had associated diarrhea, and some emesis with continued nausea. [Historically 09/09 underwent lap sharad and returned to OR status post Whipple 09/15/2021 non-pyloric sparing pancreaticogastrostomy, hepaticojejunostomy with Billroth 1 type gastrojejunostomy, right colon resection and gastrostomy tube placement, found with T2N2 locally invasive pancreatic adenocarcinoma. She is being seen outpatient by Dr. Bueno from hematology oncology and is followed by Dr. Baldwin from colorectal surgery. She is s/p left port-a-cath placement 11/05/21. pain and nausaa and poor po intake, req. TPN fo ra long time until pain better, nausea better she is full code and wants to continue with chemo plan, consideration of hospice to be made at some point if symptoms worsen or persist Discharge Information Scheduled Atorvastatin Calcium (Atorvastatin Calcium) 10 Mg Tablet, 1 TAB PO DAILY for cholesterol prevention, #30 Ref 5 (Reported) Entered as Reported by: ABHISHEK MONK on 08/28/21848 Last Action: Continued on 12/12/21 1301 by DOMINGO ESCOBAR MD Fentanyl (FENTANYL 50mcg/hr) 1 Each Patch.td72, 1 PATCH TD Q3DAYS for pain for 30 Days, #10 Prescribed by: RENO CAMPOS on 12/22/21 1242 Levothyroxine Sodium (Levothyroxine Sodium) 125 Mcg Tablet, 1 TAB PO DAILY for thyroid, #30 Ref 5 (Reported) Entered as Reported by: ABHISHEK MONK on 11/12/21 0849 Last Action: Continued on 12/12/21 1301 by DOMINGO ESCOBAR MD Scopolamine (Transderm-Scop) 1 Each Patch.td72, 1 PATCH TD Q3DAYS for nausea, #10 Prescribed by: RENO CAMPOS on 12/22/21 1241 Scheduled PRN Lorazepam (Ativan) 1 Mg Tablet, 1 MG PO PRN Q6HRS PRN for ANXIETY / AGITATION, #30 Prescribed by: RENO CAMPOS on 12/22/21 1242 Ondansetron (Ondansetron Odt) 4 Mg Tab.rapdis, 4 MG PO BID PRN for NAUSEA/VOMITING, #14 Prescribed by: RENO CAMPOS on 12/22/21 1241 Oxycodone Hcl (Oxycodone Hcl Immed.release ) 5 Mg Tablet, 10 MG PO PRN Q6HRS PRN for PAIN for 10 Days, #30 Prescribed by: RENO CAMPOS on 12/22/21 1242 Discontinued Medications Ondansetron Hcl (Zofran) 4 Mg Tablet, 1 TAB PO Q6HRS for ., #20 Prescribed by: ROMINA BALDWIN on 09/09/21 1102 Justicifation of Admission Dx: Justifications for Admission: Justification of Admission Dx: Yes RENO CAMPOS MD Dec 22, 2021 13:00
--- NOTE | 2021-12-22 13:28 | NUR ---
SW following. Discussed with RN, discharge order for home with self care.
--- NOTE | 2021-12-22 14:18 | NUR ---
patient verbalized understanding of discharge instructions. patient was given list of clinics near by as well. daughter at bedside.
== END 2021-12-22 13:52 | disposition home or self-care (01) | DRG 872 ==
LOC: ER 06:24 → ED HOLD 08:55 → 4 NORTH 09:17 → OBSVTOIN 12:26 → 5 NORTH 14:52 → 4 NORTH 22:24
PROVIDERS: ADMIT Student in an Organized Health Care Education/Training Program; ATTEND Student in an Organized Health Care Education/Training Program
PROC: 0W9G3ZZ Drainage of Peritoneal Cavity, Percutaneous Approach (ICD-10-PCS; principal; 2021-12-10)
DX: A41.50 Gram-negative sepsis, unspecified (principal); N39.0 Urinary tract infection, site not specified; D50.0 Iron deficiency anemia secondary to blood loss (chronic); D69.6 Thrombocytopenia, unspecified; E03.9 Hypothyroidism, unspecified; E78.5 Hyperlipidemia, unspecified; E87.6 Hypokalemia; F41.9 Anxiety disorder, unspecified; G89.29 Other chronic pain; K21.9 Gastro-esophageal reflux disease without esophagitis; K29.70 Gastritis, unspecified, without bleeding; K52.9 Noninfective gastroenteritis and colitis, unspecified; T45.1X5A Adverse effect of antineoplastic and immunosuppressive drugs, initial encounter; Z82.49 Family history of ischemic heart disease and other diseases of the circulatory system; Z83.3 Family history of diabetes mellitus; Z85.07 Personal history of malignant neoplasm of pancreas; Z87.891 Personal history of nicotine dependence; Z90.411 Acquired partial absence of pancreas; Z90.49 Acquired absence of other specified parts of digestive tract; F32.A Depression, unspecified; Z20.822 Contact with and (suspected) exposure to COVID-19
CPT/HCPCS: 36415; 49083; 74021; 74177; 80048; 80053; 81001; 82310; 82962; 83615; 83735; 83986; 84100; 84157; 84478; 85007; 85025; 87075; 87077; 87086; 87186; 87426; 88112; 88305; 89050; 96374; 96375; C9113; G0378; G0379; J0696; J0780; J1642; J1644; J2060; J2270; J2405; J3475; J3480; J3490; J7121; Q9966; Q9967; U0003; 99285-25; Q0167

== ENCOUNTER → 2021-12-28 | Outpatient (CLI) | payer SELFPAY ==
[2021-12-19 15:00] VITALS: BP 86/55
[~2021-12-28] MED LIST changes: +LORA-434 PO; +ONDA4TAB12 PO; +SCOP1PAT12 TD
[2021-12-28 10:15] LABS: BASO # 0.1 x10^3/uL (0.0-0.2); BASO % 1 % (0-3); EOS # 0.2 x10^3/uL (0.0-0.7); EOS % 4 % (0-3); HEMATOCRIT 28.6 % (36.0-47.0); HEMOGLOBIN 9.2 g/dL (12.0-15.5); LYMPH # 2.6 x10^3/uL (1.0-4.8); LYMPH % 45 % (24-48); MEAN CORPUSCULAR HEMOGLOBIN 30 pg (25-35); MEAN CORPUSCULAR HGB CONC 32 g/dL (31-37); MEAN CORPUSCULAR VOLUME 92 fL (79-100); MONO # 0.7 x10^3/uL (0.0-1.1); MONO % 12 % (0-9); NEUT # 2.1 x10^3/uL (1.8-7.7); NEUT % 37 % (31-73); PLATELET COUNT 269 x10^3/uL (140-400); RED BLOOD COUNT 3.11 x10^6/uL (3.50-5.40); WHITE BLOOD COUNT 5.7 x10^3/uL (4.0-11.0)
[2021-12-28 10:35] LABS: CALCIUM 8.7 mg/dL (8.5-10.1); CREATININE 0.8 mg/dL (0.6-1.0); GFR 73.4; POTASSIUM 3.5 mmol/L (3.5-5.1)
[2021-12-28 10:49] LABS: ALBUMIN 3.1 g/dL (3.4-5.0); ALBUMIN/GLOBULIN RATIO 0.8 (1.0-1.7); TOTAL BILIRUBIN 0.8 mg/dL (0.2-1.0); TOTAL PROTEIN 7.1 g/dL (6.4-8.2)
== END ==
LOC: ONCLAB 09:12
PROVIDERS: ATTEND Internal Medicine Hematology & Oncology
DX: C25.0 Malignant neoplasm of head of pancreas (principal)
CPT/HCPCS: 36415; 80053; 85025; 86301

== ENCOUNTER → 2022-01-04 | Outpatient (CLI) | payer SELFPAY ==
[2021-12-19 15:00] VITALS: BP 86/55
[2022-01-04 10:01] LABS: BASO % 1 % (0-3); EOS # 0.2 x10^3/uL (0.0-0.7); EOS % 6 % (0-3); HEMOGLOBIN 8.7 g/dL (12.0-15.5); LYMPH # 1.5 x10^3/uL (1.0-4.8); LYMPH % 41 % (24-48); MEAN CORPUSCULAR HEMOGLOBIN 30 pg (25-35); MEAN CORPUSCULAR HGB CONC 33 g/dL (31-37); MEAN CORPUSCULAR VOLUME 91 fL (79-100); MONO # 0.2 x10^3/uL (0.0-1.1); MONO % 4 % (0-9); NEUT # 1.7 x10^3/uL (1.8-7.7); NEUT % 48 % (31-73); PLATELET COUNT 98 x10^3/uL (140-400); RED BLOOD COUNT 2.84 x10^6/uL (3.50-5.40); RED CELL DISTRIBUTION WIDTH 16.2 % (11.5-14.5); WHITE BLOOD COUNT 3.6 x10^3/uL (4.0-11.0)
[2022-01-04 10:04] LABS: CALCIUM 8.3 mg/dL (8.5-10.1); CREATININE 0.7 mg/dL (0.6-1.0); GFR 85.6; POTASSIUM 3.1 mmol/L (3.5-5.1)
[2022-01-04 10:17] LABS: ALBUMIN 3.2 g/dL (3.4-5.0); ALBUMIN/GLOBULIN RATIO 0.9 (1.0-1.7); TOTAL BILIRUBIN 0.6 mg/dL (0.2-1.0); TOTAL PROTEIN 6.9 g/dL (6.4-8.2)
[2022-01-04 13:32] LABS: % BANDS 2 % (0-9); % EOS 6 % (0-5); % LYMPHS 68 % (24-48); % MONOS 3 % (0-10); % SEGS 21 % (35-66); PLT ESTIMATE DECREASED (ADEQUATE)
== END ==
LOC: ONCLAB 09:29
PROVIDERS: ATTEND Internal Medicine Hematology & Oncology
DX: C25.0 Malignant neoplasm of head of pancreas (principal)
CPT/HCPCS: 36415; 80053; 85007; 85025

== ENCOUNTER → 2022-01-11 | Outpatient (CLI) | payer SELFPAY ==
[2021-12-19 15:00] VITALS: BP 86/55
[2022-01-11 09:05] LABS: BASO # 0.1 x10^3/uL (0.0-0.2); BASO % 1 % (0-3); EOS # 0.2 x10^3/uL (0.0-0.7); EOS % 2 % (0-3); HEMATOCRIT 30.9 % (36.0-47.0); HEMOGLOBIN 9.9 g/dL (12.0-15.5); LYMPH # 2.6 x10^3/uL (1.0-4.8); LYMPH % 23 % (24-48); MEAN CORPUSCULAR HEMOGLOBIN 29 pg (25-35); MEAN CORPUSCULAR HGB CONC 32 g/dL (31-37); MEAN CORPUSCULAR VOLUME 91 fL (79-100); MONO # 0.8 x10^3/uL (0.0-1.1); MONO % 7 % (0-9); NEUT # 7.7 x10^3/uL (1.8-7.7); NEUT % 67 % (31-73); PLATELET COUNT 215 x10^3/uL (140-400); RED BLOOD COUNT 3.41 x10^6/uL (3.50-5.40); RED CELL DISTRIBUTION WIDTH 16.5 % (11.5-14.5); WHITE BLOOD COUNT 11.5 x10^3/uL (4.0-11.0)
[2022-01-11 09:26] LABS: ALBUMIN 3.3 g/dL (3.4-5.0); ALBUMIN/GLOBULIN RATIO 0.8 (1.0-1.7); CALCIUM 8.7 mg/dL (8.5-10.1); CREATININE 0.7 mg/dL (0.6-1.0); GFR 85.6; TOTAL BILIRUBIN 0.5 mg/dL (0.2-1.0); TOTAL PROTEIN 7.2 g/dL (6.4-8.2)
[2022-01-11 09:51] LABS: % BANDS 4 % (0-9); % LYMPHS 28 % (24-48); % MONOS 6 % (0-10); % SEGS 62 % (35-66); PLT ESTIMATE ADEQUATE (ADEQUATE)
== END ==
LOC: ONCLAB 08:46
PROVIDERS: ATTEND Internal Medicine Hematology & Oncology
DX: C25.0 Malignant neoplasm of head of pancreas (principal)
CPT/HCPCS: 36415; 80053; 85007; 85025; 86301

== ENCOUNTER → 2022-01-14 | Outpatient (CLI) | payer OTHER ==
[2021-12-19 15:00] VITALS: BP 86/55
--- NOTE | 2022-01-14 13:24 | RAD ---
Exam Date: 01/14/2022 6:50 AM US ABDOMEN LIMITED Indication: Reason: ? palpable mass rt abdomen / Spl. Instructions: / History: . Impression: Sonographic images were obtained of the abdomen. Ascites is noted in the right lower quadrant and ri ght upper quadrant. There are multiple subcutaneous cystic foci, the largest measuring 1.2 cm. No s ignificant vascularity seen within this cystic structures. At least one of these cysts demonstrate a solid-appearing thickened rim, nonspecific. Consider further evaluation with cross-sectional imagin g, either CT or MRI, or short interval follow-up to document stability or resolution.. A benign-appe aring lymph node is also noted. Electronically signed by: Lc Fleming MD (01/14/2022 1:22 PM) [id number]
== END ==
LOC: US 06:18
PROVIDERS: ATTEND Physician Assistant
DX: R18.8 Other ascites (principal); B43.2 Subcutaneous pheomycotic abscess and cyst
CPT/HCPCS: 76705

== ENCOUNTER → 2022-01-18 | Outpatient (CLI) | payer SELFPAY ==
[2021-12-19 15:00] VITALS: BP 86/55
[2022-01-18 08:52] LABS: CALCIUM 8.7 mg/dL (8.5-10.1); CREATININE 0.6 mg/dL (0.6-1.0); GFR 102.3; POTASSIUM 3.5 mmol/L (3.5-5.1)
[2022-01-18 08:58] LABS: ALBUMIN 3.2 g/dL (3.4-5.0); ALBUMIN/GLOBULIN RATIO 0.8 (1.0-1.7); MAGNESIUM 2.1 mg/dL (1.8-2.4); TOTAL PROTEIN 7.1 g/dL (6.4-8.2)
[2022-01-18 09:00] LABS: BASO % 0 % (0-3); EOS % 1 % (0-3); HEMATOCRIT 27.6 % (36.0-47.0); LYMPH # 1.3 x10^3/uL (1.0-4.8); LYMPH % 38 % (24-48); MEAN CORPUSCULAR HEMOGLOBIN 29 pg (25-35); MEAN CORPUSCULAR HGB CONC 33 g/dL (31-37); MEAN CORPUSCULAR VOLUME 90 fL (79-100); MONO # 0.1 x10^3/uL (0.0-1.1); MONO % 3 % (0-9); NEUT % 58 % (31-73); RED BLOOD COUNT 3.06 x10^6/uL (3.50-5.40); RED CELL DISTRIBUTION WIDTH 16.8 % (11.5-14.5); WHITE BLOOD COUNT 3.4 x10^3/uL (4.0-11.0)
[2022-01-18 09:26] LABS: PLATELET COUNT 45 x10^3/uL (140-400)
[2022-01-18 10:32] LABS: % BANDS 3 % (0-9); % EOS 2 % (0-5); % LYMPHS 44 % (24-48); % MONOS 3 % (0-10); % SEGS 48 % (35-66)
[2022-01-18 10:33] LABS: PLT ESTIMATE DECREASED (ADEQUATE)
[2022-01-18 10:34] LABS: TOXIC GRANULATION PRESENT
== END ==
LOC: ONCLAB 08:27
PROVIDERS: ATTEND Physician Assistant
DX: C25.0 Malignant neoplasm of head of pancreas (principal)
CPT/HCPCS: 36415; 80053; 83735; 85007; 85025

== ENCOUNTER → 2022-01-25 | Outpatient (CLI) | payer SELFPAY ==
[2022-01-25 09:08] LABS: BASO # 0.1 x10^3/uL (0.0-0.2); BASO % 0 % (0-3); EOS # 0.1 x10^3/uL (0.0-0.7); EOS % 1 % (0-3); HEMATOCRIT 29.1 % (36.0-47.0); HEMOGLOBIN 9.6 g/dL (12.0-15.5); LYMPH # 2.9 x10^3/uL (1.0-4.8); LYMPH % 18 % (24-48); MEAN CORPUSCULAR HEMOGLOBIN 30 pg (25-35); MEAN CORPUSCULAR HGB CONC 33 g/dL (31-37); MEAN CORPUSCULAR VOLUME 89 fL (79-100); MONO # 1.2 x10^3/uL (0.0-1.1); MONO % 7 % (0-9); NEUT # 12.3 x10^3/uL (1.8-7.7); NEUT % 75 % (31-73); PLATELET COUNT 176 x10^3/uL (140-400); RED BLOOD COUNT 3.26 x10^6/uL (3.50-5.40); RED CELL DISTRIBUTION WIDTH 17.4 % (11.5-14.5); WHITE BLOOD COUNT 16.5 x10^3/uL (4.0-11.0)
[2022-01-25 09:31] LABS: ALBUMIN 3.2 g/dL (3.4-5.0); ALBUMIN/GLOBULIN RATIO 0.9 (1.0-1.7); CALCIUM 8.4 mg/dL (8.5-10.1); CREATININE 0.7 mg/dL (0.6-1.0); GFR 85.6; MAGNESIUM 1.7 mg/dL (1.8-2.4); TOTAL BILIRUBIN 0.6 mg/dL (0.2-1.0); TOTAL PROTEIN 6.8 g/dL (6.4-8.2)
[2022-01-25 11:27] LABS: % ATYL 1 % (0-0); % BANDS 11 % (0-9); % LYMPHS 16 % (24-48); % METAS 1 % (0-0); % MONOS 6 % (0-10); % SEGS 65 % (35-66); PLT ESTIMATE ADEQUATE (ADEQUATE)
[2022-01-25 11:28] LABS: ANISOCYTOSIS SLIGHT; PLATELET CLUMP PRESENT; TOXIC GRANULATION PRESENT
== END ==
LOC: ONCLAB 08:41
PROVIDERS: ATTEND Internal Medicine Hematology & Oncology
DX: C25.0 Malignant neoplasm of head of pancreas (principal)
CPT/HCPCS: 36415; 80053; 83735; 85007; 85025; 86301

== ENCOUNTER 2022-02-21 07:55 | Inpatient (IN) | payer SELFPAY ==
[~2022-02-21] VITALS: Ht 160 cm; Wt 49.3 kg
[~2022-02-21 07:55] MED LIST changes: +OXYC10TA PO; +POTA20TA40 PO
[2022-02-21] MEDS ORDERED: CONTRAST GIVEN. MC PRN (08:45)
[2022-02-21] MEDS ORDERED: IOHEXOL 300 MG/ML 100ML VIAL. IV ONE (08:45)
[2022-02-21 08:48] LABS: BASO # 0.1 x10^3/uL (0.0-0.2); BASO % 1 % (0-3); EOS % 0 % (0-3); HEMATOCRIT 25.4 % (36.0-47.0); HEMOGLOBIN 8.3 g/dL (12.0-15.5); LYMPH # 1.5 x10^3/uL (1.0-4.8); LYMPH % 14 % (24-48); MEAN CORPUSCULAR HEMOGLOBIN 32 pg (25-35); MEAN CORPUSCULAR HGB CONC 33 g/dL (31-37); MEAN CORPUSCULAR VOLUME 96 fL (79-100); MONO % 9 % (0-9); NEUT # 8.5 x10^3/uL (1.8-7.7); NEUT % 77 % (31-73); PLATELET COUNT 58 x10^3/uL (140-400); RED BLOOD COUNT 2.65 x10^6/uL (3.50-5.40); RED CELL DISTRIBUTION WIDTH 25.5 % (11.5-14.5); WHITE BLOOD COUNT 11.1 x10^3/uL (4.0-11.0)
[2022-02-21 08:59] LABS: CALCIUM 7.5 mg/dL (8.5-10.1); CREATININE 0.6 mg/dL (0.6-1.0); POTASSIUM 3.2 mmol/L (3.5-5.1)
[2022-02-21 09:05] LABS: ALBUMIN 2.3 g/dL (3.4-5.0); ALBUMIN/GLOBULIN RATIO 0.7 (1.0-1.7); TOTAL BILIRUBIN 1.4 mg/dL (0.2-1.0); TOTAL PROTEIN 5.5 g/dL (6.4-8.2)
[2022-02-21 09:09] LABS: BACTERIA,URINE 0 /HPF (0-FEW); RBC,URINE 0 /HPF (0-2); WBC,URINE 0 /HPF (0-4)
--- NOTE | 2022-02-21 09:36 | RAD ---
CT ABDOMEN+PELVIS W dated 02/21/2022 9:19 AM Indication:Reason: recent surgery and abd pain today, s/p whipple and Gb removal / Spl. Instructions: Omni 300 75ml / History: Comparison: CT 02/12/2022. Technique: CT images were performed using infusion of 75 mL Omnipaque 300. No oral contrast was given . One or more of the following individualized dose reduction techniques were utilized for this examinat ion: 1. Automated exposure control 2. Adjustment of the mA and/or kV according to patient size 3. Use of iterative reconstruction technique Findings: No new abnormality is seen at the lung bases. There is suggestion of some small low-attenuation areas located superiorly in the right lobe of the liver and not evident previously. These measure roughly 1 cm at greatest. No other liver parenchymal abnormality is seen. A small amount of air is still evid ent in the biliary tree. The spleen appears normal. Both kidneys enhance with contrast. No mass or ob struction is seen. The adrenal glands are not enlarged. Findings of pancreatic head resection are aga in shown. There is continued dilatation of the main pancreatic duct extending toward the midline. Thi s is similar to the prior exam. No obvious new inflammatory changes are seen in this region. No new e nlarged lymph nodes are apparent. There is still some ascites in the upper abdomen, especially adjace nt to the liver. This is probably slightly increased in volume. No localized collection such as an ab scess is seen. Again noted are changes of right hemicolectomy and diffuse thickening of the wall of t he remaining colon. The degree of wall thickening appears overall similar. There is still some increa sed attenuation along the mucosal lining presumably indicating contrast enhancement rather than hemor rhage. There is no evidence of bowel obstruction. Again noted is narrowing of SMV just inferior to it s confluence with the splenic vein. Images through the pelvis show no abnormality of the distal ureters or bladder. No pelvic or inguinal adenopathy is seen. There is a small volume of ascites in the upper pelvis. There is no localized co llection such as an abscess. IMPRESSION: Findings are similar to the prior CT, showing moderate volume ascites and diffuse colon wall thickeni ng. Electronically signed by: Alexandre Vicente Jr., MD (02/21/2022 9:33 AM) [facility]
[2022-02-21 10:21] LABS: % BANDS 3 % (0-9); % LYMPHS 8 % (24-48); % MONOS 4 % (0-10); % SEGS 85 % (35-66)
[2022-02-21 10:23] LABS: PLT ESTIMATE DECREASED (ADEQUATE)
--- NOTE | 2022-02-21 11:54 | PHYS DOC ---
Past Medical History Past Medical History: Cancer Additional Past Medical Histor: Pancreatic Cancer,SBO,JAUNDICE,C-DIFF Past Surgical History: Cholecystectomy, Other Additional Past Surgical Histo: WIPPLE, PANCREATIC CANCER,CYSTS DRAINED? Smoking Status: Former Smoker Alcohol Use: None General Adult EDM: Chief Complaint: ABDOMINAL PAIN HPI: HPI: Patient is a 62-year-old female who presents with abdominal pain. Localized to her periumbilical and upper abdomen. She has pancreatic cancer and is status post Whipple. She recently had multiple drainages in her abdomen from some fluid pockets that had formed per family member. She is currently on chemo. Has also had her gallbladder removed. Pain is constant and burning in nature. No known aggravating or relieving symptoms. Not worsened by food intake. Review of Systems: Review of Systems: Constitutional: Denies fever or chills. [] Eyes: Denies change in visual acuity. [] HENT: Denies nasal congestion or sore throat. [] Respiratory: Denies cough or shortness of breath. [] Cardiovascular: Denies chest pain or edema. [] GI: Positive for abdominal pain : Denies dysuria. [] Musculoskeletal: Denies back pain or joint pain. [] Integument: Denies rash. [] Neurologic: Denies headache, focal weakness or sensory changes. [] Endocrine: Denies polyuria or polydipsia. [] Lymphatic: Denies swollen glands. [] Psychiatric: Denies depression or anxiety. [] Heart Score: C/O Chest Pain: No Risk Factors: Risk Factors: DM, Current or recent (<one month) smoker, HTN, HLP, family history of CAD, obesity. Risk Scores: Score 0 - 3: 2.5% MACE over next 6 weeks - Discharge Home Score 4 - 6: 20.3% MACE over next 6 weeks - Admit for Clinical Observation Score 7 - 10: 72.7% MACE over next 6 weeks - Early Invasive Strategies Current Medications: Current Medications Medications (Trade) Dose Ordered Sig/Mague Start Time Stop Time Status Last Admin Dose Admin Info (CONTRAST GIVEN -- Rx MONITORING) 1 each PRN DAILY PRN 02/21/22 08:45 02/23/22 08:44 Iohexol (Omnipaque 300 Mg/ml) 75 ml 1X ONCE 02/21/22 08:45 02/21/22 08:46 DC 02/21/22 08:45 75 ML Allergies: Allergies: Allergies Coded Allergies Type Severity Reaction Last Updated Verified No Known Drug Allergies 12/09/21 No Physical Exam: PE: Constitutional: Well developed, well nourished, no acute distress, non-toxic appearance. [] HENT: Normocephalic, atraumatic, bilateral external ears normal, oropharynx moist, no oral exudates, nose normal. [] Eyes: PERRLA, EOMI, conjunctiva normal, no discharge. [] Neck: Normal range of motion, no tenderness, supple, no stridor. [] Cardiovascular:Heart rate regular rhythm, no murmur [] Lungs & Thorax: Bilateral breath sounds clear to auscultation [] Abdomen: Generalized abdominal pain on palpation with predominance of tenderness in the epigastric area. No rebound rigidity or guarding. Skin: Warm, dry, no erythema, no rash. [] Back: No tenderness, no CVA tenderness. [] Extremities: No tenderness, no cyanosis, no clubbing, ROM intact, no edema. [] Neurologic: Alert and oriented X 3, normal motor function, normal sensory function, no focal deficits noted. [] Psychologic: Affect normal, judgement normal, mood normal. [] Current Patient Data: Labs: Laboratory Tests Test 02/21/22 08:10 02/21/22 08:40 Urine Collection Type Unknown Urine Color (Auto) Colorless Urine Turbidity Clear Urine pH (Auto) 8.0 (<5.0-8.0) Urine Specific [place] 1.010 (1.000-1.030) Urine Protein (Auto) Negative mg/dL (Negative) Urine Glucose (Auto)(UA) Negative mg/dL (Negative) Urine Ketones (Auto) 10 mg/dL (Negative) Urine Blood (Auto) Trace (Negative) Urine Nitrite Negative (Negative) Urine Bilirubin (Auto) Negative (Negative) Urine Urobilinogen (Auto) Normal mg/dL (Normal) Urine Leukocyte Esterase (Auto) Negative (Negative) Urine RBC 0 /HPF (0-2) Urine WBC 0 /HPF (0-4) Urine Bacteria 0 /HPF (0-FEW) White Blood Count 11.1 x10^3/uL (4.0-11.0) H Red Blood Count 2.65 x10^6/uL (3.50-5.40) L Hemoglobin 8.3 g/dL (12.0-15.5) L Hematocrit 25.4 % (36.0-47.0) L Mean Corpuscular Volume 96 fL (79-100) Mean Corpuscular Hemoglobin 32 pg (25-35) Mean Corpuscular Hemoglobin Concent 33 g/dL (31-37) Red Cell Distribution Width 25.5 % (11.5-14.5) H Platelet Count 58 x10^3/uL (140-400) L Neutrophils (%) (Auto) 77 % (31-73) H Lymphocytes (%) (Auto) 14 % (24-48) L Monocytes (%) (Auto) 9 % (0-9) Eosinophils (%) (Auto) 0 % (0-3) Basophils (%) (Auto) 1 % (0-3) Neutrophils # (Auto) 8.5 x10^3/uL (1.8-7.7) H Lymphocytes # (Auto) 1.5 x10^3/uL (1.0-4.8) Monocytes # (Auto) 1.0 x10^3/uL (0.0-1.1) Eosinophils # (Auto) 0.0 x10^3/uL (0.0-0.7) Basophils # (Auto) 0.1 x10^3/uL (0.0-0.2) Segmented Neutrophils % 85 % (35-66) H Band Neutrophils % 3 % (0-9) Lymphocytes % 8 % (24-48) L Monocytes % 4 % (0-10) Platelet Estimate Decreased (ADEQUATE) Sodium Level 140 mmol/L (136-145) Potassium Level 3.2 mmol/L (3.5-5.1) L Chloride Level 102 mmol/L (98-107) Carbon Dioxide Level 29 mmol/L (21-32) Anion Gap 9 (6-14) Blood Urea Nitrogen 5 mg/dL (7-20) L Creatinine 0.6 mg/dL (0.6-1.0) Estimated GFR (Cockcroft-Gault) 102.0 BUN/Creatinine Ratio 8 (6-20) Glucose Level 82 mg/dL (70-99) Calcium Level 7.5 mg/dL (8.5-10.1) L Total Bilirubin 1.4 mg/dL (0.2-1.0) H Aspartate Amino Transferase (AST) 41 U/L (15-37) H Alanine Aminotransferase (ALT) 24 U/L (14-59) Alkaline Phosphatase 240 U/L (46-116) H Total Protein 5.5 g/dL (6.4-8.2) L Albumin 2.3 g/dL (3.4-5.0) L Albumin/Globulin Ratio 0.7 (1.0-1.7) L Lipase 1915 U/L (73-393) H Laboratory Tests 02/21/22 08:40 Laboratory Tests 02/21/22 08:40 Vital Signs: Vital Signs Date Time Temp Pulse Resp B/P (MAP) Pulse Ox O2 Delivery O2 Flow Rate FiO2 02/21/22 08:04 99.0 87 24 88/52 (64) 96 Room Air 99.0 EKG: EKG: [] Radiology/Procedures: Radiology/Procedures: [] Course & Med Decision Making: Course & Med Decision Making Pertinent Labs and Imaging studies reviewed. (See chart for details) [] Dragon Disclaimer: Dragon Disclaimer: This electronic medical record was generated, in whole or in part, using a voice recognition dictation system. Departure Departure Impression: Primary Impression: Pancreatic cancer Additional Impression: Pancreatitis, acute Disposition: ADMITTED INPATIENT Condition: STABLE Referrals: NO PCP (PCP) INNA FALK MD February 21, 2022 11:54
[2022-02-21] MEDS ORDERED: oxyCODONE IR 5 MG TABLET PO PRN (12:45)
[2022-02-21] MEDS: MORPHINE SULFATE 2 MG/ML INJ. IV PRN ×4 (13:27→22:56)
[2022-02-21] MEDS: IV NORMAL SALINE 1000ML BAG 1,000 ML IV SCH ×2 (13:27→23:37)
[2022-02-21] MEDS: POTASSIUM BICARB 20 MEQ EFFERVESCENT TABLET. PO SCH (13:27)
[2022-02-21 14:15] VITALS: BP 87/53
[2022-02-21 19:00] VITALS: BP 88/57
[2022-02-21 22:55] VITALS: BP 89/58
--- NOTE | 2022-02-22 02:25 | EKG ---
[facility] [address] [place] [address] Test Date: 2022-02-21 Test Time: 08:22:42 Pat Name: MINERVA HOOD Department: Room: [facility] Gender: F [employer] Maintainer: : [id number] Requested By: INNA FALK Order Number: [id number] Reading MD: Corey Villagomez MD Measurements Intervals [place] Rate: 78 P: 31 RI: 120 QRS: 34 QRSD: 70 T: -66 QT: 352 QTc: 405 Interpretive Statements SINUS RHYTHM Electronically Signed On 02-22-2022 8:52:19 CDT by Corey Villagomez MD
[2022-02-22 03:00] VITALS: BP 92/46
--- NOTE | 2022-02-22 05:03 | HP ---
DATE OF SERVICE: 02/21/2022 ADMIT DATE: 02/21/2022 CHIEF COMPLAINT: Abdominal pain. HISTORY OF PRESENT ILLNESS: The patient is a pleasant 62-year-old female who we have been caring for over the past year or so. She has had multiple admissions for pancreatic cancer. We originally took out her gallbladder and then eventually we discovered she had pancreatic cancer. She then underwent a Whipple procedure. Now, she is once again presented with abdominal pain. I discussed the case with ER physician. We are going to admit the patient and consult GI and General Surgery and give her pain management. PAST MEDICAL HISTORY: Pancreatic cancer, Whipple procedure, cholecystectomy, hyperlipidemia, chronic pain, anxiety, depression, hypothyroidism. ALLERGIES: None. FAMILY HISTORY: Diabetes. SOCIAL HISTORY: She does not drink, smoke or take drugs. She is . MEDICATIONS: Reviewed. She is on ____. Please refer to the MRAD. REVIEW OF SYSTEMS: GENERAL: No history of weight change, weakness or fevers. SKIN: No bruising, hair changes or rashes. EYES: No blurred, double or loss of vision. NOSE AND THROAT: No history of nosebleeds, hoarseness or sore throat. HEART: No history of palpitations, chest pain or shortness of breath on exertion. LUNGS: Denies cough, hemoptysis, wheezing or shortness of breath. GASTROINTESTINAL: Complains of abdominal pain, nausea. GENITOURINARY: No history of frequency, urgency, hesitancy or nocturia. NEUROLOGIC: Denies history of numbness, tingling, tremor or weakness. PSYCHIATRIC: No history of panic, anxiety or depression. ENDOCRINE: No history of heat or cold intolerance, polyuria or polydipsia. EXTREMITIES: Denies muscle weakness, joint pain, pain on walking or stiffness. PHYSICAL EXAMINATION: VITALS: Within normal limits and are stable. GENERAL: No apparent distress. Alert and oriented. HEENT: Normal cephalic atraumatic, external auditory canals are patent EYES: Extraocular muscles are intact, pupils are equally round and reactive to light and accommodation MUSCULOSKELETAL: Well developed, well nourished, good range of motion ENDOCRINE: No thyromegaly was palpated LYMPHATICS: No cervical chain or axillary nodes were noted HEMATOPOIETIC: No bruising NECK: Supple, no JVD, no thyromegaly was noted. LUNGS: Clear to auscultation in all lung manzano without rhonchi or wheezing. HEART: RRR, S1, S2 present. Peripheral pulses intact, no obvious murmurs were noted. ABDOMEN: She has decreased bowel sounds with tenderness to palpation on her abdomen. EXTREMITIES: Without any cyanosis, clubbing, or edema. Pedal pulses intact, Homans sign is negative. NEUROLOGIC: Normal speech, normal tone. A and O x 3, moves all extremities, no obvious focal deficits. PSYCHIATRIC: Normal affect, normal mood. Stable. SKIN: No ulcerations or rashes, good skin turgor, no jaundice. VASCULAR: Good capillary refill, neurovascular bundle appears to be intact. LABORATORY DATA: White count 11, hemoglobin 8, platelets 58. Electrolytes: Sodium 140, potassium 3.2, chloride 102, bicarb 29, BUN 5, creatinine 0.6, glucose 82. Lipase is 1915. ASSESSMENT AND PLAN: Severe pancreatitis in an elderly female who has known pancreatic cancer. The patient will be admitted. We will start IV pain meds, IV fluids, p.r.n. antiemetics, home meds, deep venous thrombosis prophylaxis, full code. Consult GI, consult General Surgery, consult Oncology. Long-term prognosis is extremely guarded at best. ALEXANDER/DANN/DIANA DR: Avery TID: [id number]
[2022-02-22] MEDS ORDERED: LEVOTHYROXINE 125 MCG TABLET PO SCH (06:00)
[2022-02-22 07:15] VITALS: BP 81/50
[2022-02-22] MEDS: POTASSIUM BICARB 20 MEQ EFFERVESCENT TABLET. PO SCH (08:19)
[2022-02-22] MEDS ORDERED: ONDANSETRON PF 4 MG/2 ML VIAL. IVP PRN (09:00)
--- NOTE | 2022-02-22 09:16 | PDOC ---
Date of Service: DATE: 02/22/22 TIME: 08:57 Subjective: Subjective: Please see recent GI consult and following progress notes. This time says ( translates) her biggest issue was bilateral leg pain and weakness. Has chronic abd pain - mostly RLQ - this is stable. No vomiting - was tolerating vegetable soup at home. No diarrhea or constipation. No bleeding. says their pharmacy did not have the potassium Rx they needed. Objective: Objective: We are asked to see this time for elevated lipase, h/o pancreatic cancer. CA 19-9 worse than in past (408). Lipase 1915, bili 1.4, Alk Phos 240. WBC much improved compared to last week. From onc note 02/10/22: -Reviewed recent CT results with the patient and her daughter. Given negative ascites fluid, her cancer recurrence has not been confirmed at this time. Given CT findings, suspicion for cancer recurrence remains high. -Discussed options at this time including reattempting ultrasound-guided biopsy at a short interval -We discussed her options for systemic therapy at this point. If metastatic recurrence is confirmed, I discussed with the daughter the limited life expectancy in the setting of advanced pancreatic cancer after progression on upfront systemic chemotherapy with mFOLFIRINOX. We discussed the alternative options for subsequent therapy including gemcitabine plus Abraxane versus hospice care. She would like to discuss this further in the office after discha ti from the hospital -Plan medical oncology follow-up to discuss plan for further care ID recs from 02/19/22: Cont po vanco for total of 14 days followed by twice daily for 14 days Vital Signs: Vital Signs Date Time Temp Pulse Resp B/P (MAP) Pulse Ox O2 Delivery O2 Flow Rate FiO2 02/22/22 08:20 95 Room Air 02/22/22 07:15 98.4 72 18 81/50 60) 98.4 Imaging: CT A/P 02/21/22 Findings: No new abnormality is seen at the lung bases. There is suggestion of some small low-attenuation areas located superiorly in the right lobe of the liver and not evident previously. These measure roughly 1 cm at greatest. No other liver parenchymal abnormality is seen. A small amount of air is still evident in the biliary tree. The spleen appears normal. Both kidneys enhance with contrast. No mass or obstruction is seen. The adrenal glands are not enlarged. Findings of pancreatic head resection are again shown. There is continued dilatation of the main pancreatic duct extending toward the midline. This is similar to the prior exam. No obvious new inflammatory changes are seen in this region. No new enlarged lymph nodes are apparent. There is still some ascites in the upper abdomen, especially adjacent to the liver. This is probably slightly increased in volume. No localized collection such as an abscess is seen. Again noted are changes of right hemicolectomy and diffuse thickening of the wall of the remaining colon. The degree of wall thickening appears overall similar. There is still some increased attenuation along the mucosal lining presumably indicating contrast enhancement rather than hemorrhage. There is no evidence of bowel obstruction. Again noted is narrowing of SMV just inferior to its confluence with the splenic vein. Images through the pelvis show no abnormality of the distal ureters or bladder. No pelvic or inguinal adenopathy is seen. There is a small volume of ascites in the upper pelvis. There is no localized collection such as an abscess. IMPRESSION: Findings are similar to the prior CT, showing moderate volume ascites and diffuse colon wall thickening. Tumor Localization 02/17 IMPRESSION: No suspicious findings. PE: GEN: NAD LUNGS: CTAB HEART: RRR ABD: soft, perhaps a bit more distended than usual, BS+ NEURO/PSYCH: A & O 3 - speaks Japanese A/P: BLE pain/weakness - better Metastatic pancreatic cancer s/p Whipple Chronic abdominal pain w/ recurrent n/v Chronic anemia Recent C Diff -- D/w nurse and Dr. Lerner - okay to advance diet as tolerated and discharge soon from GI standpoint. Surgery and oncology opinions pending. Recurrent/frequent admissions, may need to consider goals of care discussion. Seems needs to still be on vanco per latest ID recs - called to nurse after I saw and restarted (BID per ID recs). Justicifation of Admission Dx: Justifications for Admission: Justification of Admission Dx: Yes ROGERS POLANCO February 22, 2022 09:16
[2022-02-22] MEDS ORDERED: VANCOMYCIN 125 MG/2.5 ML ORAL SOLUTION. PO SCH (10:00)
--- NOTE | 2022-02-22 10:02 | PDOC ---
[employer] PROGRESS NOTE Date of Service DOS: DATE: 02/22/22 TIME: 09:59 Chief Complaint Chief Complaint Severe pancreatitis Pancreatic cancer History of C. difficile Status post Whipple procedure a few months ago Status postcholecystectomy a few months ago Currently on chemotherapy hyperlipidemia, chronic pain, anxiety, depression, hypothyroidism. History of Present Illness History of Present Illness 02/22/2022 Patient seen and examined She is smiling this morning states her pain is much better Her is present and he seems to be good support for her Chart reviewed Discussed with case management Discussed with RN Discussed with GI Hope to discharge this afternoon if okay with consult Vitals/I&O Vitals/I&O: Vital Signs Date Time Temp Pulse Resp B/P (MAP) Pulse Ox O2 Delivery O2 Flow Rate FiO2 02/22/22 08:20 95 Room Air 02/22/22 07:15 98.4 72 18 81/50 (60) 98.4 I & O 02/21/22 02/21/22 02/22/22 15:00 23:00 07:00 Intake Total 1188 ml Balance 1188 ml Physical Exam General: Alert Heart: Regular rate Lungs: Clear Abdomen: Normal bowel sounds Extremities: No clubbing Skin: No rashes Assessment and Plan Assessmemt and Plan Problems Medical Problems: (1) Pancreatitis, acute Status: Acute Resolving severe pancreatitis Pancreatic cancer History of C. difficile Status post Whipple procedure a few months ago Status postcholecystectomy a few months ago Currently on chemotherapy hyperlipidemia, chronic pain, anxiety, depression, hypothyroidism. Plan She is doing so well I suspect we could go ahead and discharge today Follow-up with subspecialist per their recommendations We will send prescription for p.o. vancomycin for a couple of weeks to cover her C. difficile Comment Review of Relevant I have reviewed the following items oriana (where applicable) has been applied. Medications: Current Medications Medications (Trade) Dose Ordered Sig/Mague Route PRN Reason Start Time Stop Time Status Last Admin Dose Admin Potassium Bicarbonate (Potassium Effervescent Tablet) 20 meq DAILY PO 02/21/22 13:00 02/22/22 08:19 Oxycodone HCl (Roxicodone) 10 mg QIDPRN PRN PO PAIN 02/21/22 12:45 02/22/22 08:20 Sodium Chloride 1,000 ml @ 75 mls/hr [id number] IV 02/21/22 12:30 02/21/22 23:37 Morphine Sulfate (Morphine Sulfate) 2 mg PRN Q2HR PRN IV PAIN 02/21/22 12:30 02/21/22 22:56 Justifications for Admission Other Justification ROMINA BALDWIN III DO February 22, 2022 10:02
[2022-02-22] MEDS ORDERED: OXYC10TA PO (10:06)
[2022-02-22] MEDS ORDERED: ONDA4TAB12 PO (10:06)
[2022-02-22] MEDS ORDERED: PANT40TA77 PO (10:06)
[2022-02-22] MEDS ORDERED: VANC500V PO (10:06)
[2022-02-22] MEDS ORDERED: FENT1PAT17 TD (10:06)
--- NOTE | 2022-02-22 10:08 | SNU/HH DC ---
DISCHARGE WITH HOME HEALTH DISCHARGE INFORMATION: Final Diagnosis: Problems Medical Problems: (1) Pancreatitis, acute Status: Acute Condition on Discharge: Stable CODE STATUS: Code Status: Full HOME HEALTH: Face to Face: I certify this patient is under my care and that I, or a nurse practitioner or physician's diver assistant working with me, had a face to face encounter that meets the physician face to face encounter requirements with this patient on []. Medical Complications: Other (Pancreatic cancer) [facility] For: Assess & Educate Safety RN For Eval/Treatment: Yes Physical Therapy For: Evalulation/Treatment Occupational Therapy For: Evaluation/Treatment Home Health Aide For: Self-care ASSEMBLER INSTALLER STRUCTURES For: Community Resources Pt Meets Homebound Status: Unsteady balance w/ amb, POST DISCHARGE ORDERS: Activity Instructions for Disc: Activity as tolerated Weight Bearing Status after Di: As tolerated DIET AFTER DISCHARGE: Cardiac CHECKS AFTER DISCHARGE: Checks after discharge: Check blood press - daily TREATMENT/EQUIPMENT ORDERS: Adaptive Equipment Issued: None CERTIFICATION STATEMENT: Certification Statement: Certification Statement: Based on the above finding, I certify that this patient is confined to the home and needs intermittent jail care, physical therapy and/or speech therapy, or continues to need occupational therapy.~ This patient is under my care, and I have initiated the establishment of the plan of care.~ This patient will be followed by myself or a community physician who will periodically review the plan of care. Home Meds Active Scripts Pantoprazole Sodium (PANTOPRAZOLE SODIUM ) 40 Mg Tablet.dr, 40 MG PO DAILYAC for . for 30 Days, #30 TAB.SR Prov:CASTLE,NIAL K III DO 02/22/22 Vancomycin Hcl (VANCOMYCIN HCL) 500 Mg Vial, 125 MG PO BID for . for 14 Days, #30 EACH Prov:CASTLE,NIAL K III DO 02/22/22 Oxycodone Hcl (OXYCODONE HCL IMMED.RELEASE) 10 Mg Tablet, 1 TAB PO QIDPRN PRN for pain MDD 4 Tablet(s) for 30 Days, #30 TAB 0 Refills Prov:CASTLE,NIAL K III DO 02/22/22 Ondansetron (ONDANSETRON ODT) 4 Mg Tab.rapdis, 1 TAB PO PRN Q6-8HRS PRN for NAUSEA/VOMITING for 30 Days, #30 TAB Prov:CASTLE,NIAL K III DO 02/22/22 Potassium Bicarbonate/Cit Ac (EFFER-K 20 MEQ TABLET EFF) 20 Meq Tablet.eff, 1 TAB PO DAILY for hypokalemia for 30 Days, #30 TAB 0 Refills Prov:DOMINGO BARCENAS MD 02/19/22 Lorazepam (ATIVAN) 1 Mg Tablet, 1 MG PO PRN Q6HRS PRN for ANXIETY / AGITATION, #30 TAB Prov:RENO CAMPOS MD 12/22/21 Scopolamine (TRANSDERM-SCOP) 1 Each Patch.td72, 1 PATCH TD Q3DAYS for nausea, #10 PATCH Prov:RENO CAMPOS MD 12/22/21 Reported Medications Atorvastatin Calcium (ATORVASTATIN CALCIUM) 10 Mg Tablet, 1 TAB PO DAILY for cholesterol prevention, #30 TAB 5 Refills 08/28/21 Levothyroxine Sodium (LEVOTHYROXINE SODIUM) 125 Mcg Tablet, 1 TAB PO DAILY for thyroid, #30 TAB 5 Refills 08/28/21 Discontinued Scripts Fentanyl (FENTANYL 50mcg/hr) 1 Each Patch.td72, 1 PATCH TD Q3DAYS for pain for 30 Days, #10 PATCH Prov:RENO CAMPOS MD 12/22/21 ROMINA BALDWIN K III DO February 22, 2022 10:08
[2022-02-22 11:10] VITALS: BP 79/41
[2022-02-22] MEDS ORDERED: PANTOPRAZOLE 40 MG TABLET.DR. PO SCH (11:30)
--- NOTE | 2022-02-22 12:08 | PDOC2 ---
CONSULT Date of Consult Date of Consult DATE: 02/22/22 TIME: 12:05 Reason for Consult Reason for Consult: abd pain Referring Physician Referring Physician: dr morales Identification/Chief Complaint Chief Complaint abd pain Source Source: Chart review, Patient History of Present Illness Reason for Visit: Well know to service. Very recent discharge and returns with increasing epigastric pain . No vomiting NO diarrhea Past Medical History Cardiovascular: Hyperlipidemia Pulmonary: No pertinent hx GI: GERD Hepatobiliary: No pertinent hx Psych: Depression Endocrine: Hypothyroidism Past Surgical History Past Surgical History: Cholecystectomy, Other Family History Family History: Diabetes, High Cholestrol, Hypertension Social History ALCOHOL: none Drugs: None Lives: with Family Current Problem List Problem List Problems Medical Problems: (1) Pancreatitis, acute Status: Acute Current Medications Current Medications Current Medications Iohexol (Omnipaque 300 Mg/ml) 75 ml 1X ONCE IV Last administered on 02/21/22at 08:45; Start 02/21/22 at 08:45; Stop 02/21/22 at 08:46; Status DC Info (CONTRAST GIVEN -- Rx MONITORING) 1 each PRN DAILY PRN MC SEE COMMENTS; Start 02/21/22 at 08:45; Stop 02/23/22 at 08:44 Fentanyl (Duragesic 50mcg/ Hr Patch) 1 patch Q3DAYS TD ; Start 02/23/22 at 09:00 Levothyroxine Sodium (Synthroid) 125 mcg DAILY06 PO ; Start 02/22/22 at 06:00 Lorazepam (Ativan) 1 mg PRN Q6HRS PRN PO ANXIETY / AGITATION; Start 02/21/22 at 12:30 Potassium Bicarbonate (Potassium Effervescent Tablet) 20 meq DAILY PO Last administered on 02/22/22at 08:19; Start 02/21/22 at 13:00 Scopolamine (Transderm-Scop) 1 patch Q3DAYS TD ; Start 02/23/22 at 09:00 Oxycodone HCl (Roxicodone) 10 mg QIDPRN PRN PO PAIN Last administered on 02/22/22at 08:20; Start 02/21/22 at 12:45 Sodium Chloride 1,000 ml @ 75 mls/hr [id number] IV Last administered on 02/21/22at 23:37; Start 02/21/22 at 12:30 Morphine Sulfate (Morphine Sulfate) 2 mg PRN Q2HR PRN IV PAIN Last administered on 02/21/22at 22:56; Start 02/21/22 at 12:30 Ondansetron HCl (Zofran) 4 mg PRN Q6HRS PRN IVP NAUSEA/VOMITING; Start 02/22/22 at 09:00 Vancomycin HCl (Vancomycin Oral Solution) 125 mg BID PO Last administered on 02/22/22at 11:41; Start 02/22/22 at 10:00 Pantoprazole Sodium (Protonix) 40 mg DAILYAC PO Last administered on 02/22/22at 11:41; Start 02/22/22 at 11:30 Active Scripts Active Pantoprazole Sodium (Pantoprazole Sodium) 40 Mg Tablet.dr 40 Mg PO DAILYAC 30 Days Vancomycin Hcl 500 Mg Vial 125 Mg PO BID 14 Days Oxycodone Hcl Immed.release (Oxycodone Hcl) 10 Mg Tablet 1 Tab PO QIDPRN PRN MDD 4 Tablet(s) 30 Days Ondansetron Odt (Ondansetron) 4 Mg Tab.rapdis 1 Tab PO PRN Q6-8HRS PRN 30 Days FENTANYL 50mcg/hr (Fentanyl) 1 Each Patch.td72 1 Patch TD Q3DAYS 30 Days Effer-K 20 Meq Tablet Eff (Potassium Bicarbonate/Cit Ac) 20 Meq Tablet.eff 1 Tab PO DAILY 30 Days Ativan (Lorazepam) 1 Mg Tablet 1 Mg PO PRN Q6HRS PRN Transderm-Scop (Scopolamine) 1 Each Patch.td72 1 Patch TD Q3DAYS Reported Atorvastatin Calcium 10 Mg Tablet 1 Tab PO DAILY Levothyroxine Sodium 125 Mcg Tablet 1 Tab PO DAILY Allergies Allergies: Coded Allergies: No Known Drug Allergies (Unverified , 12/09/21) ROS General: No: Chills, Other (fevers ) PSYCHOLOGICAL ROS: YES: Anxiety, Depression Eyes: No Blurry vision, No Double vision HEENT: No: Heacaches, Sore Throat Hematological and Lymphatic: No: Bleeding Problems, Blood Clots Respiratory: No: Cough, Shortness of breath Gastrointestinal: Yes Other (see hpi) Genitourinary: No Dysuria, No Hematuria Musculoskeletal: No Joint Pain, No Muscle Pain Neurological: No Impaired Coord/balance, No Numbness/Tingling Skin: No Pruritus, No Rash Physical Exam General: Alert, Cooperative, No acute distress HEENT: Atraumatic, PERRLA Lungs: Clear to auscultation, Normal air movement Heart: Regular rate, Normal S1, Normal S2 Abdomen: Soft, Other (epigastric ttp) Extremities: No clubbing, No cyanosis Skin: No rashes, No breakdown Neuro: Normal gait, Normal speech MUSCULOSKELETAL: No deformity, No swelling Vitals VITALS Vital Signs Date Time Temp Pulse Resp B/P (MAP) Pulse Ox O2 Delivery O2 Flow Rate FiO2 02/22/22 11:10 98.5 74 20 79/41 (54) 96 Room Air 98.5 Labs Labs Laboratory Tests Test 02/21/22 08:10 02/21/22 08:40 Urine Collection Type Unknown Urine Color (Auto) Colorless Urine Turbidity Clear Urine pH (Auto) 8.0 (<5.0-8.0) Urine Specific [place] 1.010 (1.000-1.030) Urine Protein (Auto) Negative mg/dL (Negative) Urine Glucose (Auto)(UA) Negative mg/dL (Negative) Urine Ketones (Auto) 10 mg/dL (Negative) Urine Blood (Auto) Trace (Negative) Urine Nitrite Negative (Negative) Urine Bilirubin (Auto) Negative (Negative) Urine Urobilinogen (Auto) Normal mg/dL (Normal) Urine Leukocyte Esterase (Auto) Negative (Negative) Urine RBC 0 /HPF (0-2) Urine WBC 0 /HPF (0-4) Urine Bacteria 0 /HPF (0-FEW) White Blood Count 11.1 x10^3/uL (4.0-11.0) Red Blood Count 2.65 x10^6/uL (3.50-5.40) Hemoglobin 8.3 g/dL (12.0-15.5) Hematocrit 25.4 % (36.0-47.0) Mean Corpuscular Volume 96 fL (79-100) Mean Corpuscular Hemoglobin 32 pg (25-35) Mean Corpuscular Hemoglobin Concent 33 g/dL (31-37) Red Cell Distribution Width 25.5 % (11.5-14.5) Platelet Count 58 x10^3/uL (140-400) Neutrophils (%) (Auto) 77 % (31-73) Lymphocytes (%) (Auto) 14 % (24-48) Monocytes (%) (Auto) 9 % (0-9) Eosinophils (%) (Auto) 0 % (0-3) Basophils (%) (Auto) 1 % (0-3) Neutrophils # (Auto) 8.5 x10^3/uL (1.8-7.7) Lymphocytes # (Auto) 1.5 x10^3/uL (1.0-4.8) Monocytes # (Auto) 1.0 x10^3/uL (0.0-1.1) Eosinophils # (Auto) 0.0 x10^3/uL (0.0-0.7) Basophils # (Auto) 0.1 x10^3/uL (0.0-0.2) Segmented Neutrophils % 85 % (35-66) Band Neutrophils % 3 % (0-9) Lymphocytes % 8 % (24-48) Monocytes % 4 % (0-10) Platelet Estimate Decreased (ADEQUATE) Sodium Level 140 mmol/L (136-145) Potassium Level 3.2 mmol/L (3.5-5.1) Chloride Level 102 mmol/L (98-107) Carbon Dioxide Level 29 mmol/L (21-32) Anion Gap 9 (6-14) Blood Urea Nitrogen 5 mg/dL (7-20) Creatinine 0.6 mg/dL (0.6-1.0) Estimated GFR (Cockcroft-Gault) 102.0 BUN/Creatinine Ratio 8 (6-20) Glucose Level 82 mg/dL (70-99) Calcium Level 7.5 mg/dL (8.5-10.1) Total Bilirubin 1.4 mg/dL (0.2-1.0) Aspartate Amino Transf (AST/SGOT) 41 U/L (15-37) Alanine Aminotransferase (ALT/SGPT) 24 U/L (14-59) Alkaline Phosphatase 240 U/L (46-116) Total Protein 5.5 g/dL (6.4-8.2) Albumin 2.3 g/dL (3.4-5.0) Albumin/Globulin Ratio 0.7 (1.0-1.7) Lipase 1915 U/L (73-393) CA 19-9 Antigen 408 U/mL (0-35) Assessment/Plan Assessment/Plan abd pain, chronic ct similar no surgical needs BEREKET ZULUAGA DIGITAL MARKETING PROGRAM MANAGER February 22, 2022 12:08
[2022-02-23] MEDS ORDERED: fentaNYL 50MCG/HR PATCH 1 PATCH PATCH.TD72 TD SCH (09:00)
[2022-02-23] MEDS ORDERED: SCOPOLAMINE 1.5MG PATCH. TD SCH (09:00)
--- NOTE | 2022-02-25 00:28 | DS ---
DATE OF DISCHARGE: 02/22/2022 ADMITTING DIAGNOSES: Intractable abdominal pain with history of pancreatic cancer. Chronic Clostridium difficile. DISCHARGE DIAGNOSES: Resolving abdominal pain, history of pancreatic cancer, history of Whipple procedure, cholecystectomy, hyperlipidemia, chronic pain, anxiety, depression and hypothyroidism. Chronic Clostridium difficile. CONSULTS: General Surgery. PROCEDURES: None. HOSPITAL COURSE: The patient is a pleasant, middle-aged female who has pancreatic cancer. She has undergone Whipple procedure. She is still undergoing chemotherapy. She keeps getting admitted with intractable pain and nausea. Once again, we gave her p.r.n. pain meds, p.r.n. antiemetics. We consulted General Surgery and her symptoms resolved. We discharged her to home. DISPOSITION: Home. ACTIVITY: As tolerated. DIET: Low sodium. DISCHARGE MEDICATIONS: Please see the MRAD. Protonix 40 a day, vancomycin 125 b.i.d. Atorvastatin 10 a day, fentanyl patches, Synthroid 125 a day, Ativan p.r.n. P.r.n. Zofran, oxycodone 10 q.i.d. p.r.n., potassium 20 a day and scopolamine patches. TOTAL TIME: 31 minutes. ALEXANDER/KEENAN/CHAVA DR: ALEXANDER/alana TID: [id number]
== END 2022-02-22 13:55 | disposition home or self-care (01) | DRG 439 ==
LOC: ER 07:55 → 4 NORTH 11:39
PROVIDERS: ADMIT Internal Medicine; ATTEND Internal Medicine
DX: K85.90 Acute pancreatitis without necrosis or infection, unspecified (principal); C25.9 Malignant neoplasm of pancreas, unspecified; Z90.49 Acquired absence of other specified parts of digestive tract; D64.9 Anemia, unspecified; E03.9 Hypothyroidism, unspecified; E78.5 Hyperlipidemia, unspecified; F32.A Depression, unspecified; F41.9 Anxiety disorder, unspecified; G89.29 Other chronic pain; Z82.49 Family history of ischemic heart disease and other diseases of the circulatory system; Z83.3 Family history of diabetes mellitus; Z85.07 Personal history of malignant neoplasm of pancreas; Z87.891 Personal history of nicotine dependence; Z90.411 Acquired partial absence of pancreas; K21.9 Gastro-esophageal reflux disease without esophagitis; Z92.21 Personal history of antineoplastic chemotherapy
CPT/HCPCS: 36415; 74177; 80053; 81001; 83690; 85007; 85025; 86301; 93005; J2270; J7030; Q9967; 99285-25; G0378

== ENCOUNTER → 2022-02-23 | Outpatient (CLI) | payer SELFPAY ==
[2022-02-22 11:10] VITALS: BP 79/41
[~2022-02-23] MED LIST changes: +PANT40TA77 PO; +VANC500V PO
[2022-02-23 10:39] LABS: BASO % 0 % (0-3); EOS % 0 % (0-3); HEMATOCRIT 23.4 % (36.0-47.0); HEMOGLOBIN 7.8 g/dL (12.0-15.5); LYMPH # 0.9 x10^3/uL (1.0-4.8); LYMPH % 12 % (24-48); MEAN CORPUSCULAR HEMOGLOBIN 32 pg (25-35); MEAN CORPUSCULAR HGB CONC 33 g/dL (31-37); MEAN CORPUSCULAR VOLUME 96 fL (79-100); MONO # 0.8 x10^3/uL (0.0-1.1); MONO % 10 % (0-9); NEUT % 78 % (31-73); PLATELET COUNT 70 x10^3/uL (140-400); RED BLOOD COUNT 2.45 x10^6/uL (3.50-5.40); RED CELL DISTRIBUTION WIDTH 24.3 % (11.5-14.5); WHITE BLOOD COUNT 7.7 x10^3/uL (4.0-11.0)
[2022-02-23 10:47] LABS: CALCIUM 7.5 mg/dL (8.5-10.1); CREATININE 0.5 mg/dL (0.6-1.0); GFR 125.9
[2022-02-23 10:55] LABS: ALBUMIN 2.1 g/dL (3.4-5.0); ALBUMIN/GLOBULIN RATIO 0.6 (1.0-1.7); TOTAL BILIRUBIN 1.3 mg/dL (0.2-1.0); TOTAL PROTEIN 5.6 g/dL (6.4-8.2)
== END ==
LOC: ONCLAB 09:58
PROVIDERS: ATTEND Internal Medicine Hematology & Oncology
DX: C25.0 Malignant neoplasm of head of pancreas (principal)
CPT/HCPCS: 36415; 80053; 85025

== ENCOUNTER → 2022-03-01 | Outpatient (CLI) | payer SELFPAY ==
[2022-02-22 11:10] VITALS: BP 79/41
[2022-03-01 09:11] LABS: BASO % 1 % (0-3); EOS % 1 % (0-3); HEMATOCRIT 19.6 % (36.0-47.0); LYMPH # 1.3 x10^3/uL (1.0-4.8); LYMPH % 20 % (24-48); MEAN CORPUSCULAR HEMOGLOBIN 33 pg (25-35); MEAN CORPUSCULAR HGB CONC 33 g/dL (31-37); MEAN CORPUSCULAR VOLUME 99 fL (79-100); MONO # 0.4 x10^3/uL (0.0-1.1); MONO % 6 % (0-9); NEUT % 74 % (31-73); PLATELET COUNT 95 x10^3/uL (140-400); RED BLOOD COUNT 1.97 x10^6/uL (3.50-5.40); RED CELL DISTRIBUTION WIDTH 23.9 % (11.5-14.5); WHITE BLOOD COUNT 6.8 x10^3/uL (4.0-11.0)
[2022-03-01 09:17] LABS: HEMOGLOBIN 6.5 g/dL (12.0-15.5)
[2022-03-01 09:25] LABS: ALBUMIN 2.1 g/dL (3.4-5.0); ALBUMIN/GLOBULIN RATIO 0.6 (1.0-1.7); CALCIUM 7.8 mg/dL (8.5-10.1); CREATININE 0.7 mg/dL (0.6-1.0); GFR 85.4; TOTAL PROTEIN 5.5 g/dL (6.4-8.2)
[2022-03-01 12:38] LABS: PLT ESTIMATE DECREASED (ADEQUATE)
[2022-03-01 12:39] LABS: ANISOCYTOSIS MOD
== END ==
LOC: ONCLAB 08:32
PROVIDERS: ATTEND Internal Medicine Hematology & Oncology
DX: C25.0 Malignant neoplasm of head of pancreas (principal)
CPT/HCPCS: 36415; 80053; 85025

== ENCOUNTER 2022-03-06 16:41 | Inpatient (IN) | payer SELFPAY ==
[~2022-03-06] VITALS: Ht 162.6 cm; Wt 45.6 kg
[2022-03-06] MEDS ORDERED: IV NORMAL SALINE 1000ML BAG 1,000 ML IV SCH (17:45)
[2022-03-06] MEDS ORDERED: fentaNYL PF VIAL 100 MCG/2 ML VIAL IVP ONE ×2 (17:45→19:30)
--- NOTE | 2022-03-06 17:52 | PHYS DOC ---
Past Medical History Past Medical History: Cancer Additional Past Medical Histor: Pancreatic Cancer,SBO,JAUNDICE,C-DIFF Past Surgical History: Cholecystectomy, Other Additional Past Surgical Histo: WIPPLE, PANCREATIC CANCER,CYSTS DRAINED? Smoking Status: Former Smoker Alcohol Use: None General Adult EDM: Chief Complaint: FLANK PAIN HPI: HPI: Patient is a 62 year old female who presents with severe abdominal pain for the last week with having a bloody stool and vomiting today. Pain a 10 out of 10 sharp and aching. Oxycodone pain medication not helping. History of former smoker, pancreatic cancer, cholecystectomy, gallstone pancreatitis, Whipple procedure, high cholesterol, hypothyroidism, pancytopenia, hypokalemia, C. difficile. Denies chest pain, shortness of air, syncope, dizziness, headache, numbness tingling, vision change, fever, cough, focal weakness. Review of Systems: Review of Systems: Constitutional: Denies fever or chills. [] Eyes: Denies change in visual acuity. [] HENT: Denies nasal congestion or sore throat. [] Respiratory: Denies cough or shortness of breath. [] Cardiovascular: Denies chest pain or edema. [] GI: + abdominal pain, +nausea, +vomiting, +bloody stools or denies diarrhea. [] : Denies dysuria. [] Musculoskeletal: + Right back pain or denies joint pain. [] Integument: Denies rash. [] Neurologic: Denies headache, focal weakness or sensory changes. [] Endocrine: Denies polyuria or polydipsia. [] Lymphatic: Denies swollen glands. [] Psychiatric: Denies depression or anxiety. [] Heart Score: C/O Chest Pain: No HEART Score for Chest Pain: HEART Score for Chest Pain Response (Comments) Value History Slighlty/Non-Suspicious 0 Age >45 - < 65 1 Risk Factors 1 or 2 Risk Factors 1 Troponin < Normal Limit 0 Total 2 Risk Factors: Risk Factors: DM, Current or recent (<one month) smoker, HTN, HLP, family history of CAD, obesity. Risk Scores: Score 0 - 3: 2.5% MACE over next 6 weeks - Discharge Home Score 4 - 6: 20.3% MACE over next 6 weeks - Admit for Clinical Observation Score 7 - 10: 72.7% MACE over next 6 weeks - Early Invasive Strategies Current Medications: Current Medications Medications (Trade) Dose Ordered Sig/Mague Start Time Stop Time Status Last Admin Dose Admin Fentanyl Citrate (Fentanyl 2ml Vial) 50 mcg 1X ONCE 03/06/22 17:45 03/06/22 17:46 UNV Sodium Chloride 1,000 ml @ 1,000 mls/hr Q1H 03/06/22 17:45 03/06/22 18:44 UNV Allergies: Allergies: Allergies Coded Allergies Type Severity Reaction Last Updated Verified No Known Drug Allergies 03/03/22 No Physical Exam: PE: Constitutional: Well developed, well nourished, no acute distress, non-toxic appearance. [] HENT: Normocephalic, atraumatic, bilateral external ears normal, oropharynx moist, no oral exudates, nose normal. [] Eyes: PERRLA, EOMI, conjunctiva normal, no discharge. [] Neck: Normal range of motion, no tenderness, supple, no stridor. [] Cardiovascular:Heart rate regular rhythm, no murmur [] Lungs & Thorax: Bilateral breath sounds clear to auscultation [] Abdomen: Bowel sounds normal, taut, Right upper and mid tenderness, no masses, no pulsatile masses. [] Skin: Warm, dry, no erythema, no rash. [] Back: No tenderness, no CVA tenderness. [] Extremities: No tenderness, no cyanosis, no clubbing, ROM intact, no edema. [] Neurologic: Alert and oriented X 3, normal motor function, normal sensory function, no focal deficits noted. [] Psychologic: Affect normal, judgement normal, mood normal. [] EKG: EK and read by Dr. Berg as a sinus rhythm, prolonged QT but no STEMI Radiology/Procedures: Radiology/Procedures: [] Impression: [facility] [address] [place] [address] IMAGING REPORT Signed PATIENT: MINERVA HOOD CACCOUNT: [id number] : 1960 LOCATION: ER AGE: 62 SEX: F EXAM STATUS: REG ER ORD. PHYSICIAN: LEIDA PACE APRN REASON: severe right upper quad abd pain PROCEDURE: PORTABLE CHEST 1V EXAMINATION: XR CHEST 1V CLINICAL HISTORY: Severe right upper quadrant abdominal pain. Chest pain. EXAM DATE/TIME: 03/06/2022 5:40 PM COMPARISON: 11/05/2021 FINDINGS: Lines, Tubes, and Devices: Left subclavian Port-A-Cath terminating in the right atrium. Cardiomediastinal Silhouette: Within normal limits. Lungs and Pleura: Pulmonary hypoexpansion without evidence of focal airspace consolidation or pleural effusion. Pulmonary vasculature unremarkable. Bones and Soft Tissues: Dextroconvex curvature in the upper thoracic spine. Multilevel degenerative changes in the thoracic spine. Surgical clips in the upper abdomen. IMPRESSION: No evidence of acute cardiopulmonary abnormality. Electronically signed by: Julián Mac DO (03/06/2022 6:07 PM) [facility] DICTATED and SIGNED BY: JULIÁN MAC DO DATE: 03/06/22 1805 [facility] [address] [place], [place] [id number] IMAGING REPORT Signed PATIENT: MINERVA HOOD CACCOUNT: [id number] : 1960 LOCATION: ER AGE: 62 SEX: F EXAM STATUS: REG ER ORD. PHYSICIAN: LEIDA PACE APRN REASON: severe abd pain, tender, blood in stool. OMNI 300 75 ML IV PROCEDURE: CT ABD PELV W/ IV CONTRST ONLY Exam: CT of abdomen and pelvis with contrast INDICATION: Severe abdominal pain, tender, blood in stool TECHNIQUE: Sequential axial images through the abdomen and pelvis obtained following the administration of 75 mL of Isovue-370 IV contrast. Sagittal and coronal reformatted images were reconstructed from the axial data and reviewed. Exposure: One or more of the following in the visualized dose reduction techniques were utilized for this examination: 1. Automated exposure control 2. Adjustment of the MA and/or KV according to patient size 3. Use of iterative of reconstructive technique Comparisons: 02/21/2022 FINDINGS: Heart size is normal. No pericardial effusion. Strandy opacities the dependent portion lungs likely representing atelectasis. No pleural effusion. Postoperative changes of Whipple's procedure again seen. Otherwise, Liver, spleen, pancreas and adrenals are unremarkable. Trace pneumobilia again noted. Gallbladder is absent. No perinephric inflammation or hydronephrosis. No renal or ureteral calculi are identified. Bladder is decompressed not well evaluated. Uterus is not enlarged. No abnormal adnexal mass. There is diffuse wall thickening with mucosal hyperenhancement submucosal edema involving the entire colon. Postoperative changes of right hemicolectomy with ileocolic anastomosis. Moderate amount of free fluid noted throughout the abdomen predominantly in the perihepatic region. No free air. Abdominal aorta has normal course and caliber. Stable appearance of the SMV No enlarged intra-abdominal lymph nodes. No suspicious osseous lesions or acute fractures. IMPRESSION: 1. Persistent diffuse wall thickening involving the colon. 2. Moderate amount of free fluid in the abdomen, not significant changed from prior. Electronically signed by: Elvira Magallon MD (03/06/2022 8:44 PM) [facility] DICTATED and SIGNED BY: ELVIRA MAGALLON MD DATE: 03/06/222034 Course & Med Decision Making: Course & Med Decision Making Pertinent Labs and Imaging studies reviewed. (See chart for details) See HPI. Alert and oriented x4. Has been is [place] speaking and is Slovenian-speaking but no some [place]. Abdomen is taut and tender more so on the right side. Lungs are clear in upper lobes and diminished in lower lobes. She is afebrile. Patient appears jaundiced. For speaking with the patient's she sees Dr. Bueno for her cancer. They have postponed chemotherapy due to her severe pain. states he did just give her an oxycodone before arrival. During the rectal exam there was blood seen on her underwear and her buttocks is very excoriated. Rectal Exam: Normal tone, No mass, Positive control Stool: Brown Guaiac: Positive With stool sample was sent off but there was only enough for the C. difficile PCR. CT abdomen pelvis shows continued inflammation in the colon. Patient continues to have pain. Hypokalemia is present and she is getting 40MEQ IV at this time. Still awaiting a urine specimen. Patient will be admitted to the hospitalist. Dr. Lerner gave no further orders. [] Miracle Disclaimer: Miracle Disclaimer: This electronic medical record was generated, in whole or in part, using a voice recognition dictation system. Departure Departure Impression: Primary Impression: Colitis Additional Impressions: Intractable abdominal pain Acute hypokalemia Disposition: ADMITTED INPATIENT Admitting Physician: OFELIA Condition: STABLE Referrals: NO PCP (PCP) LEIDA PACE [employer] March 06, 2022 17:52
--- NOTE | 2022-03-06 18:10 | RAD ---
EXAMINATION: XR CHEST 1V CLINICAL HISTORY: Severe right upper quadrant abdominal pain. Chest pain. EXAM DATE/TIME: 03/06/2022 5:40 PM COMPARISON: 11/05/2021 FINDINGS: Lines, Tubes, and Devices: Left subclavian Port-A-Cath terminating in the right atrium. Cardiomediastinal Silhouette: Within normal limits. Lungs and Pleura: Pulmonary hypoexpansion without evidence of focal airspace consolidation or pleural effusion. Pulmonary vasculature unremarkable. Bones and Soft Tissues: Dextroconvex curvature in the upper thoracic spine. Multilevel degenerative c hanges in the thoracic spine. Surgical clips in the upper abdomen. IMPRESSION: No evidence of acute cardiopulmonary abnormality. Electronically signed by: Julián Aguila DO (03/06/2022 6:07 PM) [facility]
[2022-03-06 18:20] LABS: BASO % 0 % (0-3); EOS % 0 % (0-3); HEMATOCRIT 29.4 % (36.0-47.0); HEMOGLOBIN 9.8 g/dL (12.0-15.5); LYMPH # 0.8 x10^3/uL (1.0-4.8); LYMPH % 13 % (24-48); MEAN CORPUSCULAR HEMOGLOBIN 32 pg (25-35); MEAN CORPUSCULAR HGB CONC 33 g/dL (31-37); MEAN CORPUSCULAR VOLUME 96 fL (79-100); MONO # 0.3 x10^3/uL (0.0-1.1); MONO % 5 % (0-9); NEUT # 5.3 x10^3/uL (1.8-7.7); NEUT % 82 % (31-73); PLATELET COUNT 123 x10^3/uL (140-400); RED BLOOD COUNT 3.05 x10^6/uL (3.50-5.40); RED CELL DISTRIBUTION WIDTH 23.3 % (11.5-14.5); WHITE BLOOD COUNT 6.5 x10^3/uL (4.0-11.0)
[2022-03-06 19:29] LABS: FECAL OB PT POSITIVE (NEG)
[2022-03-06 19:31] LABS: ALBUMIN 1.9 g/dL (3.4-5.0); ALBUMIN/GLOBULIN RATIO 0.6 (1.0-1.7); CALCIUM 7.4 mg/dL (8.5-10.1); CREATININE 0.6 mg/dL (0.6-1.0); TOTAL BILIRUBIN 0.9 mg/dL (0.2-1.0)
[2022-03-06 19:35] LABS: POTASSIUM 2.7 mmol/L (3.5-5.1)
[2022-03-06] MEDS ORDERED: IOHEXOL 300 MG/ML 100ML VIAL. IV ONE (19:45)
[2022-03-06] MEDS: POTASSIUM CHLORIDE 10MEQ 100 ML IV SCH ×4 (20:06→23:27)
[2022-03-06] MEDS ORDERED: IV NORMAL SALINE 500ML BAG 500 ML IV ONE (20:45)
--- NOTE | 2022-03-06 20:47 | RAD ---
Exam: CT of abdomen and pelvis with contrast INDICATION: Severe abdominal pain, tender, blood in stool TECHNIQUE: Sequential axial images through the abdomen and pelvis obtained following the administrati on of 75 mL of Isovue-370 IV contrast. Sagittal and coronal reformatted images were reconstructed fro m the axial data and reviewed. Exposure: One or more of the following in the visualized dose reduction techniques were utilized for this examination: 1. Automated exposure control 2. Adjustment of the MA and/or KV according to patient size 3. Use of iterative of reconstructive technique Comparisons: 02/21/2022 FINDINGS: Heart size is normal. No pericardial effusion. Strandy opacities the dependent portion lungs likely r epresenting atelectasis. No pleural effusion. Postoperative changes of Whipple's procedure again seen. Otherwise, Liver, spleen, pancreas and adren als are unremarkable. Trace pneumobilia again noted. Gallbladder is absent. No perinephric inflammation or hydronephrosis. No renal or ureteral calculi are identified. Bladder is decompressed not well evaluated. Uterus is not enlarged. No abnormal adnexal mass. There is diffuse wall thickening with mucosal hyperenhancement submucosal edema involving the entire colon. Postoperative changes of right hemicolectomy with ileocolic anastomosis. Moderate amount of fr ee fluid noted throughout the abdomen predominantly in the perihepatic region. No free air. Abdominal aorta has normal course and caliber. Stable appearance of the SMV No enlarged intra-abdominal lymph nodes. No suspicious osseous lesions or acute fractures. IMPRESSION: 1. Persistent diffuse wall thickening involving the colon. 2. Moderate amount of free fluid in the abdomen, not significant changed from prior. Electronically signed by: Elvira Shepard MD (03/06/2022 8:44 PM) [facility]
[2022-03-06 21:06] LABS: PROTHROMBIN TIME PATIENT 18.6 SEC (11.7-14.0)
[2022-03-06] MEDS ORDERED: methylPREDNISolone SOD SUCC PF 125 MG/2 ML VIAL. IV ONE (21:30)
--- NOTE | 2022-03-06 22:19 | HP ---
DATE OF SERVICE: 03/06/2022 ADMIT DATE: 03/06/2022 CHIEF COMPLAINT: Abdominal pain. HISTORY OF PRESENT ILLNESS: The patient is a pleasant 62-year-old female well known to our service. She has known pancreatic cancer. She underwent a Whipple procedure about 9 months ago. Since then, she has been undergoing chemotherapy. We have admitted her several times because of intractable pain. She has also had recent C. diff. I have been treating her with p.o. vancomycin. Maty, she presented to the ER with intractable abdominal pain again. The CAT scan is showing some thickened bowel. Her potassium is also low at 2.7. We are going to admit the patient, replace her potassium and consult her oncologist, surgeon and GI. PAST MEDICAL HISTORY: The above-mentioned pancreatic cancer, depression, anxiety, chronic pain, C. diff, jaundice, cholecystectomy, Whipple procedure. ALLERGIES: None. FAMILY HISTORY: Diabetes. SOCIAL HISTORY: She does not drink, smoke or take drugs. She is . MEDICATIONS: Reviewed. Please refer to the MRAD. REVIEW OF SYSTEMS: GENERAL: No history of weight change, weakness or fevers. SKIN: No bruising, hair changes or rashes. EYES: No blurred, double or loss of vision. NOSE AND THROAT: No history of nosebleeds, hoarseness or sore throat. HEART: No history of palpitations, chest pain or shortness of breath on exertion. LUNGS: Denies cough, hemoptysis, wheezing or shortness of breath. GASTROINTESTINAL: She complains of abdominal pain. GENITOURINARY: No history of frequency, urgency, hesitancy or nocturia. NEUROLOGIC: Denies history of numbness, tingling, tremor or weakness. PSYCHIATRIC: No history of panic, anxiety or depression. ENDOCRINE: No history of heat or cold intolerance, polyuria or polydipsia. EXTREMITIES: Denies muscle weakness, joint pain, pain on walking or stiffness. PHYSICAL EXAMINATION: VITALS: Within normal limits and are stable. GENERAL: No apparent distress. Alert and oriented. HEENT: Normal cephalic atraumatic, external auditory canals are patent. EYES: Extraocular muscles are intact, pupils are equally round and reactive to light and accommodation. MUSCULOSKELETAL: Well developed, well nourished, good range of motion. ENDOCRINE: No thyromegaly was palpated. LYMPHATICS: No cervical chain or axillary nodes were noted. HEMATOPOIETIC: No bruising. NECK: Supple, no JVD, no thyromegaly was noted. LUNGS: Clear to auscultation in all lung manzano without rhonchi or wheezing. HEART: RRR, S1, S2 present. Peripheral pulses intact, no obvious murmurs were noted. ABDOMEN: She has decreased bowel sounds and tender to palpation. EXTREMITIES: Without any cyanosis, clubbing, or edema. Pedal pulses intact, Homans sign is negative. NEUROLOGIC: Normal speech, normal tone. A and O x 3, moves all extremities, no obvious focal deficits. PSYCHIATRIC: Normal affect, normal mood. Stable. SKIN: No ulcerations or rashes, good skin turgor, no jaundice. VASCULAR: Good capillary refill, neurovascular bundle appears to be intact. LABORATORY DATA: Potassium is 2.7, sodium is 149. Anion gap is a little high at 15. Albumin low at 1.9. White count 6, hemoglobin 10, platelets 123. INR is 1.6. Stool occult blood is positive. ASSESSMENT AND PLAN: Intractable abdominal pain in middle-aged female who has known pancreatic cancer. Suspect she has progression of disease. Her long-term prognosis is very guarded. Once again, we are admitting her for pain management, IV fluids, p.r.n. antiemetics. Consult General Surgery. Consult GI. Consult Oncology. Home meds. Deep venous thrombosis prophylaxis. Full code. Suspect she eventually may need hospice. ALEXANDER/RITO DR: ALEXANDER/alana TID: [id number]
[2022-03-06 23:00] VITALS: BP 91/61
[2022-03-06] MEDS: fentaNYL PF VIAL 100 MCG/2 ML VIAL IVP PRN (23:27)
--- NOTE | 2022-03-07 01:24 | EKG ---
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
[2022-03-07 03:00] VITALS: BP 92/60
[2022-03-07] MEDS: ONDANSETRON ODT 4 MG TAB.RAPDIS. PO PRN ×2 (03:14→08:28)
[2022-03-07] MEDS: fentaNYL PF VIAL 100 MCG/2 ML VIAL IVP PRN ×4 (03:15→22:35)
[2022-03-07] MEDS: LEVOTHYROXINE 125 MCG TABLET PO SCH (05:41)
[2022-03-07 07:00] VITALS: BP 87/59
[2022-03-07] MEDS: PANTOPRAZOLE 40 MG TABLET.DR. PO SCH (07:30)
[2022-03-07] MEDS: ATORVASTATIN CALCIUM 10 MG TABLET. PO SCH (09:00)
[2022-03-07] MEDS ORDERED: FAMOTIDINE 20 MG/2 ML VIAL IVP ONE (09:00)
[2022-03-07] MEDS: POTASSIUM BICARB 20 MEQ EFFERVESCENT TABLET. PO SCH (09:00)
[2022-03-07] MEDS ORDERED: PROCHLORPERAZINE 10 MG/2 ML VIAL. IV ONE (09:00)
--- NOTE | 2022-03-07 10:17 | PDOC2 ---
CONSULT Date of Consult Date of Consult DATE: 03/07/22 TIME: 10:13 Reason for Consult Reason for Consult: Pancreatic cancer abdominal pain Referring Physician Referring Physician: Eduarda Identification/Chief Complaint Chief Complaint Abdominal pain and difficulty with swallowing Source Source: Caregiver, Chart review, Patient History of Present Illness Reason for Visit: 62-year-old female underwent Whipple procedure about 9 months ago for pancreatic cancer has just recently finished chemotherapy. Developed abdominal pain she also states that she is having trouble swallowing and most food that she eats or drinks is regurgitated. She is currently resting comfortably in bed stating her pain is better controlled now that she is gotten pain medicine Past Medical History Cardiovascular: Hyperlipidemia Pulmonary: No pertinent hx GI: GERD Hepatobiliary: No pertinent hx Psych: Depression Endocrine: Hypothyroidism Past Surgical History Past Surgical History: Cholecystectomy, Other Family History Family History: Diabetes, High Cholestrol, Hypertension Social History ALCOHOL: none Drugs: None Lives: with Family Current Problem List Problem List Problems Medical Problems: (1) Acute hypokalemia Status: Acute (2) Colitis Status: Acute (3) Intractable abdominal pain Status: Acute Current Medications Current Medications Current Medications Sodium Chloride 1,000 ml @ 1,000 mls/hr Q1H IV Last administered on 03/06/22at 18:08; Start 03/06/22 at 17:45; Stop 03/06/22 at 18:44; Status DC Fentanyl Citrate (Fentanyl 2ml Vial) 50 mcg 1X ONCE IVP Last administered on 03/06/22at 18:08; Start 03/06/22 at 17:45; Stop 03/06/22 at 17:51; Status DC Fentanyl Citrate (Fentanyl 2ml Vial) 50 mcg 1X ONCE IVP Last administered on 03/06/22at 19:27; Start 03/06/22 at 19:30; Stop 03/06/22 at 19:31; Status DC Potassium Chloride/Water 100 ml @ 100 mls/hr Q1H IV Last administered on 03/06/22at 23:27; Start 03/06/22 at 20:00; Stop 03/06/22 at 23:59; Status DC Iohexol (Omnipaque 300 Mg/ml) 75 ml 1X ONCE IV Last administered on 03/06/22at 19:57; Start 03/06/22 at 19:45; Stop 03/06/22 at 19:52; Status DC Sodium Chloride 500 ml @ 500 mls/hr 1X ONCE IV Last administered on 03/06/22at 20:45; Start 03/06/22 at 20:45; Stop 03/06/22 at 21:44; Status DC Fentanyl Citrate (Fentanyl 2ml Vial) 50 mcg PRN Q3HRS PRN IVP SEVERE PAIN 7-10 Last administered on 03/07/22at 09:11; Start 03/06/22 at 21:00; Stop 03/07/22 at 20:59 Methylprednisolone Sodium Succinate (SOLU-Medrol 125MG VIAL) 125 mg 1X ONCE IV Last administered on 03/06/22at 21:48; Start 03/06/22 at 21:30; Stop 03/06/22 at 21:31; Status DC Atorvastatin Calcium (Lipitor) 10 mg DAILY PO ; Start 03/07/22 at 09:00 Fentanyl (Duragesic 50mcg/ Hr Patch) 1 patch Q3DAYS TD ; Start 03/09/22 at 09:00 Levothyroxine Sodium (Synthroid) 125 mcg DAILY06 PO Last administered on at 05:41; Start 03/07/22 at 06:00 Lorazepam (Ativan) 1 mg PRN Q6HRS PRN PO ANXIETY / AGITATION; Start 03/06/22 at 22:00 Ondansetron HCl (Zofran Odt) 4 mg QIDPRN PRN PO NAUSEA/VOMITING 1ST CHOICE Last administered on 03/07/22at 08:28; Start 03/06/22 at 22:00 Pantoprazole Sodium (Protonix) 40 mg DAILYAC PO ; Start 03/07/22 at 07:30 Potassium Bicarbonate (Potassium Effervescent Tablet) 20 meq DAILY PO ; Start 03/07/22 at 09:00 Scopolamine (Transderm-Scop) 1 patch Q3DAYS TD ; Start 03/09/22 at 09:00 Oxycodone HCl (Roxicodone) 10 mg QIDPRN PRN PO SEVERE PAIN 7-10; Start 03/06/22 at 22:15 Famotidine (Pepcid Vial) 20 mg 1X ONCE IVP Last administered on 03/07/22at 09:11; Start 03/07/22 at 09:00; Stop 03/07/22 at 09:04; Status DC Prochlorperazine Edisylate (Compazine) 10 mg 1X ONCE IV Last administered on 03/07/22at 09:12; Start 03/07/22 at 09:00; Stop 03/07/22 at 09:04; Status DC Active Scripts Active Pantoprazole Sodium (Pantoprazole Sodium) 40 Mg Tablet.dr 40 Mg PO DAILYAC 30 Days Vancomycin Hcl 500 Mg Vial 125 Mg PO BID 14 Days Oxycodone Hcl Immed.release (Oxycodone Hcl) 10 Mg Tablet 1 Tab PO QIDPRN PRN MDD 4 Tablet(s) 30 Days Ondansetron Odt (Ondansetron) 4 Mg Tab.rapdis 1 Tab PO PRN Q6-8HRS PRN 30 Days FENTANYL 50mcg/hr (Fentanyl) 1 Each Patch.td72 1 Patch TD Q3DAYS 30 Days Effer-K 20 Meq Tablet Eff (Potassium Bicarbonate/Cit Ac) 20 Meq Tablet.eff 1 Tab PO DAILY 30 Days Ativan (Lorazepam) 1 Mg Tablet 1 Mg PO PRN Q6HRS PRN Transderm-Scop (Scopolamine) 1 Each Patch.td72 1 Patch TD Q3DAYS Reported Atorvastatin Calcium 10 Mg Tablet 1 Tab PO DAILY Levothyroxine Sodium 125 Mcg Tablet 1 Tab PO DAILY Allergies Allergies: Coded Allergies: No Known Drug Allergies (Unverified , 03/03/22) ROS General: YES: Fatigue PSYCHOLOGICAL ROS: No: Anxiety, Behavioral Disorder, Concentration difficultie, Decreased libido, Depression, Disorientation, Hallucinations, Hostility, Irritablity, Memory difficulties, Mood Swings, Obsessive thoughts, Physical abuse, Sexual abuse, Sleep disturbances, Suicidal ideation, Other Eyes: No Blurry vision, No Decreased vision, No Double vision, No Dry eyes, No Excessive tearing, No Eye Pain, No Itchy Eyes, No Loss of vision, No Photophobia, No Scotomata, No Uses contacts, No Uses glasses, No Other HEENT: No: Heacaches, Visual Changes, Hearing change, Nasal congestion, Nasal discharge, Oral lesions, Sinus pain, Sore Throat, Epistaxis, Sneezing, Snoring, Tinnitus, Vertigo, Vocal changes, Other ALLERGY AND IMMUNOLOGY: No: Hives, Insect Bite Sensitivity, Itchy/Watery Eyes, Nasal Congestion, Post Nasal Drip, Seasonal Allergies, Other Hematological and Lymphatic: No: Bleeding Problems, Blood Clots, Blood Transfusions, Brusing, Night Sweats, Pallor, Swollen Lymph Nodes, Other ENDOCRINE: No: Breast Changes, Galactorrhea, Hair Pattern Changes, Hot Flashes, Malaise/lethargy, Mood Swings, Palpitations, Polydipsia/polyuria, Skin Changes, Temperature Intolerance, Unexpected Weight Changes, Other Respiratory: No: Cough, Hemoptysis, Orthopnea, Pleuritic Pain, Shortness of breath, SOB with excertion, Sputum Changes, Stridor, Tachypnea, Wheezing, Other Cardiovascular: No Chest Pain, No Palpitations, No Orthopnea, No Paroxysmal Noc. Dyspnea, No Edema, No Lt Headedness, No Other Gastrointestinal: Yes Nausea, Yes Vomiting, Yes Abdominal Pain Genitourinary: No Dysuria, No Frequency, No Incontinence, No Hematuria, No Retention, No Discharge, No Urgency, No Pain, No Flank Pain, No Other, No , No , No , No , No , No , No Musculoskeletal: No Gait Disturbance, No Joint Pain, No Joint Stiffness, No Joint Swelling, No Muscle Pain, No Muscular Weakness, No Pain In:, No Swelling In:, No Other Neurological: No Behavorial Changes, No Bowel/Bladder ControlChng, No Confusion, No Dizziness, No Gait Disturbance, No Headaches, No Impaired Coord/balance, No Memory Loss, No Numbness/Tingling, No Seizures, No Speech Problems, No Tremors, No Visual Changes, No Weakness, No Other Skin: No Dry Skin, No Eczema, No Hair Changes, No Lumps, No Mole Changes, No Mottling, No Nail Changes, No Pruritus, No Rash, No Skin Lesion Changes, No Other, No Acne Physical Exam General: Alert, Oriented X3, Cooperative, mild distress HEENT: Atraumatic, PERRLA, EOMI Lungs: Clear to auscultation, Normal air movement Heart: Regular rate, No murmurs Abdomen: Normal bowel sounds, Soft, Other (Diffusely tender to palpation worse in the epigastrium no peritoneal signs) Extremities: No edema Neuro: Normal speech Psych/Mental Status: Mental status NL Vitals VITALS Vital Signs Date Time Temp Pulse Resp B/P (MAP) Pulse Ox O2 Delivery O2 Flow Rate FiO2 03/07/22 09:11 Room Air 03/07/22 07:00 97.6 83 20 87/59 (68) 96 97.6 Labs Labs Laboratory Tests Test 03/06/22 18:00 03/06/22 18:30 03/06/22 19:05 03/06/22 20:30 White Blood Count 6.5 x10^3/uL (4.0-11.0) Red Blood Count 3.05 x10^6/uL (3.50-5.40) Hemoglobin 9.8 g/dL (12.0-15.5) Hematocrit 29.4 % (36.0-47.0) Mean Corpuscular Volume 96 fL (79-100) Mean Corpuscular Hemoglobin 32 pg (25-35) Mean Corpuscular Hemoglobin Concent 33 g/dL (31-37) Red Cell Distribution Width 23.3 % (11.5-14.5) Platelet Count 123 x10^3/uL (140-400) Neutrophils (%) (Auto) 82 % (31-73) Lymphocytes (%) (Auto) 13 % (24-48) Monocytes (%) (Auto) 5 % (0-9) Eosinophils (%) (Auto) 0 % (0-3) Basophils (%) (Auto) 0 % (0-3) Neutrophils # (Auto) 5.3 x10^3/uL (1.8-7.7) Lymphocytes # (Auto) 0.8 x10^3/uL (1.0-4.8) Monocytes # (Auto) 0.3 x10^3/uL (0.0-1.1) Eosinophils # (Auto) 0.0 x10^3/uL (0.0-0.7) Basophils # (Auto) 0.0 x10^3/uL (0.0-0.2) Stool Occult Blood Positive (NEG) Sodium Level 149 mmol/L (136-145) Potassium Level 2.7 mmol/L (3.5-5.1) Chloride Level 111 mmol/L (98-107) Carbon Dioxide Level 23 mmol/L (21-32) Anion Gap 15 (6-14) Blood Urea Nitrogen 11 mg/dL (7-20) Creatinine 0.6 mg/dL (0.6-1.0) Estimated GFR (Cockcroft-Gault) 102.0 BUN/Creatinine Ratio 18 (6-20) Glucose Level 103 mg/dL (70-99) Calcium Level 7.4 mg/dL (8.5-10.1) Magnesium Level 2.0 mg/dL (1.8-2.4) Total Bilirubin 0.9 mg/dL (0.2-1.0) Aspartate Amino Transf (AST/SGOT) 25 U/L (15-37) Alanine Aminotransferase (ALT/SGPT) 17 U/L (14-59) Alkaline Phosphatase 149 U/L (46-116) Troponin I High Sensitivity 5 ng/L (4-50) Total Protein 5.0 g/dL (6.4-8.2) Albumin 1.9 g/dL (3.4-5.0) Albumin/Globulin Ratio 0.6 (1.0-1.7) Lipase 468 U/L (73-393) Prothrombin Time 18.6 SEC (11.7-14.0) Prothromb Time International Ratio 1.6 (0.8-1.1) Activated Partial Thromboplast Time 24 SEC (24-38) Test 03/06/22 23:45 Lactic Acid Level 0.9 mmol/L (0.4-2.0) Laboratory Tests Test 03/06/22 18:00 03/06/22 18:30 03/06/22 19:05 03/06/22 20:30 White Blood Count 6.5 x10^3/uL (4.0-11.0) Red Blood Count 3.05 x10^6/uL (3.50-5.40) Hemoglobin 9.8 g/dL (12.0-15.5) Hematocrit 29.4 % (36.0-47.0) Mean Corpuscular Volume 96 fL (79-100) Mean Corpuscular Hemoglobin 32 pg (25-35) Mean Corpuscular Hemoglobin Concent 33 g/dL (31-37) Red Cell Distribution Width 23.3 % (11.5-14.5) Platelet Count 123 x10^3/uL (140-400) Neutrophils (%) (Auto) 82 % (31-73) Lymphocytes (%) (Auto) 13 % (24-48) Monocytes (%) (Auto) 5 % (0-9) Eosinophils (%) (Auto) 0 % (0-3) Basophils (%) (Auto) 0 % (0-3) Neutrophils # (Auto) 5.3 x10^3/uL (1.8-7.7) Lymphocytes # (Auto) 0.8 x10^3/uL (1.0-4.8) Monocytes # (Auto) 0.3 x10^3/uL (0.0-1.1) Eosinophils # (Auto) 0.0 x10^3/uL (0.0-0.7) Basophils # (Auto) 0.0 x10^3/uL (0.0-0.2) Stool Occult Blood Positive (NEG) Sodium Level 149 mmol/L (136-145) Potassium Level 2.7 mmol/L (3.5-5.1) Chloride Level 111 mmol/L (98-107) Carbon Dioxide Level 23 mmol/L (21-32) Anion Gap 15 (6-14) Blood Urea Nitrogen 11 mg/dL (7-20) Creatinine 0.6 mg/dL (0.6-1.0) Estimated GFR (Cockcroft-Gault) 102.0 BUN/Creatinine Ratio 18 (6-20) Glucose Level 103 mg/dL (70-99) Calcium Level 7.4 mg/dL (8.5-10.1) Magnesium Level 2.0 mg/dL (1.8-2.4) Total Bilirubin 0.9 mg/dL (0.2-1.0) Aspartate Amino Transf (AST/SGOT) 25 U/L (15-37) Alanine Aminotransferase (ALT/SGPT) 17 U/L (14-59) Alkaline Phosphatase 149 U/L (46-116) Troponin I High Sensitivity 5 ng/L (4-50) Total Protein 5.0 g/dL (6.4-8.2) Albumin 1.9 g/dL (3.4-5.0) Albumin/Globulin Ratio 0.6 (1.0-1.7) Lipase 468 U/L (73-393) Prothrombin Time 18.6 SEC (11.7-14.0) Prothromb Time International Ratio 1.6 (0.8-1.1) Activated Partial Thromboplast Time 24 SEC (24-38) Test 03/06/22 23:45 Lactic Acid Level 0.9 mmol/L (0.4-2.0) Assessment/Plan Assessment/Plan Pancreatic cancer with abdominal pain appears to be controlled now with pain medication Difficulty swallowing with regurgitation, GIs been consulted for possible upper endoscopy recommend speech therapy for swallow study Continue supportive care EDVIN MELENDEZ MD March 07, 2022 10:16
[2022-03-07 11:00] VITALS: BP 81/51
[2022-03-07 11:42] LABS: BASO % 0 % (0-3); EOS % 0 % (0-3); HEMATOCRIT 24.9 % (36.0-47.0); HEMOGLOBIN 8.2 g/dL (12.0-15.5); LYMPH # 0.6 x10^3/uL (1.0-4.8); LYMPH % 11 % (24-48); MEAN CORPUSCULAR HEMOGLOBIN 32 pg (25-35); MEAN CORPUSCULAR HGB CONC 33 g/dL (31-37); MEAN CORPUSCULAR VOLUME 97 fL (79-100); MONO # 0.1 x10^3/uL (0.0-1.1); MONO % 3 % (0-9); NEUT # 4.6 x10^3/uL (1.8-7.7); NEUT % 86 % (31-73); PLATELET COUNT 90 x10^3/uL (140-400); RED BLOOD COUNT 2.58 x10^6/uL (3.50-5.40); RED CELL DISTRIBUTION WIDTH 22.9 % (11.5-14.5); WHITE BLOOD COUNT 5.4 x10^3/uL (4.0-11.0)
[2022-03-07 11:52] LABS: CALCIUM 6.9 mg/dL (8.5-10.1); CREATININE 0.5 mg/dL (0.6-1.0); GFR 125.9; POTASSIUM 3.4 mmol/L (3.5-5.1)
--- NOTE | 2022-03-07 14:13 | PDOC2 ---
CONSULT Date of Consult Date of Consult DATE: 03/07/22 TIME: 14:11 Reason for Consult Reason for Consult: Dysphagia, abdominal pain History of Present Illness Reason for Visit: This is a pleasant 62-year-old lady with a history of pancreatic cancer who underwent Whipple procedure back in August of last year but has evidence of metastatic disease. She was recently given chemotherapy which she completed. She has been complaining of chronic abdominal pain mostly on the right side which has not resolved nor has it changed. However her new complaint now after completing chemotherapy as she has significant dysphagia. She denies oropharyngeal pain such as stomatitis or pain with swallowing but does have an inability to keep pills and foods down. This is a new complaint over the past week or so and was not present in the past. She has a history of C. difficile infection but does not have diarrhea presently. She has the above noted history of pancreatic cancer which is probably the source of her pain. She may have some component of colitis by her x-rays but they have not changed much over the past few months and in the absence of diarrhea I do not think the colitis requires any additional treatment or intervention. She is primarily Icelandic-speaking but her significant other was present and provided interpretation and discussion of both her history and our plans. Last GI note 12/3020: 61 y/o Icelandic-speaking female who we've seen in the past. Metastatic pancreatic cancer s/p Whipple in 08/2021 on chemo every 15 days (last Tue11/30/21). Hospitalized earlier this month w/ possible SBO/ileus/enteritis. Similar symptoms now but less severe. History from significant other . To ER today w/ increasing lower abdominal pain and bloating. Pain is worse during stooling. Feels "something moving." Vomited a chocolate shake on Tuesday. Unable to eat much in general (early satiety, nausea). Alternating/irregular bowel habits - diarrhea after chemo, then no stools for a couple days after Imodium, then some small soft stools - last stooled yesterday. Normal colonoscopy 15 years ago at . S/p cholecystectomy (no stones) prior to Whipple. On PPI, anti-emetics, and Percocet PRN (half a pill sometimes). Past Medical History Cardiovascular: Hyperlipidemia Pulmonary: No pertinent hx GI: GERD Heme/Onc: Other (Pancreatic cancer status postsurgery and chemotherapy) Hepatobiliary: No pertinent hx Psych: Depression Endocrine: Hypothyroidism Past Surgical History Past Surgical History: Cholecystectomy, Other Family History Family History: Diabetes, High Cholestrol, Hypertension Social History ALCOHOL: none Drugs: None Lives: with Family Current Problem List Problem List Problems Medical Problems: (1) Acute hypokalemia Status: Acute (2) Colitis Status: Acute (3) Intractable abdominal pain Status: Acute Current Medications Current Medications Current Medications Sodium Chloride 1,000 ml @ 1,000 mls/hr Q1H IV Last administered on 03/06/22at 18:08; Start 03/06/22 at 17:45; Stop 03/06/22 at 18:44; Status DC Fentanyl Citrate (Fentanyl 2ml Vial) 50 mcg 1X ONCE IVP Last administered on 03/06/22at 18:08; Start 03/06/22 at 17:45; Stop 03/06/22 at 17:51; Status DC Fentanyl Citrate (Fentanyl 2ml Vial) 50 mcg 1X ONCE IVP Last administered on 03/06/22at 19:27; Start 03/06/22 at 19:30; Stop 03/06/22 at 19:31; Status DC Potassium Chloride/Water 100 ml @ 100 mls/hr Q1H IV Last administered on 03/06/22at 23:27; Start 03/06/22 at 20:00; Stop 03/06/22 at 23:59; Status DC Iohexol (Omnipaque 300 Mg/ml) 75 ml 1X ONCE IV Last administered on 03/06/22at 19:57; Start 03/06/22 at 19:45; Stop 03/06/22 at 19:52; Status DC Sodium Chloride 500 ml @ 500 mls/hr 1X ONCE IV Last administered on 03/06/22at 20:45; Start 03/06/22 at 20:45; Stop 03/06/22 at 21:44; Status DC Fentanyl Citrate (Fentanyl 2ml Vial) 50 mcg PRN Q3HRS PRN IVP SEVERE PAIN 7-10 Last administered on 03/07/22at 09:11; Start 03/06/22 at 21:00; Stop 03/07/22 at 20:59 Methylprednisolone Sodium Succinate (SOLU-Medrol 125MG VIAL) 125 mg 1X ONCE IV Last administered on 03/06/22at 21:48; Start 03/06/22 at 21:30; Stop 03/06/22 at 21:31; Status DC Atorvastatin Calcium (Lipitor) 10 mg DAILY PO ; Start 03/07/22 at 09:00 Fentanyl (Duragesic 50mcg/ Hr Patch) 1 patch Q3DAYS TD ; Start 03/09/22 at 09:00 Levothyroxine Sodium (Synthroid) 125 mcg DAILY06 PO Last administered on 03/07/22at 05:41; Start 03/07/22 at 06:00 Lorazepam (Ativan) 1 mg PRN Q6HRS PRN PO ANXIETY / AGITATION; Start 03/06/22 at 22:00 Ondansetron HCl (Zofran Odt) 4 mg QIDPRN PRN PO NAUSEA/VOMITING 1ST CHOICE Last administered on 03/07/22at 08:28; Start 03/06/22 at 22:00 Pantoprazole Sodium (Protonix) 40 mg DAILYAC PO ; Start 03/07/22 at 07:30 Potassium Bicarbonate (Potassium Effervescent Tablet) 20 meq DAILY PO ; Start 03/07/22 at 09:00 Scopolamine (Transderm-Scop) 1 patch Q3DAYS TD ; Start 03/09/22 at 09:00 Oxycodone HCl (Roxicodone) 10 mg QIDPRN PRN PO SEVERE PAIN 7-10; Start 03/06/22 at 22:15 Famotidine (Pepcid Vial) 20 mg 1X ONCE IVP Last administered on 03/07/22at 09:11; Start 03/07/22 at 09:00; Stop 03/07/22 at 09:04; Status DC Prochlorperazine Edisylate (Compazine) 10 mg 1X ONCE IV Last administered on 03/07/22at 09:12; Start 03/07/22 at 09:00; Stop 03/07/22 at 09:04; Status DC Potassium Chloride/Water 100 ml @ 100 mls/hr Q1H IV ; Start 03/07/22 at 13:30; Stop 03/07/22 at 15:29 Active Scripts Active Pantoprazole Sodium (Pantoprazole Sodium) 40 Mg Tablet.dr 40 Mg PO DAILYAC 30 Days Vancomycin Hcl 500 Mg Vial 125 Mg PO BID 14 Days Oxycodone Hcl Immed.release (Oxycodone Hcl) 10 Mg Tablet 1 Tab PO QIDPRN PRN MDD 4 Tablet(s) 30 Days Ondansetron Odt (Ondansetron) 4 Mg Tab.rapdis 1 Tab PO PRN Q6-8HRS PRN 30 Days FENTANYL 50mcg/hr (Fentanyl) 1 Each Patch.td72 1 Patch TD Q3DAYS 30 Days Effer-K 20 Meq Tablet Eff (Potassium Bicarbonate/Cit Ac) 20 Meq Tablet.eff 1 Tab PO DAILY 30 Days Ativan (Lorazepam) 1 Mg Tablet 1 Mg PO PRN Q6HRS PRN Transderm-Scop (Scopolamine) 1 Each Patch.td72 1 Patch TD Q3DAYS Reported Atorvastatin Calcium 10 Mg Tablet 1 Tab PO DAILY Levothyroxine Sodium 125 Mcg Tablet 1 Tab PO DAILY Allergies Allergies: Coded Allergies: No Known Drug Allergies (Unverified , 03/03/22) Physical Exam General: Alert, Oriented X3 HEENT: Atraumatic Lungs: Clear to auscultation, Other (Port in her left chest) Heart: Regular rate, Normal S1, Normal S2 Abdomen: Normal bowel sounds, Soft, Other (Mildly tender in the right abdomen) Extremities: No clubbing Neuro: Normal speech Vitals VITALS Vital Signs Date Time Temp Pulse Resp B/P (MAP) Pulse Ox O2 Delivery O2 Flow Rate FiO2 03/07/22 11:00 97.6 80 18 81/51 (61) 99 97.6 03/07/22 09:45 Room Air Labs Labs Laboratory Tests Test 03/06/22 18:00 03/06/22 18:30 03/06/22 19:05 03/06/22 20:30 White Blood Count 6.5 x10^3/uL (4.0-11.0) Red Blood Count 3.05 x10^6/uL (3.50-5.40) Hemoglobin 9.8 g/dL (12.0-15.5) Hematocrit 29.4 % (36.0-47.0) Mean Corpuscular Volume 96 fL (79-100) Mean Corpuscular Hemoglobin 32 pg (25-35) Mean Corpuscular Hemoglobin Concent 33 g/dL (31-37) Red Cell Distribution Width 23.3 % (11.5-14.5) Platelet Count 123 x10^3/uL (140-400) Neutrophils (%) (Auto) 82 % (31-73) Lymphocytes (%) (Auto) 13 % (24-48) Monocytes (%) (Auto) 5 % (0-9) Eosinophils (%) (Auto) 0 % (0-3) Basophils (%) (Auto) 0 % (0-3) Neutrophils # (Auto) 5.3 x10^3/uL (1.8-7.7) Lymphocytes # (Auto) 0.8 x10^3/uL (1.0-4.8) Monocytes # (Auto) 0.3 x10^3/uL (0.0-1.1) Eosinophils # (Auto) 0.0 x10^3/uL (0.0-0.7) Basophils # (Auto) 0.0 x10^3/uL (0.0-0.2) Stool Occult Blood Positive (NEG) Sodium Level 149 mmol/L (136-145) Potassium Level 2.7 mmol/L (3.5-5.1) Chloride Level 111 mmol/L (98-107) Carbon Dioxide Level 23 mmol/L (21-32) Anion Gap 15 (6-14) Blood Urea Nitrogen 11 mg/dL (7-20) Creatinine 0.6 mg/dL (0.6-1.0) Estimated GFR (Cockcroft-Gault) 102.0 BUN/Creatinine Ratio 18 (6-20) Glucose Level 103 mg/dL (70-99) Calcium Level 7.4 mg/dL (8.5-10.1) Magnesium Level 2.0 mg/dL (1.8-2.4) Total Bilirubin 0.9 mg/dL (0.2-1.0) Aspartate Amino Transf (AST/SGOT) 25 U/L (15-37) Alanine Aminotransferase (ALT/SGPT) 17 U/L (14-59) Alkaline Phosphatase 149 U/L (46-116) Troponin I High Sensitivity 5 ng/L (4-50) Total Protein 5.0 g/dL (6.4-8.2) Albumin 1.9 g/dL (3.4-5.0) Albumin/Globulin Ratio 0.6 (1.0-1.7) Lipase 468 U/L (73-393) Prothrombin Time 18.6 SEC (11.7-14.0) Prothromb Time International Ratio 1.6 (0.8-1.1) Activated Partial Thromboplast Time 24 SEC (24-38) Test 03/06/22 23:45 03/07/22 11:23 Lactic Acid Level 0.9 mmol/L (0.4-2.0) White Blood Count 5.4 x10^3/uL (4.0-11.0) Red Blood Count 2.58 x10^6/uL (3.50-5.40) Hemoglobin 8.2 g/dL (12.0-15.5) Hematocrit 24.9 % (36.0-47.0) Mean Corpuscular Volume 97 fL (79-100) Mean Corpuscular Hemoglobin 32 pg (25-35) Mean Corpuscular Hemoglobin Concent 33 g/dL (31-37) Red Cell Distribution Width 22.9 % (11.5-14.5) Platelet Count 90 x10^3/uL (140-400) Neutrophils (%) (Auto) 86 % (31-73) Lymphocytes (%) (Auto) 11 % (24-48) Monocytes (%) (Auto) 3 % (0-9) Eosinophils (%) (Auto) 0 % (0-3) Basophils (%) (Auto) 0 % (0-3) Neutrophils # (Auto) 4.6 x10^3/uL (1.8-7.7) Lymphocytes # (Auto) 0.6 x10^3/uL (1.0-4.8) Monocytes # (Auto) 0.1 x10^3/uL (0.0-1.1) Eosinophils # (Auto) 0.0 x10^3/uL (0.0-0.7) Basophils # (Auto) 0.0 x10^3/uL (0.0-0.2) Sodium Level 144 mmol/L (136-145) Potassium Level 3.4 mmol/L (3.5-5.1) Chloride Level 111 mmol/L (98-107) Carbon Dioxide Level 17 mmol/L (21-32) Anion Gap 16 (6-14) Blood Urea Nitrogen 10 mg/dL (7-20) Creatinine 0.5 mg/dL (0.6-1.0) Estimated GFR (Cockcroft-Gault) 125.9 Glucose Level 139 mg/dL (70-99) Calcium Level 6.9 mg/dL (8.5-10.1) Laboratory Tests Test 03/06/22 18:00 03/06/22 18:30 03/06/22 19:05 03/06/22 20:30 White Blood Count 6.5 x10^3/uL (4.0-11.0) Red Blood Count 3.05 x10^6/uL (3.50-5.40) Hemoglobin 9.8 g/dL (12.0-15.5) Hematocrit 29.4 % (36.0-47.0) Mean Corpuscular Volume 96 fL (79-100) Mean Corpuscular Hemoglobin 32 pg (25-35) Mean Corpuscular Hemoglobin Concent 33 g/dL (31-37) Red Cell Distribution Width 23.3 % (11.5-14.5) Platelet Count 123 x10^3/uL (140-400) Neutrophils (%) (Auto) 82 % (31-73) Lymphocytes (%) (Auto) 13 % (24-48) Monocytes (%) (Auto) 5 % (0-9) Eosinophils (%) (Auto) 0 % (0-3) Basophils (%) (Auto) 0 % (0-3) Neutrophils # (Auto) 5.3 x10^3/uL (1.8-7.7) Lymphocytes # (Auto) 0.8 x10^3/uL (1.0-4.8) Monocytes # (Auto) 0.3 x10^3/uL (0.0-1.1) Eosinophils # (Auto) 0.0 x10^3/uL (0.0-0.7) Basophils # (Auto) 0.0 x10^3/uL (0.0-0.2) Stool Occult Blood Positive (NEG) Sodium Level 149 mmol/L (136-145) Potassium Level 2.7 mmol/L (3.5-5.1) Chloride Level 111 mmol/L (98-107) Carbon Dioxide Level 23 mmol/L (21-32) Anion Gap 15 (6-14) Blood Urea Nitrogen 11 mg/dL (7-20) Creatinine 0.6 mg/dL (0.6-1.0) Estimated GFR (Cockcroft-Gault) 102.0 BUN/Creatinine Ratio 18 (6-20) Glucose Level 103 mg/dL (70-99) Calcium Level 7.4 mg/dL (8.5-10.1) Magnesium Level 2.0 mg/dL (1.8-2.4) Total Bilirubin 0.9 mg/dL (0.2-1.0) Aspartate Amino Transf (AST/SGOT) 25 U/L (15-37) Alanine Aminotransferase (ALT/SGPT) 17 U/L (14-59) Alkaline Phosphatase 149 U/L (46-116) Troponin I High Sensitivity 5 ng/L (4-50) Total Protein 5.0 g/dL (6.4-8.2) Albumin 1.9 g/dL (3.4-5.0) Albumin/Globulin Ratio 0.6 (1.0-1.7) Lipase 468 U/L (73-393) Prothrombin Time 18.6 SEC (11.7-14.0) Prothromb Time International Ratio 1.6 (0.8-1.1) Activated Partial Thromboplast Time 24 SEC (24-38) Test 03/06/22 23:45 03/07/22 11:23 Lactic Acid Level 0.9 mmol/L (0.4-2.0) White Blood Count 5.4 x10^3/uL (4.0-11.0) Red Blood Count 2.58 x10^6/uL (3.50-5.40) Hemoglobin 8.2 g/dL (12.0-15.5) Hematocrit 24.9 % (36.0-47.0) Mean Corpuscular Volume 97 fL (79-100) Mean Corpuscular Hemoglobin 32 pg (25-35) Mean Corpuscular Hemoglobin Concent 33 g/dL (31-37) Red Cell Distribution Width 22.9 % (11.5-14.5) Platelet Count 90 x10^3/uL (140-400) Neutrophils (%) (Auto) 86 % (31-73) Lymphocytes (%) (Auto) 11 % (24-48) Monocytes (%) (Auto) 3 % (0-9) Eosinophils (%) (Auto) 0 % (0-3) Basophils (%) (Auto) 0 % (0-3) Neutrophils # (Auto) 4.6 x10^3/uL (1.8-7.7) Lymphocytes # (Auto) 0.6 x10^3/uL (1.0-4.8) Monocytes # (Auto) 0.1 x10^3/uL (0.0-1.1) Eosinophils # (Auto) 0.0 x10^3/uL (0.0-0.7) Basophils # (Auto) 0.0 x10^3/uL (0.0-0.2) Sodium Level 144 mmol/L (136-145) Potassium Level 3.4 mmol/L (3.5-5.1) Chloride Level 111 mmol/L (98-107) Carbon Dioxide Level 17 mmol/L (21-32) Anion Gap 16 (6-14) Blood Urea Nitrogen 10 mg/dL (7-20) Creatinine 0.5 mg/dL (0.6-1.0) Estimated GFR (Cockcroft-Gault) 125.9 Glucose Level 139 mg/dL (70-99) Calcium Level 6.9 mg/dL (8.5-10.1) Images Images CT FINDINGS: Heart size is normal. No pericardial effusion. Strandy opacities the dependent portion lungs likely representing atelectasis. No pleural effusion. Postoperative changes of Whipple's procedure again seen. Otherwise, Liver, spleen, pancreas and adrenals are unremarkable. Trace pneumobilia again noted. Gallbladder is absent. No perinephric inflammation or hydronephrosis. No renal or ureteral calculi are identified. Bladder is decompressed not well evaluated. Uterus is not enlarged. No abnormal adnexal mass. There is diffuse wall thickening with mucosal hyperenhancement submucosal edema involving the entire colon. Postoperative changes of right hemicolectomy with i leocolic anastomosis. Moderate amount of free fluid noted throughout the abdomen predominantly in the perihepatic region. No free air. Abdominal aorta has normal course and caliber. Stable appearance of the SMV No enlarged intra-abdominal lymph nodes. No suspicious osseous lesions or acute fractures. IMPRESSION: 1. Persistent diffuse wall thickening involving the colon. 2. Moderate amount of free fluid in the abdomen, not significant changed from prior. Assessment/Plan Assessment/Plan Dysphagia. Describes mostly that pills and foods tend to go back up after eating. She denies oropharyngeal pain or painful swallowing, suggesting that chemotherapy related stomatitis is not as likely as a infection for example like fungal infection or peptic stricture or a motor disorder such as pseudo achalasia. Chronic abdominal pain. This is apparently not changed dramatically and appears to have multiple potential contributing sources including prior surgery, chemotherapy, prior C. difficile colitis, residual cancer. Pancreatic cancer. Initially underwent Whipple procedure but now has evidence of metastatic disease. Recent chemotherapy. Abnormal CT scan. It shows what is described as diffuse inflammatory changes in the colon. This is a process which has been described before. Previously she has had C. difficile infection but now has no evidence for new colitis by her history, since she lacks diarrhea or rectal bleeding. She was Hemoccult positive and is anemic but there are multiple potential contributing features for that. Plan: In the absence of odynophagia or oropharyngeal pain, I do not think t opical lidocaine or Magic mouthwash is indicated. Empiric treatment with antifungal agents may be prudent but upper endoscopy is probably the most appropriate next step. I will discuss with Dr. Garza who will be assuming her GI care tomorrow LOIS AQUINO MD March 07, 2022 14:12
[2022-03-07] MEDS: POTASSIUM CHLORIDE 10MEQ 100 ML IV SCH ×2 (14:30→15:53)
[2022-03-07 15:00] VITALS: BP 83/53
[2022-03-07] MEDS ORDERED: LIDO:MAALOX 1:1 20 ML SINGLE DOSE. PO ONE (15:45)
[2022-03-07] MEDS: NYSTATIN 100,000 UNITS/ML 5 ML ORAL.SUSP. SWSW SCH ×2 (15:50→21:29)
--- NOTE | 2022-03-07 18:19 | PDOC ---
[employer] PROGRESS NOTE Date of Service DOS: DATE: 03/07/22 TIME: 18:01 Chief Complaint Chief Complaint Intractable abdominal pain in middle-aged female who has known pancreatic cancer. Suspect she has progression of disease. Her long-term prognosis is very guarded. Once again, we are admitting her for pain management, IV fluids, p.r.n. antiemetics. Consult General Surgery. Consult GI. Consult Oncology. Home meds. Deep venous thrombosis prophylaxis. Full code. Suspect she eventually may need hospice History of Present Illness History of Present Illness 03/07 Evaluated examined at bedside. Continue current. Discussed with bedside RN. With frequent admissions a talk of hospice with patient and family may not be a bad idea. Either way has improved a bit since presentation. Consult recommendations reviewed. Vitals/I&O Vitals/I&O: Vital Signs Date Time Temp Pulse Resp B/P (MAP) Pulse Ox O2 Delivery O2 Flow Rate FiO2 03/07/22 15:48 Room Air 03/07/22 15:00 97.9 89 18 83/53 (63) 98 97.9 I & O 03/06/22 03/06/22 03/07/22 15:00 23:00 07:00 Intake Total 900 ml Balance 900 ml Physical Exam General: Alert, Oriented X3 Heart: Regular rate, Normal S1, Normal S2 Lungs: Clear Abdomen: Normal bowel sounds, Soft, Other (Mildly tender in the right abdomen) Extremities: No clubbing Skin: No significant lesion Labs Labs: Laboratory Tests Test 03/06/22 18:30 03/06/22 19:05 03/06/22 19:47 03/06/22 20:30 Stool Occult Blood Positive (NEG) Sodium Level 149 mmol/L (136-145) Potassium Level 2.7 mmol/L (3.5-5.1) Chloride Level 111 mmol/L (98-107) Carbon Dioxide Level 23 mmol/L (21-32) Anion Gap 15 (6-14) Blood Urea Nitrogen 11 mg/dL (7-20) Creatinine 0.6 mg/dL (0.6-1.0) Estimated GFR (Cockcroft-Gault) 102.0 BUN/Creatinine Ratio 18 (6-20) Glucose Level 103 mg/dL (70-99) Calcium Level 7.4 mg/dL (8.5-10.1) Magnesium Level 2.0 mg/dL (1.8-2.4) Total Bilirubin 0.9 mg/dL (0.2-1.0) Aspartate Amino Transf (AST/SGOT) 25 U/L (15-37) Alanine Aminotransferase (ALT/SGPT) 17 U/L (14-59) Alkaline Phosphatase 149 U/L (46-116) Troponin I High Sensitivity 5 ng/L (4-50) Total Protein 5.0 g/dL (6.4-8.2) Albumin 1.9 g/dL (3.4-5.0) Albumin/Globulin Ratio 0.6 (1.0-1.7) Lipase 468 U/L (73-393) Clostridium difficile Toxin (PCR) Negative (NEGATIVE) Prothrombin Time 18.6 SEC (11.7-14.0) Prothromb Time International Ratio 1.6 (0.8-1.1) Activated Partial Thromboplast Time 24 SEC (24-38) Test 03/06/22 23:45 03/07/22 11:23 Lactic Acid Level 0.9 mmol/L (0.4-2.0) White Blood Count 5.4 x10^3/uL (4.0-11.0) Red Blood Count 2.58 x10^6/uL (3.50-5.40) Hemoglobin 8.2 g/dL (12.0-15.5) Hematocrit 24.9 % (36.0-47.0) Mean Corpuscular Volume 97 fL (79-100) Mean Corpuscular Hemoglobin 32 pg (25-35) Mean Corpuscular Hemoglobin Concent 33 g/dL (31-37) Red Cell Distribution Width 22.9 % (11.5-14.5) Platelet Count 90 x10^3/uL (140-400) Neutrophils (%) (Auto) 86 % (31-73) Lymphocytes (%) (Auto) 11 % (24-48) Monocytes (%) (Auto) 3 % (0-9) Eosinophils (%) (Auto) 0 % (0-3) Basophils (%) (Auto) 0 % (0-3) Neutrophils # (Auto) 4.6 x10^3/uL (1.8-7.7) Lymphocytes # (Auto) 0.6 x10^3/uL (1.0-4.8) Monocytes # (Auto) 0.1 x10^3/uL (0.0-1.1) Eosinophils # (Auto) 0.0 x10^3/uL (0.0-0.7) Basophils # (Auto) 0.0 x10^3/uL (0.0-0.2) Sodium Level 144 mmol/L (136-145) Potassium Level 3.4 mmol/L (3.5-5.1) Chloride Level 111 mmol/L (98-107) Carbon Dioxide Level 17 mmol/L (21-32) Anion Gap 16 (6-14) Blood Urea Nitrogen 10 mg/dL (7-20) Creatinine 0.5 mg/dL (0.6-1.0) Estimated GFR (Cockcroft-Gault) 125.9 Glucose Level 139 mg/dL (70-99) Calcium Level 6.9 mg/dL (8.5-10.1) Assessment and Plan Assessmemt and Plan Problems Medical Problems: (1) Acute hypokalemia Status: Acute (2) Colitis Status: Acute (3) Intractable abdominal pain Status: Acute Comment Review of Relevant I have reviewed the following items oriana (where applicable) has been applied. Medications: Current Medications Medications (Trade) Dose Ordered Sig/Mague Route PRN Reason Start Time Stop Time Status Last Admin Dose Admin Fentanyl Citrate (Fentanyl 2ml Vial) 50 mcg 1X ONCE IVP 03/06/22 19:30 03/06/22 19:31 DC 03/06/22 19:27 Potassium Chloride/Water 100 ml @ 100 mls/hr Q1H IV 03/06/22 20:00 03/06/22 23:59 DC 03/06/22 23:27 Iohexol (Omnipaque 300 Mg/ml) 75 ml 1X ONCE IV 03/06/22 19:45 03/06/22 19:52 DC 03/06/22 19:57 Sodium Chloride 500 ml @ 500 mls/hr 1X ONCE IV 03/06/22 20:45 03/06/22 21:44 DC 03/06/22 20:45 Fentanyl Citrate (Fentanyl 2ml Vial) 50 mcg PRN Q3HRS PRN IVP SEVERE PAIN 7-10 03/06/22 21:00 03/07/22 20:59 03/07/22 14:29 Methylprednisolone Sodium Succinate (SOLU-Medrol 125MG VIAL) 125 mg 1X ONCE IV 03/06/22 21:30 03/06/22 21:31 DC 03/06/22 21:48 Levothyroxine Sodium (Synthroid) 125 mcg DAILY06 PO 03/07/22 06:00 03/07/22 05:41 Ondansetron HCl (Zofran Odt) 4 mg QIDPRN PRN PO NAUSEA/VOMITING 1ST CHOICE 03/06/22 22:00 03/07/22 08:28 Famotidine (Pepcid Vial) 20 mg 1X ONCE IVP 03/07/22 09:00 03/07/22 09:04 DC 03/07/22 09:11 Prochlorperazine Edisylate (Compazine) 10 mg 1X ONCE IV 03/07/22 09:00 03/07/22 09:04 DC 03/07/22 09:12 Potassium Chloride/Water 100 ml @ 100 mls/hr Q1H IV 03/07/22 13:30 03/07/22 15:29 DC 03/07/22 15:53 Nystatin (Nystatin Oral Susp) 5 ml [id number] 03/07/22 15:00 03/07/22 15:50 Multi-Ingredient Mouthwash/Gargle (Gi Cocktail) 20 ml 1X ONCE PO 03/07/22 15:45 03/07/22 15:46 DC 03/07/22 15:50 Justifications for Admission Other Justification DOMINGO BARCENAS MD March 07, 2022 18:19
[2022-03-07 19:00] VITALS: BP 85/50
[2022-03-07] MEDS: PROCHLORPERAZINE 10 MG/2 ML VIAL. IV PRN (22:34)
[2022-03-07 23:26] VITALS: BP 79/46
[2022-03-08] MEDS: ONDANSETRON ODT 4 MG TAB.RAPDIS. PO PRN (03:13)
[2022-03-08] MEDS: fentaNYL PF VIAL 100 MCG/2 ML VIAL IVP PRN ×2 (03:16→09:46)
[2022-03-08 03:41] VITALS: BP 78/50
[2022-03-08] MEDS ORDERED: IV NORMAL SALINE 500ML BAG 500 ML IV ONE (04:00)
[2022-03-08] MEDS: LEVOTHYROXINE 125 MCG TABLET PO SCH (04:58)
[2022-03-08] MEDS: PROCHLORPERAZINE 10 MG/2 ML VIAL. IV PRN ×2 (05:36→12:30)
[2022-03-08] MEDS ORDERED: HYDROmorphone 2 MG/ML INJ. IVP ONE (06:00)
[2022-03-08 07:00] VITALS: BP 90/62
[2022-03-08] MEDS: PANTOPRAZOLE 40 MG TABLET.DR. PO SCH (07:30)
[2022-03-08] MEDS: ATORVASTATIN CALCIUM 10 MG TABLET. PO SCH (09:00)
[2022-03-08] MEDS: POTASSIUM BICARB 20 MEQ EFFERVESCENT TABLET. PO SCH (09:00)
[2022-03-08] MEDS: NYSTATIN 100,000 UNITS/ML 5 ML ORAL.SUSP. SWSW SCH ×4 (09:53→20:35)
[2022-03-08] MEDS ORDERED: BARIUM SULFATE 40% (APPLE) 148 GM PWD. PO ONE (10:15)
--- NOTE | 2022-03-08 10:53 | PDOC ---
Date of Service: DATE: 03/08/22 TIME: 10:46 Subjective: Subjective: Lower abdominal pain. Fentanyl doesn't work. Food, pills, liquids get stuck in chest. Takes PPI at home. Family and nurse present to translate. Nurse reports significant acid reflux. No diarrhea. Has vanco at home (recent C Diff) - took a long time for [facility] to get ready. C Diff negative now. Objective: Objective: Esophagram ordered yesterday. Vital Signs: Vital Signs Date Time Temp Pulse Resp B/P (MAP) Pulse Ox O2 Delivery O2 Flow Rate FiO2 03/08/22 09:46 Room Air 03/08/22 07:00 97.9 99 16 90/62 (71) 97 97.9 Labs: Laboratory Tests Test 03/07/22 11:23 White Blood Count 5.4 x10^3/uL Red Blood Count 2.58 x10^6/uL Hemoglobin 8.2 g/dL Hematocrit 24.9 % Mean Corpuscular Volume 97 fL Mean Corpuscular Hemoglobin 32 pg Mean Corpuscular Hemoglobin Concent 33 g/dL Red Cell Distribution Width 22.9 % Platelet Count 90 x10^3/uL Neutrophils (%) (Auto) 86 % Lymphocytes (%) (Auto) 11 % Monocytes (%) (Auto) 3 % Eosinophils (%) (Auto) 0 % Basophils (%) (Auto) 0 % Neutrophils # (Auto) 4.6 x10^3/uL Lymphocytes # (Auto) 0.6 x10^3/uL Monocytes # (Auto) 0.1 x10^3/uL Eosinophils # (Auto) 0.0 x10^3/uL Basophils # (Auto) 0.0 x10^3/uL Sodium Level 144 mmol/L Potassium Level 3.4 mmol/L Chloride Level 111 mmol/L Carbon Dioxide Level 17 mmol/L Anion Gap 16 Blood Urea Nitrogen 10 mg/dL Creatinine 0.5 mg/dL Estimated GFR (Cockcroft-Gault) 125.9 Glucose Level 139 mg/dL Calcium Level 6.9 mg/dL Imaging: CT A/P 03/06 IMPRESSION: 1. Persistent diffuse wall thickening involving the colon. 2. Moderate amount of free fluid in the abdomen, not significant changed from prior. PE: GEN: uncomfortable - looks worse this time, thinner and weaker LUNGS: CTAB HEART: RRR ABD: some distention, fairly quiet NEURO/PSYCH: A & O 3, speaks Swedish A/P: Metastatic pancreatic cancer s/p Whipple Chronic abdominal pain and n/v Dysphagia - new Acid reflux - on PPI at home Chronic anemia, +Hemoccult Recent C Diff - did not finish recommended course of vanco due to pharmacy issue - now denies diarrhea and C Diff negative, "persistent diffuse wall thickening involving the colon" on CT report -- Back again, chronic pain issues. IV PPI for now. Await esophagram. Will review C Diff situation w/ Dr. Garza. Long-term prognosis poor. Justicifation of Admission Dx: Justifications for Admission: Justification of Admission Dx: Yes ROGERS POLANCO March 08, 2022 10:53
[2022-03-08 11:00] VITALS: BP_SYST 108; BP_SYST 90; BP_DIAS 62; BP_DIAS 72
[2022-03-08] MEDS ORDERED: BARIUM SULFATE 60% 355 ML SUSP PO ONE (12:00)
--- NOTE | 2022-03-08 12:01 | RAD ---
DG VIDEO SWALLOW STUDY Reason for Examination: Reason: Difficulty swallowing with regurgitation of liquids and solids With the patient in the lateral projection, using video observation and recording, the patient was as ked to swallow barium liquid, barium impregnated pudding, and chew and swallow barium cracker. No penetration or aspiration. Interpretation (personally supervised): Total fluoroscopy time was 1.2 minutes. Fluoroscopic spot images: 5 Impression: 1. No evidence of aspiration or penetration. Please refer to speech pathology notes for further details. Electronically signed by: Jarvis Villela DO (03/08/2022 11:59 AM) [id number]
--- NOTE | 2022-03-08 12:26 | PDOC ---
SURGICAL PROGRESS NOTE DATE: 03/08/22 TIME: 12:23 Subjective Pt with c/o lower abd pain, difficult with swallowing Vital Signs Vital Signs Date Time Temp Pulse Resp B/P (MAP) Pulse Ox O2 Delivery O2 Flow Rate FiO2 03/08/22 11:00 97.5 105 18 108/72 (84) 99 Room Air 97.5 I&O Intake and Output 03/08/22 07:00 Intake Total 620 ml Balance 620 ml Intake Oral 120 ml IV Total 500 ml # Voids 2 General: Alert, Oriented X3, moderate distress, Other (thin) Abdomen: Soft, Other (TTP lower abdomen) Labs Laboratory Tests Test 03/06/22 18:00 03/06/22 18:30 03/06/22 19:05 03/06/22 19:47 White Blood Count 6.5 x10^3/uL (4.0-11.0) Red Blood Count 3.05 x10^6/uL (3.50-5.40) Hemoglobin 9.8 g/dL (12.0-15.5) Hematocrit 29.4 % (36.0-47.0) Mean Corpuscular Volume 96 fL (79-100) Mean Corpuscular Hemoglobin 32 pg (25-35) Mean Corpuscular Hemoglobin Concent 33 g/dL (31-37) Red Cell Distribution Width 23.3 % (11.5-14.5) Platelet Count 123 x10^3/uL (140-400) Neutrophils (%) (Auto) 82 % (31-73) Lymphocytes (%) (Auto) 13 % (24-48) Monocytes (%) (Auto) 5 % (0-9) Eosinophils (%) (Auto) 0 % (0-3) Basophils (%) (Auto) 0 % (0-3) Neutrophils # (Auto) 5.3 x10^3/uL (1.8-7.7) Lymphocytes # (Auto) 0.8 x10^3/uL (1.0-4.8) Monocytes # (Auto) 0.3 x10^3/uL (0.0-1.1) Eosinophils # (Auto) 0.0 x10^3/uL (0.0-0.7) Basophils # (Auto) 0.0 x10^3/uL (0.0-0.2) Stool Occult Blood Positive (NEG) Sodium Level 149 mmol/L (136-145) Potassium Level 2.7 mmol/L (3.5-5.1) Chloride Level 111 mmol/L (98-107) Carbon Dioxide Level 23 mmol/L (21-32) Anion Gap 15 (6-14) Blood Urea Nitrogen 11 mg/dL (7-20) Creatinine 0.6 mg/dL (0.6-1.0) Estimated GFR (Cockcroft-Gault) 102.0 BUN/Creatinine Ratio 18 (6-20) Glucose Level 103 mg/dL (70-99) Calcium Level 7.4 mg/dL (8.5-10.1) Magnesium Level 2.0 mg/dL (1.8-2.4) Total Bilirubin 0.9 mg/dL (0.2-1.0) Aspartate Amino Transf (AST/SGOT) 25 U/L (15-37) Alanine Aminotransferase (ALT/SGPT) 17 U/L (14-59) Alkaline Phosphatase 149 U/L (46-116) Troponin I High Sensitivity 5 ng/L (4-50) Total Protein 5.0 g/dL (6.4-8.2) Albumin 1.9 g/dL (3.4-5.0) Albumin/Globulin Ratio 0.6 (1.0-1.7) Lipase 468 U/L (73-393) Clostridium difficile Toxin (PCR) Negative (NEGATIVE) Test 03/06/22 20:30 03/06/22 23:45 03/07/22 11:23 Prothrombin Time 18.6 SEC (11.7-14.0) Prothromb Time International Ratio 1.6 (0.8-1.1) Activated Partial Thromboplast Time 24 SEC (24-38) Lactic Acid Level 0.9 mmol/L (0.4-2.0) White Blood Count 5.4 x10^3/uL (4.0-11.0) Red Blood Count 2.58 x10^6/uL (3.50-5.40) Hemoglobin 8.2 g/dL (12.0-15.5) Hematocrit 24.9 % (36.0-47.0) Mean Corpuscular Volume 97 fL (79-100) Mean Corpuscular Hemoglobin 32 pg (25-35) Mean Corpuscular Hemoglobin Concent 33 g/dL (31-37) Red Cell Distribution Width 22.9 % (11.5-14.5) Platelet Count 90 x10^3/uL (140-400) Neutrophils (%) (Auto) 86 % (31-73) Lymphocytes (%) (Auto) 11 % (24-48) Monocytes (%) (Auto) 3 % (0-9) Eosinophils (%) (Auto) 0 % (0-3) Basophils (%) (Auto) 0 % (0-3) Neutrophils # (Auto) 4.6 x10^3/uL (1.8-7.7) Lymphocytes # (Auto) 0.6 x10^3/uL (1.0-4.8) Monocytes # (Auto) 0.1 x10^3/uL (0.0-1.1) Eosinophils # (Auto) 0.0 x10^3/uL (0.0-0.7) Basophils # (Auto) 0.0 x10^3/uL (0.0-0.2) Sodium Level 144 mmol/L (136-145) Potassium Level 3.4 mmol/L (3.5-5.1) Chloride Level 111 mmol/L (98-107) Carbon Dioxide Level 17 mmol/L (21-32) Anion Gap 16 (6-14) Blood Urea Nitrogen 10 mg/dL (7-20) Creatinine 0.5 mg/dL (0.6-1.0) Estimated GFR (Cockcroft-Gault) 125.9 Glucose Level 139 mg/dL (70-99) Calcium Level 6.9 mg/dL (8.5-10.1) Problem List Problems Medical Problems: (1) Acute hypokalemia Status: Acute (2) Colitis Status: Acute (3) Intractable abdominal pain Status: Acute Assessment/Plan etiology of pain unclear, but may be pancreatic ascites from blockage of pancreatic duct from malignancy. Pt has previous benefitted from drain/aspiration. Will ask IR to place drain and ask to sample for lipase. Agree with plans for working towards palliative care. D/w pt's daughter and ho spitalist on phone. Justicifation of Admission Dx: Justifications for Admission: Justification of Admission Dx: Yes OG CASTANEDA MD March 08, 2022 12:25
[2022-03-08] MEDS: HYDROmorphone 2 MG/ML INJ. IVP PRN ×2 (12:29→22:53)
[2022-03-08] MEDS: PANTOPRAZOLE IV PUSH 40 MG VIAL. IVP SCH ×2 (12:30→18:10)
--- NOTE | 2022-03-08 12:52 | PDOC ---
[facility] PROGRESS NOTE Date of Service DOS: DATE: 03/08/22 TIME: 12:37 Chief Complaint Chief Complaint Intractable abdominal pain in middle-aged female who has known pancreatic cancer. Suspect she has progression of disease. Her long-term prognosis is very guarded. Once again, we are admitting her for pain management, IV fluids, p.r.n. antiemetics. Consult General Surgery. Consult GI. Consult Oncology. Home meds. Deep venous thrombosis prophylaxis. Full code. Suspect she eventually may need hospice History of Present Illness History of Present Illness 03/08: Patient seen and evaluated bedside. She reports exquisite abdominal pain. Will treat with IV Dilaudid every 4 hours as needed. After discussion with patient's daughter she would like to have hospice be consulted. I discussed with patient's daughter that the whole goal of hospice is to have patient's treated at home instead of frequent ER visits, and she conveyed understanding. Daughter is okay with DNR at this time. Critical care time 33 minutes spent reviewing charts, reviewing labs, reviewing imaging, discussion with patient's daughter, and discussion with RN. 03/07 Evaluated examined at bedside. Continue current. Discussed with bedside RN. With frequent admissions a talk of hospice with patient and family may not be a bad idea. Either way has improved a bit since presentation. Consult recommendations reviewed. Vitals/I&O Vitals/I&O: Vital Signs Date Time Temp Pulse Resp B/P (MAP) Pulse Ox O2 Delivery O2 Flow Rate FiO2 03/08/22 11:00 97.5 105 18 108/72 (84) 99 Room Air 97.5 I & O 03/07/22 03/07/22 03/08/22 15:00 23:00 07:00 Intake Total 120 ml 500 ml Balance 120 ml 500 ml Physical Exam General: Alert, Oriented X3, moderate distress, Other (thin) Heart: Regular rate, Normal S1, Normal S2 Lungs: Clear Abdomen: Soft, Other (TTP lower abdomen) Extremities: No clubbing Skin: No significant lesion Assessment and Plan Assessmemt and Plan Problems Medical Problems: (1) Acute hypokalemia Status: Acute (2) Colitis Status: Acute (3) Intractable abdominal pain Status: Acute Comment Review of Relevant I have reviewed the following items oriana (where applicable) has been applied. Medications: Current Medications Medications (Trade) Dose Ordered Sig/Mague Route PRN Reason Start Time Stop Time Status Last Admin Dose Admin Potassium Chloride/Water 100 ml @ 100 mls/hr Q1H IV 03/07/22 13:30 03/07/22 15:29 DC 03/07/22 15:53 Nystatin (Nystatin Oral Susp) 5 ml [id number] 03/07/22 15:00 03/08/22 09:53 Multi-Ingredient Mouthwash/Gargle (Gi Cocktail) 20 ml 1X ONCE PO 03/07/22 15:45 03/07/22 15:46 DC 03/07/22 15:50 Fentanyl Citrate (Fentanyl 2ml Vial) 50 mcg PRN Q3HRS PRN IVP SEVERE PAIN 7-10 03/07/22 22:15 03/08/22 12:20 DC 03/08/22 09:46 Prochlorperazine Edisylate (Compazine) 10 mg PRN Q6HRS PRN IV NAUSEA/VOMITING 2ND CHOICE 03/07/22 22:15 03/08/22 05:36 Sodium Chloride 500 ml @ 500 mls/hr 1X ONCE IV 03/08/22 04:00 03/08/22 04:59 DC 03/08/22 03:54 Hydromorphone HCl (Dilaudid) 0.4 mg 1X ONCE IVP 03/08/22 06:00 03/08/22 06:01 DC 03/08/22 05:31 Barium Sulfate (Varibar Thin Liquid Apple) 148 gm 1X ONCE PO 03/08/22 10:15 03/08/22 10:19 DC 03/08/22 10:55 Justifications for Admission Other Justification DAVID VANESSA MD March 08, 2022 12:52
[2022-03-08 15:00] VITALS: BP 86/64
[2022-03-08 19:00] VITALS: BP 83/50
[2022-03-08 23:06] VITALS: BP 86/53
[2022-03-09] VITALS (8 sets, daily range): BP systolic 84–129; BP diastolic 57–79
[2022-03-09] MEDS: LEVOTHYROXINE 125 MCG TABLET PO SCH (05:46)
[2022-03-09] MEDS: HYDROmorphone 2 MG/ML INJ. IVP PRN ×4 (05:52→22:31)
[2022-03-09] MEDS: PANTOPRAZOLE IV PUSH 40 MG VIAL. IVP SCH ×2 (07:31→16:30)
--- NOTE | 2022-03-09 08:13 | RAD ---
DG BARIUM SWALLOW History:Reason: dysphagia, Comparison studies: CT March 06, 2022 Technique: Esophagram was performed utilizing double contrast upright examination, single contrast pr one examination, and cine evaluation of cervical esophageal swallow function. Findings: Degraded evaluation due to patient's difficulty with standing and tolerating the oral contr ast. Patient was able to drink several swallows of small volume thin barium. Contrast traversed the e sophagus without difficulty. No definite esophageal diverticulum or obstruction. Contrast is noted in to the severely distended fluid-filled stomach. Patient had discomfort throughout the examination. Th e patient was not able to continue the examination. Fluoroscopic time: 1.5 minutes. Fluoroscopic images: 8 IMPRESSION: 1. Degraded evaluation. No esophageal obstruction. 2. Severely dilated fluid-filled stomach. Recommend further evaluation for gastric outlet obstructio n. Electronically signed by: Jarvis Villela DO (03/09/2022 8:10 AM) [id number]
[2022-03-09] MEDS: SCOPOLAMINE 1.5MG PATCH. TD SCH (08:43)
[2022-03-09] MEDS: fentaNYL 50MCG/HR PATCH 1 PATCH PATCH.TD72 TD SCH (08:44)
[2022-03-09] MEDS: ATORVASTATIN CALCIUM 10 MG TABLET. PO SCH (08:44)
[2022-03-09] MEDS: POTASSIUM BICARB 20 MEQ EFFERVESCENT TABLET. PO SCH (08:45)
[2022-03-09] MEDS: NYSTATIN 100,000 UNITS/ML 5 ML ORAL.SUSP. SWSW SCH ×4 (08:45→20:31)
--- NOTE | 2022-03-09 10:13 | PDOC ---
[facility] [facility] PROGRESS NOTE Date of Service DOS: DATE: 03/09/22 TIME: 10:08 Chief Complaint Chief Complaint Intractable abdominal pain in middle-aged female who has known pancreatic cancer. Suspect she has progression of disease. Her long-term prognosis is very guarded. Once again, we are admitting her for pain management, IV fluids, p.r.n. antiemetics. Consult General Surgery. Consult GI. Consult Oncology. Home meds. Deep venous thrombosis prophylaxis. Full code. Suspect she eventually may need hospice History of Present Illness History of Present Illness 03/09: Patient seen with at bedside. She is having some nausea and vomiting this morning. IR has been consulted for drain placement and sample for lipase. Video swallow study yesterday showed no evidence of aspiration or penetration. Esophagram showed no esophageal obstruction, severely dilated fluid-filled stomach. GI is following for further evaluation of possible gastric outlet obstruction, and possible infectious esophagitis likely s/p chemo. Hospice to evaluate. 03/08: Patient seen and evaluated bedside. She reports exquisite abdominal pain. Will treat with IV Dilaudid every 4 hours as needed. After discussion with patient's daughter she would like to have hospice be consulted. I discussed wi th patient's daughter that the whole goal of hospice is to have patient's treated at home instead of frequent ER visits, and she conveyed understanding. Daughter is okay with DNR at this time. Critical care time 33 minutes spent reviewing charts, reviewing labs, reviewing imaging, discussion with patient's daughter, and discussion with RN. 03/07 Evaluated examined at bedside. Continue current. Discussed with bedside RN. With frequent admissions a talk of hospice with patient and family may not be a bad idea. Either way has improved a bit since presentation. Consult recommendations reviewed. Vitals/I&O Vitals/I&O: Vital Signs Date Time Temp Pulse Resp B/P (MAP) Pulse Ox O2 Delivery O2 Flow Rate FiO2 03/09/22 08:00 Room Air 03/09/22 07:00 97.9 105 18 103/64 (77) 95 97.9 I & O 03/08/22 03/08/22 03/09/22 15:00 23:00 07:00 Intake Total 50 ml 50 ml Output Total 0 ml Balance 50 ml 50 ml 0 ml Physical Exam General: Alert, Oriented X3, moderate distress, Other (thin) Heart: Regular rate, Normal S1, Normal S2 Lungs: Clear Abdomen: Soft, Other (TTP lower abdomen) Extremities: No clubbing Skin: No significant lesion Assessment and Plan Assessmemt and Plan Problems Medical Problems: (1) Acute hypokalemia Status: Acute (2) Colitis Status: Acute (3) Intractable abdominal pain Status: Acute Comment Review of Relevant I have reviewed the following items oriana (where applicable) has been applied. Medications: Current Medications Medications (Trade) Dose Ordered Sig/Mague Route PRN Reason Start Time Stop Time Status Last Admin Dose Admin Fentanyl (Duragesic 50mcg/ Hr Patch) 1 patch Q3DAYS TD 03/09/22 09:00 03/09/22 08:44 Scopolamine (Transderm-Scop) 1 patch Q3DAYS TD 03/09/22 09:00 03/09/22 08:43 Barium Sulfate (Varibar Thin Liquid Apple) 148 gm 1X ONCE PO 03/08/22 10:15 03/08/22 10:19 DC 03/08/22 10:55 Pantoprazole Sodium (PROTONIX VIAL for IV PUSH) 40 mg BIDAC IVP 03/08/22 11:00 03/09/22 07:31 Hydromorphone HCl (Dilaudid) 1 mg PRN Q4HRS PRN IVP PAIN 03/08/22 12:30 03/09/22 05:52 Justifications for Admission Other Justification DAVID VANESSA MD March 09, 2022 10:13
--- NOTE | 2022-03-09 12:09 | PDOC ---
Date of Service: DATE: 03/09/22 TIME: 12:04 Subjective: Subjective: Alone in room - Kinyarwanda speaking but indicates abd pain, distention, and n/v. Says has stooled. Objective: Objective: Reviewed chart - IR asked to see for drain placement/ascites sample for lipase, also plans for Hospice eval. Vital Signs: Vital Signs Date Time Temp Pulse Resp B/P (MAP) Pulse Ox O2 Delivery O2 Flow Rate FiO2 03/09/22 11:20 98.3 99 16 87/59 (68) 95 Room Air 98.3 Imaging: Videoswallow 03/08 Impression: 1. No evidence of aspiration or penetration. Esophagram 03/08 IMPRESSION: 1. Degraded evaluation. No esophageal obstruction. 2. Severely dilated fluid-filled stomach. Recommend further evaluation for gastric outlet obstruction. PE: GEN: chronically ill LUNGS: CTAB HEART: RRR ABD: a few quiet gurgles, some distention, tender to light touch periumbilical NEURO/PSYCH: A & O 3 A/P: Metastatic pancreatic cancer s/p Whipple Chronic abdominal pain, n/v, ?dysphagia, acid reflux Recent C Diff -- Plans as above including Hospice discussion - esophagram noted w/ dilated stomach. Will d/w Dr. Garza. Continue PPI, Nystatin. Resume PO vanco as able. Justicifation of Admission Dx: Justifications for Admission: Justification of Admission Dx: Yes ROGERS POLANCO March 09, 2022 12:09
[2022-03-09] MEDS ORDERED: fentaNYL PF VIAL 100 MCG/2 ML VIAL IVP ONE (13:00)
--- NOTE | 2022-03-09 15:14 | RAD ---
Ultrasound-guided paracentesis. 03/09/2022 3:11 PM Indication: Reason: Ascites and sample for lipase, Discussion: The risks and benefits of the procedure including but not limited to bleeding, hypotensio n, and infection were discussed the patient. Informed consent was obtained. Ultrasound evaluation was performed demonstrating ascites, with the largest pocket and the right lower quadrant. The right low er quadrant was prepped and draped in sterile fashion. 1% lidocaine without epinephrine was administe red for local anesthesia. Under direct ultrasound guidance a 5 [place] Yueh needle was advanced into t he peritoneal space. Serous fluid was aspirated. The catheter was connected to suction and approximat juliocesar 1.1 liters of fluid was removed. The catheter was then removed and manual pressure was held to a chieve hemostasis. A sterile dressing was applied. Impression: Ultrasound-guided paracentesis with removal of 1.1 L of ascites Electronically signed by: Edgard Wei MD (03/09/2022 3:11 PM) [id number]
[2022-03-09] MEDS: AA 4.25 %/CALCIUM/LYTES/D5W 1,000 ML IV SCH (16:00)
[2022-03-09] MEDS: oxyCODONE IR 5 MG TABLET PO PRN (17:20)
--- NOTE | 2022-03-09 18:30 | PDOC ---
PROGRESS NOTES Date of Service DATE: 03/09/22 TIME: 18:29 Subjective Subjective pt complains of continued pain, paracentesis done Objective Objective Vital Signs Date Time Temp Pulse Resp B/P (MAP) Pulse Ox O2 Delivery O2 Flow Rate FiO2 03/09/22 15:00 97.5 100 18 93/64 (74) 97 Room Air 97.5 Intake and Output 03/09/22 07:00 Intake Total 100 ml Output Total 0 ml Balance 100 ml Intake Oral 100 ml Output Urine Total 0 ml # Voids 1 Physical Exam Abdomen: Soft (tender mid and lower abdomen) Assessment Assessment Problems Medical Problems: (1) Acute hypokalemia Status: Acute (2) Colitis Status: Acute (3) Intractable abdominal pain Status: Acute Plan Plan of Care Difficult situation, no specific surgery recs, recommend palliative approach Comment Review of Relevant I have reviewed the following items oriana (where applicable) has been applied. Medications Current Medications Sodium Chloride 1,000 ml @ 1,000 mls/hr Q1H IV Last administered on 03/06/22at 18:08; Start 03/06/22 at 17:45; Stop 03/06/22 at 18:44; Status DC Fentanyl Citrate (Fentanyl 2ml Vial) 50 mcg 1X ONCE IVP Last administered on 03/06/22at 18:08; Start 03/06/22 at 17:45; Stop 03/06/22 at 17:51; Status DC Fentanyl Citrate (Fentanyl 2ml Vial) 50 mcg 1X ONCE IVP Last administered on 03/06/22at 19:27; Start 03/06/22 at 19:30; Stop 03/06/22 at 19:31; Status DC Potassium Chloride/Water 100 ml @ 100 mls/hr Q1H IV Last administered on 03/06/22at 23:27; Start 03/06/22 at 20:00; Stop 03/06/22 at 23:59; Status DC Iohexol (Omnipaque 300 Mg/ml) 75 ml 1X ONCE IV Last administered on 03/06/22at 19:57; Start 03/06/22 at 19:45; Stop 03/06/22 at 19:52; Status DC Sodium Chloride 500 ml @ 500 mls/hr 1X ONCE IV Last administered on 03/06/22at 20:45; Start 03/06/22 at 20:45; Stop 03/06/22 at 21:44; Status DC Fentanyl Citrate (Fentanyl 2ml Vial) 50 mcg PRN Q3HRS PRN IVP SEVERE PAIN 7-10 Last administered on 03/07/22at 14:29; Start 03/06/22 at 21:00; Stop 03/07/22 at 20:59; Status DC Methylprednisolone Sodium Succinate (SOLU-Medrol 125MG VIAL) 125 mg 1X ONCE IV Last administered on 03/06/22at 21:48; Start 03/06/22 at 21:30; Stop 03/06/22 at 21:31; Status DC Atorvastatin Calcium (Lipitor) 10 mg DAILY PO ; Start 03/07/22 at 09:00 Fentanyl (Duragesic 50mcg/ Hr Patch) 1 patch Q3DAYS TD Last administered on 03/09/22at 08:44; Start 03/09/22 at 09:00 Levothyroxine Sodium (Synthroid) 125 mcg DAILY06 PO Last administered on 03/09/22at 05:46; Start 03/07/22 at 06:00 Lorazepam (Ativan) 1 mg PRN Q6HRS PRN PO ANXIETY / AGITATION; Start 03/06/22 at 22:00 Ondansetron HCl (Zofran Odt) 4 mg QIDPRN PRN PO NAUSEA/VOMITING 1ST CHOICE Last administered on 03/08/22at 03:13; Start 03/06/22 at 22:00 Pantoprazole Sodium (Protonix) 40 mg DAILYAC PO ; Start 03/07/22 at 07:30; Stop 03/08/22 at 10:45; Status DC Potassium Bicarbonate (Potassium Effervescent Tablet) 20 meq DAILY PO ; Start 03/07/22 at 09:00 Scopolamine (Transderm-Scop) 1 patch Q3DAYS TD Last administered on 03/09/22at 08:43; Start 03/09/22 at 09:00 Oxycodone HCl (Roxicodone) 10 mg QIDPRN PRN PO SEVERE PAIN 7-10 Last administered on 03/09/22at 17:20; Start 03/06/22 at 22:15 Famotidine (Pepcid Vial) 20 mg 1X ONCE IVP Last administered on 03/07/22at 09:11; Start 03/07/22 at 09:00; Stop 03/07/22 at 09:04; Status DC Prochlorperazine Edisylate (Compazine) 10 mg 1X ONCE IV Last administered on 03/07/22 09:12; Start 03/07/22 at 09:00; Stop 03/07/22 at 09:04; Status DC Potassium Chloride/Water 100 ml @ 100 mls/hr Q1H IV Last administered on 03/07/22at 15:53; Start 03/07/22 at 13:30; Stop 03/07/22 at 15:29; Status DC Nystatin (Nystatin Oral Susp) 5 ml [id number] Last administered on 03/09/22at 17:00; Start 03/07/22 at 15:00 Multi-Ingredient Mouthwash/Gargle (Gi Cocktail) 20 ml 1X ONCE PO Last administered on 03/07/22at 15:50; Start 03/07/22 at 15:45; Stop 03/07/22 at 15:46; Status DC Fentanyl Citrate (Fentanyl 2ml Vial) 50 mcg PRN Q3HRS PRN IVP SEVERE PAIN 7-10 Last administered on 03/08/22at 09:46; Start 03/07/22 at 22:15; Stop 03/08/22 at 12:20; Status DC Prochlorperazine Edisylate (Compazine) 10 mg PRN Q6HRS PRN IV NAUSEA/VOMITING 2ND CHOICE Last administered on 03/08/22at 12:30; Start 03/07/22 at 22:15 Sodium Chloride 500 ml @ 500 mls/hr 1X ONCE IV Last administered on 03/08/22 03:54; Start 03/08/22 at 04:00; Stop 03/08/22 at 04:59; Status DC Hydromorphone HCl (Dilaudid) 0.4 mg 1X ONCE IVP Last administered on 03/08/22at 05:31; Start 03/08/22 at 06:00; Stop 03/08/22 at 06:01; Status DC Barium Sulfate (Varibar Thin Liquid Apple) 148 gm 1X ONCE PO Last administered on 03/08/22at 10:55; Start 03/08/22 at 10:15; Stop 03/08/22 at 10:19; Status DC Pantoprazole Sodium (PROTONIX VIAL for IV PUSH) 40 mg BIDAC IVP Last administered on 03/09/22at 16:30; Start 03/08/22 at 11:00 Barium Sulfate (Liquid E-Z Paque) 355 ml 1X ONCE PO ; Start 03/08/22 at 12:00; Stop 03/08/22 at 12:01; Status DC Hydromorphone HCl (Dilaudid) 1 mg PRN Q4HRS PRN IVP PAIN Last administered on 03/09/22at 18:15; Start 03/08/22 at 12:30 Fentanyl Citrate (Fentanyl 2ml Vial) 50 mcg 1X ONCE IVP Last administered on 03/09/22at 12:52; Start 03/09/22 at 13:00; Stop 03/09/22 at 13:01; Status DC Amino Acids/ Electrolytes/ Dextrose 1,000 ml @ 80 mls/hr [id number] IV Last administered on 03/09/22at 16:00; Start 03/09/22 at 16:00 Active Scripts Active Pantoprazole Sodium (Pantoprazole Sodium) 40 Mg Tablet.dr 40 Mg PO DAILYAC 30 Days Vancomycin Hcl 500 Mg Vial 125 Mg PO BID 14 Days Oxycodone Hcl Immed.release (Oxycodone Hcl) 10 Mg Tablet 1 Tab PO QIDPRN PRN MDD 4 Tablet(s) 30 Days Ondansetron Odt (Ondansetron) 4 Mg Tab.rapdis 1 Tab PO PRN Q6-8HRS PRN 30 Days FENTANYL 50mcg/hr (Fentanyl) 1 Each Patch.td72 1 Patch TD Q3DAYS 30 Days Effer-K 20 Meq Tablet Eff (Potassium Bicarbonate/Cit Ac) 20 Meq Tablet.eff 1 Tab PO DAILY 30 Days Ativan (Lorazepam) 1 Mg Tablet 1 Mg PO PRN Q6HRS PRN Transderm-Scop (Scopolamine) 1 Each Patch.td72 1 Patch TD Q3DAYS Reported Atorvastatin Calcium 10 Mg Tablet 1 Tab PO DAILY Levothyroxine Sodium 125 Mcg Tablet 1 Tab PO DAILY Vitals/I & O Vital Sign - Last 24 Hours 03/08/22 03/08/22 03/08/22 03/08/22 19:00 19:00 22:53 23:06 Temp 97.7 98.0 97.7 98.0 Pulse 89 93 Resp 20 16 20 B/P (MAP) 83/50 (61) 86/53 (64) Pulse Ox 98 O2 Delivery Room Air Room Air Room Air Room Air 03/08/22 03/09/22 03/09/22 03/09/22 23:20 03:13 05:52 06:13 Temp 97.9 97.9 Pulse 99 Resp 14 18 16 12 B/P (MAP) 84/57 (66) Pulse Ox 94 O2 Delivery Room Air Room Air Room Air Room Air 03/09/22 03/09/22 03/09/22 03/09/22 07:00 08:00 11:20 12:45 Temp 97.9 98.3 97.9 98.3 Pulse 105 99 129 Resp 18 16 24 B/P (MAP) 103/64 (77) 87/59 (68) 129/75 (93) Pulse Ox 95 95 99 O2 Delivery Room Air Room Air Room Air 03/09/22 03/09/22 03/09/22 12:52 13:00 15:00 Temp 97.5 97.5 Pulse 112 100 Resp 24 18 18 B/P (MAP) 115/79 (91) 93/64 (74) Pulse Ox 99 97 O2 Delivery Room Air Room Air Intake and Output 03/08/22 03/08/22 03/09/22 15:00 23:00 07:00 Intake Total 50 ml 50 ml Output Total 0 ml Balance 50 ml 50 ml 0 ml Justifications for Admission Other Justification ARTUR MARTIN MD March 09, 2022 18:30
[2022-03-09] MEDS: PROCHLORPERAZINE 10 MG/2 ML VIAL. IV PRN (22:31)
[2022-03-10 03:23] VITALS: BP 94/69
[2022-03-10] MEDS: AA 4.25 %/CALCIUM/LYTES/D5W 1,000 ML IV SCH ×2 (04:15→18:27)
[2022-03-10] MEDS: HYDROmorphone 2 MG/ML INJ. IVP PRN ×3 (04:19→13:42)
[2022-03-10] MEDS: LEVOTHYROXINE 125 MCG TABLET PO SCH (05:30)
[2022-03-10 07:00] VITALS: BP 93/65
[2022-03-10] MEDS: PANTOPRAZOLE IV PUSH 40 MG VIAL. IVP SCH ×2 (07:43→17:05)
[2022-03-10] MEDS: oxyCODONE IR 5 MG TABLET PO PRN ×2 (07:43→12:48)
[2022-03-10] MEDS: PROCHLORPERAZINE 10 MG/2 ML VIAL. IV PRN ×2 (07:43→21:22)
[2022-03-10] MEDS: ATORVASTATIN CALCIUM 10 MG TABLET. PO SCH (09:22)
[2022-03-10] MEDS: POTASSIUM BICARB 20 MEQ EFFERVESCENT TABLET. PO SCH (09:22)
[2022-03-10] MEDS: NYSTATIN 100,000 UNITS/ML 5 ML ORAL.SUSP. SWSW SCH (09:22)
[2022-03-10 11:00] VITALS: BP 85/53
--- NOTE | 2022-03-10 11:44 | PDOC ---
Date of Service: DATE: 03/10/22 TIME: 11:36 Subjective: Subjective: Vomiting, feels full up to throat, painful swallowing, difficulty w/ PO meds. Ongoing abd pain, no change w/ paracentesis. Stooled yesterday. asked if "they saw something else with the ultrasound" yesterday. Pain meds not working. Objective: Objective: D/w Dr. Jimenez. Reviewed SS note: ...pt and family not agreeable to hospice services at this time. Pt's family reported that they still want to pursue treatment. They reported that they are taking a break from treatment to allow for pt to get a little stronger to better tolerate the next round of treatment. Information was provided to family on hospice. Physician notified. Self pay. Vital Signs: Vital Signs Date Time Temp Pulse Resp B/P (MAP) Pulse Ox O2 Delivery O2 Flow Rate FiO2 03/10/22 10:06 96 Room Air 03/10/22 07:00 98.6 120 18 93/65 (74) 98.6 Imaging: Paracentesis 03/09 Impression: Ultrasound-guided paracentesis with removal of 1.1 L of ascites PE: GEN: thin, appears chronically ill, uncomfortable HEART: tachycardic ABD: quiet, some distention, tender to light palpation NEURO/PSYCH: A & O 3, speaks [place], interprets A/P: Metastatic pancreatic cancer s/p Whipple Chronic abdominal pain, n/v/reflux, dysphagia/odynophagia, dilated stomach on esophagram Recent C Diff -- Difficult situation - chronic/worsening issues likely due to metastatic cancer - prognosis poor and pt declines Hospice. Getting Nystatin empirically but difficulty tolerating this, can change to IV anti-fungal. Continue IV PPI. Consider resuming vanco if able for recent C Diff (?incompletely treated - negative now). Not sure we have much more to offer from GI standpoint. Justicifation of Admission Dx: Justifications for Admission: Justification of Admission Dx: Yes ROGERS POLANCO March 10, 2022 11:44
--- NOTE | 2022-03-10 12:00 | PDOC ---
[employer] PROGRESS NOTE Date of Service DOS: DATE: 03/10/22 TIME: 11:57 Chief Complaint Chief Complaint Intractable abdominal pain in middle-aged female who has known pancreatic cancer. Suspect she has progression of disease. Her long-term prognosis is very guarded. Once again, we are admitting her for pain management, IV fluids, p.r.n. antiemetics. Consult General Surgery. Consult GI. Consult Oncology. Home meds. Deep venous thrombosis prophylaxis. Full code. Suspect she eventually may need hospice History of Present Illness History of Present Illness 03/10: Afebrile. Had ultrasound-guided paracentesis yesterday with removal of 1.1 L of ascites. Still with nausea and abdominal pain today. Family had discussion with home hospice company and would not like to pursue hospice at this time. GI and general surgery notes reviewed. 03/09: Patient seen with at bedside. She is having some nausea and vomiting this morning. IR has been consulted for drain placement and sample for lipase. Video swallow study yesterday showed no evidence of aspiration or penetration. Esophagram showed no esophageal obstruction, severely dilated fluid-filled stomach. GI is following for further evaluation of possible gastric outlet obstruction, and possible infectious esophagitis likely s/p chemo. Hospice to evaluate. 03/08: Patient seen and evaluated bedside. She reports exquisite abdominal pain. Will treat with IV Dilaudid every 4 hours as needed. After discussion with patient's daughter she would like to have hospice be consulted. I discussed with patient's daughter that the whole goal of hospice is to have patient's treated at home instead of frequent ER visits, and she conveyed understanding. Daughter is okay with DNR at this time. Critical care time 33 minutes spent reviewing charts, reviewing labs, reviewing imaging, discussion with patient's daughter, and discussion with RN. 03/07 Evaluated examined at bedside. Continue current. Discussed with bedside RN. With frequent admissions a talk of hospice with patient and family may not be a bad idea. Either way has improved a bit since presentation. Consult recommendations reviewed. Vitals/I&O Vitals/I&O: Vital Signs Date Time Temp Pulse Resp B/P (MAP) Pulse Ox O2 Delivery O2 Flow Rate FiO2 03/10/22 11:00 98.2 113 18 85/53 (64) 96 Room Air 98.2 I & O 03/09/22 03/09/22 03/10/22 15:00 23:00 07:00 Intake Total 0 ml 0 ml 1050 ml Output Total 1100 ml Balance -1100 ml 0 ml 1050 ml Physical Exam General: Alert, Oriented X3, moderate distress, Other (thin) Heart: Regular rate, Normal S1, Normal S2 Lungs: Clear Abdomen: Soft (tender mid and lower abdomen) Extremities: No clubbing Skin: No significant lesion Assessment and Plan Assessmemt and Plan Problems Medical Problems: (1) Acute hypokalemia Status: Acute (2) Colitis Status: Acute (3) Intractable abdominal pain Status: Acute Comment Review of Relevant I have reviewed the following items oriana (where applicable) has been applied. Medications: Current Medications Medications (Trade) Dose Ordered Sig/Mague Route PRN Reason Start Time Stop Time Status Last Admin Dose Admin Fentanyl Citrate (Fentanyl 2ml Vial) 50 mcg 1X ONCE IVP 03/09/22 13:00 03/09/22 13:01 DC 03/09/22 12:52 Amino Acids/ Electrolytes/ Dextrose 1,000 ml @ 80 mls/hr [id number] IV 03/09/22 16:00 03/10/22 04:15 Justifications for Admission Other Justification DAVID VANESSA MD March 10, 2022 12:00
[2022-03-10] MEDS: FLUCONAZOLE 100MG/50ML PREMIX 50 ML IV SCH (12:58)
[2022-03-10 13:20] LABS: HEMATOCRIT 27.8 % (36.0-47.0); HEMOGLOBIN 9.1 g/dL (12.0-15.5); RED BLOOD COUNT 2.85 x10^6/uL (3.50-5.40); RED CELL DISTRIBUTION WIDTH 21.5 % (11.5-14.5); WHITE BLOOD COUNT 10.5 x10^3/uL (4.0-11.0)
[2022-03-10 13:45] LABS: CALCIUM 7.4 mg/dL (8.5-10.1); CREATININE 0.7 mg/dL (0.6-1.0); GFR 85.4; POTASSIUM 3.4 mmol/L (3.5-5.1)
[2022-03-10 15:00] VITALS: BP 92/65
[2022-03-10 19:00] VITALS: BP 84/57
[2022-03-10 23:00] VITALS: BP 80/51
[2022-03-11] MEDS: HYDROmorphone 2 MG/ML INJ. IVP PRN ×4 (03:25→20:53)
[2022-03-11] MEDS: LEVOTHYROXINE 125 MCG TABLET PO SCH (05:45)
[2022-03-11] MEDS: AA 4.25 %/CALCIUM/LYTES/D5W 1,000 ML IV SCH ×2 (05:45→20:39)
[2022-03-11 07:00] VITALS: BP 88/53
[2022-03-11] MEDS: PANTOPRAZOLE IV PUSH 40 MG VIAL. IVP SCH ×2 (07:50→17:57)
[2022-03-11] MEDS: PROCHLORPERAZINE 10 MG/2 ML VIAL. IV PRN ×2 (07:50→20:52)
[2022-03-11] MEDS: ATORVASTATIN CALCIUM 10 MG TABLET. PO SCH (09:39)
[2022-03-11] MEDS: POTASSIUM BICARB 20 MEQ EFFERVESCENT TABLET. PO SCH (09:40)
--- NOTE | 2022-03-11 09:55 | PDOC ---
Date of Service: DATE: 03/11/22 TIME: 09:50 Subjective: Subjective: Asking for pain medication. Uncomfortable swallowing (ate some jello yesterday), nausea and sometimes "spits." No stool in 2 days, asks for suppository, pt asks about "colon inflammation." Objective: Vital Signs: Vital Signs Date Time Temp Pulse Resp B/P (MAP) Pulse Ox O2 Delivery O2 Flow Rate FiO2 03/11/22 09:40 Room Air 03/11/22 07:00 98.3 104 18 88/53 (65) 95 98.3 Labs: Laboratory Tests Test 03/10/22 12:49 White Blood Count 10.5 x10^3/uL Red Blood Count 2.85 x10^6/uL Hemoglobin 9.1 g/dL Hematocrit 27.8 % Mean Corpuscular Volume 97 fL Mean Corpuscular Hemoglobin 32 pg Mean Corpuscular Hemoglobin Concent 33 g/dL Red Cell Distribution Width 21.5 % Platelet Count 114 x10^3/uL Sodium Level 143 mmol/L Potassium Level 3.4 mmol/L Chloride Level 109 mmol/L Carbon Dioxide Level 24 mmol/L Anion Gap 10 Blood Urea Nitrogen 19 mg/dL Creatinine 0.7 mg/dL Estimated GFR (Cockcroft-Gault) 85.4 Glucose Level 193 mg/dL Calcium Level 7.4 mg/dL PE: GEN: uncomfortable in chair LUNGS: CTAB HEART: RRR ABD: some distention, diffuse discomfort, occasional gurgle NEURO/PSYCH: A & O 3, Dominican-speaking A/P: Metastatic pancreatic cancer s/p Whipple - declines Hospice Chronic abdominal pain, n/v, dysphagia/odynophagia - on PPI, empiric Diflucan Recent C Diff - extended vanco course not completed, C Diff negative this admi ssion -- Ongoing pain. Check KUB, resume vanco if able to tolerate PO. Justicifation of Admission Dx: Justifications for Admission: Justification of Admission Dx: Yes ROGERS POLANCO March 11, 2022 09:55
[2022-03-11] MEDS: VANCOMYCIN 125 MG/2.5 ML ORAL SOLUTION. PO SCH (10:12)
--- NOTE | 2022-03-11 10:59 | PDOC ---
[employer] PROGRESS NOTE Date of Service DOS: DATE: 03/11/22 TIME: 10:57 Chief Complaint Chief Complaint Intractable abdominal pain in middle-aged female who has known pancreatic cancer. Suspect she has progression of disease. Her long-term prognosis is very guarded. Once again, we are admitting her for pain management, IV fluids, p.r.n. antiemetics. Consult General Surgery. Consult GI. Consult Oncology. Home meds. Deep venous thrombosis prophylaxis. Full code. Suspect she eventually may need hospice History of Present Illness History of Present Illness 03/11: Afebrile. Pain is manageable with medications. Still with nausea, no vomiting today. Hospice recommended, but the patient and family not amenable to it this time. 03/10: Afebrile. Had ultrasound-guided paracentesis yesterday with removal of 1.1 L of ascites. Still with nausea and abdominal pain today. Family had discussion with home hospice company and would not like to pursue hospice at this time. GI and general surgery notes reviewed. 03/09: Patient seen with at bedside. She is having some nausea and vomiting this morning. IR has been consulted for drain placement and sample for lipase. Video swallow study yesterday showed no evidence of aspiration or penetration. Esophagram showed no esophageal obstruction, severely dilated fluid-filled stomach. GI is following for further evaluation of possible gastric outlet obstruction, and possible infectious esophagitis likely s/p chemo. Hospice to evaluate. 03/08: Patient seen and evaluated bedside. She reports exquisite abdominal pain. Will treat with IV Dilaudid every 4 hours as needed. After discussion with patient's daughter she would like to have hospice be consulted. I discussed with patient's daughter that the whole goal of hospice is to have patient's treated at home instead of frequent ER visits, and she conveyed understanding. Daughter is okay with DNR at this time. Critical care time 33 minutes spent reviewing charts, reviewing labs, reviewing imaging, discussion with patient's daughter, and discussion with RN. 03/07 Evaluated examined at bedside. Continue current. Discussed with bedside RN. With frequent admissions a talk of hospice with patient and family may not be a bad idea. Either way has improved a bit since presentation. Consult recommendations reviewed. Vitals/I&O Vitals/I&O: Vital Signs Date Time Temp Pulse Resp B/P (MAP) Pulse Ox O2 Delivery O2 Flow Rate FiO2 03/11/22 10:13 95 Room Air 03/11/22 07:00 98.3 104 18 88/53 (65) 98.3 I & O 03/10/22 03/10/22 03/11/22 15:00 23:00 07:00 Intake Total 200 ml 1100 ml 222 ml Output Total 0 ml Balance 200 ml 1100 ml 222 ml Physical Exam General: Alert, Oriented X3, moderate distress, Other (thin) Heart: Regular rate, Normal S1, Normal S2 Lungs: Clear Abdomen: Soft (tender mid and lower abdomen) Extremities: No clubbing Skin: No significant lesion Labs Labs: Laboratory Tests Test 03/10/22 12:49 White Blood Count 10.5 x10^3/uL (4.0-11.0) Red Blood Count 2.85 x10^6/uL (3.50-5.40) Hemoglobin 9.1 g/dL (12.0-15.5) Hematocrit 27.8 % (36.0-47.0) Mean Corpuscular Volume 97 fL (79-100) Mean Corpuscular Hemoglobin 32 pg (25-35) Mean Corpuscular Hemoglobin Concent 33 g/dL (31-37) Red Cell Distribution Width 21.5 % (11.5-14.5) Platelet Count 114 x10^3/uL (140-400) Sodium Level 143 mmol/L (136-145) Potassium Level 3.4 mmol/L (3.5-5.1) Chloride Level 109 mmol/L (98-107) Carbon Dioxide Level 24 mmol/L (21-32) Anion Gap 10 (6-14) Blood Urea Nitrogen 19 mg/dL (7-20) Creatinine 0.7 mg/dL (0.6-1.0) Estimated GFR (Cockcroft-Gault) 85.4 Glucose Level 193 mg/dL (70-99) Calcium Level 7.4 mg/dL (8.5-10.1) Assessment and Plan Assessmemt and Plan Problems Medical Problems: (1) Acute hypokalemia Status: Acute (2) Colitis Status: Acute (3) Intractable abdominal pain Status: Acute Comment Review of Relevant I have reviewed the following items oriana (where applicable) has been applied. Medications: Current Medications Medications (Trade) Dose Ordered Sig/Mague Route PRN Reason Start Time Stop Time Status Last Admin Dose Admin Fluconazole/ Sodium Chloride 50 ml @ 100 mls/hr Q24H IV 03/10/22 14:00 03/10/22 12:58 Vancomycin HCl (Vancomycin Oral Solution) 125 mg BID PO 03/11/22 10:00 03/11/22 10:12 Justifications for Admission Other Justification DAVID VANESSA MD March 11, 2022 10:59
[2022-03-11 11:00] VITALS: BP 94/58
[2022-03-11] MEDS: FLUCONAZOLE 100MG/50ML PREMIX 50 ML IV SCH (14:11)
--- NOTE | 2022-03-11 14:58 | RAD ---
XR ABDOMEN 1V History: Reason: abd pain, metastatic pancreatic cancer, recent C Diff / Spl. Instructions: / Histor y: Technique: Supine view the abdomen. Comparison: Esophagram March 08, 2022 Findings: Contrast retained within the distended stomach. Paucity small bowel gas. Postop changes throughout th e abdomen. Impression: 1. Contrast retained within the distended stomach, concerning for gastric outlet obstruction. Electronically signed by: Jarvis Villela DO (03/11/2022 2:55 PM) [id number]
[2022-03-11 15:00] VITALS: BP 83/60
[2022-03-11] MEDS: oxyCODONE IR 5 MG TABLET PO PRN (17:57)
[2022-03-11 19:00] VITALS: BP 91/65
[2022-03-11] MEDS: BISACODYL 10 MG SUPP.RECT. PR PRN (20:40)
[2022-03-11 22:48] VITALS: BP 96/64
[2022-03-12] MEDS: VANCOMYCIN 125 MG/2.5 ML ORAL SOLUTION. PO SCH ×3 (01:47→23:45)
[2022-03-12] MEDS: HYDROmorphone 2 MG/ML INJ. IVP PRN ×4 (02:02→20:21)
[2022-03-12] MEDS: ONDANSETRON ODT 4 MG TAB.RAPDIS. PO PRN ×3 (02:02→23:45)
[2022-03-12 02:39] VITALS: BP 89/50
[2022-03-12] MEDS: LEVOTHYROXINE 125 MCG TABLET PO SCH (06:13)
[2022-03-12 07:00] VITALS: BP 103/70
[2022-03-12] MEDS: SCOPOLAMINE 1.5MG PATCH. TD SCH (08:11)
[2022-03-12] MEDS: POTASSIUM BICARB 20 MEQ EFFERVESCENT TABLET. PO SCH (08:11)
[2022-03-12] MEDS: fentaNYL 50MCG/HR PATCH 1 PATCH PATCH.TD72 TD SCH (08:11)
[2022-03-12] MEDS: ATORVASTATIN CALCIUM 10 MG TABLET. PO SCH (08:12)
[2022-03-12] MEDS: AA 4.25 %/CALCIUM/LYTES/D5W 1,000 ML IV SCH ×2 (08:12→20:19)
[2022-03-12] MEDS: PANTOPRAZOLE IV PUSH 40 MG VIAL. IVP SCH ×2 (08:12→16:05)
[2022-03-12 11:00] VITALS: BP 93/61
--- NOTE | 2022-03-12 11:34 | PDOC ---
[employer] PROGRESS NOTE Date of Service DOS: DATE: 03/12/22 TIME: 11:32 Chief Complaint Chief Complaint Intractable abdominal pain in middle-aged female who has known pancreatic cancer. Suspect she has progression of disease. Her long-term prognosis is very guarded. Once again, we are admitting her for pain management, IV fluids, p.r.n. antiemetics. Consult General Surgery. Consult GI. Consult Oncology. Home meds. Deep venous thrombosis prophylaxis. Full code. Suspect she eventually may need hospice History of Present Illness History of Present Illness 03/12: Patient still with abdominal pain. states that she has nausea secondary to this pain. Refusing hospice; continue with IV pain management. 03/11: Afebrile. Pain is manageable with medications. Still with nausea, no vomiting today. Hospice recommended, but the patient and family not amenable to it this time. 03/10: Afebrile. Had ultrasound-guided paracentesis yesterday with removal of 1.1 L of ascites. Still with nausea and abdominal pain today. Family had discussion with home hospice company and would not like to pursue hospice at this time. GI and general surgery notes reviewed. 03/09: Patient seen with at bedside. She is having some nausea and vomiting this morning. IR has been consulted for drain placement and sample for lipase. Video swallow study yesterday showed no evidence of aspiration or penetration. Esophagram showed no esophageal obstruction, severely dilated fluid-filled stomach. GI is following for further evaluation of possible gastric outlet obstruction, and possible infectious esophagitis likely s/p chemo. Hospice to evaluate. 03/08: Patient seen and evaluated bedside. She reports exquisite abdominal pain. Will treat with IV Dilaudid every 4 hours as needed. After discussion with patient's daughter she would like to have hospice be consulted. I discussed with patient's daughter that the whole goal of hospice is to have patient's treated at home instead of frequent ER visits, and she conveyed understanding. Daughter is okay with DNR at this time. Critical care time 33 minutes spent reviewing charts, reviewing labs, reviewing imaging, discussion with patient's daughter, and discussion with RN. 03/07 Evaluated examined at bedside. Continue current. Discussed with bedside RN. With frequent admissions a talk of hospice with patient and family may not be a bad idea. Either way has improved a bit since presentation. Consult recommendations reviewed. Vitals/I&O Vitals/I&O: Vital Signs Date Time Temp Pulse Resp B/P (MAP) Pulse Ox O2 Delivery O2 Flow Rate FiO2 03/12/22 08:11 Room Air 03/12/22 07:00 97.1 130 18 103/70 (81) 96 97.1 I & O 03/11/22 03/11/22 03/12/22 15:00 23:00 07:00 Intake Total 300 ml 250 ml Balance 300 ml 250 ml Physical Exam General: Alert, Oriented X3, moderate distress, Other (thin) Heart: Regular rate, Normal S1, Normal S2 Lungs: Clear Abdomen: Soft (tender mid and lower abdomen) Extremities: No clubbing Skin: No significant lesion Assessment and Plan Assessmemt and Plan Problems Medical Problems: (1) Acute hypokalemia Status: Acute (2) Colitis Status: Acute (3) Intractable abdominal pain Status: Acute Comment Review of Relevant I have reviewed the following items oriana (where applicable) has been applied. Justifications for Admission Other Justification DAVID VANESSA MD March 12, 2022 11:33
[2022-03-12] MEDS: FLUCONAZOLE 100MG/50ML PREMIX 50 ML IV SCH (13:42)
[2022-03-12] MEDS: PROCHLORPERAZINE 10 MG/2 ML VIAL. IV PRN ×2 (13:42→20:20)
--- NOTE | 2022-03-12 13:56 | PDOC2 ---
CONSULT Date of Consult Date of Consult DATE: 03/12/22 TIME: 13:49 Reason for Consult Reason for Consult: Pancreatic cancer Referring Physician Referring Physician: Dr. Roberts Identification/Chief Complaint Chief Complaint Abdominal pain Source Source: Chart review, Patient History of Present Illness Reason for Visit: Glenis Watson is a 62-year-old female known to me for recent diagnosis of pancreatic cancer. She was initially diagnosed with pancreatic cancer in August 2021. She was admitted to [facility] in September 2021 and underwent Whipple surgery with Dr. Baldwin. She subsequently began adjuvant chemotherapy with FOLFIRINOX. She has completed 4 cycles of adjuvant chemotherapy. Chemotherapy has been complicated by multiple hospitalizations due to recurrent abdominal pain. She has received multiple CT scans for further evaluation of these symptoms over the past [address] in January 2022 showed suspicious liver masses as well as ascites concerning for recurrence of disease. Ultrasound-guided biopsy was recommended and unfortunately these lesions were not visualized on ultrasound. CT was subsequently reviewed at [facility] tumor board and these small liver metastasis were suspicious for cancer but not conclusive. Repeat CT was recommended at short interval. Due to frequent treatment interruptions, I recently recommended discontinuing adjuvant chemotherapy and observing for any signs of recurrent disease. CA 19-9 in February 2022 was elevated at 408. She has now been admitted for hospital management of abdominal pain. Past Medical History Cardiovascular: Hyperlipidemia Pulmonary: No pertinent hx GI: GERD Heme/Onc: Other (Pancreatic cancer status postsurgery and chemotherapy) Hepatobiliary: No pertinent hx Psych: Depression Endocrine: Hypothyroidism Past Surgical History Past Surgical History: Cholecystectomy, Other Family History Family History: Diabetes, High Cholestrol, Hypertension Social History ALCOHOL: none Drugs: None Lives: with Family Current Problem List Problem List Problems Medical Problems: (1) Acute hypokalemia Status: Acute (2) Colitis Status: Acute (3) Intractable abdominal pain Status: Acute Current Medications Current Medications Current Medications Sodium Chloride 1,000 ml @ 1,000 mls/hr Q1H IV Last administered on 03/06/22at 18:08; Start 03/06/22 at 17:45; Stop 03/06/22 at 18:44; Status DC Fentanyl Citrate (Fentanyl 2ml Vial) 50 mcg 1X ONCE IVP Last administered on 03/06/22at 18:08; Start 03/06/22 at 17:45; Stop 03/06/22 at 17:51; Status DC Fentanyl Citrate (Fentanyl 2ml Vial) 50 mcg 1X ONCE IVP Last administered on 03/06/22at 19:27; Start 03/06/22 at 19:30; Stop 03/06/22 at 19:31; Status DC Potassium Chloride/Water 100 ml @ 100 mls/hr Q1H IV Last administered on 03/06/22at 23:27; Start 03/06/22 at 20:00; Stop 03/06/22 at 23:59; Status DC Iohexol (Omnipaque 300 Mg/ml) 75 ml 1X ONCE IV Last administered on 03/06/22at 19:57; Start 03/06/22 at 19:45; Stop 03/06/22 at 19:52; Status DC Sodium Chloride 500 ml @ 500 mls/hr 1X ONCE IV Last administered on 03/06/22at 20:45; Start 03/06/22 at 20:45; Stop 03/06/22 at 21:44; Status DC Fentanyl Citrate (Fentanyl 2ml Vial) 50 mcg PRN Q3HRS PRN IVP SEVERE PAIN 7-10 Last administered on 03/07/22at 14:29; Start 03/06/22 at 21:00; Stop 03/07/22 at 20:59; Status DC Methylprednisolone Sodium Succinate (SOLU-Medrol 125MG VIAL) 125 mg 1X ONCE IV Last administered on 03/06/22at 21:48; Start 03/06/22 at 21:30; Stop 03/06/22 at 21:31; Status DC Atorvastatin Calcium (Lipitor) 10 mg DAILY PO Last administered on 03/12/22at 08:12; Start 03/07/22 at 09:00 Fentanyl (Duragesic 50mcg/ Hr Patch) 1 patch Q3DAYS TD Last administered on 02/15 08:11; Start 03/09/22 at 09:00 Levothyroxine Sodium (Synthroid) 125 mcg DAILY06 PO Last administered on 03/12/22 06:13; Start 03/07/22 at 06:00 Lorazepam (Ativan) 1 mg PRN Q6HRS PRN PO ANXIETY / AGITATION; Start 03/06/22 at 22:00 Ondansetron HCl (Zofran Odt) 4 mg QIDPRN PRN PO NAUSEA/VOMITING 1ST CHOICE Last administered on 03/12/22 08:12; Start 03/06/22 at 22:00 Pantoprazole Sodium (Protonix) 40 mg DAILYAC PO ; Start 03/07/22 at 07:30; Stop 03/08/22 at 10:45; Status DC Potassium Bicarbonate (Potassium Effervescent Tablet) 20 meq DAILY PO Last administered on 03/12/22at 08:11; Start 03/07/22 at 09:00 Scopolamine (Transderm-Scop) 1 patch Q3DAYS TD Last administered on 03/12/22at 08:11; Start 03/09/22 at 09:00 Oxycodone HCl (Roxicodone) 10 mg QIDPRN PRN PO SEVERE PAIN 7-10 Last administered on 03/11/22 17:57; Start 03/06/22 at 22:15 Famotidine (Pepcid Vial) 20 mg 1X ONCE IVP Last administered on 03/07/22 09:11; Start 03/07/22 at 09:00; Stop 03/07/22 at 09:04; Status DC Prochlorperazine Edisylate (Compazine) 10 mg 1X ONCE IV Last administered on 03/07/22 09:12; Start 03/07/22 at 09:00; Stop 03/07/22 at 09:04; Status DC Potassium Chloride/Water 100 ml @ 100 mls/hr Q1H IV Last administered on 03/07/22at 15:53; Start 03/07/22 at 13:30; Stop 03/07/22 at 15:29; Status DC Nystatin (Nystatin Oral Susp) 5 ml [id number] Last administered on 03/10/22at 09:22; Start 03/07/22 at 15:00; Stop 03/10/22 at 11:46; Status DC Multi-Ingredient Mouthwash/Gargle (Gi Cocktail) 20 ml 1X ONCE PO Last administ ered on 03/07/22at 15:50; Start 03/07/22 at 15:45; Stop 03/07/22 at 15:46; Status DC Fentanyl Citrate (Fentanyl 2ml Vial) 50 mcg PRN Q3HRS PRN IVP SEVERE PAIN 7-10 Last administered on 03/08/22at 09:46; Start 03/07/22 at 22:15; Stop 03/08/22 at 12:20; Status DC Prochlorperazine Edisylate (Compazine) 10 mg PRN Q6HRS PRN IV NAUSEA/VOMITING 2ND CHOICE Last administered on 03/12/22at 13:42; Start 03/07/22 at 22:15 Sodium Chloride 500 ml @ 500 mls/hr 1X ONCE IV Last administered on 03/08/22at 03:54; Start 03/08/22 at 04:00; Stop 03/08/22 at 04:59; Status DC Hydromorphone HCl (Dilaudid) 0.4 mg 1X ONCE IVP Last administered on 03/08/22at 05:31; Start 03/08/22 at 06:00; Stop 03/08/22 at 06:01; Status DC Barium Sulfate (Varibar Thin Liquid Apple) 148 gm 1X ONCE PO Last administered on 03/08/22at 10:55; Start 03/08/22 at 10:15; Stop 03/08/22 at 10:19; Status DC Pantoprazole Sodium (PROTONIX VIAL for IV PUSH) 40 mg BIDAC IVP Last administered on 03/12/22at 08:12; Start 03/08/22 at 11:00 Barium Sulfate (Liquid E-Z Paque) 355 ml 1X ONCE PO ; Start 03/08/22 at 12:00; Stop 03/08/22 at 12:01; Status DC Hydromorphone HCl (Dilaudid) 1 mg PRN Q4HRS PRN IVP PAIN Last administered on 03/12/22at 08:10; Start 03/08/22 at 12:30; Stop 03/12/22 at 11:36; Status DC Fentanyl Citrate (Fentanyl 2ml Vial) 50 mcg 1X ONCE IVP Last administered on 03/09/22at 12:52; Start 03/09/22 at 13:00; Stop 03/09/22 at 13:01; Status DC Amino Acids/ Electrolytes/ Dextrose 1,000 ml @ 80 mls/hr [id number] IV Last administered on 03/12/22at 08:12; Start 03/09/22 at 16:00 Fluconazole/ Sodium Chloride 50 ml @ 100 mls/hr Q24H IV Last administered on 03/12/22at 13:42; Start 03/10/22 at 14:00; Stop 03/12/22 at 23:00 Vancomycin HCl (Vancomycin Oral Solution) 125 mg BID PO Last administered on 03/12/22at 08:12; Start 03/11/22 at 10:00 Bisacodyl (Dulcolax Supp) 10 mg PRN DAILY PRN ME CONSTIPATION Last administered on 03/11/22at 20:40; Start 03/11/22 at 10:00 Fluconazole (Diflucan) 100 mg DAILY PO ; Start 03/13/22 at 09:00 Hydromorphone HCl (Dilaudid) 2 mg PRN Q4HRS PRN IVP SEVERE PAIN Last administered on 03/12/22at 13:42; Start 03/12/22 at 11:45 Active Scripts Active Pantoprazole Sodium (Pantoprazole Sodium) 40 Mg Tablet.dr 40 Mg PO DAILYAC 30 Days Vancomycin Hcl 500 Mg Vial 125 Mg PO BID 14 Days Oxycodone Hcl Immed.release (Oxycodone Hcl) 10 Mg Tablet 1 Tab PO QIDPRN PRN MDD 4 Tablet(s) 30 Days Ondansetron Odt (Ondansetron) 4 Mg Tab.rapdis 1 Tab PO PRN Q6-8HRS PRN 30 Days FENTANYL 50mcg/hr (Fentanyl) 1 Each Patch.td72 1 Patch TD Q3DAYS 30 Days Effer-K 20 Meq Tablet Eff (Potassium Bicarbonate/Cit Ac) 20 Meq Tablet.eff 1 Tab PO DAILY 30 Days Ativan (Lorazepam) 1 Mg Tablet 1 Mg PO PRN Q6HRS PRN Transderm-Scop (Scopolamine) 1 Each Patch.td72 1 Patch TD Q3DAYS Reported Atorvastatin Calcium 10 Mg Tablet 1 Tab PO DAILY Levothyroxine Sodium 125 Mcg Tablet 1 Tab PO DAILY Allergies Allergies: Coded Allergies: Penicillins (Verified Allergy, Intermediate, 03/09/22) ROS Review of System Negative unless stated otherwise in HPI Physical Exam General: Alert, Oriented X3 HEENT: Atraumatic Lungs: Clear to auscultation Heart: Regular rate Abdomen: Soft Extremities: No cyanosis Skin: No breakdown Neuro: Normal speech Vitals VITALS Vital Signs Date Time Temp Pulse Resp B/P (MAP) Pulse Ox O2 Delivery O2 Flow Rate FiO2 03/12/22 13:42 Room Air 03/12/22 11:00 98.3 119 18 93/61 (72) 95 98.3 Assessment/Plan Assessment/Plan Assessment: Pancreatic cancer Suspicious liver masses, possibly metastasis Ascites Status post Whipple resection Abdominal pain Normocytic anemia likely secondary to antineoplastic therapy Leukocytosis, worsening C. difficile colitis Recommendations: -Once again discussed CT results with patient and her daughter Ana by phone. Discussed that despite negative ascites fluid sampling as well as nonvisualization of liver lesions on recent attempted ultrasound-guided biopsy, suspicion for cancer recurrence was very high -We discussed options at this time including transitioning to hospice versus supportive care with home palliative care at discharge. I recommended considering hospice given higher suspicion for cancer recurrence and significant impairment of quality of life due to cancer and Whipple related symptoms. -Discussed in detail with daughter Ana. They are interested in continuing supportive care at this time and considering hospice if she does not make improvement over the next 4 weeks. -Inpatient care per Dr. Roberts. Will see inpatient as needed Efren Nava MD Medical Oncology/Hematology Ph: [phone] STEVIE NAVA MD March 12, 2022 13:56
[2022-03-12 14:47] VITALS: BP 87/58
[2022-03-12 19:00] VITALS: BP 99/65
[2022-03-12 23:00] VITALS: BP 92/64
[2022-03-13 03:00] VITALS: BP 101/63
[2022-03-13] MEDS: PROCHLORPERAZINE 10 MG/2 ML VIAL. IV PRN ×2 (06:23→13:04)
[2022-03-13] MEDS: HYDROmorphone 2 MG/ML INJ. IVP PRN ×4 (06:23→21:40)
[2022-03-13 07:00] VITALS: BP 90/64
[2022-03-13] MEDS: FLUCONAZOLE 100 MG TABLET. PO SCH (08:54)
[2022-03-13] MEDS: VANCOMYCIN 125 MG/2.5 ML ORAL SOLUTION. PO SCH ×2 (08:54→20:06)
[2022-03-13] MEDS: PANTOPRAZOLE IV PUSH 40 MG VIAL. IVP SCH ×2 (08:54→17:13)
[2022-03-13] MEDS: POTASSIUM BICARB 20 MEQ EFFERVESCENT TABLET. PO SCH (08:54)
[2022-03-13] MEDS: LEVOTHYROXINE 125 MCG TABLET PO SCH (08:54)
[2022-03-13] MEDS: ATORVASTATIN CALCIUM 10 MG TABLET. PO SCH (08:54)
[2022-03-13] MEDS: AA 4.25 %/CALCIUM/LYTES/D5W 1,000 ML IV SCH ×2 (08:55→20:05)
[2022-03-13] MEDS: ONDANSETRON ODT 4 MG TAB.RAPDIS. PO PRN ×3 (08:58→20:10)
[2022-03-13 11:00] VITALS: BP 92/56
--- NOTE | 2022-03-13 11:31 | PDOC ---
[employer] PROGRESS NOTE Date of Service DOS: DATE: 03/13/22 TIME: 11:29 Chief Complaint Chief Complaint Intractable abdominal pain in middle-aged female who has known pancreatic cancer. Suspect she has progression of disease. Her long-term prognosis is very guarded. Once again, we are admitting her for pain management, IV fluids, p.r.n. antiemetics. Consult General Surgery. Consult GI. Consult Oncology. Home meds. Deep venous thrombosis prophylaxis. Full code. Suspect she eventually may need hospice History of Present Illness History of Present Illness 03/13 Evaluated examined at bedside. With some nausea and pain still. Trying to wean IV medications to orals. Still resistant to idea of hospice despite poor prognosis. 03/12: Patient still with abdominal pain. states that she has nausea secondary to this pain. Refusing hospice; continue with IV pain management. 03/11: Afebrile. Pain is manageable with medications. Still with nausea, no vomiting today. Hospice recommended, but the patient and family not amenable to it this time. 03/10: Afebrile. Had ultrasound-guided paracentesis yesterday with removal of 1.1 L of ascites. Still with nausea and abdominal pain today. Family had discussion with home hospice company and would not like to pursue hospice at this time. GI and general surgery notes reviewed. 03/09: Patient seen with at bedside. She is having some nausea and vomiting this morning. IR has been consulted for drain placement and sample for lipase. Video swallow study yesterday showed no evidence of aspiration or penetration. Esophagram showed no esophageal obstruction, severely dilated fluid-filled stomach. GI is following for further evaluation of possible gastric outlet obstruction, and possible infectious esophagitis likely s/p chemo. Hospice to evaluate. 03/08: Patient seen and evaluated bedside. She reports exquisite abdominal pain. Will treat with IV Dilaudid every 4 hours as needed. After discussion with patient's daughter she would like to have hospice be consulted. I discussed with patient's daughter that the whole goal of hospice is to have patient's treated at home instead of frequent ER visits, and she conveyed understanding. Daughter is okay with DNR at this time. Critical care time 33 minutes spent reviewing charts, reviewing labs, reviewing imaging, discussion with patient's daughter, and discussion with RN. 03/07 Evaluated examined at bedside. Continue current. Discussed with bedside RN. With frequent admissions a talk of hospice with patient and family may not be a bad idea. Either way has improved a bit since presentation. Consult recommendations reviewed. Vitals/I&O Vitals/I&O: Vital Signs Date Time Temp Pulse Resp B/P (MAP) Pulse Ox O2 Delivery O2 Flow Rate FiO2 03/13/22 08:55 Room Air 03/13/22 07:00 98.5 106 18 90/64 (73) 96 98.5 I & O 03/12/22 03/12/22 03/13/22 15:00 23:00 07:00 Intake Total 200 ml 1885 ml Balance 200 ml 1885 ml Physical Exam General: Alert, Oriented X3 Heart: Regular rate Lungs: Clear Abdomen: Soft Extremities: No cyanosis Skin: No breakdown Assessment and Plan Assessmemt and Plan Problems Medical Problems: (1) Acute hypokalemia Status: Acute (2) Colitis Status: Acute (3) Intractable abdominal pain Status: Acute Comment Review of Relevant I have reviewed the following items oriana (where applicable) has been applied. Medications: Current Medications Medications (Trade) Dose Ordered Sig/Mague Route PRN Reason Start Time Stop Time Status Last Admin Dose Admin Fluconazole (Diflucan) 100 mg DAILY PO 03/13/22 09:00 03/13/22 08:54 Hydromorphone HCl (Dilaudid) 2 mg PRN Q4HRS PRN IVP SEVERE PAIN 03/12/22 11:45 03/13/22 06:23 Justifications for Admission Other Justification DOMINGO BARCENAS MD March 13, 2022 11:31
[2022-03-13 15:00] VITALS: BP 87/54
[2022-03-13 17:06] LABS: HEMATOCRIT 23.3 % (36.0-47.0); HEMOGLOBIN 7.6 g/dL (12.0-15.5); RED BLOOD COUNT 2.41 x10^6/uL (3.50-5.40); RED CELL DISTRIBUTION WIDTH 20.2 % (11.5-14.5); WHITE BLOOD COUNT 6.1 x10^3/uL (4.0-11.0)
[2022-03-13 17:18] LABS: CALCIUM 7.4 mg/dL (8.5-10.1); CREATININE 0.4 mg/dL (0.6-1.0); GFR 162.8; POTASSIUM 4.2 mmol/L (3.5-5.1)
[2022-03-13 19:53] VITALS: BP 99/68
[2022-03-13 23:36] VITALS: BP 110/67
[2022-03-14] MEDS: HYDROmorphone 2 MG/ML INJ. IVP PRN ×5 (01:58→23:21)
[2022-03-14 03:29] VITALS: BP 97/74
[2022-03-14] MEDS: LEVOTHYROXINE 125 MCG TABLET PO SCH (06:11)
[2022-03-14] MEDS: PANTOPRAZOLE IV PUSH 40 MG VIAL. IVP SCH ×2 (06:11→15:22)
[2022-03-14] MEDS: ONDANSETRON ODT 4 MG TAB.RAPDIS. PO PRN ×2 (06:19→21:20)
[2022-03-14 07:00] VITALS: BP 107/71
[2022-03-14] MEDS: FLUCONAZOLE 100 MG TABLET. PO SCH (10:16)
[2022-03-14] MEDS: ATORVASTATIN CALCIUM 10 MG TABLET. PO SCH (10:17)
[2022-03-14] MEDS: POTASSIUM BICARB 20 MEQ EFFERVESCENT TABLET. PO SCH (10:17)
[2022-03-14] MEDS: VANCOMYCIN 125 MG/2.5 ML ORAL SOLUTION. PO SCH ×2 (10:17→21:20)
[2022-03-14] MEDS: AA 4.25 %/CALCIUM/LYTES/D5W 1,000 ML IV SCH ×2 (10:24→21:20)
[2022-03-14 11:00] VITALS: BP 104/59
[2022-03-14 15:00] VITALS: BP 95/60
[2022-03-14] MEDS: PROCHLORPERAZINE 10 MG/2 ML VIAL. IV PRN ×2 (15:21→21:32)
[2022-03-14] MEDS: oxyCODONE IR 5 MG TABLET PO PRN (18:29)
[2022-03-14 19:00] VITALS: BP 100/63
[2022-03-14 23:00] VITALS: BP 105/69
[2022-03-15] MEDS: oxyCODONE IR 5 MG TABLET PO PRN (00:17)
[2022-03-15 03:00] VITALS: BP 123/85
[2022-03-15] MEDS: PROCHLORPERAZINE 10 MG/2 ML VIAL. IV PRN (05:13)
[2022-03-15] MEDS: HYDROmorphone 2 MG/ML INJ. IVP PRN ×4 (05:14→20:03)
[2022-03-15] MEDS: PANTOPRAZOLE IV PUSH 40 MG VIAL. IVP SCH ×2 (05:47→16:00)
[2022-03-15] MEDS: LEVOTHYROXINE 125 MCG TABLET PO SCH (05:47)
[2022-03-15 07:00] VITALS: BP 112/74
[2022-03-15] MEDS: AA 4.25 %/CALCIUM/LYTES/D5W 1,000 ML IV SCH ×2 (09:18→20:03)
[2022-03-15] MEDS: POTASSIUM BICARB 20 MEQ EFFERVESCENT TABLET. PO SCH (09:19)
[2022-03-15] MEDS: VANCOMYCIN 125 MG/2.5 ML ORAL SOLUTION. PO SCH ×2 (09:19→20:03)
[2022-03-15] MEDS: fentaNYL 50MCG/HR PATCH 1 PATCH PATCH.TD72 TD SCH (09:21)
[2022-03-15] MEDS: FLUCONAZOLE 100 MG TABLET. PO SCH (09:21)
[2022-03-15] MEDS: SCOPOLAMINE 1.5MG PATCH. TD SCH (09:22)
[2022-03-15] MEDS: ATORVASTATIN CALCIUM 10 MG TABLET. PO SCH (09:22)
[2022-03-15 11:00] VITALS: BP 109/79
[2022-03-15] MEDS: ONDANSETRON ODT 4 MG TAB.RAPDIS. PO PRN (11:25)
[2022-03-15 15:00] VITALS: BP 102/77
--- NOTE | 2022-03-15 17:20 | PDOC ---
[employer] [facility] PROGRESS NOTE Date of Service DOS: 03/14 late entry Chief Complaint Chief Complaint Intractable abdominal pain in middle-aged female who has known pancreatic cancer. Suspect she has progression of disease. Her long-term prognosis is very guarded. Once again, we are admitting her for pain management, IV fluids, p.r.n. antiemetics. Consult General Surgery. Consult GI. Consult Oncology. Home meds. Deep venous thrombosis prophylaxis. Full code. Suspect she eventually may need hospice History of Present Illness History of Present Illness 03/14 Evaluated examined at bedside. Continue pain control. Try to wean to orals. Discussed with bedside RN. 03/13 Evaluated examined at bedside. With some nausea and pain still. Trying to wean IV medications to orals. Still resistant to idea of hospice despite poor prognosis. 03/12: Patient still with abdominal pain. states that she has nausea secondary to this pain. Refusing hospice; continue with IV pain management. 03/11: Afebrile. Pain is manageable with medications. Still with nausea, no vomiting today. Hospice recommended, but the patient and family not amenable to it this time. 03/10: Afebrile. Had ultrasound-guided paracentesis yesterday with removal of 1.1 L of ascites. Still with nausea and abdominal pain today. Family had discussion with home hospice company and would not like to pursue hospice at this time. GI and general surgery notes reviewed. 03/09: Patient seen with at bedside. She is having some nausea and vomiting this morning. IR has been consulted for drain placement and sample for lipase. Video swallow study yesterday showed no evidence of aspiration or penetration. Esophagram showed no esophageal obstruction, severely dilated fluid-filled stomach. GI is following for further evaluation of possible gastric outlet obstruction, and possible infectious esophagitis likely s/p chemo. Hospice to evaluate. 03/08: Patient seen and evaluated bedside. She reports exquisite abdominal pain. Will treat with IV Dilaudid every 4 hours as needed. After discussion with patient's daughter she would like to have hospice be consulted. I discussed with patient's daughter that the whole goal of hospice is to have patient's treated at home instead of frequent ER visits, and she conveyed understanding. Daughter is okay with DNR at this time. Critical care time 33 minutes spent reviewing charts, reviewing labs, reviewing imaging, discussion with patient's daughter, and discussion with RN. 03/07 Evaluated examined at bedside. Continue current. Discussed with bedside RN. With frequent admissions a talk of hospice with patient and family may not be a bad idea. Either way has improved a bit since presentation. Consult recommendations reviewed. Vitals/I&O Vitals/I&O: Vital Signs Date Time Temp Pulse Resp B/P (MAP) Pulse Ox O2 Delivery O2 Flow Rate FiO2 03/15/22 16:29 18 03/15/22 15:59 92 Room Air 03/15/22 15:00 98.7 119 102/77 (85) 2.0 98.7 I & O 03/14/22 03/14/22 03/15/22 15:00 23:00 07:00 Intake Total 600 ml 1360 ml Balance 600 ml 1360 ml Physical Exam General: Alert, Oriented X3 Heart: Regular rate Lungs: Clear Abdomen: Soft Extremities: No cyanosis Skin: No breakdown Assessment and Plan Assessmemt and Plan Problems Medical Problems: (1) Acute hypokalemia Status: Acute (2) Colitis Status: Acute (3) Intractable abdominal pain Status: Acute Comment Review of Relevant I have reviewed the following items oriana (where applicable) has been applied. Justifications for Admission Other Justification DOMINGO BARCENAS MD March 15, 2022 17:20
--- NOTE | 2022-03-15 17:21 | PDOC ---
[employer] [facility] PROGRESS NOTE Date of Service DOS: DATE: 03/15/22 TIME: 17:20 Chief Complaint Chief Complaint Intractable abdominal pain in middle-aged female who has known pancreatic cancer. Suspect she has progression of disease. Her long-term prognosis is very guarded. Once again, we are admitting her for pain management, IV fluids, p.r.n. antiemetics. Consult General Surgery. Consult GI. Consult Oncology. Home meds. Deep venous thrombosis prophylaxis. Full code. Suspect she eventually may need hospice History of Present Illness History of Present Illness 03/15 Evaluated examined at bedside. Pain improving a little bit. Wean IV meds as t olerated. Otherwise continue current. Hopeful discharge in next day or 2. 03/14 Evaluated examined at bedside. Continue pain control. Try to wean to orals. Discussed with bedside RN. 03/13 Evaluated examined at bedside. With some nausea and pain still. Trying to wean IV medications to orals. Still resistant to idea of hospice despite poor prognosis. 03/12: Patient still with abdominal pain. states that she has nausea secondary to this pain. Refusing hospice; continue with IV pain management. 03/11: Afebrile. Pain is manageable with medications. Still with nausea, no vomiting today. Hospice recommended, but the patient and family not amenable to it this time. 03/10: Afebrile. Had ultrasound-guided paracentesis yesterday with removal of 1 .1 L of ascites. Still with nausea and abdominal pain today. Family had discussion with home hospice company and would not like to pursue hospice at this time. GI and general surgery notes reviewed. 03/09: Patient seen with at bedside. She is having some nausea and vomiting this morning. IR has been consulted for drain placement and sample for lipase. Video swallow study yesterday showed no evidence of aspiration or penetration. Esophagram showed no esophageal obstruction, severely dilated f luid-filled stomach. GI is following for further evaluation of possible gastric outlet obstruction, and possible infectious esophagitis likely s/p chemo. Hospice to evaluate. 03/08: Patient seen and evaluated bedside. She reports exquisite abdominal pain. Will treat with IV Dilaudid every 4 hours as needed. After discussion with patient's daughter she would like to have hospice be consulted. I discussed with patient's daughter that the whole goal of hospice is to have patient's treated at home instead of frequent ER visits, and she conveyed understanding. Daughter is okay with DNR at this time. Critical care time 33 minutes spent reviewing charts, reviewing labs, reviewing imaging, discussion with patient's daughter, and discussion with RN. 03/07 Evaluated examined at bedside. Continue current. Discussed with bedside RN. With frequent admissions a talk of hospice with patient and family may not be a bad idea. Either way has improved a bit since presentation. Consult recommendations reviewed. Vitals/I&O Vitals/I&O: Vital Signs Date Time Temp Pulse Resp B/P (MAP) Pulse Ox O2 Delivery O2 Flow Rate FiO2 03/15/22 16:29 18 03/15/22 15:59 92 Room Air 03/15/22 15:00 98.7 119 102/77 (85) 2.0 98.7 I & O 03/14/22 03/14/22 03/15/22 15:00 23:00 07:00 Intake Total 600 ml 1360 ml Balance 600 ml 1360 ml Physical Exam General: Alert, Oriented X3 Heart: Regular rate Lungs: Clear Abdomen: Soft Extremities: No cyanosis Skin: No breakdown Assessment and Plan Assessmemt and Plan Problems Medical Problems: (1) Acute hypokalemia Status: Acute (2) Colitis Status: Acute (3) Intractable abdominal pain Status: Acute Comment Review of Relevant I have reviewed the following items oriana (where applicable) has been applied. Justifications for Admission Other Justification DOMINGO BARCENAS MD March 15, 2022 17:21
[2022-03-15 19:00] VITALS: BP 123/86
[2022-03-15 23:00] VITALS: BP 101/78
[2022-03-16] MEDS: PROCHLORPERAZINE 10 MG/2 ML VIAL. IV PRN ×3 (01:19→16:07)
[2022-03-16] MEDS: HYDROmorphone 2 MG/ML INJ. IVP PRN ×2 (01:25→08:26)
[2022-03-16 03:21] VITALS: BP 135/91
[2022-03-16] MEDS: LEVOTHYROXINE 125 MCG TABLET PO SCH (06:22)
[2022-03-16 07:00] VITALS: BP 133/96
[2022-03-16] MEDS: PANTOPRAZOLE IV PUSH 40 MG VIAL. IVP SCH ×2 (08:25→16:57)
[2022-03-16] MEDS: VANCOMYCIN 125 MG/2.5 ML ORAL SOLUTION. PO SCH ×2 (09:00→20:18)
[2022-03-16] MEDS: POTASSIUM BICARB 20 MEQ EFFERVESCENT TABLET. PO SCH (09:00)
[2022-03-16] MEDS ORDERED: oxyCODONE IR 5 MG TABLET PO PRN (09:00)
[2022-03-16] MEDS: ATORVASTATIN CALCIUM 10 MG TABLET. PO SCH (09:00)
[2022-03-16 11:00] VITALS: BP 116/79
[2022-03-16] MEDS: BISACODYL 10 MG SUPP.RECT. PR PRN (11:46)
[2022-03-16] MEDS: FLUCONAZOLE 100 MG TABLET. PO SCH (11:46)
--- NOTE | 2022-03-16 11:52 | PDOC ---
BEREKET ZULUAGA [employer] ACCOUNT EXECUTIVE 03/16/22 1152: SURGICAL PROGRESS NOTE DATE: 03/16/22 TIME: 11:46 Subjective sleeping, resting family present concerned with no bowel function, more distention since yesterday Vital Signs Vital Signs Date Time Temp Pulse Resp B/P (MAP) Pulse Ox O2 Delivery O2 Flow Rate FiO2 03/16/22 10:26 94 Nasal Cannula 2.0 03/16/22 07:00 98.0 134 20 133/96 (108) 98.0 I&O Intake and Output 03/16/22 07:00 Intake Total 500 ml Output Total 0 ml Balance 500 ml Intake Oral 500 ml Output Urine Total 0 ml # Voids 1 General: Other (frail) Abdomen: Other (distended , soft) Problem List Problems Medical Problems: (1) Acute hypokalemia Status: Acute (2) Colitis Status: Acute (3) Intractable abdominal pain Status: Acute Assessment/Plan kub pending supportive care family and pt not interested in hospice no surgical plans Justicifation of Admission Dx: Justifications for Admission: Justification of Admission Dx: Yes OG CASTANEDA MD 03/16/22 1301: SURGICAL PROGRESS NOTE Assessment/Plan Pt seen and examined. Agree with Ms. Zuluaga's note Pt minimally responsive, thin abd soft, distended, some TTP diffusely, ecchymosis on stomach KUB with retained contrast in stomach. C/w gastric outlet obstruction. Given elevated INR and ascites, favor increasing liver dysfunction. Suspect secondary to stricturing of portal vein As such, surgical intervention of obstruction unlikely to be tolerated by pt. Pt's daughter present and appears to understand. She will d/w family and consider palliative care. BEREKET ZULUAGA APRN March 16, 2022 11:52 OG CASTANEDA MD March 16, 2022 13:01
--- NOTE | 2022-03-16 12:55 | RAD ---
XR ABDOMEN 1V History: Abdominal distention. Comparison: 03/11/2022 Technique: Supine radiograph of the abdomen. Findings: Bowel gas pattern: Gaseous distended stomach which contains radiodense barium material. A few loops o f gas-filled bowel in the right lower quadrant. Free air: No supine evidence. Abnormal calcifications: None. Bones: No acute findings. Other: Surgical clips and chain sutures in the right upper quadrant. Impression: 1. Distended stomach containing barium from speech exam approximately one week prior concerning for gastric outlet obstruction. 2. Nonspecific mildly prominent gas-filled loops of bowel in the right lower quadrant. Electronically signed by: Burke Orozco MD (03/16/2022 12:53 PM) [id number]
[2022-03-16] MEDS: AA 4.25 %/CALCIUM/LYTES/D5W 1,000 ML IV SCH (13:03)
[2022-03-16 15:00] VITALS: BP 118/77
[2022-03-16] MEDS: MORPHINE SULFATE 20 MG/ML CONC SOLUTION. SL PRN ×2 (15:03→17:48)
[2022-03-16 19:00] VITALS: BP 110/79
[2022-03-16] MEDS ORDERED: HYDROmorphone 2 MG/ML INJ. IVP PRN (19:00)
--- NOTE | 2022-03-17 08:15 | PDOC ---
[employer] [facility] PROGRESS NOTE Date of Service DOS: 03/16 late entry Chief Complaint Chief Complaint Intractable abdominal pain in middle-aged female who has known pancreatic cancer. Suspect she has progression of disease. Her long-term prognosis is very guarded. Once again, we are admitting her for pain management, IV fluids, p.r.n. antiemetics. Consult General Surgery. Consult GI. Consult Oncology. Home meds. Deep venous thrombosis prophylaxis. Full code. Suspect she eventually may need hospice History of Present Illness History of Present Illness 03/16 Patient evaluated examined at bedside. Started on Roxanol today. Did have some incontinence episodes per RN. Continues to have very poor prognosis. Patient and family member at bedside still resistant to entertaining idea of hospice. We will continue discussion with them. If still no progress in this regard will probably just have to discharge with home health again. 03/15 Evaluated examined at bedside. Pain improving a little bit. Wean IV meds as tolerated. Otherwise continue current. Hopeful discharge in next day or 2. 03/14 Evaluated examined at bedside. Continue pain control. Try to wean to orals. Discussed with bedside RN. 03/13 Evaluated examined at bedside. With some nausea and pain still. Trying to wean IV medications to orals. Still resistant to idea of hospice despite poor prognosis. 03/12: Patient still with abdominal pain. states that she has nausea secondary to this pain. Refusing hospice; continue with IV pain management. 03/11: Afebrile. Pain is manageable with medications. Still with nausea, no vomiting today. Hospice recommended, but the patient and family not amenable to it this time. 03/10: Afebrile. Had ultrasound-guided paracentesis yesterday with removal of 1.1 L of ascites. Still with nausea and abdominal pain today. Family had discussion with home hospice company and would not like to pursue hospice at this time. GI and general surgery notes reviewed. 03/09: Patient seen with at bedside. She is having some nausea and vomiting this morning. IR has been consulted for drain placement and sample for lipase. Video swallow study yesterday showed no evidence of aspiration or penetration. Esophagram showed no esophageal obstruction, severely dilated fluid-filled stomach. GI is following for further evaluation of possible gastric outlet obstruction, and possible infectious esophagitis likely s/p chemo. Hospice to evaluate. 03/08: Patient seen and evaluated bedside. She reports exquisite abdominal pain. Will treat with IV Dilaudid every 4 hours as needed. After discussion with patient's daughter she would like to have hospice be consulted. I discussed with patient's daughter that the whole goal of hospice is to have patient's treated at home instead of frequent ER visits, and she conveyed understanding. Daughter is okay with DNR at this time. Critical care time 33 minutes spent reviewing charts, reviewing labs, reviewing imaging, discussion with patient's daughter, and discussion with RN. 03/07 Evaluated examined at bedside. Continue current. Discussed with bedside RN. With frequent admissions a talk of hospice with patient and family may not be a bad idea. Either way has improved a bit since presentation. Consult recommendations reviewed. Vitals/I&O Vitals/I&O: Vital Signs Date Time Temp Pulse Resp B/P (MAP) Pulse Ox O2 Delivery O2 Flow Rate FiO2 03/16/22 19:44 Nasal Cannula 2.0 03/16/22 19:00 97.6 126 18 110/79 (89) 94 97.6 I & O 03/16/22 03/16/22 03/17/22 15:00 23:00 07:00 Intake Total 1000 ml Balance 1000 ml Physical Exam General: Other (frail) Heart: Regular rate Lungs: Clear Abdomen: Other (distended , soft) Extremities: No cyanosis Skin: No breakdown Assessment and Plan Assessmemt and Plan Problems Medical Problems: (1) Acute hypokalemia Status: Acute (2) Colitis Status: Acute (3) Intractable abdominal pain Status: Acute Comment Review of Relevant I have reviewed the following items oriana (where applicable) has been applied. Medications: Current Medications Medications (Trade) Dose Ordered Sig/Mague Route PRN Reason Start Time Stop Time Status Last Admin Dose Admin Morphine Sulfate (Roxanol Conc) 20 mg PRN Q3HRS PRN SL PAIN 03/16/22 09:45 03/17/22 01:57 DC 03/16/22 17:48 Hydromorphone HCl (Dilaudid) 2 mg PRN Q3HRS PRN IVP SEVERE PAIN 03/16/22 19:00 03/17/22 01:57 DC 03/16/22 20:20 Justifications for Admission Other Justification DOMINGO BARCENAS MD Mar 17, 2022 08:15
== END 2022-03-17 | DRG 372 ==
LOC: ER 16:41 → 5 NORTH 20:14
PROVIDERS: ADMIT Internal Medicine; ATTEND Internal Medicine
PROC: 0W9G3ZZ Drainage of Peritoneal Cavity, Percutaneous Approach (ICD-10-PCS; principal; 2022-03-06)
DX: A04.72 Enterocolitis due to Clostridium difficile, not specified as recurrent (principal); C25.9 Malignant neoplasm of pancreas, unspecified; C78.7 Secondary malignant neoplasm of liver and intrahepatic bile duct; K31.1 Adult hypertrophic pyloric stenosis; R18.8 Other ascites; G89.3 Neoplasm related pain (acute) (chronic); D64.9 Anemia, unspecified; R13.10 Dysphagia, unspecified; E87.6 Hypokalemia; Z66 Do not resuscitate; E03.9 Hypothyroidism, unspecified; E78.00 Pure hypercholesterolemia, unspecified; E78.5 Hyperlipidemia, unspecified; K21.00 Gastro-esophageal reflux disease with esophagitis, without bleeding; R32 Unspecified urinary incontinence; R79.1 Abnormal coagulation profile; Z82.49 Family history of ischemic heart disease and other diseases of the circulatory system; Z83.3 Family history of diabetes mellitus; Z85.07 Personal history of malignant neoplasm of pancreas; Z86.19 Personal history of other infectious and parasitic diseases; Z87.891 Personal history of nicotine dependence; Z90.411 Acquired partial absence of pancreas; Z90.49 Acquired absence of other specified parts of digestive tract; Z92.21 Personal history of antineoplastic chemotherapy; F32.A Depression, unspecified; F41.9 Anxiety disorder, unspecified; Z88.0 Allergy status to penicillin
CPT/HCPCS: 36415; 49083; 71045; 74018; 74177; 74220; 74230; 80048; 80053; 82150; 82274; 83605; 83690; 83735; 84484; 85025; 85027; 85610; 85730; 86850; 86900; 86901; 87493; 93005; 96361; 96374; 96375; 96376; C9113; J0780; J1170; J1450; J2930; J3010; J3480; J3490; J7030; J7040; Q9967; 92611-GN; 99285-25; G0378